=== PATIENT | female | born 1945 | race Caucasian/White ===

== ENCOUNTER 2017-01-02 23:45 | Emergency (ER) | payer MEDICARE, BC ==
[2017-01-02 23:57] VITALS: BP 170/74; PULSE 65; RESP 20; TEMP 98.2
[2017-01-03] MEDS ORDERED: CEPHALEXIN 500MG STARTER PACK 4 CAP BTL PO STA (00:17)
--- NOTE | 2017-01-03 00:17 | ED ---
Skin/Abscess/FB HPI - General Chief complaint: Skin/Abscess/Foreign Body Stated complaint: Bump on Head Time Seen by Provider: 01/03/17 00:06 Source: patient, RN notes reviewed Mode of arrival: ambulatory Limitations: no limitations - History of Present Illness Initial comments: 71-year-old female presents to the emergency department with a chief complaint of bump to the left side of the head. Patient states noticed it tonight. She states she noticed a smaller lump to the left neck area, so she was concerned. He denies any fever chills cough, runny nose with this. Patient states she was outside a lot sensation over his related to that. Patient denies any injury. Patient states she just wanted make sure the bump was okay so she thought that she should be seen. Patient denies any recent fever, chills, shortness of breath , chest pain, back pain, abdominal pain, nausea vomiting, numbness or tingling, dysuria or hematuria, constipation or diarrhea, headaches or visual changes, or any other current symptoms. - Related Data Home Medications Medication Instructions Recorded Confirmed Aspirin 81 mg PO DAILY 05/23/14 05/23/14 Clopidogrel [Plavix] 75 mg PO DAILY 05/23/14 05/23/14 Furosemide [Lasix] 40 mg PO DAILY 05/23/14 05/23/14 Losartan [Cozaar] 50 mg PO DAILY 05/23/14 05/23/14 Metoprolol Tartrate [Lopressor] 50 mg PO BID 05/23/14 05/23/14 Multivitamins, Thera [Multivitamin] 1 tab PO DAILY 05/23/14 05/23/14 [place]-3 Fatty Acids/Fish Oil [Fish 1,000 mg PO DAILY 05/23/14 05/23/14 Oil 1,000 mg Softgel] Potassium Chloride ER [K-Dur 20] 20 meq PO DAILY 05/23/14 05/23/14 Simvastatin [Zocor] 40 mg PO DAILY 05/23/14 05/23/14 niCARdipine HCL 20 mg PO TID 05/23/14 05/23/14 Previous Rx's Medication Instructions Recorded Famotidine [Pepcid] 20 mg PO DAILY #30 tablet 05/23/14 Cephalexin [Keflex] 500 mg PO Q6HR #40 cap 01/03/17 Allergies Allergy/AdvReac Type Severity Reaction Status Date / Time No Known Allergies Allergy Verified 01/02/17 23:57 Review of Systems ROS Statement: Those systems with pertinent positive or pertinent negative responses have been documented in the HPI. ROS Other: All systems not noted in ROS Statement are negative. Past Medical History Past Medical History: Coronary Artery Disease (CAD), Chest Pain / Angina, Hyperlipidemia, Hypertension History of Any Multi-Drug Resistant Organisms: None Reported Past Surgical History: Cholecystectomy, Heart Catheterization, Heart Catheterization With Stent, Orthopedic Surgery, Tubal Ligation Additional Past Surgical History / Comment(s): bilat knee, cataract Past Anesthesia/Blood Transfusion Reactions: No Reported Reaction Date of Last Stent Placement:: 2005 Past Psychological History: No Psychological Hx Reported Smoking Status: Former smoker Past Alcohol Use History: None Reported Past Drug Use History: None Reported General Exam Limitations: no limitations General appearance: alert, in no apparent distress Head exam: Present: other (Patient appears to have an insect bites left-sided habitus localized reaction with mild erythema. No rashes noted to the area.) Eye exam: Present: normal appearance, PERRL, EOMI. Absent: scleral icterus, conjunctival injection, periorbital swelling ENT exam: Present: normal exam, mucous membranes moist Neck exam: Present: normal inspection, lymphadenopathy (1 single lymph node to the left lower aspect of the neck below the area of infection). Absent: tenderness, meningismus Respiratory exam: Present: normal lung sounds bilaterally. Absent: respiratory distress, wheezes, rales, rhonchi, stridor Cardiovascular Exam: Present: regular rate, normal rhythm, normal heart sounds. Absent: systolic murmur, diastolic murmur, rubs, gallop, clicks Neurological exam: Present: alert, oriented X3 Psychiatric exam: Present: normal affect, normal mood Skin exam: Present: warm, dry, intact, normal color. Absent: rash Course Vital Signs 01/02/17 23:53 Temperature 98.2 F Pulse Rate 65 Respiratory 20 Rate Blood Pressure 170/74 O2 Sat by Pulse 97 Oximetry Medical Decision Making - Medical Decision Making 70-year-old female presents for appears to be insect bites left side of the head. This measures. The concern for possible infection versus localized reaction. The patient Keflex for concern. We did discuss follow up with Dr. sears parameters all patient's questions. She states she understood and she is return plan. She will be discharged. Disposition Clinical Impression: Insect bite head Disposition: HOME SELF-CARE Condition: Stable Instructions: Insect Bite or Sting (ED) Additional Instructions: Please use medication as discussed. Please follow up with family doctor if symptoms have not improved over the next two days. Please return to the emergency room if your symptoms increase or worsen or for any other concerns. Prescriptions: Cephalexin [Keflex] 500 mg PO Q6HR #40 cap Referrals: Matthew Le MD [Primary Care Provider] - 1-2 days Time of Disposition: 00:17
== END 2017-01-03 00:27 | disposition home or self-care (01) ==
LOC: EC 23:45
DX: S00.96XA Insect bite (nonvenomous) of unspecified part of head, initial encounter (principal); R59.0 Localized enlarged lymph nodes; E78.5 Hyperlipidemia, unspecified; I10 Essential (primary) hypertension; Z87.891 Personal history of nicotine dependence; Z79.82 Long term (current) use of aspirin; Z79.899 Other long term (current) drug therapy; W57.XXXA Bitten or stung by nonvenomous insect and other nonvenomous arthropods, initial encounter
CPT/HCPCS: 99283

== ENCOUNTER 2018-01-16 20:28 | Observation (INO) | payer MEDICARE, BC ==
[2018-01-16] MEDS ORDERED: MORPHINE SULFATE 2 MG/ML SYRINGE IV STA (21:21)
[2018-01-16] MEDS ORDERED: ONDANSETRON 4 MG/2 ML VIAL IVP STA (21:21)
[2018-01-16] MEDS ORDERED: NITROGLYCERIN OINT 1 INCH/GM PACKET TOPICAL STA (21:21)
--- NOTE | 2018-01-16 21:24 | ED ---
General Adult HPI - General Chief complaint: Chest Pain Stated complaint: Chest Pain Time Seen by Provider: 01/16/18 20:41 Source: patient, EMS Mode of arrival: EMS Limitations: no limitations - History of Present Illness Initial comments: 72 years old female with history of coronary artery disease status post stents and angioplasty comes in with epigastric pain radiating to the chest. Chest pain gets worse with deep breaths she is known cardiac patient had a stents in place she is also status post gallbladder surgery and nausea no vomiting did notice some cold sweats pain travels from the chest. Chest and then also affects. Review of system is unremarkable otherwise - Related Data Home Medications Medication Instructions Recorded Confirmed Aspirin 81 mg PO HS 05/23/14 01/16/18 Furosemide [Lasix] 40 mg PO DAILY 05/23/14 01/16/18 Losartan [Cozaar] 50 mg PO DAILY 05/23/14 01/16/18 Multivitamins, Thera [Multivitamin] 1 tab PO DAILY 05/23/14 01/16/18 [place]-3 Fatty Acids/Fish Oil [Fish 1,000 mg PO DAILY 05/23/14 01/16/18 Oil 1,000 mg Softgel] Potassium Chloride ER [K-Dur 20] 20 meq PO DAILY 05/23/14 01/16/18 Aspirin EC [Ecotrin Low Dose] 324 mg PO ONCE PRN 01/16/18 01/16/18 Atorvastatin [Lipitor] 40 mg PO HS 01/16/18 01/16/18 Docusate [Colace] 100 mg PO DAILY 01/16/18 01/16/18 Nitroglycerin Sl Tabs [Nitrostat] 0.4 mg SUBLINGUAL Q5M PRN 01/16/18 01/16/18 amLODIPine [Norvasc] 5 mg PO DAILY 01/16/18 01/16/18 Allergies Allergy/AdvReac Type Severity Reaction Status Date / Time No Known Allergies Allergy Verified 01/16/18 20:45 Review of Systems ROS Statement: Those systems with pertinent positive or pertinent negative responses have been documented in the HPI. ROS Other: All systems not noted in ROS Statement are negative. Past Medical History Past Medical History: Coronary Artery Disease (CAD), Chest Pain / Angina, Hyperlipidemia, Hypertension History of Any Multi-Drug Resistant Organisms: None Reported Past Surgical History: Cholecystectomy, Heart Catheterization, Heart Catheterization With Stent, Orthopedic Surgery, Tubal Ligation Additional Past Surgical History / Comment(s): bilat knee, cataract Past Anesthesia/Blood Transfusion Reactions: No Reported Reaction Date of Last Stent Placement:: 2005 Past Psychological History: No Psychological Hx Reported Smoking Status: Former smoker Past Alcohol Use History: None Reported Past Drug Use History: None Reported General Exam - General Exam Comments Initial Comments: General: The patient is awake and alert, in no distress, and does not appear acutely ill. Skin: Skin is warm and dry and no rashes or lesions are noted. Eye: Pupils are equal, round and reactive to light, extra-ocular movements are intact; there is normal conjunctiva bilaterally. Ears, nose, mouth and throat: There are moist mucous membranes and no oral lesions. Neck: The neck is supple, there is no tenderness or JVD. Cardiovascular: There is a regular rate and rhythm. No murmur, rub or gallop is appreciated. Respiratory: To auscultation bilateral, crease breath sounds bilateral Gastrointestinal: Soft, non-distended, non-tender abdomen without masses or organomegaly noted. There is no rebound or guarding present. Bowel sounds are unremarkable. Back: There is no tenderness to palpation in the midline. There is no obvious deformity. Musculoskeletal: Normal ROM, no tenderness, There is no pedal edema. There is no calf tenderness or swelling. No cords were appreciated. Neurological: CN II-XII intact, Cranial nerves III through XII are intact. There are no obvious motor or sensory deficits. Coordination appears grossly intact. Speech is normal. Psychiatric: Cooperative, appropriate mood & affect, normal judgment. Limitations: no limitations Course Vital Signs 01/16/18 01/16/18 01/16/18 20:33 20:40 20:44 Temperature 97 F L 97.0 F L Pulse Rate 80 82 Respiratory 16 16 16 Rate Blood Pressure 183/64 183/64 O2 Sat by Pulse 97 99 Oximetry 01/16/18 01/17/18 22:48 00:17 Temperature 97.5 F L 97.0 F L Pulse Rate 90 76 Respiratory 16 16 Rate Blood Pressure 173/74 129/59 O2 Sat by Pulse 96 94 L Oximetry Review of the labs and imaging is as follows CBC, CMP, troponin is unremarkable EKG was negative as well d-dimer was elevated CT angiogram ruled out pulmonary embolism considering her ischemic heart disease and continues chest pain she be admitted to the hospital with the cardiology consult she be admitted to [facility] EKG Findings - EKG Comments: EKG Findings:: G is normal sinus ventricular rate is 77 PA interval is 170 QRS duration is 82 QT/QTc is 386/426 review cc EKG does not reveal any ST elevation or ST depression Medical Decision Making - Lab Data Result diagrams: 01/16/18 21:00 01/16/18 21:00 Lab Results 01/16/18 01/16/18 01/16/18 Range/Units 21:00 21:00 21:00 WBC 6.7 (3.8-10.6) k/uL RBC 4.25 (3.80-5.40) m/uL Hgb 12.9 (11.4-16.0) gm/dL Hct 39.5 (34.0-46.0) % MCV 92.9 (80.0-100.0) fL MCH 30.5 (25.0-35.0) pg MCHC 32.8 (31.0-37.0) g/dL RDW 13.1 (11.5-15.5) % Plt Count 175 (150-450) k/uL Neutrophils % 65 % Lymphocytes % 22 % Monocytes % 8 % Eosinophils % 2 % Basophils % 1 % Neutrophils # 4.4 (1.3-7.7) k/uL Lymphocytes # 1.5 (1.0-4.8) k/uL Monocytes # 0.6 (0-1.0) k/uL Eosinophils # 0.2 (0-0.7) k/uL Basophils # 0.0 (0-0.2) k/uL PT (9.0-12.0) sec INR (<1.2) APTT (22.0-30.0) sec D-Dimer (<0.60) mg/L FEU Sodium 139 (137-145) mmol/L Potassium 3.6 (3.5-5.1) mmol/L Chloride 104 (98-107) mmol/L Carbon Dioxide 26 (22-30) mmol/L Anion Gap 9 mmol/L BUN 18 H (7-17) mg/dL Creatinine 0.60 (0.52-1.04) mg/dL Est GFR (CKD-EPI)AfAm >90 (>60 ml/min/1.73 sqM) Est GFR (CKD-EPI)NonAf >90 (>60 ml/min/1.73 sqM) Glucose 110 H (74-99) mg/dL Calcium 9.3 (8.4-10.2) mg/dL Magnesium 2.1 (1.6-2.3) mg/dL Total Bilirubin 0.4 (0.2-1.3) mg/dL AST 27 (14-36) U/L ALT 31 (9-52) U/L Alkaline Phosphatase 103 (38-126) U/L Total Creatine Kinase 83 (30-135) U/L CK-MB (CK-2) 1.1 (0.0-2.4) ng/mL CK-MB (CK-2) Rel Index 1.3 Troponin I <0.012 (0.000-0.034) ng/mL NT-Pro-B Natriuret Pep pg/mL Total Protein 7.0 (6.3-8.2) g/dL Albumin 4.0 (3.5-5.0) g/dL 01/16/18 01/16/18 Range/Units 21:00 21:00 WBC (3.8-10.6) k/uL RBC (3.80-5.40) m/uL Hgb (11.4-16.0) gm/dL Hct (34.0-46.0) % MCV (80.0-100.0) fL MCH (25.0-35.0) pg MCHC (31.0-37.0) g/dL RDW (11.5-15.5) % Plt Count (150-450) k/uL Neutrophils % % Lymphocytes % % Monocytes % % Eosinophils % % Basophils % % Neutrophils # (1.3-7.7) k/uL Lymphocytes # (1.0-4.8) k/uL Monocytes # (0-1.0) k/uL Eosinophils # (0-0.7) k/uL Basophils # (0-0.2) k/uL PT 9.9 (9.0-12.0) sec INR 1.0 (<1.2) APTT 19.9 L (22.0-30.0) sec D-Dimer 0.88 H (<0.60) mg/L FEU Sodium (137-145) mmol/L Potassium (3.5-5.1) mmol/L Chloride (98-107) mmol/L Carbon Dioxide (22-30) mmol/L Anion Gap mmol/L BUN (7-17) mg/dL Creatinine (0.52-1.04) mg/dL Est GFR (CKD-EPI)AfAm (>60 ml/min/1.73 sqM) Est GFR (CKD-EPI)NonAf (>60 ml/min/1.73 sqM) Glucose (74-99) mg/dL Calcium (8.4-10.2) mg/dL Magnesium (1.6-2.3) mg/dL Total Bilirubin (0.2-1.3) mg/dL AST (14-36) U/L ALT (9-52) U/L Alkaline Phosphatase (38-126) U/L Total Creatine Kinase (30-135) U/L CK-MB (CK-2) (0.0-2.4) ng/mL CK-MB (CK-2) Rel Index Troponin I (0.000-0.034) ng/mL NT-Pro-B Natriuret Pep 162 pg/mL Total Protein (6.3-8.2) g/dL Albumin (3.5-5.0) g/dL Disposition Clinical Impression: Chest pain Disposition: ADMITTED IP TO THIS HOSP Condition: Good Referrals: Matthew Le MD [Primary Care Provider] - 1-2 days
[2018-01-16 21:40] LABS: Basophils % (A) 1 %; Eosinophils # (A) 0.2 k/uL (0-0.7); Eosinophils % (A) 2 %; HCT 39.5 % (34.0-46.0); HGB 12.9 gm/dL (11.4-16.0); Lymphocytes # (A) 1.5 k/uL (1.0-4.8); Lymphocytes % (A) 22 %; MCH 30.5 pg (25.0-35.0); MCHC 32.8 g/dL (31.0-37.0); MCV 92.9 fL (80.0-100.0); Mean Platelet Volume 7.8; Monocytes # (A) 0.6 k/uL (0-1.0); Monocytes % (A) 8 %; Neutrophils # (A) 4.4 k/uL (1.3-7.7); Neutrophils % (A) 65 %; Platelet Count 175 k/uL (150-450); RBC 4.25 m/uL (3.80-5.40); RDW 13.1 % (11.5-15.5); WBC 6.7 k/uL (3.8-10.6)
[2018-01-16 21:55] LABS: ALT 31 U/L (9-52); AST 27 U/L (14-36); Alkaline Phosphatase 103 U/L (38-126); Anion Gap 9 mmol/L; Blood Urea Nitrogen 18 mg/dL (7-17); Calcium 9.3 mg/dL (8.4-10.2); Carbon Dioxide 26 mmol/L (22-30); Chloride 104 mmol/L (98-107); Glucose 110 mg/dL (74-99); Magnesium 2.1 mg/dL (1.6-2.3); Potassium 3.6 mmol/L (3.5-5.1); Sodium 139 mmol/L (137-145); Total Bilirubin 0.4 mg/dL (0.2-1.3)
--- NOTE | 2018-01-16 21:55 | XR ---
EXAMINATION TYPE: XR chest 2V DATE OF EXAM: 01/16/2018 COMPARISON: 05/23/2014 HISTORY: Chest pain TECHNIQUE: Frontal and lateral views of the chest are obtained. FINDINGS: There is no heart failure nor confluent pneumonic infiltrate. There is hiatal hernia. Cost ophrenic angles are clear. There are chest leads. Bony thorax is intact. IMPRESSION: No active cardiopulmonary disease. Hiatal hernia. No change.
[2018-01-16 22:00] LABS: Creatine Kinase 83 U/L (30-135)
[2018-01-16 22:04] LABS: Prothrombin Time 9.9 sec (9.0-12.0)
[2018-01-16 22:11] LABS: Partial Thromboplastin Time 19.9 sec (22.0-30.0)
[2018-01-16 22:12] LABS: D-Dimer 0.88 mg/L FEU (<0.60)
[2018-01-16 22:13] LABS: Creatine Kinase MB 1.1 ng/mL (0.0-2.4); Troponin I <0.012 ng/mL (0.000-0.034)
--- NOTE | 2018-01-16 23:50 | CT ---
EXAMINATION TYPE: CT chest angio for PE DATE OF EXAM: 01/16/2018 COMPARISON: NONE HISTORY: chest pain CT DLP: 799.60 mGycm Automated exposure control for dose reduction was used. CONTRAST: CT Chest for pulmonary embolism performed with with IV Contrast, patient injected with 80 mL of Isovu e 370. FINDINGS: There are 3-D post processed images. The lungs are clear of consolidation. There is a large hiatal he rnia. There is some atelectasis at the left lung base adjacent to the hiatal hernia. There is no pleu ral effusion. There is normal contrast opacification of the pulmonary arteries. I see no filling defect. There is n o sign of aneurysm or dissection of the thoracic aorta. There is no mediastinal adenopathy. There are small bronchial lymph nodes that measure up to 1 cm. There is no pericardial effusion. The bony thor ax is intact. There is spurring in the thoracic spine. IMPRESSION: Hiatal hernia. No evidence of pulmonary embolism.
[2018-01-17] MEDS ORDERED: MORPHINE SULFATE 2 MG/ML SYRINGE IV PRN (00:30)
[2018-01-17] MEDS ORDERED: NITROGLYCERIN SL TABS 0.4 MG TAB SUBLINGUAL PRN (00:30)
[2018-01-17 02:27] VITALS: BMI 47.2
[2018-01-17 03:21] LABS: Creatine Kinase 79 U/L (30-135)
[2018-01-17 03:35] LABS: Creatine Kinase MB 0.9 ng/mL (0.0-2.4); Troponin I <0.012 ng/mL (0.000-0.034)
[2018-01-17] MEDS ORDERED: DOCUSATE 100 MG CAP PO SCH (09:00)
[2018-01-17] MEDS ORDERED: NON-FORMULARY DRUG (Omega-3 Fatty Acids/Fish Oil [Fish Oil 1,000 Mg Softgel] 1,000 MG) PO SCH (09:00)
[2018-01-17] MEDS ORDERED: amLODIPine 5 MG TAB PO SCH (09:00)
[2018-01-17] MEDS ORDERED: FUROSEMIDE 40 MG TAB PO SCH (09:00)
[2018-01-17] MEDS ORDERED: POTASSIUM CHLORIDE ER 20 MEQ TAB.ER PO SCH (09:00)
[2018-01-17] MEDS ORDERED: LOSARTAN 50 MG TAB PO SCH (09:00)
--- NOTE | 2018-01-17 09:11 | P.CRDCN ---
History of Present Illness Consult date: 01/17/18 Consult reason: chest pain Chief complaint: Chest pain History of present illness: This is a pleasant 72-year-old female with history of hypertension, hyperlipidemia, obesity, with history of stenting of the circumflex artery in [place] in 2005. She follows with Dr. Bennett in the office. Patient overall has been doing fairly well at home, she presents to the hospital with symptoms of chest discomfort. According to the patient, symptoms initially started in the upper abdominal region, then radiated up midsternally into the chest and across the left side of her chest. States that she drinks some cola trying to see if she could belch, thinking it was gas pain. because of symptoms persisted she came to the emergency room for further evaluation. EKG performed on arrival here shows a normal sinus rhythm with no acute changes. Chest x-ray did not reveal any active cardiopulmonary disease. Blood pressure 124/50 with a heart rate in the 60s. CBC normal, d-dimer 0.8, CT of the chest negative for pulmonary embolism. Sodium 139, potassium 3.6, BUN 18, creatinine 0.6. Troponins negative 2. At the time of my examination this morning, she does complain of some mild abdominal discomfort, denies any chest discomfort. Past Medical History Past Medical History: Coronary Artery Disease (CAD), Chest Pain / Angina, Hyperlipidemia, Hypertension History of Any Multi-Drug Resistant Organisms: None Reported Past Surgical History: Cholecystectomy, Heart Catheterization, Heart Catheterization With Stent, Orthopedic Surgery, Tubal Ligation Additional Past Surgical History / Comment(s): bilat knee, cataract, skin CA 2017 Past Anesthesia/Blood Transfusion Reactions: No Reported Reaction Date of Last Stent Placement:: 2005 Past Psychological History: No Psychological Hx Reported Smoking Status: Former smoker Past Alcohol Use History: None Reported Past Drug Use History: None Reported Medications and Allergies Home Medications Medication Instructions Recorded Confirmed Type Aspirin 81 mg PO HS 05/23/14 01/16/18 History Furosemide [Lasix] 40 mg PO DAILY 05/23/14 01/16/18 History Losartan [Cozaar] 50 mg PO DAILY 05/23/14 01/16/18 History Multivitamins, Thera [Multivitamin] 1 tab PO DAILY 05/23/14 01/16/18 History [place]-3 Fatty Acids/Fish Oil [Fish 1,000 mg PO DAILY 05/23/14 01/16/18 History Oil 1,000 mg Softgel] Potassium Chloride ER [K-Dur 20] 20 meq PO DAILY 05/23/14 01/16/18 History Aspirin EC [Ecotrin Low Dose] 324 mg PO ONCE PRN 01/16/18 01/16/18 History Atorvastatin [Lipitor] 40 mg PO HS 01/16/18 01/16/18 History Docusate [Colace] 100 mg PO DAILY 01/16/18 01/16/18 History Nitroglycerin Sl Tabs [Nitrostat] 0.4 mg SUBLINGUAL Q5M PRN 01/16/18 01/16/18 History amLODIPine [Norvasc] 5 mg PO DAILY 01/16/18 01/16/18 History Allergies Allergy/AdvReac Type Severity Reaction Status Date / Time No Known Allergies Allergy Verified 01/16/18 20:45 Physical Exam Vitals: Vital Signs Temp Pulse Pulse Resp BP BP Pulse Ox 01/17/18 07:32 96.6 F L 62 16 124/56 95 01/17/18 04:00 97.2 F L 64 16 107/55 96 01/17/18 01:41 97.0 F L 62 16 130/62 96 01/17/18 00:48 97.0 F L 69 20 138/75 95 01/17/18 00:17 97.0 F L 76 16 129/59 94 L 01/16/18 22:48 97.5 F L 90 16 173/74 96 01/16/18 20:44 16 01/16/18 20:40 97.0 F L 82 16 183/64 99 01/16/18 20:33 97 F L 80 16 183/64 97 Intake and Output 01/16/18 01/17/18 01/17/18 22:59 06:59 14:59 Other: Voiding Method Toilet Toilet # Voids 1 1 Weight 122.47 kg 124.9 kg PHYSICAL EXAMINATION: GENERAL: 72-year-old female in no apparent distress at time of my examination. HEENT: Head is atraumatic, normocephalic. Pupils equal, round. Sclera anicteric. Conjunctiva are clear. Mucous membranes of the mouth are moist. Neck is supple. There is no elevated jugular venous pressure.] bruit is heard. HEART EXAMINATION: Heart S1, S2 normal. No murmur or gallop heard. CHEST EXAMINATION: Lungs are clear to auscultation and precussion. No chest wall tenderness is noted on palpation or with deep breathing. ABDOMEN: Soft, obese, mild generalized tenderness. Bowel sounds are heard. No organomegaly noted]. EXTREITIES:[ 2+ periperal pulses with trace evidence of peripheral edema and no calf tenderness noted]. NEUROLGIC [patient i awake, alert and oriented -3.] . Results 01/16/18 21:00 01/16/18 21:00 Cardiac Enzymes 01/16/18 01/16/18 01/17/18 Range/Units 21:00 21:00 02:49 AST 27 (14-36) U/L CK-MB (CK-2) 1.1 0.9 (0.0-2.4) ng/mL Troponin I <0.012 <0.012 (0.000-0.034) ng/mL Coagulation 01/16/18 Range/Units 21:00 PT 9.9 (9.0-12.0) sec APTT 19.9 L (22.0-30.0) sec CBC 01/16/18 Range/Units 21:00 WBC 6.7 (3.8-10.6) k/uL RBC 4.25 (3.80-5.40) m/uL Hgb 12.9 (11.4-16.0) gm/dL Hct 39.5 (34.0-46.0) % Plt Count 175 (150-450) k/uL Comprehensive Metabolic Panel 01/16/18 Range/Units 21:00 Sodium 139 (137-145) mmol/L Potassium 3.6 (3.5-5.1) mmol/L Chloride 104 (98-107) mmol/L Carbon Dioxide 26 (22-30) mmol/L BUN 18 H (7-17) mg/dL Creatinine 0.60 (0.52-1.04) mg/dL Glucose 110 H (74-99) mg/dL Calcium 9.3 (8.4-10.2) mg/dL AST 27 (14-36) U/L ALT 31 (9-52) U/L Alkaline Phosphatase 103 (38-126) U/L Total Protein 7.0 (6.3-8.2) g/dL Albumin 4.0 (3.5-5.0) g/dL Current Medications Generic Name Dose Route Start Last Admin Trade Name Steven PRN Reason Stop Dose Admin Amlodipine Besylate 5 mg 01/17/18 09:00 01/17/18 07:38 Norvasc PO 5 mg DAILY ROSA Administration Aspirin 325 mg 01/18/18 09:00 Aspirin PO DAILY ROSA Atorvastatin Calcium 40 mg 01/17/18 21:00 Lipitor PO HS ROSA Docusate Sodium 100 mg 01/17/18 09:00 01/17/18 07:39 Colace PO 100 mg DAILY ROSA Administration Furosemide 40 mg 01/17/18 09:00 01/17/18 07:38 Lasix PO 40 mg DAILY ROSA Administration Losartan Potassium 50 mg 01/17/18 09:00 01/17/18 07:38 Cozaar PO 50 mg DAILY ROSA Administration Morphine Sulfate 4 mg 01/17/18 00:30 Morphine Sulfate (Inj) IV Q5M PRN Chest Pain Multivitamins 1 each 01/17/18 12:00 01/17/18 07:39 Theragran PO 1 each DAILY@1200 ROSA Administration Nitroglycerin 0.4 mg 01/17/18 00:30 Nitrostat SUBLINGUAL Q5M PRN Chest Pain Potassium Chloride 20 meq 01/17/18 09:00 01/17/18 07:38 K-Dur 20 PO 20 meq DAILY ROSA Administration Intake and Output 01/16/18 01/17/18 01/17/18 22:59 06:59 14:59 Other: Voiding Method Toilet Toilet # Voids 1 1 Weight 122.47 kg 124.9 kg 01/16/18 21:00 01/16/18 21:00 EKG Interpretations (text) Assessment and plan #1 chest pain, atypical for acute coronary syndrome. Troponins negative 3. EKG shows normal sinus rhythm with no acute changes. #2 generalized abdominal discomfort #3 known history of coronary artery disease with prior circumflex stenting in 2006 in [place] #4 hypertension #5 hyperlipidemia #6 obesity Plan We will obtain an echocardiogram with Doppler study. Patient is also been advised to undergo stress testing. Further recommendations will be based on these findings and the patient's clinical course. DNP note has been reviewed, I agree with a documented findings and plan of care. Patient was seen and examined.
[2018-01-17 09:49] LABS: Creatine Kinase 89 U/L (30-135)
[2018-01-17 09:58] LABS: Creatine Kinase MB 1.2 ng/mL (0.0-2.4); Troponin I <0.012 ng/mL (0.000-0.034)
[2018-01-17] MEDS ORDERED: DOBUTamine DRIP for NUC MED 500 MG in DEXTROSE/WATER 1 250ML.BAG IV ONE (11:02)
--- NOTE | 2018-01-17 11:06 | P.CRDCN ---
History of Present Illness History of present illness: Patient presented with abdominal discomfort that radiated up into her chest and then to shoulder and left arm. Normal cardiac enzymes normal ECG. Suggest dobutamine stress echo with Definity contrast Please see full dictation by [employer]ER Past Medical History Past Medical History: Coronary Artery Disease (CAD), Chest Pain / Angina, Hyperlipidemia, Hypertension History of Any Multi-Drug Resistant Organisms: None Reported Past Surgical History: Cholecystectomy, Heart Catheterization, Heart Catheterization With Stent, Orthopedic Surgery, Tubal Ligation Additional Past Surgical History / Comment(s): bilat knee, cataract, skin CA 2017 Past Anesthesia/Blood Transfusion Reactions: No Reported Reaction Date of Last Stent Placement:: 2005 Past Psychological History: No Psychological Hx Reported Smoking Status: Former smoker Past Alcohol Use History: None Reported Past Drug Use History: None Reported Medications and Allergies Home Medications Medication Instructions Recorded Confirmed Type Aspirin 81 mg PO HS 05/23/14 01/16/18 History Furosemide [Lasix] 40 mg PO DAILY 05/23/14 01/16/18 History Losartan [Cozaar] 50 mg PO DAILY 05/23/14 01/16/18 History Multivitamins, Thera [Multivitamin] 1 tab PO DAILY 05/23/14 01/16/18 History Trosper-3 Fatty Acids/Fish Oil [Fish 1,000 mg PO DAILY 05/23/14 01/16/18 History Oil 1,000 mg Softgel] Potassium Chloride ER [K-Dur 20] 20 meq PO DAILY 05/23/14 01/16/18 History Aspirin EC [Ecotrin Low Dose] 324 mg PO ONCE PRN 01/16/18 01/16/18 History Atorvastatin [Lipitor] 40 mg PO HS 01/16/18 01/16/18 History Docusate [Colace] 100 mg PO DAILY 01/16/18 01/16/18 History Nitroglycerin Sl Tabs [Nitrostat] 0.4 mg SUBLINGUAL Q5M PRN 01/16/18 01/16/18 History amLODIPine [Norvasc] 5 mg PO DAILY 01/16/18 01/16/18 History Allergies Allergy/AdvReac Type Severity Reaction Status Date / Time No Known Allergies Allergy Verified 01/16/18 20:45 Physical Exam Vitals: Vital Signs Temp Pulse Pulse Resp BP BP Pulse Ox 01/17/18 07:32 96.6 F L 62 16 124/56 95 01/17/18 04:00 97.2 F L 64 16 107/55 96 01/17/18 01:41 97.0 F L 62 16 130/62 96 01/17/18 00:48 97.0 F L 69 20 138/75 95 01/17/18 00:17 97.0 F L 76 16 129/59 94 L 01/16/18 22:48 97.5 F L 90 16 173/74 96 01/16/18 20:44 16 01/16/18 20:40 97.0 F L 82 16 183/64 99 01/16/18 20:33 97 F L 80 16 183/64 97 Intake and Output 01/16/18 01/17/18 01/17/18 22:59 06:59 14:59 Other: Voiding Method Toilet Toilet # Voids 1 1 Weight 122.47 kg 124.9 kg Results 01/16/18 21:00 01/16/18 21:00 Cardiac Enzymes 01/16/18 01/16/18 01/17/18 Range/Units 21:00 21:00 02:49 AST 27 (14-36) U/L CK-MB (CK-2) 1.1 0.9 (0.0-2.4) ng/mL Troponin I <0.012 <0.012 (0.000-0.034) ng/mL 01/17/18 Range/Units 08:51 AST (14-36) U/L CK-MB (CK-2) 1.2 (0.0-2.4) ng/mL Troponin I <0.012 (0.000-0.034) ng/mL Coagulation 01/16/18 Range/Units 21:00 PT 9.9 (9.0-12.0) sec APTT 19.9 L (22.0-30.0) sec CBC 01/16/18 Range/Units 21:00 WBC 6.7 (3.8-10.6) k/uL RBC 4.25 (3.80-5.40) m/uL Hgb 12.9 (11.4-16.0) gm/dL Hct 39.5 (34.0-46.0) % Plt Count 175 (150-450) k/uL Comprehensive Metabolic Panel 01/16/18 Range/Units 21:00 Sodium 139 (137-145) mmol/L Potassium 3.6 (3.5-5.1) mmol/L Chloride 104 (98-107) mmol/L Carbon Dioxide 26 (22-30) mmol/L BUN 18 H (7-17) mg/dL Creatinine 0.60 (0.52-1.04) mg/dL Glucose 110 H (74-99) mg/dL Calcium 9.3 (8.4-10.2) mg/dL AST 27 (14-36) U/L ALT 31 (9-52) U/L Alkaline Phosphatase 103 (38-126) U/L Total Protein 7.0 (6.3-8.2) g/dL Albumin 4.0 (3.5-5.0) g/dL Current Medications Generic Name Dose Route Start Last Admin Trade Name Freq PRN Reason Stop Dose Admin Amlodipine Besylate 5 mg 01/17/18 09:00 01/17/18 07:38 Norvasc PO 5 mg DAILY ROSA Administration Aspirin 325 mg 01/18/18 09:00 Aspirin PO DAILY [facility] Atorvastatin Calcium 40 mg 01/17/18 21:00 Lipitor PO HS [facility] Docusate Sodium 100 mg 01/17/18 09:00 01/17/18 07:39 Colace PO 100 mg DAILY ROSA Administration Furosemide 40 mg 01/17/18 09:00 01/17/18 07:38 Lasix PO 40 mg DAILY ROSA Administration Losartan Potassium 50 mg 01/17/18 09:00 01/17/18 07:38 Cozaar PO 50 mg DAILY ROSA Administration Morphine Sulfate 4 mg 01/17/18 00:30 Morphine Sulfate (Inj) IV Q5M PRN Chest Pain Multivitamins 1 each 01/17/18 12:00 01/17/18 07:39 Theragran PO 1 each DAILY@1200 [facility] Administration Nitroglycerin 0.4 mg 01/17/18 00:30 Nitrostat SUBLINGUAL Q5M PRN Chest Pain Pantoprazole Sodium 40 mg 01/18/18 07:30 Protonix PO AC-BRKFST [facility] Potassium Chloride 20 meq 01/17/18 09:00 01/17/18 07:38 K-Dur 20 PO 20 meq DAILY ROSA Administration Intake and Output 01/16/18 01/17/18 01/17/18 22:59 06:59 14:59 Other: Voiding Method Toilet Toilet # Voids 1 1 Weight 122.47 kg 124.9 kg 01/16/18 21:00 01/16/18 21:00
--- NOTE | 2018-01-17 11:59 | P.HPIM ---
History of Present Illness H&P Date: 01/17/18 Chief Complaint: Epigastric pain, chest pain HISTORY AND PHYSICAL AND DISCHARGE SUMMARY: This is a 72-year-old female patient of Dr. Matthew Le and Dr. Jones with past mental history of coronary artery disease status post stent , hypertension, hyperlipidemia, obstructive sleep apnea on CPAP. Patient states that she developed pain across the top of her stomach at the epigastric area and the pain was very severe. She thought it was related to her gallbladder but then the pain went up into her chest and went to the left side into the left arm. She has never had these symptoms before. She states her heart was racing at that time. She denies any nausea, sweats. She states she had a little shortness of breath. She was feeling tired all day yesterday. Pain does not worsen with exertion. But she does state that she was under a lot of stress yesterday she found out that a family member had . Initially her pain was a 6 or 7. She called 911 and took 4 baby aspirins. She had nitroglycerin at home but did not take her own. EMS arrived and they gave her nitroglycerin which did help the pain. By the time she got to the emergency center she still had some pain and morphine did resolve this after a period of time. Patient denies having any pain after admission. EKG was a normal sinus rhythm with no acute ST-T wave changes. White count and hemoglobin were within normal limits, creatinine 0.6. Troponins have been negative on 3 draws. CTA of the chest was negative for pulmonary embolism. Chest x-ray shows no acute cardiopulmonary disease. Hiatal hernia. No change. Patient was placed on the selective care unit and cardiology consult requested. Echocardiogram reveals EF of 55-60%, moderate concentric left hypertrophy, left atrium mildly dilated, mild aortic valve sclerosis, mild mitral regurgitation, mild tricuspid regurgitation. Dobutamine stress test was negative and patient was clear for discharge from cardiology. Discharge Medication List Aspirin 81 mg PO HS 05/23/14 [History] Furosemide [Lasix] 40 mg PO DAILY 05/23/14 [History] Losartan [Cozaar] 50 mg PO DAILY 05/23/14 [History] Multivitamins, Thera [Multivitamin (formulary)] 1 tab PO DAILY 05/23/14 [History ] Bahama-3 Fatty Acids/Fish Oil [Fish Oil 1,000 mg Softgel] 1,000 mg PO DAILY 05/23 [History] Potassium Chloride ER [K-Dur 20] 20 meq PO DAILY 05/23/14 [History] Atorvastatin [Lipitor] 40 mg PO HS 01/16/18 [History] Docusate [Colace] 100 mg PO DAILY 01/16/18 [History] Nitroglycerin Sl Tabs [Nitrostat] 0.4 mg SUBLINGUAL Q5M PRN 01/16/18 [History] amLODIPine [Norvasc] 5 mg PO DAILY 01/16/18 [History] Pantoprazole [Protonix] 40 mg PO AC-BRKFST #30 tablet. 01/17/18 [Rx] Review of Systems All systems: negative Constitutional: Denies chills, Denies fever, Denies poor appetite Eyes: denies blurred vision, denies pain Ears, nose, mouth and throat: Denies headache, Denies sore throat, Denies vertigo Cardiovascular: Reports chest pain, Reports palpitations, Reports shortness of breath, Denies decreased exercise tolerance, Denies dyspnea on exertion, Denies leg edema, Denies lightheadedness, Denies syncope Respiratory: Reports dyspnea, Denies congestion, Denies cough, Denies cough with sputum, Denies excessive sputum, Denies hemoptysis, Denies home oxygen, Denies wheezing (State. All be faxed) Gastrointestinal: Reports abdominal pain, Denies diarrhea, Denies nausea, Denies vomiting Genitourinary: Denies dysuria, Denies hematuria, Denies urgency, Denies urinary frequency Musculoskeletal: Denies myalgias Integumentary: Denies pruritus, Denies rash, Denies wounds Neurological: Denies numbness, Denies weakness Psychiatric: Denies anxiety, Denies depression Endocrine: Denies fatigue, Denies weight change Past Medical History Past Medical History: Coronary Artery Disease (CAD), Chest Pain / Angina, Hyperlipidemia, Hypertension, Sleep Apnea/CPAP/BIPAP History of Any Multi-Drug Resistant Organisms: None Reported Past Surgical History: Cholecystectomy, Heart Catheterization, Heart Catheterization With Stent, Orthopedic Surgery, Tubal Ligation Additional Past Surgical History / Comment(s): bilat total knee arthroplasty, bilateral cataract removal and intraocular lens implants, skin CA 2017, breast biopsy Past Anesthesia/Blood Transfusion Reactions: No Reported Reaction Date of Last Stent Placement:: 2005 Past Psychological History: No Psychological Hx Reported Smoking Status: Former smoker Past Alcohol Use History: None Reported Additional Past Alcohol Use History / Comment(s): Patient was a smoker for 20 years and quit in 1979. She denies any medical marijuana, street drug use or alcohol use. She is retired from the [employer]. Past Drug Use History: None Reported - Past Family History Father Additional Family Medical History / Comment(s): Father at age 63 from coronary artery disease. Mother Additional Family Medical History / Comment(s): Mother at age 94 from heart disease. Sister(s) Additional Family Medical History / Comment(s): Patient had total of 4 sisters: One from coronary artery disease, one from COPD, one from an overdose Brother(s) Additional Family Medical History / Comment(s): Patient had 2 brothers and one has history of coronary artery disease and CABG as well as amputations. Second brother has no major medical problems. Patient has 4 adult children with no major medical problems. Medications and Allergies Home Medications Medication Instructions Recorded Confirmed Type Aspirin 81 mg PO HS 05/23/14 01/16/18 History Furosemide [Lasix] 40 mg PO DAILY 05/23/14 01/16/18 History Losartan [Cozaar] 50 mg PO DAILY 05/23/14 01/16/18 History Multivitamins, Thera [Multivitamin] 1 tab PO DAILY 05/23/14 01/16/18 History Bahama-3 Fatty Acids/Fish Oil [Fish 1,000 mg PO DAILY 05/23/14 01/16/18 History Oil 1,000 mg Softgel] Potassium Chloride ER [K-Dur 20] 20 meq PO DAILY 05/23/14 01/16/18 History Atorvastatin [Lipitor] 40 mg PO HS 01/16/18 01/16/18 History Docusate [Colace] 100 mg PO DAILY 01/16/18 01/16/18 History Nitroglycerin Sl Tabs [Nitrostat] 0.4 mg SUBLINGUAL Q5M PRN 01/16/18 01/16/18 History amLODIPine [Norvasc] 5 mg PO DAILY 01/16/18 01/16/18 History Pantoprazole [Protonix] 40 mg PO LORETTA #30 tablet. 01/17/18 Rx Allergies Allergy/AdvReac Type Severity Reaction Status Date / Time No Known Allergies Allergy Verified 01/16/18 20:45 Physical Exam Vitals: Vital Signs Temp Pulse Pulse Resp BP BP Pulse Ox 01/17/18 07:32 96.6 F L 62 16 124/56 95 01/17/18 04:00 97.2 F L 64 16 107/55 96 01/17/18 01:41 97.0 F L 62 16 130/62 96 01/17/18 00:48 97.0 F L 69 20 138/75 95 01/17/18 00:17 97.0 F L 76 16 129/59 94 L 01/16/18 22:48 97.5 F L 90 16 173/74 96 01/16/18 20:44 16 01/16/18 20:40 97.0 F L 82 16 183/64 99 01/16/18 20:33 97 F L 80 16 183/64 97 Intake and Output 01/16/18 01/17/18 01/17/18 22:59 06:59 14:59 Other: Voiding Method Toilet Toilet # Voids 1 1 Weight 122.47 kg 124.9 kg Gen: This is a morbidly obese 72-year-old female patient. She is sitting in a chair at the bedside and appears to be in no acute distress. No respiratory distress is noted. HEENT: Head is atraumatic, normocephalic. Pupils equal, round. Sclerae is anicteric. Oral mucous membranes are moist. NECK: Supple. No JVD. No lymphadenopathy. No thyromegaly. LUNGS: Clear to auscultation. No wheezes or rhonchi. No intercostal retractions. HEART: Regular rate and rhythm. No murmur. ABDOMEN: Morbidly obese. Soft. Bowel sounds are present. No masses. Mild epigastric tenderness. EXTREMITIES: Trace pedal edema. No calf tenderness. Dorsalis pedis is +2 bilaterally. NEUROLOGICAL: Patient is awake, alert and oriented x3. Cranial nerves 2 through 12 are grossly intact. Results CBC & Chem 7: 01/16/18 21:00 01/16/18 21:00 Labs: Abnormal Lab Results - Last 24 Hours (Table) 01/16/18 01/16/18 Range/Units 21:00 21:00 APTT 19.9 L (22.0-30.0) sec D-Dimer 0.88 H (<0.60) mg/L FEU BUN 18 H (7-17) mg/dL Glucose 110 H (74-99) mg/dL Thrombosis Risk Factor Assmnt - DVT/VTE Prophylaxis DVT/VTE Prophylaxis: Pharmacologic Prophylaxis ordered - Choose All That Apply Other Risk Factors: Yes Each Risk Factor Represents 2 Points: Age 61-74 years Other congenital or acquired thrombophilia - If yes, enter type in comment: No Thrombosis Risk Factor Assessment Total Risk Factor Score: 2 Thrombosis Risk Factor Assessment Level: Low Risk Assessment and Plan Plan: 1. Chest pain with negative troponins. Most likely chest pain is secondary to gastroesophageal reflux disease. 2. History of hiatal hernia and possible symptoms of GERD. Patient will be started on Protonix and plan to continue this at discharge. 3. Hypertension. Continue amlodipine 5 mg daily, losartan 50 mg daily, Lasix 40 mg daily. 4. Hyperlipidemia. Continue atorvastatin 40 mg at bedtime. 5. History of coronary artery disease status post stent. Patient normally follows with Dr. Bennett. Continue aspirin, Lipitor, losartan. 6. Obstructive sleep apnea on CPAP. Patient placed as observation status. Discharge plan:Return home Impression and plan of care have been directed as dictated by the signing physician. Julissa Miner nurse practitioner acting as scribe for signing physician.
[2018-01-17] MEDS ORDERED: MULTIVITAMINS, THERA 1 EACH TAB PO SCH (12:00)
--- NOTE | 2018-01-17 12:11 | ECHOF ---
Referral Reason:chest pain MEASUREMENTS -------- HEIGHT: 162.6 cm WEIGHT: 124.7 kg BP: 124/56 RVIDd: 2.6 cm (< 3.3) IVSd: 1.5 cm (0.6 - 1.1) LVIDd: 3.5 cm (3.9 - 5.3) LVPWd: 1.3 cm (0.6 - 1.1) IVSs: 1.7 cm LVIDs: 1.8 cm LVPWs: 2.0 cm Ao Diam: 3.3 cm (2.0 - 3.7) AV Cusp: 1.4 cm (1.5 - 2.6) LA Diam: 4.0 cm (2.7 - 3.8) MV EXCURSION: 13.189 mm (> 18.000) MV EF SLOPE: 71 mm/s (70 - 150) EPSS: 0.8 cm MV E Fred: 1.04 m/s MV DecT: 249 ms MV A Fred: 1.03 m/s MV E/A Ratio: 1.01 RAP: 5.00 mmHg RVSP: 21.14 mmHg FINDINGS -------- Sinus rhythm. This was a technically adequate study. The left ventricular size is normal. There is moderate concentric left ventricular hypertrophy. O verall left ventricular systolic function is normal with, an EF between 55 - 60 %. The right ventricle is normal in size and function. The left atrium is mildly dilated. The right atrium is normal in size. Aortic valve is trileaflet and is mildly thickened. There is mild aortic valve sclerosis. The mitral valve leaflets are mildly thickened. Mild mitral annular calcification present. Mild m itral regurgitation is present. Mild tricuspid regurgitation present. The right ventricular systolic pressure, as measured by Doppl er, is 21.14mmHg. Pulmonic valve appears structurally normal. The aortic root size is normal. The pericardium is normal. CONCLUSIONS -------- 1. Sinus rhythm. 2. This was a technically adequate study. 3. The left ventricular size is normal. 4. There is moderate concentric left ventricular hypertrophy. 5. Overall left ventricular systolic function is normal with, an EF between 55 - 60 %. 6. The right ventricle is normal in size and function. 7. The left atrium is mildly dilated. 8. The right atrium is normal in size. 9. Aortic valve is trileaflet and is mildly thickened. 10. There is mild aortic valve sclerosis. 11. The mitral valve leaflets are mildly thickened. 12. Mild mitral annular calcification present. 13. Mild mitral regurgitation is present. 14. Mild tricuspid regurgitation present. 15. The right ventricular systolic pressure, as measured by Doppler, is 21.14mmHg. 16. Pulmonic valve appears structurally normal. 17. The aortic root size is normal. 18. The pericardium is normal. CRACKLING PRESS OPERATOR: Carmen Haji RDCS
[2018-01-17 12:34] VITALS: BP 163/83; PULSE 75; RESP 14; TEMP 97.9
--- NOTE | 2018-01-17 13:00 | P.STRESS ---
- Stress Test Note Stress Test Results/Findings: Exam Performed: dobutamine stress echo with con Exam Date: 01/17/18 Reason for Exam: CHEST PAIN Height: 5 ft 4 in Weight: 124.738 kg Protocol: DSE Stage: 2 Duration of Exercise: 5:15 Resting Heart Rate: 64 Resting Blood Pressure: 120/63 Maximum Achieved Heart Rate: 129 Maximum Achieved Blood Pressure: 120/47 85% PMHR: 124 100% PMHR: 146 METS: NA Technologist Comment: Stress Test Results/Findings: This is a 72-year-old female with history of hypertension and hypercholesterolemia being evaluated for symptoms of chest pain and shortness of breath. Stress data: Baseline EKG showed sinus rhythm with normal [place] interval and QRS duration. Blood pressure at rest is 120/63, pulse rate of 64. A standard dose of dobutamine was was initiated at 10 mics and was titrated to 30 mics, achieving a max moderate of 129 with a blood pressure of 137/62. EKGs taken during and after the dobutamine infusion did not reveal any significant changes to suggest ischemia. Occasional PVCs were noted. Echo data. Baseline echo images showed normal wall motion and thickening. Exercise echo images at low-dose and high-dose dobutamine showed augmentation of the wall motion and thickening in all the segments. The study was done with contrast. Final impression: #1. Negative dobutamine stress test #2. Negative dobutamine stress echo.
[2018-01-17] MEDS ORDERED: ATORVASTATIN 40 MG TAB PO SCH (21:00)
[2018-01-18] MEDS ORDERED: PANTOPRAZOLE 40 MG TABLET PO SCH (07:30)
[2018-01-18] MEDS ORDERED: ASPIRIN 325 MG TAB PO SCH (09:00)
--- NOTE | 2018-01-22 14:24 | ECHOS ---
Stress Test Results/Findings: Exam Performed: dobutamine stress echo with con Exam Date: 01/17/18 Reason for Exam: CHEST PAIN Height: 5 ft 4 in Weight: 124.738 kg Protocol: DSE Stage: 2 Duration of Exercise: 5:15 Resting Heart Rate: 64 Resting Blood Pressure: 120/63 Maximum Achieved Heart Rate: 129 Maximum Achieved Blood Pressure: 120/47 85% PMHR: 124 100% PMHR: 146 METS: NA Technologist Comment: Stress Test Results/Findings: This is a 72-year-old female with history of hypertension and hypercholesterolemia being evaluated for symptoms of chest pain and shortness of breath. Stress data: Baseline EKG showed sinus rhythm with normal [place] interval and QRS duration. Blood pressure at rest is 120/63, pulse rate of 64. A standard dose of dobutamine was was initiated at 10 mics and was titrated to 30 mics, achieving a max moderate of 129 with a blood pressure of 137/62. EKGs taken during and after the dobutamine infusion did not reveal any significant changes to suggest ischemia. Occasional PVCs were noted. Echo data. Baseline echo images showed normal wall motion and thickening. Exercise echo images at low-dose and high-dose dobutamine showed augmentation of the wall motion and thickening in all the segments. The study was done with contrast. Final impression: #1. Negative dobutamine stress test #2. Negative dobutamine stress echo. [facility]
== END 2018-01-17 15:30 | disposition home or self-care (01) ==
LOC: EC 20:28 → 6SEL 01-17 00:29
PROVIDERS: ADMIT Internal Medicine; ATTEND Internal Medicine
DX: R07.89 Other chest pain (principal); R10.13 Epigastric pain; R06.02 Shortness of breath; R00.0 Tachycardia, unspecified; I25.10 Atherosclerotic heart disease of native coronary artery without angina pectoris; I10 Essential (primary) hypertension; E78.5 Hyperlipidemia, unspecified; K44.9 Diaphragmatic hernia without obstruction or gangrene; G47.33 Obstructive sleep apnea (adult) (pediatric); Z99.89 Dependence on other enabling machines and devices; E66.01 Morbid (severe) obesity due to excess calories; Z68.42 Body mass index [BMI] 45.0-49.9, adult; F43.9 Reaction to severe stress, unspecified; Z90.49 Acquired absence of other specified parts of digestive tract; Z79.82 Long term (current) use of aspirin; Z79.899 Other long term (current) drug therapy; Z95.5 Presence of coronary angioplasty implant and graft; Z87.891 Personal history of nicotine dependence; Z85.828 Personal history of other malignant neoplasm of skin; Z81.8 Family history of other mental and behavioral disorders; Z82.49 Family history of ischemic heart disease and other diseases of the circulatory system; Z82.5 Family history of asthma and other chronic lower respiratory diseases
CPT/HCPCS: 96376; 96374 ×2; 99285 ×2; 96375; 36415; 93005; 93306; 93351; 85379; 83880; 80053; 82550 ×2; 82553 ×2; 83735; 84484 ×2; 85025; 85610; 85730; 71046; 71275; G0378; J1250; J2405; J2270; Q9967

== ENCOUNTER 2018-06-18 16:50 | Observation (INO) | payer MEDICARE, BC ==
[2018-06-18 17:58] LABS: Basophils % (A) 1 %; Eosinophils # (A) 0.1 k/uL (0-0.7); Eosinophils % (A) 2 %; HGB 14.2 gm/dL (11.4-16.0); Lymphocytes # (A) 1.1 k/uL (1.0-4.8); Lymphocytes % (A) 16 %; MCH 31.1 pg (25.0-35.0); MCHC 32.9 g/dL (31.0-37.0); MCV 94.4 fL (80.0-100.0); Mean Platelet Volume 7.9; Monocytes # (A) 0.4 k/uL (0-1.0); Monocytes % (A) 6 %; Neutrophils # (A) 4.9 k/uL (1.3-7.7); Neutrophils % (A) 74 %; Platelet Count 178 k/uL (150-450); RBC 4.56 m/uL (3.80-5.40); RDW 13.4 % (11.5-15.5); WBC 6.6 k/uL (3.8-10.6)
[2018-06-18 18:09] LABS: ALT 24 U/L (9-52); AST 34 U/L (14-36); Albumin 4.1 g/dL (3.5-5.0); Alkaline Phosphatase 95 U/L (38-126); Anion Gap 8 mmol/L; Blood Urea Nitrogen 15 mg/dL (7-17); Carbon Dioxide 27 mmol/L (22-30); Chloride 105 mmol/L (98-107); Glucose 120 mg/dL (74-99); Magnesium 2.2 mg/dL (1.6-2.3); Sodium 140 mmol/L (137-145); Total Bilirubin 0.6 mg/dL (0.2-1.3); Total Protein 7.6 g/dL (6.3-8.2)
[2018-06-18 18:16] LABS: Potassium 4.2 mmol/L (3.5-5.1)
--- NOTE | 2018-06-18 18:16 | ED ---
General Adult HPI - General Chief complaint: Chest Pain Stated complaint: CHEST PAIN Source: patient, EMS, RN notes reviewed, old records reviewed Mode of arrival: EMS Limitations: no limitations - History of Present Illness Initial comments: 72-year-old female patient with past history of coronary artery disease, one stent presents to ED with abdominal pain, chest pain. Patient states that she had just finished putting away groceries. Sat down on the couch to relax. He began experiencing epigastric abdominal pain. Patient states that she has history of hiatal hernia, states this pain is similar. The abdominal pain rated up to her chest. Patient then began experiencing some substernal chest pain that then radiated to her left shoulder, neck and back. ageor history of back and neck pain and says that this pain is similar. Patient experienced this for approximately 90 minutes. Patient called EMS and was transported to Hospital. In route to hospital patient received 325 aspirin, 60 mics fentantyl , and 1 sublingual nitro. this cocktail relieved the patient's symptoms that she was experiencing. patient had additional complaint of mild substernal pleuritic chest pain during this episode. Patient denies shortness of breath, tachypnea, nausea vomiting diarrhea, fever/chills, diaphoresis, syncope or presyncope. Systemic: Pt denies fatigue, myalgia, fever/chills, rash. Pt denies weakness, night sweats, weight loss. Neuro: Pt denies headache, visual disturbances, syncope or pre-syncope. HEENT: Pt denies ocular discharge or irritation, otalgia, rhinorrhea, pharyngitis or notable lymphadenopathy. Cardiopulmonary: Pt denies heart palpitations, dyspnea on exertion. Abdominal/GI: Pt denies abdominal pain, n/v/d. : Pt denies dysuria, burning w/ urination, frequency/urgency. Denies new onset urinary or bowel incontinence. MSK: Pt denies myalgia, loss of strength or function in extremities. - Related Data Home Medications Medication Instructions Recorded Confirmed Aspirin 81 mg PO HS 05/23/14 06/18/18 Furosemide [Lasix] 40 mg PO DAILY 05/23/14 06/18/18 Losartan [Cozaar] 50 mg PO DAILY 05/23/14 06/18/18 Multivitamins, Thera [Multivitamin 1 tab PO DAILY 10/24/14 11/19/18 (formulary)] Potassium Chloride ER [K-Dur 20] 20 meq PO DAILY 05/23/14 06/18/18 Atorvastatin [Lipitor] 40 mg PO HS 01/16/18 06/18/18 Docusate [Colace] 100 mg PO DAILY 01/16/18 06/18/18 Nitroglycerin Sl Tabs [Nitrostat] 0.4 mg SUBLINGUAL Q5M PRN 01/16/18 06/18/18 amLODIPine [Norvasc] 5 mg PO DAILY 01/16/18 06/18/18 Fish Oil/Dha/Epa [Fish Oil 1,200 1 cap PO DAILY 06/18/18 06/18/18 mg Fish Oil] Ranitidine HCl 150 mg PO DAILY 06/18/18 06/18/18 Previous Rx's Medication Instructions Recorded Pantoprazole [Protonix] 40 mg PO AC-BRKFST #30 tablet. 01/17/18 Allergies Allergy/AdvReac Type Severity Reaction Status Date / Time No Known Allergies Allergy Verified 06/18/18 19:20 Review of Systems ROS Statement: Those systems with pertinent positive or pertinent negative responses have been documented in the HPI. ROS Other: All systems not noted in ROS Statement are negative. Past Medical History Past Medical History: Coronary Artery Disease (CAD), Chest Pain / Angina, Hyperlipidemia, Hypertension, Sleep Apnea/CPAP/BIPAP Additional Past Medical History / Comment(s): hiatal hernia History of Any Multi-Drug Resistant Organisms: None Reported Past Surgical History: Cholecystectomy, Heart Catheterization, Heart Catheterization With Stent, Orthopedic Surgery, Tubal Ligation Additional Past Surgical History / Comment(s): bilat total knee arthroplasty, bilateral cataract removal and intraocular lens implants, skin CA 2017, breast biopsy Past Anesthesia/Blood Transfusion Reactions: No Reported Reaction Date of Last Stent Placement:: 2005 Past Psychological History: No Psychological Hx Reported, Anxiety Smoking Status: Former smoker Past Alcohol Use History: None Reported Past Drug Use History: None Reported - Past Family History Father Additional Family Medical History / Comment(s): Father at age 63 from coronary artery disease. Mother Additional Family Medical History / Comment(s): Mother at age 94 from heart disease. Sister(s) Additional Family Medical History / Comment(s): Patient had total of 4 sisters: One from coronary artery disease, one from COPD, one from an overdose Brother(s) Additional Family Medical History / Comment(s): Patient had 2 brothers and one has history of coronary artery disease and CABG as well as amputations. Second brother has no major medical problems. Patient has 4 adult children with no major medical problems. General Exam - General Exam Comments Initial Comments: Constitutional: NAD, AOX3, Pt has pleasant affect. HEENT: NC/AT, trachea midline, neck supple, no lymphadenopathy. Posterior pharynx non erythematous, without exudates. External ears appear normal, without discharge. Mucous membranes moist. Eyes PERRLA, EOM intact. There is no scleral icterus. No pallor noted. Cardiopulmonary: RRR, no murmurs, rubs or gallops, no JVD noted. Lungs CTAB in anterior and posterior hensley. No peripheral edema. Abdominal exam: Abdomen soft and non-distended. Abdomen non-tender to palpation in all 4 quadrants, no pulsatile mass. Bowel sounds active in LLQ. No hepatosplenomegaly. Neuro: CN II-XII intact. no focal deficit. No difficulty speaking. Full range of motion, normal strength in all extremities.sensation intact. MSK: extremity pulses equal bilaterally. Radial pulse +2 bilaterally. Dorsalis pedis pulse +2 bilaterally. Tibialis posterior pulse +2 bilaterally. Limitations: no limitations Course Vital Signs 06/18/18 06/18/18 16:57 23:05 Temperature 97.6 F Pulse Rate 83 86 Respiratory 16 16 Rate Blood Pressure 161/73 158/72 O2 Sat by Pulse 97 98 Oximetry Medical Decision Making - Medical Decision Making 72-year-old female patient with past history of coronary artery disease, one stent presents to ED with abdominal pain, chest pain. Patient states that she had just finished putting away groceries. Sat down on the couch to relax. He began experiencing epigastric abdominal pain. Patient states that she has history of hiatal hernia, states this pain is similar. The abdominal pain rated up to her chest. Patient then began experiencing some substernal chest pain that then radiated to her left shoulder, neck and back. ageor history of back and neck pain and says that this pain is similar. physical exam did not display gross pathology. Regular rate and rhythm. Abdomen nontender to palpation. Chest pain reproducible. Extensive laboratory investigations conducted. These included an EKG which displayed no acute signs of ischemia. Troponin which was negative. CBC and CMP which were unimpressive. a d-dimer was ordered which is mildly elevated.this was followed up by a thoracic aorta CT with contrast. This did not display any acute pathology. Patient to be admitted to observation for further evaluation. Case discussed with Dr. Cyr. - Lab Data Result diagrams: 06/18/18 17:45 06/18/18 17:45 Lab Results 06/18/18 06/18/18 06/18/18 Range/Units 17:45 17:45 17:45 WBC 6.6 (3.8-10.6) k/uL RBC 4.56 (3.80-5.40) m/uL Hgb 14.2 (11.4-16.0) gm/dL Hct 43.0 (34.0-46.0) % MCV 94.4 (80.0-100.0) fL MCH 31.1 (25.0-35.0) pg MCHC 32.9 (31.0-37.0) g/dL RDW 13.4 (11.5-15.5) % Plt Count 178 (150-450) k/uL Neutrophils % 74 % Lymphocytes % 16 % Monocytes % 6 % Eosinophils % 2 % Basophils % 1 % Neutrophils # 4.9 (1.3-7.7) k/uL Lymphocytes # 1.1 (1.0-4.8) k/uL Monocytes # 0.4 (0-1.0) k/uL Eosinophils # 0.1 (0-0.7) k/uL Basophils # 0.0 (0-0.2) k/uL D-Dimer 0.67 H (<0.60) mg/L FEU Sodium 140 (137-145) mmol/L Potassium 4.2 (3.5-5.1) mmol/L Chloride 105 (98-107) mmol/L Carbon Dioxide 27 (22-30) mmol/L Anion Gap 8 mmol/L BUN 15 (7-17) mg/dL Creatinine 0.48 L (0.52-1.04) mg/dL Est GFR (CKD-EPI)AfAm >90 (>60 ml/min/1.73 sqM) Est GFR (CKD-EPI)NonAf >90 (>60 ml/min/1.73 sqM) Glucose 120 H (74-99) mg/dL Calcium 10.0 (8.4-10.2) mg/dL Magnesium 2.2 (1.6-2.3) mg/dL Total Bilirubin 0.6 (0.2-1.3) mg/dL AST 34 (14-36) U/L ALT 24 (9-52) U/L Alkaline Phosphatase 95 (38-126) U/L Troponin I (0.000-0.034) ng/mL Total Protein 7.6 (6.3-8.2) g/dL Albumin 4.1 (3.5-5.0) g/dL 06/18/18 Range/Units 17:45 WBC (3.8-10.6) k/uL RBC (3.80-5.40) m/uL Hgb (11.4-16.0) gm/dL Hct (34.0-46.0) % MCV (80.0-100.0) fL MCH (25.0-35.0) pg MCHC (31.0-37.0) g/dL RDW (11.5-15.5) % Plt Count (150-450) k/uL Neutrophils % % Lymphocytes % % Monocytes % % Eosinophils % % Basophils % % Neutrophils # (1.3-7.7) k/uL Lymphocytes # (1.0-4.8) k/uL Monocytes # (0-1.0) k/uL Eosinophils # (0-0.7) k/uL Basophils # (0-0.2) k/uL D-Dimer (<0.60) mg/L FEU Sodium (137-145) mmol/L Potassium (3.5-5.1) mmol/L Chloride (98-107) mmol/L Carbon Dioxide (22-30) mmol/L Anion Gap mmol/L BUN (7-17) mg/dL Creatinine (0.52-1.04) mg/dL Est GFR (CKD-EPI)AfAm (>60 ml/min/1.73 sqM) Est GFR (CKD-EPI)NonAf (>60 ml/min/1.73 sqM) Glucose (74-99) mg/dL Calcium (8.4-10.2) mg/dL Magnesium (1.6-2.3) mg/dL Total Bilirubin (0.2-1.3) mg/dL AST (14-36) U/L ALT (9-52) U/L Alkaline Phosphatase (38-126) U/L Troponin I <0.012 (0.000-0.034) ng/mL Total Protein (6.3-8.2) g/dL Albumin (3.5-5.0) g/dL - EKG Data -: EKG Interpreted by Me EKG Comments: normal sinus rhythm. Normal EKG. Ventricular rate 65.. Full and 80. QRS 82. QT/QTc 400/416. Disposition Clinical Impression: Chest pain Disposition: ADMITTED IP TO THIS HOSP Condition: Good Is patient prescribed a controlled substance at d/c from ED?: No Referrals: Matthew Le MD [Primary Care Provider] - 1-2 days
--- NOTE | 2018-06-18 19:19 | XR ---
EXAMINATION TYPE: XR chest 2V DATE OF EXAM: 06/18/2018 COMPARISON: 01/16/2018 HISTORY: Chest pain TECHNIQUE: Frontal and lateral views of the chest are obtained. FINDINGS: Heart is enlarged. Lungs are clear of infiltrate. There is no heart failure. I see no sign of pleural effusion. There is hiatal hernia. The bony thorax is intact. IMPRESSION: Hiatal hernia. No active cardiopulmonary disease. No change.
--- NOTE | 2018-06-18 21:02 | CT ---
EXAMINATION TYPE: CT angio thor/abd pel aorta DATE OF EXAM: 06/18/2018 COMPARISON: None HISTORY: Chest pain, pain in neck, back, radiating down left arm. Hx heart cath CT DLP: 4591.4 mGycm. Automated Exposure Control for Dose Reduction was Utilized. CONTRAST: CT scan of the thorax, abdomen and pelvis is performed with IV Contrast, patient injected with 100 mL of Isovue 370. Exam performed without and with IV contrast. FINDINGS: There are 3-D post processed images. Thoracic aorta is atheromatous. There is no evidence of aneurysm or dissection of the thoracic aorta. I see no filling defects in the pulmonary arteries. Heart is en larged. There is hiatal hernia. There is paraesophageal large hiatal hernia. There is no pericardial effusion. Abdominal aorta is atheromatous. There is patency of the celiac artery and superior mesente alistair artery. There is bilateral patency of the renal arteries. There is atherosclerotic plaque at the aortic bifurcation. There is arterial flow in the common internal and external iliac arteries. There is arterial flow in the proximal femoral arteries. There is suboptimal contrast density in the femora l arteries. I do not see evidence of aortic aneurysm or dissection. No significant stenosis is seen. There is some patchy atelectasis at the left lung base. Liver spleen pancreas appear normal. Bile ducts are not dilated. There is no adrenal mass. Kidneys sh ow satisfactory contrast opacification. There is no hydronephrosis. There is spondylotic change in th e thoracic and lumbar spine. I see no bony destructive process. Bony pelvis is intact. Bladder disten ds smoothly. Uterus is anteverted. There is no inguinal hernia. IMPRESSION: Atherosclerotic vascular disease. No evidence of aortic aneurysm or dissection. No definite evidence of hemodynamically significant stenosis. Large hiatal hernia.
[2018-06-18] MEDS ORDERED: NALOXONE 0.4 MG/ML 1 ML VIAL IV PRN (21:22)
[2018-06-18] MEDS ORDERED: NITROGLYCERIN SL TABS 0.4 MG TAB SUBLINGUAL PRN (21:26)
[2018-06-18] MEDS ORDERED: ASPIRIN 81 MG PO PRN (21:27)
[2018-06-18] MEDS ORDERED: PANTOPRAZOLE 40 MG TABLET PO STA (22:47)
[2018-06-19] MEDS: HEPARIN SODIUM,PORCINE 5,000 UNIT/ML 1 ML VIAL SQ SCH ×4 (02:56→23:15)
[2018-06-19] MEDS ORDERED: PANTOPRAZOLE 40 MG TABLET PO SCH (10:00)
[2018-06-19] MEDS: ACETAMINOPHEN TAB 325 MG TAB PO PRN ×2 (11:13→18:51)
[2018-06-19] MEDS: amLODIPine 5 MG TAB PO SCH (11:14)
[2018-06-19] MEDS: LOSARTAN 50 MG TAB PO SCH (11:14)
[2018-06-19] MEDS: FUROSEMIDE 40 MG TAB PO SCH (11:14)
[2018-06-19] MEDS: POTASSIUM CHLORIDE ER 20 MEQ TAB.ER PO SCH (11:14)
[2018-06-19] MEDS: MAG HYDROX/AL HYDROX/SIMETH 30 ML CUP PO SCH ×3 (12:03→20:32)
--- NOTE | 2018-06-19 16:05 | P.HPIM ---
History of Present Illness H&P Date: 06/19/18 Chief Complaint: Chest pain This is a 72-year-old pleasant female patient of Dr. Warner Le in Dr. Bennett. She has underlying history of CAD hypertension hyperlipidemia obstructive sleep apnea on CPAP machine, admitted to the emergency room secondary to chest discomfort. He shouldn't had epigastric pain that went to the anterior chest and the left shoulder, this was persistent in nature, occurred when the patient was resting, she was given nitroglycerin and aspirin and fentanyl nasal spray by the EMS and was subsequently seen in the emergency room. Patient's pain is lasted for more than an hour,. She also has dysphagia intermittent to foods, not solid liquids, no aspirated events, patient denies any cough no fever no chills, patient does not M any melena or hematochezia. She has had a stress test in December 2017, and was unremarkable. She also has cholecystectomy in the past. No history of EGD in the past. She has hiatal hernia. Last echocardiogram performed in December 2017 shows EF of 55-60%, moderate concentric LVH, left atrium mildly dilated, mild aortic valve sclerosis , mild mitral regurgitation, mild tricuspid regurgitation, dobutamine stress test was negative at that time, and was cleared by cardiology for discharge during her last admission 01/17/2018. EKG was done in the emergency room that shows normal sinus rhythm with no acute ST-T wave changes, normal EKG, troponins are negative 3, patient was seen in emergency room for evaluation, patient was uncomfortable on laying there overnight, she took some pills for home meds thereafter the pain started again she also has dysphagia, we'll going to consult GI service along with attaining x-ray modified barium esophagram, along with cardiology consultation. Review of Systems Constitutional: Reports as per HPI, Denies anorexia, Denies chills, Denies chronic headaches, Denies chronic pain, Denies daytime sleepiness, Denies fatigue, Denies fever, Denies lethargy, Denies malaise, Denies night sweats, Denies poor appetite, Denies sweats, Denies weakness, Denies weight gain, Denies weight loss Ears, nose, mouth and throat: Reports as per HPI, Reports odynophagia, Denies ant. neck pain, Denies bleeding gums, Denies dental pain, Denies dysphagia, Denies epistaxis, Denies headache, Denies hoarseness, Denies mouth pain, Denies nasal congestion, Denies nasal discharge, Denies neck fullness/pressure, Denies neck lump, Denies nose pain, Denies post-nasal drip, Denies sinus pain, Denies sinus pressure, Denies swelling in mouth, Denies swelling in throat, Denies sore throat, Denies vertigo, Denies voice changes Cardiovascular: Reports as per HPI, Reports chest pain, Denies claudication, Denies decreased exercise tolerance, Denies dyspnea on exertion, Denies edema, Denies high blood pressure, Denies irregular heart beat, Denies leg edema, Denies lightheadedness, Denies orthopnea, Denies palpitations, Denies paroxysmal nocturnal dyspnea, Denies phlebitis, Denies rapid heart beat, Denies shortness of breath, Denies syncope Respiratory: Reports as per HPI, Denies congestion, Denies cough, Denies cough with sputum, Denies dyspnea, Denies excessive sputum, Denies hemoptysis, Denies home oxygen, Denies pain, Denies pain on inspiration, Denies pleurisy, Denies respiratory infections, Denies sleep apnea, Denies snoring, Denies wheezing Gastrointestinal: Reports as per HPI, Reports abdominal pain, Denies belching, Denies bloating, Denies BRBPR, Denies change in bowel habits, Denies coffee ground emesis, Denies constipation, Denies diarrhea, Denies dyspepsia, Denies early satiety, Denies excessive gas, Denies heartburn, Denies hematemesis, Denies hematochezia, Denies indigestion, Denies jaundice, Denies lactose intolerance, Denies loss of appetite, Denies melena, Denies nausea, Denies vomiting Genitourinary: Reports as per HPI, Reports urge incontinence (None), Reports urgency (None), Reports urinary frequency (None) Menstruation: Reports as per HPI Musculoskeletal: Reports as per HPI, Reports gait dysfunction, Reports limitation of motion, Denies arm numbness/tingling, Denies atrophy, Denies fractures, Denies frequent falls, Denies hot joints, Denies leg numbness/ tingling, Denies loss of height, Denies low back pain, Denies morning stiffness , Denies muscle cramps, Denies muscle weakness, Denies myalgias, Denies neck pain, Denies neck stiffness, Denies prior amputations, Denies redness of joints , Denies shooting arm pain, Denies shooting leg pain Integumentary: Reports as per HPI, Denies acne, Denies boils, Denies brittle nails, Denies change in hair/nails, Denies color changes, Denies darkening of skin, Denies depigmentation, Denies dryness, Denies foot/leg ulcers, Denies growths, Denies hirsutism, Denies lesions, Denies onychomycosis, Denies pruritus , Denies rash, Denies sores, Denies striae, Denies unusual bruising, Denies wounds Neurological: Reports as per HPI, Denies aphasia, Denies ataxia, Denies balance difficulties, Denies burning pain, Denies change in mentation, Denies change in smell/taste, Denies change in speech, Denies confusion, Denies convulsions, Denies double vision, Denies gait dysfunction, Denies head injury, Denies headaches, Denies hearing difficulties, Denies lack of coordination, Denies loss of vision, Denies memory loss, Denies migraines, Denies motor disturbance, Denies numbness, Denies paralysis, Denies paresthesias, Denies seizures, Denies sensory deficit, Denies spasticity, Denies syncope, Denies tic, Denies tingling , Denies transient paralysis, Denies tremors, Denies vertigo, Denies weakness, Denies visual changes Psychiatric: Reports as per HPI, Reports irritability, Reports sleep disturbances Endocrine: Reports as per HPI, Reports weight change (Denies) Hematologic/Lymphatic: Reports as per HPI, Denies easy bleeding, Denies easy bruising, Denies lymphadenopathy, Denies lymphedema, Denies thrombophilia Allergic/Immunologic: Reports as per HPI, Denies allergic rhinitis, Denies anaphylaxis, Denies angioedema, Denies gluten intolerance, Denies persistent infections, Denies seasonal allergies, Denies urticaria, Denies wheezing Past Medical History Past Medical History: Coronary Artery Disease (CAD), Cancer, Chest Pain / Angina , GERD/Reflux, Hyperlipidemia, Hypertension, Pneumonia, Sleep Apnea/CPAP/BIPAP Additional Past Medical History / Comment(s): hiatal hernia, constipation, bilateral lower leg/ankle swelling, occasional back pain, DONNA with Cpap use occasionally. History of Any Multi-Drug Resistant Organisms: None Reported Past Surgical History: Breast Surgery, Cholecystectomy, Heart Catheterization, Heart Catheterization With Stent, Joint Replacement, Orthopedic Surgery, Tubal Ligation Additional Past Surgical History / Comment(s): bilat total knee arthroplasty, bilateral cataract removal and intraocular lens implants, skin CA 2017, bilateral benign breast biopsies Past Anesthesia/Blood Transfusion Reactions: No Reported Reaction Date of Last Stent Placement:: 2005 Smoking Status: Former smoker - Past Family History Father Additional Family Medical History / Comment(s): Father at age 63 from coronary artery disease. Mother Additional Family Medical History / Comment(s): Mother at age 94 from heart disease. Sister(s) Additional Family Medical History / Comment(s): Patient had total of 4 sisters: One from coronary artery disease, one from COPD, one from an overdose Brother(s) Additional Family Medical History / Comment(s): Patient had 2 brothers and one has history of coronary artery disease and CABG as well as amputations. Second brother has no major medical problems. Patient has 4 adult children with no major medical problems. Medications and Allergies Home Medications Medication Instructions Recorded Confirmed Type Aspirin 81 mg PO HS 05/23/14 06/18/18 History Furosemide [Lasix] 40 mg PO DAILY 05/23/14 06/18/18 History Losartan [Cozaar] 50 mg PO DAILY 05/23/14 06/18/18 History Multivitamins, Thera [Multivitamin 1 tab PO DAILY 05/23/14 06/18/18 History (formulary)] Potassium Chloride ER [K-Dur 20] 20 meq PO DAILY 05/23/14 06/18/18 History Atorvastatin [Lipitor] 40 mg PO HS 01/16/18 06/18/18 History Docusate [Colace] 100 mg PO DAILY 01/16/18 06/18/18 History Nitroglycerin Sl Tabs [Nitrostat] 0.4 mg SUBLINGUAL Q5M PRN 01/16/18 06/18/18 History amLODIPine [Norvasc] 5 mg PO DAILY 01/16/18 06/18/18 History Pantoprazole [Protonix] 40 mg PO LORETTA #30 brad. 01/17/18 06/18/18 Rx Fish Oil/Dha/Epa [Fish Oil 1,200 1 cap PO DAILY 06/18/18 06/18/18 History mg Fish Oil] Ranitidine HCl 150 mg PO DAILY 06/18/18 06/18/18 History Allergies Allergy/AdvReac Type Severity Reaction Status Date / Time No Known Allergies Allergy Verified 06/18/18 19:20 Physical Exam Vitals: Vital Signs Temp Pulse Pulse Resp BP BP BP 06/19/18 15:44 97.7 F 75 18 156/79 06/19/18 12:15 97.5 F L 68 18 170/82 06/19/18 12:09 98 F 93 18 145/88 06/19/18 11:19 92 18 146/78 06/19/18 09:59 98.3 F 18 158/71 06/19/18 06:00 98.7 F 84 20 145/79 06/19/18 04:00 80 18 140/53 06/19/18 03:00 81 18 167/84 06/19/18 02:59 80 19 167/84 06/19/18 02:30 18 06/19/18 02:00 79 17 162/74 06/19/18 01:00 79 17 165/82 06/19/18 00:00 72 17 158/66 06/18/18 23:33 06/18/18 23:05 86 16 158/72 06/18/18 16:57 97.6 F 83 16 161/73 Pulse Ox 06/19/18 15:44 98 06/19/18 12:15 99 06/19/18 12:09 96 06/19/18 11:19 98 06/19/18 09:59 06/19/18 06:00 97 06/19/18 04:00 97 06/19/18 03:00 97 06/19/18 02:59 96 06/19/18 02:30 06/19/18 02:00 97 06/19/18 01:00 97 06/19/18 00:00 96 06/18/18 23:33 96 06/18/18 23:05 98 06/18/18 16:57 97 Intake and Output 06/19/18 06/19/18 06/19/18 06:59 14:59 22:59 Other: Voiding Method Toilet # Voids 1 Weight 119.6 kg - Constitutional General appearance: cooperative, no acute distress - EENT Eyes: anicteric sclerae, EOMI, PERRLA ENT: NA/AT, normal oropharynx - Neck Neck: normal ROM - Respiratory Respiratory: bilateral: CTA, negative: diminished, dullness - Cardiovascular Rhythm: regular Heart sounds: normal: S1, S2 Abnormal Heart Sounds: no systolic murmur, no diastolic murmur, no rub, no S3 Gallop, no S4 Gallop, no click, no other - Gastrointestinal General gastrointestinal: normal bowel sounds, soft - Integumentary Integumentary: decreased turgor, normal - Neurologic Neurologic: CNII-XII intact - Musculoskeletal Musculoskeletal: gait normal, strength equal bilaterally - Psychiatric Psychiatric: A&O x's 3, appropriate affect, intact judgment & insight Results CBC & Chem 7: 06/18/18 17:45 06/18/18 17:45 Labs: Abnormal Lab Results - Last 24 Hours (Table) 06/18/18 06/18/18 Range/Units 17:45 17:45 D-Dimer 0.67 H (<0.60) mg/L FEU Creatinine 0.48 L (0.52-1.04) mg/dL Glucose 120 H (74-99) mg/dL Laboratory Results WBC 6.6 k/uL (3.8-10.6) 06/18/18 17:45 RBC 4.56 m/uL (3.80-5.40) 06/18/18 17:45 Hgb 14.2 gm/dL (11.4-16.0) 06/18/18 17:45 Hct 43.0 % (34.0-46.0) 06/18/18 17:45 MCV 94.4 fL (80.0-100.0) 06/18/18 17:45 MCH 31.1 pg (25.0-35.0) 06/18/18 17:45 MCHC 32.9 g/dL (31.0-37.0) 06/18/18 17:45 RDW 13.4 % (11.5-15.5) 06/18/18 17:45 Plt Count 178 k/uL (150-450) 06/18/18 17:45 Neutrophils % 74 % 06/18/18 17:45 Lymphocytes % 16 % 06/18/18 17:45 Monocytes % 6 % 06/18/18 17:45 Eosinophils % 2 % 06/18/18 17:45 Basophils % 1 % 06/18/18 17:45 Neutrophils # 4.9 k/uL (1.3-7.7) 06/18/18 17:45 Lymphocytes # 1.1 k/uL (1.0-4.8) 06/18/18 17:45 Monocytes # 0.4 k/uL (0-1.0) 06/18/18 17:45 Eosinophils # 0.1 k/uL (0-0.7) 06/18/18 17:45 Basophils # 0.0 k/uL (0-0.2) 06/18/18 17:45 D-Dimer 0.67 mg/L FEU (<0.60) H 06/18/18 17:45 Sodium 140 mmol/L (137-145) 06/18/18 17:45 Potassium 4.2 mmol/L (3.5-5.1) 06/18/18 17:45 Chloride 105 mmol/L (98-107) 06/18/18 17:45 Carbon Dioxide 27 mmol/L (22-30) 06/18/18 17:45 Anion Gap 8 mmol/L 06/18/18 17:45 BUN 15 mg/dL (7-17) 06/18/18 17:45 Creatinine 0.48 mg/dL (0.52-1.04) L 06/18/18 17:45 Est GFR (CKD-EPI)AfAm >90 (>60 ml/min/1.73 sqM) 06/18/18 17:45 Est GFR (CKD-EPI)NonAf >90 (>60 ml/min/1.73 sqM) 06/18/18 17:45 Glucose 120 mg/dL (74-99) H 06/18/18 17:45 Calcium 10.0 mg/dL (8.4-10.2) 06/18/18 17:45 Magnesium 2.2 mg/dL (1.6-2.3) 06/18/18 17:45 Total Bilirubin 0.6 mg/dL (0.2-1.3) 06/18/18 17:45 AST 34 U/L (14-36) 06/18/18 17:45 ALT 24 U/L (9-52) 06/18/18 17:45 Alkaline Phosphatase 95 U/L (38-126) 06/18/18 17:45 Troponin I <0.012 ng/mL (0.000-0.034) 06/19/18 05:42 Total Protein 7.6 g/dL (6.3-8.2) 06/18/18 17:45 Albumin 4.1 g/dL (3.5-5.0) 06/18/18 17:45 Lipase 41 U/L (23-300) 06/19/18 05:42 Thrombosis Risk Factor Assmnt - Choose All That Apply Any of the Below Risk Factors Present?: Yes Each Factor Represents 1 point: Obesity (BMI >25) Other Risk Factors: Yes Each Risk Factor Represents 2 Points: Age 61-74 years, Malignancy Other congenital or acquired thrombophilia - If yes, enter type in comment: No Thrombosis Risk Factor Assessment Total Risk Factor Score: 5 Thrombosis Risk Factor Assessment Level: High Risk Assessment and Plan Plan: 1. Atypical chest pain, cardiac troponins are negative 3, she had a stress test with dobutamine nuclear imaging in December 2017 which was unremarkable, she does have dysphagia, to solid foods, we'll going to evaluate her with an esophagram, consult with cardiology as well as GI service.. CTA of the abdomen and thoracic, shows no dissection or aneurysm, noted to have a large hiatal hernia, patent celiac artery and its mesenteric artery patent renal arteries plaque noted aortic bifurcation with low noted on, and internal and external iliac arteries 2. Dysphagia along with odynophagia, patient is on PPI, consult GI service, would need an EGD, to look for achalasia as well as strictures, esophagram to be done, patient might need dietary modification depending on imaging studies 3. Costochondritis noted on examination, vitamin D compliance was recommended, patient needs routine bone density measurements for age, without acute fractures noted current trauma 4. History of large hiatal hernia and symptoms of GERD. on Protonix continue this at discharge. 4. Hypertension. Continue amlodipine 5 mg daily, losartan 50 mg daily, Lasix 40 mg daily. 5 Hyperlipidemia. Continue atorvastatin 40 mg at bedtime. 6. History of coronary artery disease status post stent. Patient normally follows with Dr. Bennett. Continue aspirin, Lipitor, losartan. 7. Obstructive sleep apnea on CPAP. Patient placed as observation status. DVT prophylaxis with early ambulation
[2018-06-19] MEDS ORDERED: ATORVASTATIN 40 MG TAB PO SCH (21:00)
[2018-06-19] MEDS ORDERED: ASPIRIN 81 MG PO SCH (21:00)
--- NOTE | 2018-06-19 21:57 | P.CONS ---
History of Present Illness - Reason for Consult Consult date: 06/19/18 Dysphagia Requesting physician: Melissa Tan - Chief Complaint Chest and abdominal pain - History of Present Illness Very pleasant 72-year-old female with multiple medical comorbidities including coronary artery disease, angina and hypertension who presents to the hospital with complaints of abdominal and chest pain. Per the patient she had an episode of pain which she describes as in her stomach chest and into her back starting yesterday. The patient presented to the hospital for further evaluation. The patient reports that while at the hospital she had an episode of dysphagia where she had difficulty swallowing her pills. The patient reports that this will occur approximately 2 times per month usually with solids or pills when she has difficulty swallowing the pills and feeling as though they're getting stuck in her food pipe. She has had no episodes of impaction. She does report reflux which she treats at home with over-the- counter Tums. She describes her reflux as a burning sensation. She denies any nausea or vomiting. She denies any vomiting, hematemesis, change in her bowel habits, hematochezia or melena. She reports bowel movements as occurring approximately once per day and uses [id number] Colace to help her with her bowel movements. She believes her last colonoscopy was over 10 years ago and believes that if she had a upper endoscopy was in the remote past but is unable to recall. After the episode of dysphagia in the hospital she was able to continue to manage her secretions and tolerate liquids. Currently the cardiology service has been consulted for further evaluation given her history of coronary artery disease and angina. Review of Systems REVIEW OF SYSTEMS: CARDIO: Denies any palpitations but does report the episode of chest pain as described. PULMONARY: Denies any shortness of breath or wheezing. GENITOURINARY: No dysuria or hematuria. MUSCULOSKELETAL: No weakness reported. SKIN: Denies any new rashes or lesions, jaundice or pallor. PSYCHIATRIC: Denies any depression or anxiety. NEUROLOGY: Denies headache, denies any new focal deficits. EARS: No tinnitus, discharge or new hearing loss. NOSE: No discharge or congestion. EYES: No pain in eyes or change in vision. CONSTITUTIONAL: No recent weight loss. No fever, chills, night sweats. Past Medical History Past Medical History: Coronary Artery Disease (CAD), Cancer, Chest Pain / Angina , GERD/Reflux, Hyperlipidemia, Hypertension, Pneumonia, Sleep Apnea/CPAP/BIPAP Additional Past Medical History / Comment(s): hiatal hernia, constipation, bilateral lower leg/ankle swelling, occasional back pain, DONNA with Cpap use occasionally. History of Any Multi-Drug Resistant Organisms: None Reported Past Surgical History: Breast Surgery, Cholecystectomy, Heart Catheterization, Heart Catheterization With Stent, Joint Replacement, Orthopedic Surgery, Tubal Ligation Additional Past Surgical History / Comment(s): bilat total knee arthroplasty, bilateral cataract removal and intraocular lens implants, skin CA 2017, bilateral benign breast biopsies Past Anesthesia/Blood Transfusion Reactions: No Reported Reaction Date of Last Stent Placement:: 2005 Smoking Status: Former smoker - Past Family History Father Additional Family Medical History / Comment(s): Father at age 63 from coronary artery disease. Mother Additional Family Medical History / Comment(s): Mother at age 94 from heart disease. Sister(s) Additional Family Medical History / Comment(s): Patient had total of 4 sisters: One from coronary artery disease, one from COPD, one from an overdose Brother(s) Additional Family Medical History / Comment(s): Patient had 2 brothers and one has history of coronary artery disease and CABG as well as amputations. Second brother has no major medical problems. Patient has 4 adult children with no major medical problems. Medications and Allergies Home Medications Medication Instructions Recorded Confirmed Type Aspirin 81 mg PO HS 05/23/14 06/18/18 History Furosemide [Lasix] 40 mg PO DAILY 05/23/14 06/18/18 History Losartan [Cozaar] 50 mg PO DAILY 05/23/14 06/18/18 History Multivitamins, Thera [Multivitamin 1 tab PO DAILY 05/23/14 06/18/18 History (formulary)] Potassium Chloride ER [K-Dur 20] 20 meq PO DAILY 05/23/14 06/18/18 History Atorvastatin [Lipitor] 40 mg PO HS 01/16/18 06/18/18 History Docusate [Colace] 100 mg PO DAILY 01/16/18 06/18/18 History Nitroglycerin Sl Tabs [Nitrostat] 0.4 mg SUBLINGUAL Q5M PRN 01/16/18 06/18/18 History amLODIPine [Norvasc] 5 mg PO DAILY 01/16/18 06/18/18 History Pantoprazole [Protonix] 40 mg PO [id number] #30 tablet. 01/17/18 06/18/18 Rx Fish Oil/Dha/Epa [Fish Oil 1,200 1 cap PO DAILY 06/18/18 06/18/18 History mg Fish Oil] Ranitidine HCl 150 mg PO DAILY 06/18/18 06/18/18 History Allergies Allergy/AdvReac Type Severity Reaction Status Date / Time No Known Allergies Allergy Verified 06/18/18 19:20 Physical Exam Vitals: Vital Signs Temp Pulse Pulse Resp BP BP BP 06/19/18 20:00 97.7 F 71 16 182/78 06/19/18 15:44 97.7 F 75 18 156/79 06/19/18 12:15 97.5 F L 68 18 170/82 06/19/18 12:09 98 F 93 18 145/88 06/19/18 11:19 92 18 146/78 06/19/18 09:59 98.3 F 18 158/71 06/19/18 06:00 98.7 F 84 20 145/79 06/19/18 04:00 80 18 140/53 06/19/18 03:00 81 18 167/84 06/19/18 02:59 80 19 167/84 06/19/18 02:30 18 06/19/18 02:00 79 17 162/74 06/19/18 01:00 79 17 165/82 06/19/18 00:00 72 17 158/66 06/18/18 23:33 06/18/18 23:05 86 16 158/72 Pulse Ox 06/19/18 20:00 97 06/19/18 15:44 98 06/19/18 12:15 99 06/19/18 12:09 96 06/19/18 11:19 98 06/19/18 09:59 06/19/18 06:00 97 06/19/18 04:00 97 06/19/18 03:00 97 06/19/18 02:59 96 06/19/18 02:30 06/19/18 02:00 97 06/19/18 01:00 97 06/19/18 00:00 96 06/18/18 23:33 96 06/18/18 23:05 98 Intake and Output 06/19/18 06/19/1818 06:59 14:59 22:59 Other: Voiding Method Toilet # Voids 1 Weight 119.6 kg Results CBC & Chem 7: 06/18/18 17:45 06/18/18 17:45 Comments: On physical examination, patient appears comfortable in no apparent distress. HEAD: Normocephalic, atraumatic. EYES: No scleral icterus. No conjunctival injection. MOUTH: No lesions, tongue midline. NECK: Trachea midline, no gross abnormalities. CHEST: Clear to auscultation with no wheezing or rhonchi appreciated. HEART: Regular rate and rhythm. ABDOMEN: Soft, obese. Bowel sounds are positive. No organomegaly. No guarding or rigidity. EXTREMITIES: No pedal edema. SKIN: No rashes, no jaundice. NEUROLOGIC: Alert and oriented x3. No focal deficits. Assessment and Plan (1) Esophageal dysphagia Narrative/Plan: Esophageal dysphagia predominantly to solids and pills which has been present for many months. Patient reports that the symptoms occur intermittently and has not had any prior episodes of food impaction. After the episode of difficulty swallowing pills which she believes was were the large potassium supplements she was given in the hospital she has had no problems managing her secretions and has been able to swallow. Current Visit: Yes Status: Acute Code(s): R13.10 - DYSPHAGIA, UNSPECIFIED SNOMED Code(s): 73759405 (2) GERD (gastroesophageal reflux disease) Narrative/Plan: Intermittent GERD treated with [id number] Tums. Current Visit: Yes Status: Acute Code(s): K21.9 - GASTRO-ESOPHAGEAL REFLUX DISEASE WITHOUT ESOPHAGITIS SNOMED Code(s): 652535783 (3) Chest pain Current Visit: Yes Status: Acute Code(s): R07.9 - CHEST PAIN, UNSPECIFIED SNOMED Code(s): 43714861 Plan: Supportive care Okay for diet, soft heart healthy Protonix therapy initiated Continue with cardiac evaluation No plans for endoscopy at this time, patient would likely benefit from follow- up with gastric serology one to 2 weeks after discharge and upper endoscopy for evaluation of intermittent esophageal dysphagia and GERD Continue stool softener for bowel movements at home Thank you for allowing us to participate in the care of this patient we will continue to follow
[2018-06-20 08:12] VITALS: RESP 18
[2018-06-20] MEDS ORDERED: DOCUSATE 100 MG CAP PO SCH (09:00)
[2018-06-20] MEDS ORDERED: DICYCLOMINE 10 MG CAP PO PRN (11:54)
[2018-06-20] MEDS: MAG HYDROX/AL HYDROX/SIMETH 30 ML CUP PO SCH ×2 (12:04→12:05)
[2018-06-20] MEDS: amLODIPine 5 MG TAB PO SCH (12:04)
[2018-06-20] MEDS: POTASSIUM CHLORIDE ER 20 MEQ TAB.ER PO SCH (12:04)
[2018-06-20] MEDS: HEPARIN SODIUM,PORCINE 5,000 UNIT/ML 1 ML VIAL SQ SCH (12:05)
[2018-06-20] MEDS: FUROSEMIDE 40 MG TAB PO SCH (12:05)
[2018-06-20] MEDS: LOSARTAN 50 MG TAB PO SCH (12:05)
[2018-06-20 12:19] VITALS: BP 164/80; PULSE 79; TEMP 97.6
--- NOTE | 2018-06-20 12:25 | ECHOF ---
Referral Reason: MEASUREMENTS -------- HEIGHT: 160.0 cm WEIGHT: 119.3 kg BP: IVSd: 1.2 cm (0.6 - 1.1) LVIDd: 3.3 cm (3.9 - 5.3) LVPWd: 1.4 cm (0.6 - 1.1) IVSs: 1.3 cm LVIDs: 1.8 cm LVPWs: 1.7 cm EPSS: 0.6 cm MV E Fred: 0.85 m/s MV DecT: 241 ms MV A Fred: 1.23 m/s MV E/A Ratio: 0.69 AV maxP.50 mmHg AV meanP.16 mmHg RAP: 5.00 mmHg RVSP: 20.07 mmHg MV EF SLOPE: 34.43 mm/s (70 - 150) MV EXCURSION: 1.93 cm (> 18.000) FINDINGS -------- Sinus rhythm. This was a technically difficult study with suboptimal views. The left ventricular size is normal. There is mild concentric left ventricular hypertrophy. Overa ll left ventricular systolic function is normal with, an EF between 55 - 60 %. The right ventricle is normal in size and function. The left atrium is normal in size. The right atrium is normal in size. XX ml of Lumason was utilized for enhancement of images. The aortic valve was not well visualized. There is mild aortic stenosis present. Peak/mean gradie nt across the Aortic Valve is 17.50mmHg / 10.16mmHg. Mild mitral regurgitation is present. Mild tricuspid regurgitation present. The right ventricular systolic pressure, as measured by Doppl er, is 20.07mmHg. Pulmonic valve appears structurally normal. The aortic root size is normal. The pericardium is normal. CONCLUSIONS -------- 1. Sinus rhythm. 2. This was a technically difficult study with suboptimal views. 3. The left ventricular size is normal. 4. There is mild concentric left ventricular hypertrophy. 5. Overall left ventricular systolic function is normal with, an EF between 55 - 60 %. 6. The right ventricle is normal in size and function. 7. The left atrium is normal in size. 8. The right atrium is normal in size. 9. XX ml of Lumason was utilized for enhancement of images. 10. The aortic valve was not well visualized. 11. There is mild aortic stenosis present. 12. Peak/mean gradient across the Aortic Valve is 17.50mmHg / 10.16mmHg. 13. Mild mitral regurgitation is present. 14. Mild tricuspid regurgitation present. 15. The right ventricular systolic pressure, as measured by Doppler, is 20.07mmHg. 16. Pulmonic valve appears structurally normal. 17. The aortic root size is normal. 18. The pericardium is normal. CERTIFIED MEDICAL TECHNICIAN ASSISTANT: Carmen Haji RDCS
--- NOTE | 2018-06-20 12:42 | P.CRDCN ---
History of Present Illness History of present illness: This is a pleasant 72-year-old female past medical history significant for coronary artery disease status post stenting of the circumflex artery in [place] in 2005, hypertension, dyslipidemia and morbid obesity. She follows with Dr. Bennett in the office. We've been asked to see her in consultation for symptoms of chest discomfort. She states yesterday she started feeling a discomfort in the abdomen in the mid region was described as a burning sharp pain in the abdomen with radiation up into the mid sternal region. There is some radiation through to her back. Her symptoms started after she was sitting down on the couch to relax. She had gone out to breakfast in the morning and then gone grocery shopping afterwards. Her symptoms persisted for approximately 90 minutes until she called EMS. They gave her aspirin, fentanyl and sublingual nitroglycerin. Her symptoms were relieved after receiving these medications. At the time of my exam she is pain free. She denies having had any symptoms of shortness of breath, dizziness or palpitations associated with her abdominal and chest discomfort. She also complains of difficulty swallowing her pills at times. She also denies radiation to the arm, neck or jaw. She has also been seen in consultation by GI services and has been recommended for an outpatient EGD and colonoscopy. She experienced similar type symptoms to this earlier this year in December. At that time she presented to the hospital and stress test is negative for cardiac ischemic changes. She also underwent echocardiogram at that time which revealed preserved left ventricular systolic function with ejection fraction 55- 60% with mild MR and TR. EKG reveals sinus mechanism with no acute ST or T-wave abnormalities. Chest x-ray is negative for an acute cardiopulmonary process of the hiatal hernia noted. Thoracic aorta CT reveals no evidence of aortic aneurysm or dissection with evidence of aortic sclerotic vascular disease and a large hiatal hernia. Laboratory data reviewed, WBC 6.6, hemoglobin 14.2, platelets 178, d-dimer 0.67 , sodium 140, potassium 4.2, creatinine 0.48, magnesium 2.2, cardiac enzymes negative 3. Current cardiac medications include aspirin 81 mg daily, atorvastatin 40 mg daily, Lasix 40 mg daily, losartan 50 mg daily amlodipine 5 mg daily. At the time of my exam: CONSTITUTIONAL: Denies fever. Denies chills. EYES: Denies blurred vision. Denies vision changes. Denies eye pain. EARS, NOSE, MOUTH & THROAT: Denies headache. Denies sore throat. Denies ear pain. CARDIOVASCULAR: Denies chest pain. Denies shortness of breath. Denies orthopnea. Denies PND. Denies palpitations. RESPIRATORY: Denies cough. GASTROINTESTINAL: Denies abdominal pain. Denies diarrhea. Denies constipation. Denies nausea. Denies vomiting. MUSCULOSKELETAL: Denies myalgias. INTEGUMENTARY: Denies pruitis. Denies rash. NEUROLOGIC: Denies numbness. Denies tingling. Denies weakness. PSYCHIATRIC: Denies anxiety. Denies depression. ENDOCRINE: Denies fatigue. Denies weight change. Denies polydipsia. Denies polyurina. GENITOURINARY: Denies burning, hematuria or urgency with micturation. HEMATOLOGIC: Denies history of anemia. Denies bleeding. Blood pressure 141/78 heart rate 71 afebrile maintaining oxygen saturation on room air. GENERAL: This is a 72-year-old female in no apparent distress at the time of my examination. Obese. HEENT: Head is atraumatic, normocephalic. Pupils are equal, round. Sclerae anicteric. Conjunctivae are clear. Mucous membranes of the mouth are moist. Neck is supple. There is no jugular venous distention. No carotid bruit is heard. LUNGS: Clear to auscultation no wheezes, rales or rhonchi. No chest wall tenderness is noted on palpation or with deep breathing. HEART: Regular rate and rhythm without murmurs, rubs or gallops. S1 and S2 heard. ABDOMEN: Soft, nontender. Bowel sounds are heard. No organomegaly noted. EXTREMITIES: No evidence of peripheral edema and no calf tenderness noted. VASCULAR: Radial and dorsalis pedis pulses palpated, no evidence of clubbing. NEUROLOGIC: Patient is awake, alert and oriented x3. ASSESSMENT Chest pain, atypical. An acute coronary event has ruled out with no EKG evidence of ischemia negative cardiac enzymes. History of coronary artery disease status post angioplasty to the circumflex artery in 2005 with recent normal stress test Hiatal hernia Hypertension Dyslipidemia Morbid obesity, BMI 45 PLAN An acute coronary event has ruled out with no EKG evidence of ischemia negative cardiac enzymes. Increase activity and ambulation in the riojas and assess for further symptoms of chest discomfort. If no further symptoms of chest discomfort she may be discharged from a cardiac perspective. Ongoing medical management of dysphagia and abdominal discomfort. Follow-up with Dr. Bennett upon discharge. Thank you kindly for this consultation. Nurse Practitioner note has been reviewed, I agree with a documented findings and plan of care. Patient was seen and examined. Past Medical History Past Medical History: Coronary Artery Disease (CAD), Cancer, Chest Pain / Angina , GERD/Reflux, Hyperlipidemia, Hypertension, Pneumonia, Sleep Apnea/CPAP/BIPAP Additional Past Medical History / Comment(s): hiatal hernia, constipation, bilateral lower leg/ankle swelling, occasional back pain, DONNA with Cpap use occasionally. History of Any Multi-Drug Resistant Organisms: None Reported Past Surgical History: Breast Surgery, Cholecystectomy, Heart Catheterization, Heart Catheterization With Stent, Joint Replacement, Orthopedic Surgery, Tubal Ligation Additional Past Surgical History / Comment(s): bilat total knee arthroplasty, bilateral cataract removal and intraocular lens implants, skin CA 2017, bilateral benign breast biopsies Past Anesthesia/Blood Transfusion Reactions: No Reported Reaction Date of Last Stent Placement:: 2005 Smoking Status: Former smoker - Past Family History Father Additional Family Medical History / Comment(s): Father at age 63 from coronary artery disease. Mother Additional Family Medical History / Comment(s): Mother at age 94 from heart disease. Sister(s) Additional Family Medical History / Comment(s): Patient had total of 4 sisters: One from coronary artery disease, one from COPD, one from an overdose Brother(s) Additional Family Medical History / Comment(s): Patient had 2 brothers and one has history of coronary artery disease and CABG as well as amputations. Second brother has no major medical problems. Patient has 4 adult children with no major medical problems. Medications and Allergies Home Medications Medication Instructions Recorded Confirmed Type Aspirin 81 mg PO HS 05/23/14 06/18/18 History Furosemide [Lasix] 40 mg PO DAILY 05/23/14 06/18/18 History Losartan [Cozaar] 50 mg PO DAILY 05/23/14 06/18/18 History Multivitamins, Thera [Multivitamin 1 tab PO DAILY 05/23/14 06/18/18 History (formulary)] Potassium Chloride ER [K-Dur 20] 20 meq PO DAILY 05/23/14 06/18/18 History Atorvastatin [Lipitor] 40 mg PO HS 01/16/18 06/18/18 History Docusate [Colace] 100 mg PO DAILY 01/16/18 06/18/18 History Nitroglycerin Sl Tabs [Nitrostat] 0.4 mg SUBLINGUAL Q5M PRN 01/16/18 06/18/18 History amLODIPine [Norvasc] 5 mg PO DAILY 01/16/18 06/18/18 History Pantoprazole [Protonix] 40 mg PO HENRY-IRMAKFSStefano #30 tablet. 01/17/18 06/18/18 Rx Fish Oil/Dha/Epa [Fish Oil 1,200 1 cap PO DAILY 06/18/18 06/18/18 History mg Fish Oil] Ranitidine HCl 150 mg PO DAILY 06/18/18 06/18/18 History Allergies Allergy/AdvReac Type Severity Reaction Status Date / Time No Known Allergies Allergy Verified 06/18/18 19:20 Physical Exam Vitals: Vital Signs Temp Pulse Pulse Resp BP BP BP 06/20/18 08:00 97.5 F L 71 18 141/78 06/20/18 04:00 97.5 F L 78 16 121/62 06/20/18 03:16 18 06/20/18 00:00 18 06/19/18 23:57 97.5 F L 84 18 116/56 06/19/18 20:00 97.7 F 71 16 182/78 06/19/18 15:44 97.7 F 75 18 156/79 06/19/18 12:15 97.5 F L 68 18 170/82 06/19/18 12:09 98 F 93 18 145/88 Pulse Ox 06/20/18 08:00 99 06/20/18 04:00 95 06/20/18 03:16 06/20/18 00:00 06/19/18 23:57 94 L 06/19/18 20:00 97 06/19/18 15:44 98 06/19/18 12:15 99 06/19/18 12:09 96 Intake and Output 06/19/18 06/20/18 06/20/18 22:59 06:59 14:59 Other: Voiding Method Toilet Toilet Toilet # Voids 1 1 Results 06/18/18 17:45 06/18/18 17:45 Current Medications Generic Name Dose Route Start Last Admin Trade Name Freq PRN Reason Stop Dose Admin Acetaminophen 650 mg 06/19/18 09:58 06/19/18 18:51 Tylenol Tab PO 650 mg Q6HR PRN Administration Fever and/ or Pain Al Hydroxide/Mg Hydroxide 30 ml 06/19/18 13:00 06/19/18 20:32 Maalox PO 30 ml QID ROSA Administration Amlodipine Besylate 5 mg 06/19/18 10:00 06/19/18 11:14 Norvasc PO 5 mg DAILY ROSA Administration Aspirin 81 mg 06/19/18 21:00 06/19/18 20:32 Aspirin PO 81 mg HS ROSA Administration Atorvastatin Calcium 40 mg 06/19/18 21:00 06/19/18 20:32 Lipitor PO 40 mg HS [facility] Administration Docusate Sodium 100 mg 06/20/18 09:00 Colace PO DAILY [facility] Furosemide 40 mg 06/19/18 10:00 06/19/18 11:14 Lasix PO 40 mg DAILY [facility] Administration Heparin Sodium (Porcine) 5,000 unit 06/19/18 00:00 06/19/18 23:15 Heparin SQ 5,000 unit Q8HR ROSA Administration Losartan Potassium 50 mg 06/19/18 10:00 06/19/18 11:14 Cozaar PO 50 mg DAILY [facility] Administration Naloxone HCl 0.2 mg 06/18/18 21:22 Narcan IV Q2M PRN Opioid Reversal Nitroglycerin 0.4 mg 06/18/18 21:26 06/19/18 12:03 Nitrostat SUBLINGUAL 0.4 mg Q5M PRN Administration Chest Pain Pantoprazole Sodium 40 mg 06/19/18 10:00 06/19/18 11:14 Protonix PO 40 mg [id number] [facility] Administration Potassium Chloride 20 meq 06/19/18 10:00 06/19/18 11:14 K-Dur 20 PO 20 meq DAILY [facility] Administration Intake and Output 06/19/18 06/20/18 06/20/18 22:59 06:59 14:59 Other: Voiding Method Toilet Toilet Toilet # Voids 1 1 06/18/18 17:45 06/18/18 17:45
--- NOTE | 2018-06-20 15:25 | P.DS ---
Providers Date of admission: 06/18/18 22:26 Expected date of discharge: 06/20/18 Attending physician: Melissa Tan Consults: 06/19/18 09:58 Consult Physician Routine Consulting Provider: Gerber Winkler Consult Reason/Comments: chest pain Do you want consulting provider notified?: Yes 06/19/18 11:59 Consult Physician Routine Consulting Provider: Evangelista Shi Consult Reason/Comments: Food getting stuck in esophagus Do you want consulting provider notified?: Yes Primary care physician: [facility] Course: This is a 72-year-old pleasant female patient of Dr. Warner Le in Dr. Bennett. She has underlying history of CAD hypertension hyperlipidemia obstructive sleep apnea on CPAP machine, admitted to the emergency room secondary to chest discomfort. He shouldn't had epigastric pain that went to the anterior chest and the left shoulder, this was persistent in nature, occurred when the patient was resting, she was given nitroglycerin and aspirin and fentanyl nasal spray by the EMS and was subsequently seen in the emergency room. Patient's pain is lasted for more than an hour,. She also has dysphagia intermittent to foods, not solid liquids, no aspirated events, patient denies any cough no fever no chills, patient does not M any melena or hematochezia. She has had a stress test in December 2017, and was unremarkable. She also has cholecystectomy in the past. No history of EGD in the past. She has hiatal hernia. Last echocardiogram performed in December 2017 shows EF of 55-60%, moderate concentric LVH, left atrium mildly dilated, mild aortic valve sclerosis , mild mitral regurgitation, mild tricuspid regurgitation, dobutamine stress test was negative at that time, and was cleared by cardiology for discharge during her last admission 01/17/2018. EKG was done in the emergency room that shows normal sinus rhythm with no acute ST-T wave changes, normal EKG, troponins are negative 3, patient was seen in emergency room for evaluation, patient was uncomfortable on laying there overnight, she took some pills for home meds thereafter the pain started again she also has dysphagia, we'll going to consult GI service along with attaining x-ray modified barium esophagram, along with cardiology consultation. 06/20: Patient has been seen by Dr. Shi with recommendations for soft diet, Protonix. No plan for endoscopy on this admission. Plan to follow-up in the office in one to 2 weeks. The patient has been seen by cardiology with normal cardiac enzymes and no EKG changes. Recommendations to follow-up with Dr. Bennett. Acute coronary syndrome has been ruled out. Patient will be discharged home today in stable condition. Discharge diagnoses: 1. Atypical chest pain 2. Dysphagia along with odynophagia 3. Costochondritis 4. History of large hiatal hernia and symptoms of GERD. 4. Hypertension. 5 Hyperlipidemia. 6. History of coronary artery disease status post stent. 7. Obstructive sleep apnea on CPAP. Discharge plan: Home Impression and plan of care have been directed as dictated by the signing physician. Julissa Miner nurse practitioner acting as scribe for signing physician. Patient Condition at Discharge: Good Plan - Discharge Summary Discharge Rx Participant: No New Discharge Prescriptions: New Dicyclomine [Bentyl] 10 mg PO QID PRN #120 cap PRN Reason: Dyspepsia Cholecalciferol [Vitamin D3] 2,000 unit PO DAILY #30 tablet Continue Potassium Chloride ER [K-Dur 20] 20 meq PO DAILY Multivitamins, Thera [Multivitamin (formulary)] 1 tab PO DAILY Losartan [Cozaar] 50 mg PO DAILY Furosemide [Lasix] 40 mg PO DAILY Aspirin 81 mg PO HS amLODIPine [Norvasc] 5 mg PO DAILY Atorvastatin [Lipitor] 40 mg PO HS Docusate [Colace] 100 mg PO DAILY Nitroglycerin Sl Tabs [Nitrostat] 0.4 mg SUBLINGUAL Q5M PRN PRN Reason: Chest Pain Fish Oil/Dha/Epa [Fish Oil 1,200 mg Fish Oil] 1 cap PO DAILY Changed Pantoprazole [Protonix] 40 mg PO AC-BID #60 tablet.dr Discontinued Ranitidine HCl 150 mg PO DAILY Discharge Medication List Aspirin 81 mg PO HS 05/23/14 [History] Furosemide [Lasix] 40 mg PO DAILY 05/23/14 [History] Losartan [Cozaar] 50 mg PO DAILY 05/23/14 [History] Multivitamins, Thera [Multivitamin (formulary)] 1 tab PO DAILY 05/23/14 [History ] Potassium Chloride ER [K-Dur 20] 20 meq PO DAILY 05/23/14 [History] Atorvastatin [Lipitor] 40 mg PO HS 01/16/18 [History] Docusate [Colace] 100 mg PO DAILY 01/16/18 [History] Nitroglycerin Sl Tabs [Nitrostat] 0.4 mg SUBLINGUAL Q5M PRN 01/16/18 [History] amLODIPine [Norvasc] 5 mg PO DAILY 01/16/18 [History] Fish Oil/Dha/Epa [Fish Oil 1,200 mg Fish Oil] 1 cap PO DAILY 06/18/18 [History] Cholecalciferol [Vitamin D3] 2,000 unit PO DAILY #30 tablet 06/20/18 [Rx] Dicyclomine [Bentyl] 10 mg PO QID PRN #120 cap 06/20/18 [Rx] Pantoprazole [Protonix] 40 mg PO AC-BID #60 tablet. 06/20/18 [Rx] Follow up Appointment(s)/Referral(s): Guilherme Bennett MD [STAFF PHYSICIAN] - 2 Weeks Mathtew Le MD [Primary Care Provider] - 1 Week Evangelista Shi MD [STAFF PHYSICIAN] - 2 Weeks Discharge Disposition: HOME SELF-CARE
[2018-06-20] MEDS ORDERED: PANTOPRAZOLE 40 MG TABLET PO SCH (17:30)
== END 2018-06-20 16:35 | disposition home or self-care (01) ==
LOC: EC 16:50 → 1SOBS 22:26
PROVIDERS: ADMIT Family Medicine; ATTEND Family Medicine
DX: R07.89 Other chest pain (principal); R13.14 Dysphagia, pharyngoesophageal phase; M94.0 Chondrocostal junction syndrome [Tietze]; K44.9 Diaphragmatic hernia without obstruction or gangrene; I10 Essential (primary) hypertension; E78.5 Hyperlipidemia, unspecified; I25.10 Atherosclerotic heart disease of native coronary artery without angina pectoris; R10.13 Epigastric pain; G47.33 Obstructive sleep apnea (adult) (pediatric); Z99.89 Dependence on other enabling machines and devices; F41.9 Anxiety disorder, unspecified; R79.89 Other specified abnormal findings of blood chemistry; I70.0 Atherosclerosis of aorta; Z68.42 Body mass index [BMI] 45.0-49.9, adult; E66.01 Morbid (severe) obesity due to excess calories; K59.00 Constipation, unspecified; K21.9 Gastro-esophageal reflux disease without esophagitis; I08.3 Combined rheumatic disorders of mitral, aortic and tricuspid valves; Z79.82 Long term (current) use of aspirin; Z79.899 Other long term (current) drug therapy; Z95.5 Presence of coronary angioplasty implant and graft; Z90.49 Acquired absence of other specified parts of digestive tract; Z96.653 Presence of artificial knee joint, bilateral; Z96.1 Presence of intraocular lens; Z98.42 Cataract extraction status, left eye; Z98.41 Cataract extraction status, right eye; Z85.828 Personal history of other malignant neoplasm of skin; Z87.891 Personal history of nicotine dependence; Z82.49 Family history of ischemic heart disease and other diseases of the circulatory system; Z82.5 Family history of asthma and other chronic lower respiratory diseases; Z84.89 Family history of other specified conditions
CPT/HCPCS: 96372 ×2; 99285; 36415 ×2; 93005; 85379; 80053; 83690; 83735; 84484 ×2; 85025; 71046; 71275; 74174; G0378 ×3; C8929; J1644; Q9950; Q9967; 93306

== ENCOUNTER 2018-08-02 10:03 | Day surgery (SDC) | payer MEDICARE, BC ==
[2018-07-25 16:09] VITALS: BMI 45.6
[~2018-08-02 10:03] MED LIST: LIDOCAINE 1% 20 ML VIAL (10MG/ML) FOR IV START INTRADERMA PRN; MIDAZOLAM (PF) 2 MG/2 ML VIAL IV PRN
[2018-08-02 10:35] VITALS: RESP 18; TEMP 97.2
[2018-08-02] MEDS: LACTATED RINGERS 1,000 ML IV SCH ×2 (10:35→10:40)
[2018-08-02] MEDS ORDERED: PROPOFOL 10 MG/ML 20 ML VIAL IV ONE (10:42)
[2018-08-02] MEDS ORDERED: LIDOCAINE 1% INJ 10MG/ML (20 ML MDV) ONE (10:42)
--- NOTE | 2018-08-02 11:38 | P.PCN ---
Date of Procedure: 08/02/18 Description of Procedure: Brief history: Patient is a pleasant 72-year-old female with multiple medical comorbidities including coronary artery disease, angina and hypertension who is here for endoscopic evaluation after recent hospitalization. The patient reports episodes of pain in her stomach and chest. She also reports dysphagia predominantly 2 pills. This dysphagia occurs approximately 2 times per month and occurs with solid foods in addition to pills. She was previously treating reflux disease with [id number] Tums. Since being seen in the office she has been started on Protonix 40 mg daily, and reports great improvement of her symptoms. She denies any signs or symptoms of GI bleeding, no hematemesis, hematochezia, melena or change in bowel habits. She reports a remote history of colonoscopy over 10 years ago which was significant for colonic polyps. Procedure performed: Esophagogastroduodenoscopy with biopsy Colonoscopy Estimated blood loss: Minimal. Preoperative diagnosis: Esophageal dysphagia, abdominal pain, history of colonic polyps, surveillance colonoscopy, last colonoscopy over 10 years ago Anesthesia: MAC Procedure: After informed consent was obtained from the patient was brought into the endoscopy unit and IV sedation was administered by anesthesia under continuous monitoring. Initially upper endoscopy was done. The Olympus GF 190 video endoscope was inserted inserted into the mouth and esophagus intubated without any difficulty and was gradually advanced into the stomach and duodenum and carefully examined. The bulb and second part of the duodenum appeared normal. The scope was then withdrawn into the stomach adequately insufflated with air and upon careful examination the antrum and body, cardia and fundus appeared grossly normal with some mild scattered erythema in the antrum and body which was biopsied, this was suggestive of gastritis. The scope was then withdrawn into the esophagus. The GE junction was located at 35 cm to the incisors, the diaphragmatic pinch was at 39 cm from the incisor, with a 4 cm hiatus hernia noted. The GE junction appeared regular with no erythema erosions or ulcerations. Rest of the esophagus appeared normal, with mid esophagus biopsies taken setting of esophageal dysphagia. Patient tolerated the procedure well. At this time the patient continued to remain sedation. Initial digital rectal examination was normal. Olympus CF 190 video colonoscope was then inserted into the rectum and gradually advanced to the cecum without any difficulty. Careful examination was performed as the scope was gradually being withdrawn. The prep was good. The cecum, ascending colon, transverse colon, descending colon, sigmoid colon and rectum appeared normal. Retroflexion was performed in the rectum and no lesions were noted, mild internal hemorrhoids were seen. Patient tolerated the procedure well. Impression: 1. Hiatal hernia. Mild gastritis of the antrum and body, biopsied. Mid esophagus biopsies to rule out EOE. 2. Normal colonoscopy. Mild internal hemorrhoids. Recommendations: Findings of this examination were discussed with the patient as well as her granddaughter. Continue Protonix daily. Await pathology from biopsies. Follow -up in the gastroenterology clinic as previously scheduled. Repeat colonoscopy in 5 years or sooner if signs or symptoms develop given prior history of colonic polyps.
[2018-08-02 11:55] VITALS: BP 121/71; PULSE 66
== END 2018-08-02 12:30 | disposition home or self-care (01) ==
LOC: ORWHC2ENDO 10:03
PROVIDERS: ATTEND Internal Medicine
DX: Z12.11 Encounter for screening for malignant neoplasm of colon (principal); Z86.010 Personal history of colon polyps; R13.14 Dysphagia, pharyngoesophageal phase; K29.50 Unspecified chronic gastritis without bleeding; K21.9 Gastro-esophageal reflux disease without esophagitis; K44.9 Diaphragmatic hernia without obstruction or gangrene; K64.8 Other hemorrhoids; I25.10 Atherosclerotic heart disease of native coronary artery without angina pectoris; I10 Essential (primary) hypertension; E78.5 Hyperlipidemia, unspecified; G47.33 Obstructive sleep apnea (adult) (pediatric); Z99.89 Dependence on other enabling machines and devices; Z79.82 Long term (current) use of aspirin; Z79.899 Other long term (current) drug therapy
CPT/HCPCS: 88305; 43239; J2001; J2704; G0105; 45378

== ENCOUNTER 2018-11-09 14:30 | Emergency (ER) | payer MEDICARE, BC ==
[2018-11-09 14:35] VITALS: BP 152/67; PULSE 77; RESP 18; TEMP 98.3
--- NOTE | 2018-11-09 15:04 | ED ---
Extremity Problem HPI <Mat Mckeon - Last Filed: 11/09/18 16:25> - General Source: patient, RN notes reviewed, old records reviewed Mode of arrival: ambulatory Limitations: no limitations <Henrietta Song - Last Filed: 11/09/18 17:06> - General Chief complaint: Extremity Problem,Nontraumatic Stated complaint: Poss DVT L Leg Time Seen by Provider: 11/09/18 14:36 - History of Present Illness Initial comments: 73-year-old female sent in by patient's fixer boarding room or concerns for DVT. She's had a few days of left lower extremity swelling. Reports pain into the calf. (Henrietta Song) - Related Data Home Medications Medication Instructions Recorded Confirmed Aspirin 81 mg PO HS 05/23/14 08/02/18 Furosemide [Lasix] 40 mg PO DAILY 05/23/14 08/02/18 Losartan [Cozaar] 50 mg PO DAILY 05/23/14 08/02/18 Multivitamins, Thera [Multivitamin 1 tab PO DAILY 05/23/14 08/02/18 (formulary)] Potassium Chloride ER [K-Dur 20] 20 meq PO DAILY 05/23/14 08/02/18 Atorvastatin [Lipitor] 40 mg PO HS 01/16/18 08/02/18 Docusate [Colace] 100 mg PO DAILY 01/16/18 08/02/18 Nitroglycerin Sl Tabs [Nitrostat] 0.4 mg SUBLINGUAL Q5M PRN 01/16/18 08/02/18 amLODIPine [Norvasc] 5 mg PO DAILY 01/16/18 08/02/18 Fish Oil/Dha/Epa [Fish Oil 1,200 1 cap PO DAILY 06/18/18 08/02/18 mg Fish Oil] Previous Rx's Medication Instructions Recorded Dicyclomine [Bentyl] 10 mg PO QID PRN #120 cap 06/20/18 Pantoprazole [Protonix] 40 mg PO AC-BID #60 tablet. 06/20/18 Allergies Allergy/AdvReac Type Severity Reaction Status Date / Time No Known Allergies Allergy Verified 11/09/18 14:34 Review of Systems ROS Other: All systems not noted in ROS Statement are negative. <Mat Mckeon - Last Filed: 11/09/18 16:25> ROS Other: All systems not noted in ROS Statement are negative. <Henrietta Song - Last Filed: 11/09/18 17:06> ROS Statement: Those systems with pertinent positive or pertinent negative responses have been documented in the HPI. Past Medical History Past Medical History: Coronary Artery Disease (CAD), Cancer, Chest Pain / Angina, GERD/Reflux, Hyperlipidemia, Hypertension, Sleep Apnea/CPAP/BIPAP Additional Past Medical History / Comment(s): hiatal hernia, constipation, juan pablo ateral lower leg/ankle swelling, occasional back pain, HX SKIN CA History of Any Multi-Drug Resistant Organisms: None Reported Past Surgical History: Breast Surgery, Cholecystectomy, Heart Catheterization, Heart Catheterization With Stent, Joint Replacement, Tubal Ligation Additional Past Surgical History / Comment(s): bilat total knee, juan pablo cataract removal and intraocular lens implants, skin CA 2017, juan pablo benign breast biopsies Past Anesthesia/Blood Transfusion Reactions: No Reported Reaction Date of Last Stent Placement:: 2005 Past Psychological History: Anxiety, Depression Smoking Status: Former smoker Past Alcohol Use History: None Reported Past Drug Use History: None Reported - Past Family History Father Additional Family Medical History / Comment(s): Father at age 63 from coronary artery disease. Mother Additional Family Medical History / Comment(s): Mother at age 94 from heart disease. Sister(s) Additional Family Medical History / Comment(s): Patient had total of 4 sisters: One from coronary artery disease, one from COPD, one from an overdose Brother(s) Additional Family Medical History / Comment(s): Patient had 2 brothers and one has history of coronary artery disease and CABG as well as amputations. Second brother has no major medical problems. Patient has 4 adult children with no major medical problems. <Henrietta Song - Last Filed: 11/09/18 17:06> General Exam Limitations: no limitations <Henrietta Song - Last Filed: 11/09/18 17:06> Course <Mat Mckeon - Last Filed: 11/09/18 16:25> Vital Signs 11/09/18 14:32 Temperature 98.3 F Pulse Rate 77 Respiratory 18 Rate Blood Pressure 152/67 O2 Sat by Pulse 97 Oximetry - Reevaluation(s) Reevaluation #1: 11/09/18 16:26 PA supervision: I personally do a [id number] evaluation the patient she presented with complaints of a swollen lower extremity the concern was for DVT the ultrasound was negative for DVT. Patient will be discharged with follow-up with her doctor. I do agree with the assessment and plan. She is otherwise asymptomatic. (Mat Mckeon) Medical Decision Making - Radiology Data Radiology results: report reviewed <Henrietta Song - Last Filed: 11/09/18 17:06> - Radiology Data Left leg ultrasound is negative for DVT. (Henrietta Song) Disposition <Mat Mckeon - Last Filed: 11/09/18 16:25> Is patient prescribed a controlled substance at d/c from ED?: No Time of Disposition: 16:53 <Henrietta Song - Last Filed: 11/09/18 17:06> Clinical Impression: Left leg swelling Disposition: HOME SELF-CARE Condition: Good Instructions (If sedation given, give patient instructions): Leg Edema (ED) Additional Instructions: Follow-up with primary care doctor. Return to emergency department if any alarming signs or symptoms occur. Recommended wearing compression stockings. Return to emergency department if any alarming signs or symptoms occur. Referrals: Matthew Le MD [Primary Care Provider] - 1-2 days
--- NOTE | 2018-11-09 15:43 | US ---
EXAMINATION TYPE: US venous doppler duplex LE LT DATE OF EXAM: 11/09/2018 3:29 PM COMPARISON: NONE CLINICAL HISTORY: Pain. Left leg pain and swelling SIDE PERFORMED: Left TECHNIQUE: The lower extremity deep venous system is examined utilizing real time linear array sonog suman with graded compression, doppler sonography and color-flow sonography. VESSELS IMAGED: External Iliac Vein (EIV) Common Femoral Vein Deep Femoral Vein Greater Saphenous Vein * Femoral Vein Popliteal Vein Small Saphenous Vein * Proximal Calf Veins (* superficial vessels) Left Leg: Appears negative for DVT IMPRESSION: No evidence for DVT at this time.
== END 2018-11-09 17:09 | disposition home or self-care (01) ==
LOC: EC 14:30
DX: M79.89 Other specified soft tissue disorders (principal); I25.119 Atherosclerotic heart disease of native coronary artery with unspecified angina pectoris; E78.5 Hyperlipidemia, unspecified; I10 Essential (primary) hypertension; G47.30 Sleep apnea, unspecified; Z79.82 Long term (current) use of aspirin; Z79.899 Other long term (current) drug therapy; Z87.891 Personal history of nicotine dependence; Z85.828 Personal history of other malignant neoplasm of skin; Z95.5 Presence of coronary angioplasty implant and graft; Z96.653 Presence of artificial knee joint, bilateral
CPT/HCPCS: 99284

== ENCOUNTER → 2018-11-13 | Outpatient (CLI) | payer MEDICARE, BC ==
[2018-11-13 10:36] LABS: HCT 43.7 % (34.0-46.0); HGB 13.8 gm/dL (11.4-16.0); MCH 29.7 pg (25.0-35.0); MCHC 31.7 g/dL (31.0-37.0); MCV 93.8 fL (80.0-100.0); Mean Platelet Volume 7.1; Platelet Count 232 k/uL (150-450); RBC 4.66 m/uL (3.80-5.40); RDW 13.6 % (11.5-15.5); WBC 6.7 k/uL (3.8-10.6)
[2018-11-13 16:05] LABS: Albumin 4.3 g/dL (3.80-4.90); Albumin/Globulin Ratio 1.95 (1.60-3.17); Anion Gap 11.2 mmol/L (4.00-12.00); Calcium 9.5 mg/dL (8.7-10.3); Carbon Dioxide 25.8 mmol/L (21.6-31.8); Globulin 2.2 g/dL (1.6-3.3); LDL Cholesterol,Calculated 62.8 mg/dL (0.0-131.0); Potassium 4.3 mmol/L (3.5-5.5); Total Bilirubin 0.6 mg/dL (0.2-1.2); Total Protein 6.5 g/dL (6.2-8.2); VLDL Calculation 10.2 mg/dL (5.00-40.00)
== END | disposition home or self-care (01) ==
LOC: LABWHC1 09:18
PROVIDERS: ATTEND Family Medicine
DX: E11.9 Type 2 diabetes mellitus without complications (principal); I10 Essential (primary) hypertension; E78.00 Pure hypercholesterolemia, unspecified
CPT/HCPCS: 36415; 80053; 80061; 83036; 85027

== ENCOUNTER → 2019-05-23 | Outpatient (CLI) | payer MEDICARE, BC ==
--- NOTE | 2019-05-24 09:25 | MM ---
Reason for exam: screening (asymptomatic). Last mammogram was performed 16 years and 5 months ago. History: Patient is postmenopausal. Benign stereotactic core biopsy of the left breast, January 10, 2003. Benign ultrasound-guided core biopsy, December 21, 1998. Core biopsy of the left breast. Core biopsy of the right breast. Physical Findings: A clinical breast exam by your physician is recommended on an annual basis and results should be correlated with mammographic findings. MG 3D Screening Mammo W/Cad Bilateral CC, MLO, and XCCL view(s) were taken. Prior study comparison: March 26, 2018, mammogram, performed at [facility]. March 13, 2017, mammogram, performed at [facility]. There are scattered fibroglandular densities. There is no discrete abnormality. No significant changes when compared with prior studies. ASSESSMENT: Negative, BI-RAD 1 RECOMMENDATION: Routine screening mammogram of both breasts in 1 year.
== END | disposition home or self-care (01) ==
LOC: RADMAMWWP 09:23
PROVIDERS: ATTEND Family Medicine
DX: Z12.31 Encounter for screening mammogram for malignant neoplasm of breast (principal)
CPT/HCPCS: 77063; 77067

== ENCOUNTER 2019-09-03 08:03 | Day surgery (SDC) | payer MEDICARE, BC ==
[2019-08-30 13:15] VITALS: BMI 45.1
[~2019-09-03 08:03] MED LIST changes: +ALPRAZolam 0.25 MG TAB PO PRN; +ALPRAZolam 0.5 MG TAB PO PRN; +ASPIRIN 325 MG TAB PO STA; +ATORVASTATIN 80 MG TAB PO STA; -LIDOCAINE 1% 20 ML VIAL (10MG/ML) FOR IV START INTRADERMA PRN; -MIDAZOLAM (PF) 2 MG/2 ML VIAL IV PRN; +NITROGLYCERIN SL TABS 0.4 MG TAB SUBLINGUAL PRN; +SODIUM CHLORIDE 0.9% 1,000 ML in EMPTY BAG 1 BAG IV ONE
[2019-09-03] MEDS ORDERED: SODIUM CHLORIDE 0.9% 1,000 ML IV ONE (08:55)
[2019-09-03] MEDS ORDERED: MIDAZOLAM 2 MG/2 ML VIAL IV ONE (09:21)
[2019-09-03] MEDS ORDERED: LIDOCAINE 1% INJ 10MG/ML (20 ML MDV) SQ ONE (09:22)
[2019-09-03] MEDS: VERAPAMIL SYRINGE (5 MG/10 ML) INTRAARTER ONE ×2 (09:23→09:40)
[2019-09-03] MEDS ORDERED: HEPARIN SODIUM 1,000 UN/ML (10ML VL) IV ONE (09:27)
[2019-09-03] MEDS ORDERED: IOPAMIDOL-370 125ML BTL INJ ONE (09:48)
[2019-09-03] MEDS ORDERED: RX INFO: IV CONTRAST WAS GIVEN 1 EACH MISC MISCELLANE PRN (09:49)
[2019-09-03] MEDS ORDERED: SODIUM CHLORIDE 0.9% 1,000 ML IV SCH (10:00)
[2019-09-03 10:17] VITALS: RESP 16
--- NOTE | 2019-09-03 11:22 | CC ---
CARDIAC CATHETERIZATION REPORT DATE OF PROCEDURE: September 03, 2019. PERFORMING PHYSICIAN: Gerber Winkler MD PROCEDURE PERFORMED: 1. Selective right and left coronary angiogram. 2. Left heart catheterization. INDICATIONS: This is a 73-year-old female patient with history of coronary artery disease and prior stenting of the left circumflex in 2005, has hypertension, and dyslipidemia, was experiencing intermittent episodes of chest discomfort concerning for angina. Because of that, a heart catheterization was advised. APPROACH: Right radial artery. COMPLICATIONS: None. LEVEL OF SEDATION: Moderate with sedation length of 23 minutes. PROCEDURE DESCRIPTION: After obtaining an informed consent, the patient was brought to the cardiac woods laborer. The right radial artery was cannulated using micropuncture technique. The micropuncture wire passed easily. Then I placed a 5-Lao sheath in the right radial artery. After that, I gave the patient 2 mg of verapamil IA and 10,000 units of heparin IV. Selective right and left coronary angiogram was performed using JR4 and JL3.5 catheters. Left heart catheterization was performed using a 5-Lao pigtail catheter. The procedure was completed without any complication. SELECTIVE CORONARY ANGIOGRAM: 1. The right coronary artery is a large caliber vessel and is a dominant vessel. The proximal and mid-RCA has mild disease only. The RCA on the study appeared to have intermediate disease. Then it bifurcates into the PDA and PLV branches. The PDA branch appeared to have mild disease only. The PLV branch of the RCA appeared to have a tight lesion in the range of 80-90%. 2. The left main is calcified left main. The distal left main appeared to have plaque, seems to be eccentric and appears to be in the range of 50%. The left main bifurcates into LCX and LAD. 3. The LCX is a large caliber vessel. It is a nondominant vessel. The ostial left circumflex appeared to be involved in the plaque from the left main which appeared to be in the range at 80-90% at the left circumflex. The mid and distal left circumflex appeared to be angiographically normal. The left circumflex gives rise into an OM branch which seems to be angiographically normal. 4. The LAD: The ostial LAD appeared to be also involved in the plaque from the left main. The ostial LAD plaque appeared to be in the range of 70-80%. The rest of the LAD appears to be angiographically normal. The LAD gives rise into a large diagonal branch which seems to have mild disease only. HEMODYNAMICS: The LVEDP was about 8-10 mmHg without significant gradient across the aortic valve. CONCLUSION: 1. Calcified right and left coronary systems. 2. Critical disease involving the PLV branch of the right coronary artery. 3. Critical disease involving the ostial LAD and ostial left circumflex with plaque also involving the distal left main coronary artery. POSTPROCEDURE MANAGEMENT: 1. Given the above anatomy, I did advise at this point obtaining a consult from Cardiothoracic Surgery for the evaluation of coronary artery bypass grafting. 2. Maximize medical treatment besides that. 3. Follow up with the patient. MMODL / IJN: [id number] /
[2019-09-03] MEDS ORDERED: ACETAMINOPHEN TAB 325 MG TAB PO PRN (12:09)
[2019-09-03 17:32] VITALS: BP 124/57; PULSE 81
== END 2019-09-03 14:50 | disposition home or self-care (01) ==
LOC: CATHCVL 08:03
PROVIDERS: ATTEND Internal Medicine Interventional Cardiology
DX: I25.110 Atherosclerotic heart disease of native coronary artery with unstable angina pectoris (principal); I35.0 Nonrheumatic aortic (valve) stenosis; I10 Essential (primary) hypertension; E78.00 Pure hypercholesterolemia, unspecified; E78.5 Hyperlipidemia, unspecified; G47.33 Obstructive sleep apnea (adult) (pediatric); E66.9 Obesity, unspecified; Z72.0 Tobacco use; Z79.899 Other long term (current) drug therapy; Z79.82 Long term (current) use of aspirin; Z99.89 Dependence on other enabling machines and devices; Z96.659 Presence of unspecified artificial knee joint; Z68.42 Body mass index [BMI] 45.0-49.9, adult
CPT/HCPCS: 93458; C1769 ×2; C1894; J2250; J2001; J1644; Q9967

== ENCOUNTER → 2019-09-24 | Outpatient (CLI) | payer MEDICARE, BC ==
[2019-09-24 10:40] LABS: HGB 14.1 gm/dL (11.4-16.0); MCV 93.8 fL (80.0-100.0); Mean Platelet Volume 9.4; Platelet Count 195 k/uL (150-450); RDW 12.7 % (11.5-15.5)
[2019-09-24 10:43] LABS: ALT 17 U/L (4-34); AST 28 U/L (14-36); African American GFR (CKD) >90 (>60 ml/min/1.73 sqM); Albumin 4.2 g/dL (3.5-5.0); Alkaline Phosphatase 107 U/L (38-126); Anion Gap 7 mmol/L; Blood Urea Nitrogen 15 mg/dL (7-17); Calcium 9.7 mg/dL (8.4-10.2); Carbon Dioxide 28 mmol/L (22-30); Chloride 101 mmol/L (98-107); Cholesterol 121 mg/dL (<200); Glucose 101 mg/dL (74-99); HDL Cholesterol 62 mg/dL (40-60); LDL Cholesterol,Calculated 47 mg/dL (0-99); Non-African American GFR(CKD) >90 (>60 ml/min/1.73 sqM); Potassium 4.3 mmol/L (3.5-5.1); Sodium 136 mmol/L (137-145); Total Bilirubin 0.8 mg/dL (0.2-1.3); Total Protein 7.4 g/dL (6.3-8.2); Triglycerides 61 mg/dL (<150)
[2019-09-24 10:47] LABS: Partial Thromboplastin Time 23.4 sec (22.0-30.0); Prothrombin Time 10.2 sec (9.0-12.0)
[2019-09-24 10:56] LABS: Appearance,Urine Clear (Clear); Bilirubin,Urine Negative (Negative); Blood,Urine Negative (Negative); Color,Urine Colorless; Glucose,Urine (UA) Negative (Negative); Ketones,Urine Negative (Negative); Leukocyte Esterase,Urine Negative (Negative); Nitrite,Urine Negative (Negative); PH, Urine 6.5 (5.0-8.0); Protein,Urine Negative (Negative); Specific Gravity,Urine 1.004 (1.001-1.035); Urobilinogen,Urine <2.0 mg/dL (<2.0)
--- NOTE | 2019-09-24 14:02 | XR ---
EXAMINATION TYPE: XR chest 2V DATE OF EXAM: 09/24/2019 COMPARISON: Prior chest x-ray 06/18/2018 CT 06/18/2018 HISTORY: Coronary artery disease TECHNIQUE: Frontal and lateral views of the chest are obtained. FINDINGS: Retrocardiac density is again noted. Density is rounded, show some lucency consistent with hiatal hernia with partial intrathoracic stomach. Heart size is within normal limits. No evident pne umothorax or pleural effusion. Multilevel thoracic spondylosis is present. The aorta is dense. Arthro jordan noted at the acromioclavicular joints. IMPRESSION: Hiatal hernia with partial intrathoracic stomach.
--- NOTE | 2019-09-24 16:00 | ECHOF ---
Referral Reason:I25.10 coronary artery disease MEASUREMENTS -------- HEIGHT: 162.6 cm WEIGHT: 120.2 kg BP: IVSd: 1.3 cm (0.6 - 1.1) LVIDd: 4.3 cm (3.9 - 5.3) LVPWd: 1.1 cm (0.6 - 1.1) IVSs: 1.5 cm LVIDs: 3.0 cm LVPWs: 1.4 cm LA Diam: 4.7 cm (2.7 - 3.8) RVIDd: 2.6 cm (< 3.3) LAESV Index (A-L): 33.87 ml/m Ao Diam: 3.2 cm (2.0 - 3.7) EPSS: 0.2 cm MV E Fred: 0.87 m/s MV DecT: 239 ms MV A Fred: 0.97 m/s MV E/A Ratio: 0.90 AV maxP.99 mmHg AV meanP.90 mmHg RAP: 5.00 mmHg RVSP: 17.11 mmHg MV EF SLOPE: 90.39 mm/s (70 - 150) MV EXCURSION: 24.33 mm (> 18.000) FINDINGS -------- Sinus rhythm. Morbid Obesity The left ventricular size is normal. There is mild concentric left ventricular hypertrophy. Overa ll left ventricular systolic function is low-normal with, an EF between 50 - 55 %. The right ventricle is normal in size. The left atrium is markedly dilated. LA is moderately dilated 34-39 ml/m2 The right atrial size is normal. There is mild aortic valve sclerosis. There is no evidence of aortic regurgitation. Peak/mean gra dient across the Aortic Valve is 10.99mmHg / 6.90mmHg. The mitral valve leaflets are mildly thickened. Mild mitral regurgitation is present. Mild tricuspid regurgitation present. Right ventricular systolic pressure is normal at < 35 mmHg. There is no evidence of pulmonary hypertension. There is no pulmonic regurgitation present. The aortic root size is normal. There is no pericardial effusion. CONCLUSIONS -------- 1. Sinus rhythm. 2. Morbid Obesity 3. The left ventricular size is normal. 4. There is mild concentric left ventricular hypertrophy. 5. Overall left ventricular systolic function is low-normal with, an EF between 50 - 55 %. 6. The right ventricle is normal in size. 7. The left atrium is markedly dilated. 8. LA is moderately dilated 34-39 ml/m2 9. The right atrial size is normal. 10. There is mild aortic valve sclerosis. 11. Peak/mean gradient across the Aortic Valve is 10.99mmHg / 6.90mmHg. 12. The mitral valve leaflets are mildly thickened. 13. Mild mitral regurgitation is present. 14. Mild tricuspid regurgitation present. 15. Right ventricular systolic pressure is normal at < 35 mmHg. 16. There is no evidence of pulmonary hypertension. 17. There is no pulmonic regurgitation present. 18. The aortic root size is normal. 19. There is no pericardial effusion. PUPPET ENGINEER: Hortencia Kat RDCS
[2019-09-24 17:29] LABS: Hepatitis A Antibody IgM Non-Reactive (Non-Reactive); Hepatitis B Core IgM Non-Reactive (Non-Reactive); Hepatitis B Surface Antigen Non-Reactive (Non-Reactive); Hepatitis C IgG Antibody Non-Reactive (Non-Reactive)
[2019-09-24 18:30] LABS: Hemoglobin A1C 5.8 % (4.0-6.0)
--- NOTE | 2019-09-25 12:18 | P.ARTDOP ---
Arterial Doppler LOWER EXTREMITY ARTERIAL DOPPLER: DATE OF SERVICE: 09/24/2019 Reason for study: Preop CABG. Doppler waveforms: Multiphasic bilaterally throughout. Pulse volume recording: []. Pressure gradients: Only at the foot level. Ankle-brachial indices: Greater than 1 bilaterally. Toe brachial indices: 0.45 on the right, 0.45 on the left Impression: Normal proximal flow. Low digital pressures and blunted waveforms most likely related to vasospastic phenomenon. Distal disease less likely. Clinical correlation recommended.
== END | disposition home or self-care (01) ==
LOC: LABWHC1 08:36
PROVIDERS: ATTEND Thoracic Surgery (Cardiothoracic Vascular Surgery)
DX: I25.10 Atherosclerotic heart disease of native coronary artery without angina pectoris (principal); E78.5 Hyperlipidemia, unspecified; I10 Essential (primary) hypertension; Z79.01 Long term (current) use of anticoagulants; K44.9 Diaphragmatic hernia without obstruction or gangrene; Z01.810 Encounter for preprocedural cardiovascular examination
CPT/HCPCS: 71046; 80053; 80061; 80074; 81003; 83036; 83735; 84443; 85027; 85610; 85730; 86850; 86900; 86901; 86920; 87070; 87086; 93005; 93306; 93923; 93970; 94150

== ENCOUNTER 2019-10-04 06:15 | Inpatient (IN) | payer MEDICARE, BC ==
[~2019-10-04 06:15] MED LIST changes: +ALBUMIN HUMAN 25% 50 ML IV ONE; +ALBUMIN HUMAN 5% 500 ML IVPB ONE; -ALPRAZolam 0.25 MG TAB PO PRN; -ALPRAZolam 0.5 MG TAB PO PRN; +ASPIRIN 325 MG TAB PO ONE; -ASPIRIN 325 MG TAB PO STA; +ATORVASTATIN 10 MG TAB PO ONE; -ATORVASTATIN 80 MG TAB PO STA; +CALCIUM CHLORIDE 100 MG/ML 10 ML SYRINGE IV ONE; +CHLORHEXIDINE GLUCONATE 15 ML CUP MUCOUS MEM ONE; +CLEVIDIPINE BUTYRATE 25 MG in EMPTY BAG 1 BAG IV ONE; +DEXTROSE 5% IN WATER 1,000 ML with POTASSIUM CHLORIDE 110 MEQ, MAGNESIUM SULFATE 16 MEQ... IV ONE; +DEXTROSE 5% IN WATER 1,000 ML with POTASSIUM CHLORIDE 25 MEQ, SODIUM CHLORIDE 2.5MEQ/ML... IRRIGATION ONE; +HEPARIN SODIUM 1,000 UN/ML (10ML VL) IV ONE; +HEPARIN SODIUM,PORCINE 5,000 UNIT in SODIUM CHLORIDE 0.9% 500 ML 500 ML IV ONE; +INSULIN REGULAR 100 UNIT in SODIUM CHLORIDE 0.9% 100 ML IV ONE; +LACTATED RINGERS 1,000 ML IV ONE; +MAGNESIUM SULFATE MG 500 MG/ML IV ONE; +MANNITOL 25% 12.5 GM/50 ML VIAL IV ONE; +METOPROLOL TARTRATE 12.5 MG TAB PO ONE; -NITROGLYCERIN SL TABS 0.4 MG TAB SUBLINGUAL PRN; +NITROGLYCERIN-D5W PMX 25 MG/250 ML BTL IV ONE; +NITROGLYCERIN-D5W PMX 50 MG in DEXTROSE/WATER 1 250ML.BAG IV ONE; +NOREPINEPHRINE 4 MG in SODIUM CHLORIDE 0.9% 250 ML IV ONE; +PAPAVERINE 360 MG in SODIUM CHLORIDE 0.9% 90 ML IV ONE; +PHENYLEPHRINE 10 MG/ML VIAL IV ONE; +PHENYLEPHRINE 40 MG in SODIUM CHLORIDE 0.9% 250 ML IV ONE; +PROPOFOL 1,000 MG/100 ML VIAL IV ONE; +PROTAMINE SULFATE 10 MG/ML 25 ML VIAL IV ONE; +PROTAMINE SULFATE 250 MG in EMPTY BAG 1 BAG IV ONE; +SODIUM BICARB 8.4% 50 ML SYR (1 MEQ/ML) IV ONE; +SODIUM CHLORIDE 0.9% 1,000 ML IV ONE; -SODIUM CHLORIDE 0.9% 1,000 ML in EMPTY BAG 1 BAG IV ONE; +TRANEXAMIC ACID 2,000 MG in SODIUM CHLORIDE 0.9% 80 ML IV ONE; +VANCOMYCIN 1,000 MG VIAL MISCELLANE ONE; +ceFAZolin 2,000 MG in SODIUM CHLORIDE 0.9% 30 ML IVPB ONE
[2019-10-04] MEDS ORDERED: LIDOCAINE 1% (10MG/ML) FOR IV START INTRADERMA ONE (07:19)
[2019-10-04] MEDS ORDERED: ePHEDrine SULFATE/0.9% NACL/PF 50 MG/5 ML SYRINGE IV ONE (08:21)
[2019-10-04] MEDS ORDERED: PROPOFOL 10 MG/ML 20 ML VIAL IV ONE (08:21)
[2019-10-04] MEDS ORDERED: SODIUM CHLORIDE 0.9% 250 ML BAG ONE (08:21)
[2019-10-04] MEDS ORDERED: SODIUM CHLORIDE 0.9% IRRIG 1,000 ML BTL IRRIGATION ONE (08:21)
[2019-10-04] MEDS ORDERED: POTASSIUM CHLORIDE OPEN HEART 20 MEQ/50 ML BAG IVPB ONE (08:21)
[2019-10-04] MEDS ORDERED: NITROGLYCERIN-D5W PMX 50 MG/250 ML BOTTLE IV ONE (08:21)
[2019-10-04] MEDS ORDERED: LIDOCAINE 2% SYG (PF) 100 MG/5 ML ONE (08:21)
[2019-10-04] MEDS ORDERED: VECURONIUM 10 MG VIAL IV ONE (08:21)
[2019-10-04] MEDS ORDERED: INSULIN REGULAR 100 UNIT/ML VIAL ONE (08:21)
[2019-10-04] MEDS ORDERED: HEPARIN SODIUM,PORCINE 10,000 UNIT/ML 1 ML VIAL ONE (08:21)
[2019-10-04] MEDS ORDERED: ALBUMIN HUMAN 5% (25gm) 500 ML VIAL IVPB ONE (08:21)
[2019-10-04] MEDS ORDERED: TRANEXAMIC ACID 1,000 MG/10 ML VIAL ONE (08:21)
[2019-10-04] MEDS ORDERED: MIDAZOLAM 2 MG/2 ML VIAL ONE (08:21)
[2019-10-04] MEDS ORDERED: ELECTROLYTE-R (PH 7.4) 1,000 ML IV.SOLN IV ONE (08:21)
[2019-10-04 09:41] LABS: ABG Base Excess 4.2 mmol/L; ABG Glucose Whole Blood 106 mg/dL (75-99); ABG HCO3 28 mmol/L (21-25); ABG Hematocrit 37 % (34.0-46.0); ABG Ionized Calcium 4.8 mg/dL (4.5-5.3); ABG Lactic Acid Whole Blood 0.9 mmol/L (0.5-1.6); ABG Oxygen Saturation 99.7 % (94-97); ABG PCO2 38 mmHg (35-45); ABG PH 7.47 (7.35-7.45); ABG PO2 312 mmHg (83-108); ABG Potassium Whole Blood 3.6 mmol/L (3.4-4.5); ABG Sodium Whole Blood 140 mmol/L (135-146); ABG TCO2 29 mmol/L (19-24)
[2019-10-04] MEDS ORDERED: SODIUM CHLORIDE 0.9% 500 ML 500 ML with HEPARIN SODIUM,PORCINE 5,000 UNIT IV ONE ×2 (10:41)
[2019-10-04] MEDS ORDERED: ceFAZolin 1,000 MG in SODIUM CHLORIDE 0.9% 1,000 ML IRRIGATION ONE (10:42)
[2019-10-04] MEDS ORDERED: PAPAVERINE 360 MG in SODIUM CHLORIDE 0.9% 90 ML IV ONE (10:42)
[2019-10-04 11:15] LABS: ABG Base Excess 2.9 mmol/L; ABG Glucose Whole Blood 123 mg/dL (75-99); ABG HCO3 28 mmol/L (21-25); ABG Hematocrit 37 % (34.0-46.0); ABG Ionized Calcium 4.9 mg/dL (4.5-5.3); ABG Lactic Acid Whole Blood 0.9 mmol/L (0.5-1.6); ABG Oxygen Saturation 99.4 % (94-97); ABG PCO2 42 mmHg (35-45); ABG PH 7.42 (7.35-7.45); ABG PO2 212 mmHg (83-108); ABG Potassium Whole Blood 3.3 mmol/L (3.4-4.5); ABG Sodium Whole Blood 140 mmol/L (135-146); ABG TCO2 29 mmol/L (19-24)
[2019-10-04 11:42] LABS: ABG Glucose Whole Blood 208 mg/dL (75-99); ABG HCO3 27 mmol/L (21-25); ABG Hematocrit 27 % (34.0-46.0); ABG Ionized Calcium 4.4 mg/dL (4.5-5.3); ABG Lactic Acid Whole Blood 0.6 mmol/L (0.5-1.6); ABG PCO2 43 mmHg (35-45); ABG PH 7.41 (7.35-7.45); ABG PO2 338 mmHg (83-108); ABG Potassium Whole Blood 4.6 mmol/L (3.4-4.5); ABG Sodium Whole Blood 134 mmol/L (135-146); ABG TCO2 28 mmol/L (19-24)
[2019-10-04 12:19] LABS: ABG Base Excess 2.2 mmol/L; ABG Glucose Whole Blood 189 mg/dL (75-99); ABG HCO3 27 mmol/L (21-25); ABG Hematocrit 28 % (34.0-46.0); ABG Ionized Calcium 4.6 mg/dL (4.5-5.3); ABG Lactic Acid Whole Blood 1.3 mmol/L (0.5-1.6); ABG Oxygen Saturation 99.8 % (94-97); ABG PCO2 45 mmHg (35-45); ABG PH 7.39 (7.35-7.45); ABG PO2 280 mmHg (83-108); ABG Potassium Whole Blood 4.4 mmol/L (3.4-4.5); ABG Sodium Whole Blood 136 mmol/L (135-146); ABG TCO2 29 mmol/L (19-24)
[2019-10-04 13:59] LABS: ABG Base Excess 2.3 mmol/L; ABG Glucose Whole Blood 114 mg/dL (75-99); ABG HCO3 26 mmol/L (21-25); ABG Hematocrit 33 % (34.0-46.0); ABG Ionized Calcium 4.5 mg/dL (4.5-5.3); ABG Lactic Acid Whole Blood 1.5 mmol/L (0.5-1.6); ABG Oxygen Saturation 99.3 % (94-97); ABG PCO2 38 mmHg (35-45); ABG PH 7.45 (7.35-7.45); ABG PO2 174 mmHg (83-108); ABG Potassium Whole Blood 3.3 mmol/L (3.4-4.5); ABG Sodium Whole Blood 139 mmol/L (135-146); ABG TCO2 27 mmol/L (19-24)
--- NOTE | 2019-10-04 14:24 | OP ---
OPERATIVE REPORT DATE OF THE OPERATION: 10/04/2019 ATTENDING SURGEON: Dr. Reggie Hung ASSIST: Ankush Pagna and Garrison Hylton. POSTOPERATIVE DIAGNOSIS: Unstable angina. Three vessel cardiac disease. POSTOPERATIVE DIAGNOSIS: Unstable angina. Three vessel cardiac disease. PROCEDURES: Coronary bypass grafting x3 with left internal mammary to left anterior descending artery, reverse saphenous vein graft off the aorta to the circumflex artery into the posterior ventricular branch of the right coronary artery with right lower extremity greater saphenous vein endoscopic vein harvesting, clip ligation of the left atrial appendage with a #35 mm AtriClip and intraoperative RAMONA. ANESTHESIA: General. BLOOD LOSS: Less than 500 mL. SUMMARY: Patient brought to the operating room, placed in supine position. From adventist of a general endotracheal anesthetic, placement of a [place]ao catheter arterial line, adequate IV access and a [place] catheter, patient is carefully prepped and draped in a sterile fashion using chlorhexidine paint and sterile towels. Greater saphenous vein was harvested from the right lower extremity with endovascular vein harvesting technique. All branches were doubly tied and divided and the incisions closed in 2 layers. A midline incision in the chest made, sternum divided. Pericardium was opened. Heart size was slightly enlarged. The aorta was soft. Left pleural space was then opened. Left internal mammary artery harvested as a pedicle from the xiphoid to the left subclavian vein. It was of 1.75-2 mm quality with excellent flow. The patient heparinized to an AST of greater than 480. The aorta and vena cava were cannulated. Antegrade and retrograde cardioplegic catheters positioned in the ascending aorta and the coronary sinus. The patient was placed on bypass, cross-clamp placed, the heart arrested with 1 L of antegrade followed by 500 mL retrograde cardioplegia retrograde. Cardioplegia was delivered 3-500 mL at the end of each 20 minutes interval. First the base of the left atrial appendage was measured and a 35 mm AtriClip was secured at the base, officially obliterating the left atrial appendage. Distal anastomosis were then constructed, reverse saphenous vein graft anastomosis to the posterior ventricular branch of the right coronary artery was constructed using a 7-0 Prolene running suture. Caliber of this vessel was 1.75 mm. Next, saphenous vein anastomosis to the circumflex artery was constructed in a similar fashion. This was a heavily calcified vessel and the anastomosis was slightly more distal due to the extreme calcifications. This is a 1.5 mm vessel. Next, the left internal mammary artery was beveled and distal anastomosis to the mid left anterior descending artery constructed using an 8-0 Prolene running suture. Caliber of this vessel was 1.75-2 mm. Under a single cross-clamp, two proximal anastomosis were constructed in the ascending aorta using 6-0 Prolene running suture. Patient was placed head down, the aortic root was vented, 1 L of warm blood retrograde cardioplegia was run, cross-clamp was removed. The vein graft de-aired. Once beating normal sinus rhythm, patient was brought off bypass. Came off bypass uneventfully with good hemodynamics, protamine delivered, patient decannulated, atrial ventricular pacing wires were placed. Mediastinal left pleural chest tubes were placed. At this point, the sternum was closed with four #6 sternal wires and two [id number] Otho sternal cable closure devices. Skin, subcutaneous tissue, and fascia closed in 3 layers. No complications. Patient tolerated the procedure well and was taken to the cardiovascular intensive care unit in stable condition. MMODL / IJN: [id number] /
[2019-10-04] MEDS: LACTATED RINGERS 1,000 ML IV SCH (14:30)
[2019-10-04] MEDS ORDERED: NITROGLYCERIN-D5W PMX 50 MG in DEXTROSE/WATER 1 250ML.BAG IV SCH (14:41)
[2019-10-04] MEDS ORDERED: AMIODARONE 360 MG in DEXTROSE 5% IN WATER 200 ML IV PRN ×2 (14:41)
[2019-10-04] MEDS ORDERED: AMIODARONE 300 MG in DEXTROSE 5% IN WATER 250 ML IV PRN ×2 (14:41)
[2019-10-04] MEDS ORDERED: ALBUMIN HUMAN 5% 250 ML in EMPTY BAG 1 BAG IVPB PRN (14:41)
[2019-10-04] MEDS ORDERED: Phosphorus Replacement Protoco 1 EACH MISC MISCELLANE PRN (14:41)
[2019-10-04] MEDS ORDERED: Magnesium Replacement Protocol 1 EACH MISC MISCELLANE PRN (14:41)
[2019-10-04] MEDS ORDERED: IPRATROPIUM-ALBUTEROL 3 ML NEB INHALATION PRN (14:41)
[2019-10-04] MEDS ORDERED: CALCIUM GLUCONATE 2 GM in SODIUM CHLORIDE 0.9% 100 ML IVPB PRN (14:41)
[2019-10-04] MEDS ORDERED: PROPOFOL 1,000 MG in EMPTY BAG 1 BAG IV SCH (14:41)
[2019-10-04] MEDS ORDERED: INSULIN REGULAR 100 UNIT in SODIUM CHLORIDE 0.9% 100 ML IV SCH (14:41)
[2019-10-04] MEDS ORDERED: ONDANSETRON 4 MG/2 ML VIAL IVP PRN (14:41)
[2019-10-04] MEDS ORDERED: CLEVIDIPINE BUTYRATE 25 MG in EMPTY BAG 1 BAG IV SCH (14:41)
[2019-10-04] MEDS ORDERED: METOCLOPRAMIDE 5 MG/ML 2 ML VIAL IVP PRN (14:41)
[2019-10-04] MEDS ORDERED: Potassium Replacement Protocol 1 EACH MISC MISCELLANE PRN (14:41)
[2019-10-04] MEDS ORDERED: BENZOCAINE/MENTHOL LOZENG 1 EACH LOZENGE MUCOUS MEM PRN (14:41)
[2019-10-04 14:42] LABS: Glucose,Whole Blood 106 mg/dL (75-99)
[2019-10-04 15:06] LABS: Ionized Calcium 4.3 mg/dL (4.5-5.3)
[2019-10-04 15:08] LABS: INR 1.2 (<1.2); Partial Thromboplastin Time 27.2 sec (22.0-30.0)
[2019-10-04 15:13] LABS: ALT 10 U/L (4-34); AST 30 U/L (14-36); African American GFR (CKD) >90 (>60 ml/min/1.73 sqM); Albumin 3.3 g/dL (3.5-5.0); Alkaline Phosphatase 57 U/L (38-126); Anion Gap 4 mmol/L; Blood Urea Nitrogen 13 mg/dL (7-17); Calcium 7.8 mg/dL (8.4-10.2); Carbon Dioxide 26 mmol/L (22-30); Chloride 107 mmol/L (98-107); Glucose 92 mg/dL (74-99); Magnesium 2.7 mg/dL (1.6-2.3); Non-African American GFR(CKD) >90 (>60 ml/min/1.73 sqM); Potassium 3.9 mmol/L (3.5-5.1); Sodium 137 mmol/L (137-145); Total Bilirubin 0.5 mg/dL (0.2-1.3); Total Protein 5.4 g/dL (6.3-8.2)
[2019-10-04 15:14] LABS: Basophils % (A) 0 %; Eosinophils # (A) 0.1 k/uL (0-0.7); Eosinophils % (A) 1 %; HCT 30.4 % (34.0-46.0); Lymphocytes # (A) 0.8 k/uL (1.0-4.8); Lymphocytes % (A) 7 %; MCH 30.6 pg (25.0-35.0); MCHC 32.6 g/dL (31.0-37.0); MCV 93.6 fL (80.0-100.0); Mean Platelet Volume 9.9; Monocytes # (A) 0.4 k/uL (0-1.0); Monocytes % (A) 3 %; Neutrophils # (A) 9.8 k/uL (1.3-7.7); Neutrophils % (A) 89 %; RBC 3.25 m/uL (3.80-5.40); RDW 12.9 % (11.5-15.5)
[2019-10-04 15:22] LABS: HGB 9.9 gm/dL (11.4-16.0)
[2019-10-04 15:25] LABS: ABG Base Excess -1.4 mmol/L; ABG HCO3 25 mmol/L (21-25); ABG Oxygen Saturation 99.8 % (94-97); ABG PCO2 47 mmHg (35-45); ABG PH 7.33 (7.35-7.45); ABG PO2 392 mmHg (83-108); ABG TCO2 26 mmol/L (19-24)
[2019-10-04 15:28] LABS: Allen Test Performed? no
--- NOTE | 2019-10-04 15:34 | XR ---
EXAMINATION TYPE: XR chest 1V portable DATE OF EXAM: 10/04/2019 COMPARISON: 09/24/2019 HISTORY: Postop cardiac surgery TECHNIQUE: Single frontal view of the chest is obtained. FINDINGS: Right-sided [place]-Thao catheter has its distal tip oriented towards the right main pulmonar y artery. This could be slightly retracted for optimal placement. Post CABG changes are seen in the c hest. Mediastinal drains are present. Enteric tube has been placed with its fenestrated portion beyon d the gastroesophageal junction. Endotracheal tube terminates at the level of the aortic arch, approp riately placed. Trace left pleural effusion is seen with left midlung platelike atelectasis. Left-ehsan ed pleural thickening is noted with left thoracostomy tube. Cardiomediastinal silhouette is stable fr om the prior. Right lung is well aerated. No acute osseous pathology. IMPRESSION: Lines and tubes as detailed above. Trace left pleural effusion and left midlung atelecta sis.
[2019-10-04 15:42] LABS: Glucose,Whole Blood 106 mg/dL (75-99)
[2019-10-04 15:48] LABS: Anisocytosis (M) Present; Hypochromasia (M) Present; Platelet Count 94 k/uL (150-450)
[2019-10-04] MEDS: IPRATROPIUM-ALBUTEROL 3 ML NEB INHALATION SCH ×3 (15:49→19:06)
--- NOTE | 2019-10-04 16:05 | P.CNPUL ---
History of Present Illness Consult date: 10/04/19 Chief complaint: Post thoracotomy and bypass surgery History of present illness: 33-year-old female patient with known history of coronary artery disease was having chest pain. The patient has had previous history of stenting of the circumflex back in 2005. She has hypertension and hyperlipidemia. She underwent a cardiac catheterization on 09/03/2019 and the patient was found to have calcified right and left coronary systems, disease involving the LV branch of the RCA and critical disease involving the ostial LAD and ostial left circumf stevie with plaque involving the distal left main coronary artery. The patient underwent three-vessel three-vessel bypass surgery and currently patient is postop day #1. The patient was brought into the ICU postop sedated on a mechanical ventilator. Currently she is on SIMV mode and ice switched her to an assist-control mode. The blood gases this was done earlier showed a pH of 7.32 with a pCO2 of 47 and pO2 of 392 and this was on SIMV mode with a rate of 12 with a tidal volume of 400 and FiO2 of 100% with a PEEP of 10. The patient was switched to an assist-control mode at the rate of 12 with a tidal volume brought up to 450 and interrupted PEEP down to 5 with an FiO2 of 50%. She has left pleural and mediastinal chest tubes and outputs is minimal at this point in time producing 150 mL since arrival from the operating room. No evidence of any air leak. The patient is the wires. She is in sinus rhythm for now. Cardiac first and is at 5.2 with an index of 2.4. PA pressures are 29/13. He is on propofol at 10 mcg/kg per minute. She is on nitroglycerin drip at 5 g per KG per min [place]. She is having a urine output in the order of 20 disease an hour and she is going to receive some volume. The plan is to extubate her within the next 6 hours. The chest x-ray shows adequate expansion of both lungs and that is no evidence of any pneumothorax. The Button[place]-Thao catheter is in place. NG tube is in place. Orotracheal tube is in place. There is mediastinal left left pleural chest tube. No evidence of any subcutaneous emphysema. There is a clipping of a atrial appendage. Review of Systems ROS unobtainable: due to endotracheal tube Past Medical History Past Medical History: Coronary Artery Disease (CAD), Cancer, Chest Pain / Angina, Heart Failure, GERD/Reflux, Hyperlipidemia, Hypertension, Osteoarthritis (OA), Sleep Apnea/CPAP/BIPAP Additional Past Medical History / Comment(s): hiatal hernia, constipation, occasional back pain, uses cane prn, hx of falls, uses C-Pap machine rarely, Skin Cancer., See Cardiology [facility] History of Any Multi-Drug Resistant Organisms: None Reported Past Surgical History: Breast Surgery, Cholecystectomy, Heart Catheterization, Heart Catheterization With Stent, Joint Replacement, Tubal Ligation Additional Past Surgical History / Comment(s): bilat total knee, juan pablo cataract with lens implants, skin CA 2016, juan pablo benign breast biopsies,mult heart caths,angiography 1988 Past Anesthesia/Blood Transfusion Reactions: No Reported Reaction Additional Past Anesthesia/Blood Transfusion Reaction / Comment(s): no hx blood transfusion Date of Last Stent Placement:: 2005 Smoking Status: Former smoker - Past Family History Father Additional Family Medical History / Comment(s): Father at age 63 from rudolph nary artery disease. Mother Additional Family Medical History / Comment(s): Mother at age 94 from heart disease. Sister(s) Family Medical History: COPD, Coronary Artery Disease (CAD) Additional Family Medical History / Comment(s): CABG, 1 sister bleeding complication with heart cath,1 sister resulting from aspiration Brother(s) Family Medical History: Coronary Artery Disease (CAD) Additional Family Medical History / Comment(s): amputations due to agent orange Medications and Allergies Home Medications Medication Instructions Recorded Confirmed Type Aspirin 81 mg PO HS 05/23/14 10/04/19 History Furosemide [Lasix] 40 mg PO DAILY 05/23/14 10/04/19 History Losartan [Cozaar] 50 mg PO DAILY 05/23/14 10/04/19 History Atorvastatin [Lipitor] 40 mg PO HS 01/16/18 10/04/19 History Nitroglycerin Sl Tabs [Nitrostat] 0.4 mg SUBLINGUAL Q5M PRN 01/16/18 10/04/19 History amLODIPine [Norvasc] 5 mg PO DAILY 01/16/18 10/04/19 History Fish Oil/Dha/Epa [Fish Oil 1,200 1 cap PO DAILY 06/18/18 10/04/19 History mg Fish Oil] Dicyclomine [Bentyl] 10 mg PO QID PRN #120 cap 06/20/18 10/04/19 Rx Multivit-Min/Iron/Folic/Lutein 1 each PO DAILY 08/30/19 10/04/19 History [Centrum Silver Women Tablet] Pantoprazole [Protonix] 40 mg PO QAM 08/30/19 10/04/19 History Spironolactone [Aldactone] 25 mg PO DAILY 08/30/19 10/04/19 History ALPRAZolam [Xanax] 0.25 mg PO BID PRN 09/24/19 10/04/19 History Metoprolol Succinate [Toprol XL] 50 mg PO DAILY 09/24/19 10/04/19 History Sennosides [Senna] 8.6 mg PO DAILY 09/24/19 10/04/19 History Allergies Allergy/AdvReac Type Severity Reaction Status Date / Time No Known Allergies Allergy Verified 10/04/19 06:42 Physical Exam Vitals: Vital Signs Temp Pulse Pulse Resp BP BP Pulse Ox 10/04/19 15:49 71 10/04/19 15:00 70 14 10/04/19 14:45 71 28 H 100 10/04/19 06:43 97.4 F L 60 16 118/72 107/48 98 Intake and Output 10/04/19 10/04/19 10/04/19 06:59 14:59 22:59 Intake Total 107.5 26.5 Output Total 2865 65 Balance -2757.5 -38.5 Intake: IV 107.5 26.5 Lactated Ringers 1,000 ml 50 25 @ 50 mls/hr IV .Q20H ROSA Rx#:[id number] Nitroglycerin-D5w Pmx 50 1.5 1.5 mg In Dextrose/Water 1 250ml.bag @ 5 MCG/MIN 1.5 mls/hr IV .Q24H ROSA Rx#: [id number] Output: Chest Tube Drainage 45 35 Left Pleural/Mediastinal 45 35 Urine 1020 30 Estimated Blood Loss 1800 Other: Weight 117 kg ABP, PAP, CO, CI - Last 8 Hours Arterial Blood Pressure 100/43 Arterial Blood Pressure 109/54 Pulmonary Artery Pressure 32/18 Pulmonary Artery Pressure 36/20 Cardiac Output 5.2 Cardiac Index 2.4 Gen. appearance sedated, comfortable active distress the patient is currently intubated on a mechanical ventilator. The orotracheal and orogastric tube are both in place. Head exam was generally normal. There was no scleral icterus or corneal arcus. Mucous membranes were moist. Neck was supple and without jugular venous distension, thyromegaly, or carotid bruits. Carotids were easily palpable bilaterally. There was no adenopathy. The patient has a right IJ Button[place]ow-Thao catheter in place. No goiter or neck masses. Lungs are diminished in lung bases bilaterally. No wheezes or rhonchi. Cardiac exam revealed the PMI to be normally situated and sized. The rhythm was regular and no extrasystoles were noted during several minutes of auscultation. The first and second heart sounds were normal and physiologic splitting of the second heart sound was noted. There were no murmurs, rubs, clicks, or gallops. No significant rubs or murmurs appreciated. The patient has a left pleural and mediastinal chest tube both of them being in place Abdominal exam revealed normal bowel sounds. The abdomen was soft, non-tender, and without masses, organomegaly, or appreciable enlargement of the abdominal aorta. Examination of the extremities revealed easily palpable radial, femoral and pedal pulses. There was no cyanosis, clubbing or edema. Examination of the skin revealed no evidence of significant rashes, suspicious appearing nevi or other concerning lesions. Neurologically patient is sedated yet she is lightly sedated and she can easily aroused and follows some simple commands. Results - Laboratory Findings CBC and BMP: 10/04/19 14:45 10/04/19 14:45 ABG ABG pH 7.33 (7.35-7.45) L 10/04/19 15:20 ABG pCO2 47 mmHg (35-45) H 10/04/19 15:20 ABG pO2 392 mmHg (83-108) H 10/04/19 15:20 ABG O2 Saturation 99.8 % (94-97) H 10/04/19 15:20 PT/INR, D-dimer PT 12.0 sec (9.0-12.0) 10/04/19 14:45 INR 1.2 (<1.2) H 10/04/19 14:45 Abnormal lab findings: Abnormal Labs 09/24/19 10/04/19 10/04/19 08:55 09:42 11:17 WBC RBC Hgb Hct Plt Count Neutrophils # Lymphocytes # INR ABG pH 7.47 H ABG pCO2 ABG pO2 312 H 212 H ABG HCO3 28 H 28 H ABG Total CO2 29 H 29 H ABG O2 Saturation 99.7 H 99.4 H ABG Hematocrit ABG Sodium ABG Potassium 3.3 L ABG Ionized Calcium ABG Glucose 106 H 123 H Hemoglobin Creatinine POC Glucose (mg/dL) Calcium Ionized Calcium [place] Magnesium Total Protein Albumin Arterial Blood Potassium 3.3 L Arterial Blood Glucose 106 H 123 H Crossmatch See Detail 10/04/19 10/04/19 10/04/19 11:44 12:20 14:01 WBC RBC Hgb Hct Plt Count Neutrophils # Lymphocytes # INR ABG pH ABG pCO2 ABG pO2 338 H 280 H 174 H ABG HCO3 27 H 27 H 26 H ABG Total CO2 28 H 29 H 27 H ABG O2 Saturation 100.0 H 99.8 H 99.3 H ABG Hematocrit 27 L 28 L 33 L ABG Sodium 134 L ABG Potassium 4.6 H 3.3 L ABG Ionized Calcium 4.4 L ABG Glucose 208 H 189 H 114 H Hemoglobin 8.9 L 9.2 L 10.9 L Creatinine POC Glucose (mg/dL) Calcium Ionized Calcium [place] Magnesium Total Protein Albumin Arterial Blood Potassium 4.6 H 3.3 L Arterial Blood Glucose 208 H 189 H 114 H Crossmatch 10/04/19 10/04/19 10/04/19 14:40 14:45 14:45 WBC 11.0 H RBC 3.25 L Hgb 9.9 L D Hct 30.4 L Plt Count 94 L D Neutrophils # 9.8 H Lymphocytes # 0.8 L INR 1.2 H ABG pH ABG pCO2 ABG pO2 ABG HCO3 ABG Total CO2 ABG O2 Saturation ABG Hematocrit ABG Sodium ABG Potassium ABG Ionized Calcium ABG Glucose Hemoglobin Creatinine POC Glucose (mg/dL) 106 H Calcium Ionized Calcium [place] Magnesium Total Protein Albumin Arterial Blood Potassium Arterial Blood Glucose Crossmatch 10/04/19 10/04/19 10/04/19 14:45 15:20 15:24 WBC RBC Hgb Hct Plt Count Neutrophils # Lymphocytes # INR ABG pH 7.33 L ABG pCO2 47 H ABG pO2 392 H ABG HCO3 ABG Total CO2 26 H ABG O2 Saturation 99.8 H ABG Hematocrit ABG Sodium ABG Potassium ABG Ionized Calcium ABG Glucose Hemoglobin Creatinine 0.40 L POC Glucose (mg/dL) 106 H Calcium 7.8 L Ionized Calcium [place] 4.3 L Magnesium 2.7 H Total Protein 5.4 L Albumin 3.3 L Arterial Blood Potassium Arterial Blood Glucose Crossmatch - Diagnostic Findings Chest x-ray: image reviewed Assessment and Plan Plan: 1 multivessel coronary artery disease and the patient underwent three-vessel bypass. She is currently postop day #0. She is post thoracotomy and she is still intubated on a mechanical ventilator. Hemodynamically stable. She is encountering some low urine output and she is going to be given some volume. Hemodynamically, she has an adequate cardiac output and index. She is on no pressors for now. Chest tubes are in place with minimal amount of output in the chest x-ray shows adequate expansion of both lungs. 2 post thoracotomy and the patient is still on a mechanical ventilator. Her blood gases was reviewed. Appropriate ventilator setting changes were done. 3 hypertension 4 hyperlipidemia 5 obesity 6 history of hiatal hernia with symptoms of GE reflux 7 obstructive sleep apnea 8 known history of coronary artery disease with previous history of coronary stenting 9 postoperative anemia, and expected outcome of surgery Plan Continue vent support in the necessary vent changes were done. Wean off sedation and assess the patient's weaning parameters Spontaneous breathing trial once the patient is more awake and a blood gases to follow Currently the patient on assist-control mode rate of 12 with a tidal volume of 450 and FiO2 of 50% with a PEEP of 5 Monitor the output from the chest tube Monitor hemodynamics Give IV albumin for low urine output, 250 mL 5% We'll continue to follow. Anticipate extubation within next few hours.
[2019-10-04 16:37] LABS: Glucose,Whole Blood 140 mg/dL (75-99)
[2019-10-04 17:31] LABS: Glucose,Whole Blood 138 mg/dL (75-99)
[2019-10-04] MEDS: ACETAMINOPHEN IV (For NPO) 1,000 MG in EMPTY BAG 1 BAG IVPB SCH (17:33)
[2019-10-04] MEDS: KETOROLAC 30 MG/ML 1 ML VIAL IVP SCH (17:43)
[2019-10-04 17:57] LABS: Basophils % (A) 0 %; Eosinophils % (A) 0 %; HGB 10.5 gm/dL (11.4-16.0); Lymphocytes # (A) 0.7 k/uL (1.0-4.8); Lymphocytes % (A) 5 %; MCH 30.2 pg (25.0-35.0); MCHC 31.9 g/dL (31.0-37.0); MCV 94.6 fL (80.0-100.0); Mean Platelet Volume 9.3; Monocytes # (A) 0.5 k/uL (0-1.0); Monocytes % (A) 4 %; Neutrophils % (A) 90 %; Platelet Count 101 k/uL (150-450); RBC 3.49 m/uL (3.80-5.40); WBC 12.2 k/uL (3.8-10.6)
[2019-10-04 18:10] LABS: ABG Base Excess -3.5 mmol/L; ABG HCO3 22 mmol/L (21-25); ABG Oxygen Saturation 98.7 % (94-97); ABG PCO2 43 mmHg (35-45); ABG PH 7.33 (7.35-7.45); ABG PO2 130 mmHg (83-108); ABG TCO2 24 mmol/L (19-24)
[2019-10-04 18:20] LABS: Glucose,Whole Blood 137 mg/dL (75-99)
[2019-10-04 18:36] LABS: Allen Test Performed? no
[2019-10-04 19:23] LABS: Glucose,Whole Blood 136 mg/dL (75-99)
[2019-10-04 20:20] LABS: Glucose,Whole Blood 137 mg/dL (75-99)
[2019-10-04] MEDS ORDERED: MUPIROCIN 2% OINT 22 GM TUBE NASAL ONE (20:45)
[2019-10-04 21:14] LABS: Basophils % (A) 0 %; Eosinophils % (A) 0 %; HCT 32.8 % (34.0-46.0); HGB 10.4 gm/dL (11.4-16.0); Lymphocytes # (A) 0.4 k/uL (1.0-4.8); Lymphocytes % (A) 4 %; MCH 30.3 pg (25.0-35.0); MCHC 31.7 g/dL (31.0-37.0); MCV 95.4 fL (80.0-100.0); Mean Platelet Volume 11.2; Monocytes # (A) 0.4 k/uL (0-1.0); Monocytes % (A) 3 %; Neutrophils # (A) 11.4 k/uL (1.3-7.7); Neutrophils % (A) 93 %; Platelet Count 100 k/uL (150-450); RBC 3.43 m/uL (3.80-5.40); RDW 13.1 % (11.5-15.5); WBC 12.3 k/uL (3.8-10.6)
[2019-10-04 21:14] LABS: Glucose,Whole Blood 141 mg/dL (75-99)
[2019-10-04] MEDS: MUPIROCIN 2% OINT 22 GM TUBE NASAL SCH (21:43)
[2019-10-04 22:02] LABS: Glucose,Whole Blood 151 mg/dL (75-99)
[2019-10-04] MEDS: HEPARIN SODIUM,PORCINE 5,000 UNIT/ML 1 ML VIAL SQ SCH (22:21)
[2019-10-04 23:39] LABS: Glucose,Whole Blood 145 mg/dL (75-99)
[2019-10-05] MEDS: KETOROLAC 30 MG/ML 1 ML VIAL IVP SCH ×4 (00:26→18:15)
[2019-10-05] MEDS: HEPARIN SODIUM,PORCINE 5,000 UNIT/ML 1 ML VIAL SQ SCH ×3 (00:26→15:35)
[2019-10-05] MEDS: ACETAMINOPHEN IV (For NPO) 1,000 MG in EMPTY BAG 1 BAG IVPB SCH (00:26)
[2019-10-05 00:28] LABS: Glucose,Whole Blood 115 mg/dL (75-99)
[2019-10-05 01:10] LABS: Glucose,Whole Blood 119 mg/dL (75-99)
[2019-10-05 02:15] LABS: Glucose,Whole Blood 113 mg/dL (75-99)
[2019-10-05] MEDS ORDERED: HYDROcodone/APAP 5-325MG 1 EACH TAB PO PRN (02:29)
[2019-10-05 03:01] LABS: Glucose,Whole Blood 125 mg/dL (75-99)
[2019-10-05 04:01] LABS: Glucose,Whole Blood 114 mg/dL (75-99)
[2019-10-05 04:21] LABS: Basophils % (A) 0 %; Eosinophils % (A) 0 %; HCT 31.1 % (34.0-46.0); Lymphocytes # (A) 1.3 k/uL (1.0-4.8); Lymphocytes % (A) 11 %; MCH 30.1 pg (25.0-35.0); MCHC 32.1 g/dL (31.0-37.0); MCV 93.6 fL (80.0-100.0); Mean Platelet Volume 9.7; Monocytes # (A) 0.5 k/uL (0-1.0); Monocytes % (A) 4 %; Neutrophils # (A) 9.7 k/uL (1.3-7.7); Neutrophils % (A) 83 %; Platelet Count 101 k/uL (150-450); RBC 3.33 m/uL (3.80-5.40); WBC 11.6 k/uL (3.8-10.6)
[2019-10-05 05:10] LABS: Ionized Calcium 5.2 mg/dL (4.5-5.3)
[2019-10-05 05:19] LABS: ALT 14 U/L (4-34); AST 45 U/L (14-36); African American GFR (CKD) >90 (>60 ml/min/1.73 sqM); Albumin 3.3 g/dL (3.5-5.0); Alkaline Phosphatase 52 U/L (38-126); Anion Gap 4 mmol/L; Blood Urea Nitrogen 11 mg/dL (7-17); Calcium 8.8 mg/dL (8.4-10.2); Carbon Dioxide 27 mmol/L (22-30); Chloride 106 mmol/L (98-107); Glucose 106 mg/dL (74-99); Magnesium 2.4 mg/dL (1.6-2.3); Non-African American GFR(CKD) >90 (>60 ml/min/1.73 sqM); Potassium 3.9 mmol/L (3.5-5.1); Sodium 137 mmol/L (137-145); Total Bilirubin 0.6 mg/dL (0.2-1.3); Total Protein 5.4 g/dL (6.3-8.2)
[2019-10-05 05:25] LABS: Glucose,Whole Blood 76 mg/dL (75-99)
[2019-10-05] MEDS ORDERED: Potassium Replacement Protocol 1 EACH MISC MISCELLANE PRN (05:51)
[2019-10-05] MEDS ORDERED: POTASSIUM BICARBONATE/CIT AC 20 MEQ TABLET.EFF NG-TUBE SCH (06:00)
[2019-10-05 06:06] LABS: Glucose,Whole Blood 136 mg/dL (75-99)
[2019-10-05 07:05] LABS: Glucose,Whole Blood 136 mg/dL (75-99)
--- NOTE | 2019-10-05 07:50 | XR ---
EXAMINATION TYPE: XR chest 1V portable DATE OF EXAM: 10/05/2019 CLINICAL HISTORY: Difficulty breathing progress study. Postopen cardiac surgery. TECHNIQUE: Single AP portable upright view of the chest is obtained. COMPARISON: Chest x-ray from one day earlier FINDINGS: : Right-sided [place]-Thao catheter stable in position. Post CABG changes with overlying st ernal wires and mediastinal clips redemonstrated. New artifact from overlying zipper. Interval extuba tion with removal of endotracheal and orogastric tubes. Stable left-sided chest tube and mediastinal drainage catheter. Persistent cardiomegaly. Worsening central vascular congestion. Persistent small b ilateral pleural effusions with worsening left lower lung opacity. Osseous structures are intact. IMPRESSION: Interval extubation. Persistent cardiomegaly with worsening mild to moderate central vasc ular congestion. Fairly stable small to tiny bilateral pleural effusions with worsening left lower david ng acute infiltrate and/or atelectasis noted.
--- NOTE | 2019-10-05 08:03 | P.PN ---
Subjective Progress Note Date: 10/05/19 On today's evaluation of 10/05/2019 the patient is postop day #1. Doing extremely well. Awake and alert. No difficulty speech and was extubated yesterday without any major difficulties. Chest x-ray from today shows some atelectatic changes in the left lung base. Problem some small bilateral pleural effusions. After sitting up on a chair she dumped some additional 50 mL of pleural fluid from both mediastinal and left pleural. Overall output has been around 120 mL since yesterday. Output is serous and bloody. The cardiac output is 6.8 with an index of 3.1. She has an adequate urine output. She is complaining of soreness in her lower extremities and her back. Hemodynamically stable. She is on no pressors. She is awake and alert. No focal neurological deficit. No cardiac arrhythmias and her cardiac rhythm is still sinus. Sternum stable clean and intact. No other significant events overnight. Objective - Vital Signs Vital signs: Vital Signs Temp 37.6 F L 10/05/19 04:00 Pulse 91 10/05/19 07:00 Resp 18 10/05/19 07:00 BP 115/56 10/05/19 06:30 Pulse Ox 98 10/05/19 07:00 Intake & Output 10/04/19 10/05/19 10/05/19 18:59 06:59 18:59 Intake Total 615.2 997.290 63.278 Output Total 3180 1080 60 Balance -2564.8 -82.710 3.278 Weight 124.5 kg Intake: IV 603.5 816.0 60.5 Albumin Human 5% 250 ml 250 In Empty Bag 1 bag @ 250 mls/hr IVPB Q1HR PRN Rx#: [id number] Cardiac Output 20 90 Lactated Ringers 1,000 ml 225 600 50 @ 50 mls/hr IV .Q20H ROSA Rx#:[id number] Nitroglycerin-D5w Pmx 50 7.5 18.0 1.5 mg In Dextrose/Water 1 250ml.bag @ 5 MCG/MIN 1.5 mls/hr IV .Q24H ROSA Rx#: [id number] Pressure Bag 45 108 9 Intake, IV Titration 11.7 181.290 2.778 Amount ACETAMINOPHEN IV (For NPO 100 ) 1,000 mg In Empty Bag 1 bag @ 400 mls/hr IVPB Q6HR ROSA Rx#:[id number] Insulin Regular 100 unit 22.615 2.778 In Sodium Chloride 0.9% 100 ml @ Per Protocol IV .Q0M ROSA Rx#:[id number] Nitroglycerin-D5w Pmx 50 8.675 mg In Dextrose/Water 1 250ml.bag @ 5 MCG/MIN 1.5 mls/hr IV .Q24H ROSA Rx#: [id number] Propofol 1,000 mg In 11.7 Empty Bag 1 bag @ Titrate IV .Q0M ROSA Rx#: [id number] ceFAZolin 2 gm In Sodium 50 Chloride 0.9% 50 ml @ 100 mls/hr IVPB Q8HR ROSA Rx# :[id number] Output: Chest Tube Drainage 160 360 10 Left Pleural/Mediastinal 160 360 10 Urine 1220 720 50 Estimated Blood Loss 1800 Other: Voiding Method Indwelling Catheter Indwelling Catheter ABP, PAP, CO, CI - Last Documented Arterial Blood Pressure 128/50 Pulmonary Artery Pressure 32/17 Cardiac Output 6.8 Cardiac Index 3.1 - Exam Gen. appearance sedated, the patient is currently on oxygen at 2 L per minute nasal cannula. Head exam was generally normal. There was no scleral icterus or corneal arcus. Mucous membranes were moist. Neck was supple and without jugular venous distension, thyromegaly, or carotid bruits. Carotids were easily palpable bilaterally. There was no adenopathy. The patient has a right IJ [place] catheter in place. No goiter or neck masses. Lungs are diminished in lung bases bilaterally. No wheezes or rhonchi. Cardiac exam revealed the PMI to be normally situated and sized. The rhythm was regular and no extrasystoles were noted during several minutes of auscultation. The first and second heart sounds were normal and physiologic splitting of the second heart sound was noted. There were no murmurs, rubs, clicks, or gallops. No significant rubs or murmurs appreciated. The patient has a left pleural and mediastinal chest tube both of them being in place Abdominal exam revealed normal bowel sounds. The abdomen was soft, non-tender, and without masses, organomegaly, or appreciable enlargement of the abdominal aorta. Examination of the extremities revealed easily palpable radial, femoral and pedal pulses. There was no cyanosis, clubbing or edema. Examination of the skin revealed no evidence of significant rashes, suspicious appearing nevi or other concerning lesions. Neurologically patient is awake and alert and there is no focal neurological deficits. - Labs CBC & Chem 7: 10/05/19 03:56 10/05/19 03:56 Labs: Abnormal Lab Results - Last 24 Hours (Table) 09/24/19 10/04/19 10/04/19 Range/Units 08:55 09:42 11:17 WBC (3.8-10.6) k/uL RBC (3.80-5.40) m/uL Hgb (11.4-16.0) gm/dL Hct (34.0-46.0) % Plt Count (150-450) k/uL Neutrophils # (1.3-7.7) k/uL Lymphocytes # (1.0-4.8) k/uL INR (<1.2) ABG pH 7.47 H (7.35-7.45) ABG pCO2 (35-45) mmHg ABG pO2 312 H 212 H (83-108) mmHg ABG HCO3 28 H 28 H (21-25) mmol/L ABG Total CO2 29 H 29 H (19-24) mmol/L ABG O2 Saturation 99.7 H 99.4 H (94-97) % ABG Hematocrit (34.0-46.0) % ABG Sodium (135-146) mmol/L ABG Potassium 3.3 L (3.4-4.5) mmol/L ABG Ionized Calcium (4.5-5.3) mg/dL ABG Glucose 106 H 123 H (75-99) mg/dL Hemoglobin (11.4-16.0) gm/dL Creatinine (0.52-1.04) mg/dL Glucose (74-99) mg/dL POC Glucose (mg/dL) (75-99) mg/dL Calcium (8.4-10.2) mg/dL Ionized [place]cium [place] (4.5-5.3) mg/dL Magnesium (1.6-2.3) mg/dL AST (14-36) U/L Total Protein (6.3-8.2) g/dL Albumin (3.5-5.0) g/dL Arterial Blood Potassium 3.3 L (3.4-4.5) mmol/L Arterial Blood Glucose 106 H 123 H (75-99) mg/dL Crossmatch See Detail 10/04/19 10/04/19 10/04/19 Range/Units 11:44 12:20 14:01 WBC (3.8-10.6) k/uL RBC (3.80-5.40) m/uL Hgb (11.4-16.0) gm/dL Hct (34.0-46.0) % Plt Count (150-450) k/uL Neutrophils # (1.3-7.7) k/uL Lymphocytes # (1.0-4.8) k/uL INR (<1.2) ABG pH (7.35-7.45) ABG pCO2 (35-45) mmHg ABG pO2 338 H 280 H 174 H (83-108) mmHg ABG HCO3 27 H 27 H 26 H (21-25) mmol/L ABG Total CO2 28 H 29 H 27 H (19-24) mmol/L ABG O2 Saturation 100.0 H 99.8 H 99.3 H (94-97) % ABG Hematocrit 27 L 28 L 33 L (34.0-46.0) % ABG Sodium 134 L (135-146) mmol/L ABG Potassium 4.6 H 3.3 L (3.4-4.5) mmol/L ABG Ionized Calcium 4.4 L (4.5-5.3) mg/dL ABG Glucose 208 H 189 H 114 H (75-99) mg/dL Hemoglobin 8.9 L 9.2 L 10.9 L (11.4-16.0) gm/dL Creatinine (0.52-1.04) mg/dL Glucose (74-99) mg/dL POC Glucose (mg/dL) (75-99) mg/dL Calcium (8.4-10.2) mg/dL Ionized Calcium [place] (4.5-5.3) mg/dL Magnesium (1.6-2.3) mg/dL AST (14-36) U/L Total Protein (6.3-8.2) g/dL Albumin (3.5-5.0) g/dL Arterial Blood Potassium 4.6 H 3.3 L (3.4-4.5) mmol/L Arterial Blood Glucose 208 H 189 H 114 H (75-99) mg/dL Crossmatch 10/04/19 10/04/19 10/04/19 Range/Units 14:40 14:45 14:45 WBC 11.0 H (3.8-10.6) k/uL RBC 3.25 L (3.80-5.40) m/uL Hgb 9.9 L D (11.4-16.0) gm/dL Hct 30.4 L (34.0-46.0) % Plt Count 94 L D (150-450) k/uL Neutrophils # 9.8 H (1.3-7.7) k/uL Lymphocytes # 0.8 L (1.0-4.8) k/uL INR 1.2 H (<1.2) ABG pH (7.35-7.45) ABG pCO2 (35-45) mmHg ABG pO2 (83-108) mmHg ABG HCO3 (21-25) mmol/L ABG Total CO2 (19-24) mmol/L ABG O2 Saturation (94-97) % ABG Hematocrit (34.0-46.0) % ABG Sodium (135-146) mmol/L ABG Potassium (3.4-4.5) mmol/L ABG Ionized Calcium (4.5-5.3) mg/dL ABG Glucose (75-99) mg/dL Hemoglobin (11.4-16.0) gm/dL Creatinine (0.52-1.04) mg/dL Glucose (74-99) mg/dL POC Glucose (mg/dL) 106 H (75-99) mg/dL Calcium (8.4-10.2) mg/dL Ionized Calcium [place] (4.5-5.3) mg/dL Magnesium (1.6-2.3) mg/dL AST (14-36) U/L Total Protein (6.3-8.2) g/dL Albumin (3.5-5.0) g/dL Arterial Blood Potassium (3.4-4.5) mmol/L Arterial Blood Glucose (75-99) mg/dL Crossmatch 10/04/19 10/04/19 10/04/19 Range/Units 14:45 15:20 15:24 WBC (3.8-10.6) k/uL RBC (3.80-5.40) m/uL Hgb (11.4-16.0) gm/dL Hct (34.0-46.0) % Plt Count (150-450) k/uL Neutrophils # (1.3-7.7) k/uL Lymphocytes # (1.0-4.8) k/uL INR (<1.2) ABG pH 7.33 L (7.35-7.45) ABG pCO2 47 H (35-45) mmHg ABG pO2 392 H (83-108) mmHg ABG HCO3 (21-25) mmol/L ABG Total CO2 26 H (19-24) mmol/L ABG O2 Saturation 99.8 H (94-97) % ABG Hematocrit (34.0-46.0) % ABG Sodium (135-146) mmol/L ABG Potassium (3.4-4.5) mmol/L ABG Ionized Calcium (4.5-5.3) mg/dL ABG Glucose (75-99) mg/dL Hemoglobin (11.4-16.0) gm/dL Creatinine 0.40 L (0.52-1.04) mg/dL Glucose (74-99) mg/dL POC Glucose (mg/dL) 106 H (75-99) mg/dL Calcium 7.8 L (8.4-10.2) mg/dL Ionized Calcium [place] 4.3 L (4.5-5.3) mg/dL Magnesium 2.7 H (1.6-2.3) mg/dL AST (14-36) U/L Total Protein 5.4 L (6.3-8.2) g/dL Albumin 3.3 L (3.5-5.0) g/dL Arterial Blood Potassium (3.4-4.5) mmol/L Arterial Blood Glucose (75-99) mg/dL Crossmatch 10/04/19 10/04/19 10/04/19 Range/Units 16:35 17:30 17:30 WBC 12.2 H (3.8-10.6) k/uL RBC 3.49 L (3.80-5.40) m/uL Hgb 10.5 L (11.4-16.0) gm/dL Hct 33.0 L (34.0-46.0) % Plt Count 101 L (150-450) k/uL Neutrophils # 11.0 H (1.3-7.7) k/uL Lymphocytes # 0.7 L (1.0-4.8) k/uL INR (<1.2) ABG pH (7.35-7.45) ABG pCO2 (35-45) mmHg ABG pO2 (83-108) mmHg ABG HCO3 (21-25) mmol/L ABG Total CO2 (19-24) mmol/L ABG O2 Saturation (94-97) % ABG Hematocrit (34.0-46.0) % ABG Sodium (135-146) mmol/L ABG Potassium (3.4-4.5) mmol/L ABG Ionized Calcium (4.5-5.3) mg/dL ABG Glucose (75-99) mg/dL Hemoglobin (11.4-16.0) gm/dL Creatinine (0.52-1.04) mg/dL Glucose (74-99) mg/dL POC Glucose (mg/dL) 140 H 138 H (75-99) mg/dL Calcium (8.4-10.2) mg/dL Ionized Calcium [place] (4.5-5.3) mg/dL Magnesium (1.6-2.3) mg/dL AST (14-36) U/L Total Protein (6.3-8.2) g/dL Albumin (3.5-5.0) g/dL Arterial Blood Potassium (3.4-4.5) mmol/L Arterial Blood Glucose (75-99) mg/dL Crossmatch 10/04/19 10/04/19 10/04/19 Range/Units 18:02 18:19 19:21 WBC (3.8-10.6) k/uL RBC (3.80-5.40) m/uL Hgb (11.4-16.0) gm/dL Hct (34.0-46.0) % Plt Count (150-450) k/uL Neutrophils # (1.3-7.7) k/uL Lymphocytes # (1.0-4.8) k/uL INR (<1.2) ABG pH 7.33 L (7.35-7.45) ABG pCO2 (35-45) mmHg ABG pO2 130 H (83-108) mmHg ABG HCO3 (21-25) mmol/L ABG Total CO2 (19-24) mmol/L ABG O2 Saturation 98.7 H (94-97) % ABG Hematocrit (34.0-46.0) % ABG Sodium (135-146) mmol/L ABG Potassium (3.4-4.5) mmol/L ABG Ionized Calcium (4.5-5.3) mg/dL ABG Glucose (75-99) mg/dL Hemoglobin (11.4-16.0) gm/dL Creatinine (0.52-1.04) mg/dL Glucose (74-99) mg/dL POC Glucose (mg/dL) 137 H 136 H (75-99) mg/dL Calcium (8.4-10.2) mg/dL Ionized Calcium [place] (4.5-5.3) mg/dL Magnesium (1.6-2.3) mg/dL AST (14-36) U/L Total Protein (6.3-8.2) g/dL Albumin (3.5-5.0) g/dL Arterial Blood Potassium (3.4-4.5) mmol/L Arterial Blood Glucose (75-99) mg/dL Crossmatch 10/04/19 10/04/19 10/04/19 Range/Units 20:11 21:02 21:05 WBC 12.3 H (3.8-10.6) k/uL RBC 3.43 L (3.80-5.40) m/uL Hgb 10.4 L (11.4-16.0) gm/dL Hct 32.8 L (34.0-46.0) % Plt Count 100 L (150-450) k/uL Neutrophils # 11.4 H (1.3-7.7) k/uL Lymphocytes # 0.4 L (1.0-4.8) k/uL INR (<1.2) ABG pH (7.35-7.45) ABG pCO2 (35-45) mmHg ABG pO2 (83-108) mmHg ABG HCO3 (21-25) mmol/L ABG Total CO2 (19-24) mmol/L ABG O2 Saturation (94-97) % ABG Hematocrit (34.0-46.0) % ABG Sodium (135-146) mmol/L ABG Potassium (3.4-4.5) mmol/L ABG Ionized Calcium (4.5-5.3) mg/dL ABG Glucose (75-99) mg/dL Hemoglobin (11.4-16.0) gm/dL Creatinine (0.52-1.04) mg/dL Glucose (74-99) mg/dL POC Glucose (mg/dL) 137 H 141 H (75-99) mg/dL Calcium (8.4-10.2) mg/dL Ionized Calcium [place] (4.5-5.3) mg/dL Magnesium (1.6-2.3) mg/dL AST (14-36) U/L Total Protein (6.3-8.2) g/dL Albumin (3.5-5.0) g/dL Arterial Blood Potassium (3.4-4.5) mmol/L Arterial Blood Glucose (75-99) mg/dL Crossmatch 10/04/19 10/04/19 10/05/19 Range/Units 22:01 23:30 00:18 WBC (3.8-10.6) k/uL RBC (3.80-5.40) m/uL Hgb (11.4-16.0) gm/dL Hct (34.0-46.0) % Plt Count (150-450) k/uL Neutrophils # (1.3-7.7) k/uL Lymphocytes # (1.0-4.8) k/uL INR (<1.2) ABG pH (7.35-7.45) ABG pCO2 (35-45) mmHg ABG pO2 (83-108) mmHg ABG HCO3 (21-25) mmol/L ABG Total CO2 (19-24) mmol/L ABG O2 Saturation (94-97) % ABG Hematocrit (34.0-46.0) % ABG Sodium (135-146) mmol/L ABG Potassium (3.4-4.5) mmol/L ABG Ionized Calcium (4.5-5.3) mg/dL ABG Glucose (75-99) mg/dL Hemoglobin (11.4-16.0) gm/dL Creatinine (0.52-1.04) mg/dL Glucose (74-99) mg/dL POC Glucose (mg/dL) 151 H 145 H 115 H (75-99) mg/dL Calcium (8.4-10.2) mg/dL Ionized Calcium [place] (4.5-5.3) mg/dL Magnesium (1.6-2.3) mg/dL AST (14-36) U/L Total Protein (6.3-8.2) g/dL Albumin (3.5-5.0) g/dL Arterial Blood Potassium (3.4-4.5) mmol/L Arterial Blood Glucose (75-99) mg/dL Crossmatch 10/05/19 10/05/19 10/05/19 Range/Units 01:07 02:06 03:00 WBC (3.8-10.6) k/uL RBC (3.80-5.40) m/uL Hgb (11.4-16.0) gm/dL Hct (34.0-46.0) % Plt Count (150-450) k/uL Neutrophils # (1.3-7.7) k/uL Lymphocytes # (1.0-4.8) k/uL INR (<1.2) ABG pH (7.35-7.45) ABG pCO2 (35-45) mmHg ABG pO2 (83-108) mmHg ABG HCO3 (21-25) mmol/L ABG Total CO2 (19-24) mmol/L ABG O2 Saturation (94-97) % ABG Hematocrit (34.0-46.0) % ABG Sodium (135-146) mmol/L ABG Potassium (3.4-4.5) mmol/L ABG Ionized Calcium (4.5-5.3) mg/dL ABG Glucose (75-99) mg/dL Hemoglobin (11.4-16.0) gm/dL Creatinine (0.52-1.04) mg/dL Glucose (74-99) mg/dL POC Glucose (mg/dL) 119 H 113 H 125 H (75-99) mg/dL Calcium (8.4-10.2) mg/dL Ionized Calcium [place] (4.5-5.3) mg/dL Magnesium (1.6-2.3) mg/dL AST (14-36) U/L Total Protein (6.3-8.2) g/dL Albumin (3.5-5.0) g/dL Arterial Blood Potassium (3.4-4.5) mmol/L Arterial Blood Glucose (75-99) mg/dL Crossmatch 10/05/19 10/05/19 10/05/19 Range/Units 03:56 03:56 03:59 WBC 11.6 H (3.8-10.6) k/uL RBC 3.33 L (3.80-5.40) m/uL Hgb 10.0 L (11.4-16.0) gm/dL Hct 31.1 L (34.0-46.0) % Plt Count 101 L (150-450) k/uL Neutrophils # 9.7 H (1.3-7.7) k/uL Lymphocytes # (1.0-4.8) k/uL INR (<1.2) ABG pH (7.35-7.45) ABG pCO2 (35-45) mmHg ABG pO2 (83-108) mmHg ABG HCO3 (21-25) mmol/L ABG Total CO2 (19-24) mmol/L ABG O2 Saturation (94-97) % ABG Hematocrit (34.0-46.0) % ABG Sodium (135-146) mmol/L ABG Potassium (3.4-4.5) mmol/L ABG Ionized Calcium (4.5-5.3) mg/dL ABG Glucose (75-99) mg/dL Hemoglobin (11.4-16.0) gm/dL Creatinine 0.41 L (0.52-1.04) mg/dL Glucose 106 H (74-99) mg/dL POC Glucose (mg/dL) 114 H (75-99) mg/dL Calcium (8.4-10.2) mg/dL Ionized Calcium [place] (4.5-5.3) mg/dL Magnesium 2.4 H (1.6-2.3) mg/dL AST 45 H (14-36) U/L Total Protein 5.4 L (6.3-8.2) g/dL Albumin 3.3 L (3.5-5.0) g/dL Arterial Blood Potassium (3.4-4.5) mmol/L Arterial Blood Glucose (75-99) mg/dL Crossmatch 10/05/19 10/05/19 Range/Units 06:05 07:04 WBC (3.8-10.6) k/uL RBC (3.80-5.40) m/uL Hgb (11.4-16.0) gm/dL Hct (34.0-46.0) % Plt Count (150-450) k/uL Neutrophils # (1.3-7.7) k/uL Lymphocytes # (1.0-4.8) k/uL INR (<1.2) ABG pH (7.35-7.45) ABG pCO2 (35-45) mmHg ABG pO2 (83-108) mmHg ABG HCO3 (21-25) mmol/L ABG Total CO2 (19-24) mmol/L ABG O2 Saturation (94-97) % ABG Hematocrit (34.0-46.0) % ABG Sodium (135-146) mmol/L ABG Potassium (3.4-4.5) mmol/L ABG Ionized Calcium (4.5-5.3) mg/dL ABG Glucose (75-99) mg/dL Hemoglobin (11.4-16.0) gm/dL Creatinine (0.52-1.04) mg/dL Glucose (74-99) mg/dL POC Glucose (mg/dL) 136 H 136 H (75-99) mg/dL Calcium (8.4-10.2) mg/dL Ionized Calcium [place] (4.5-5.3) mg/dL Magnesium (1.6-2.3) mg/dL AST (14-36) U/L Total Protein (6.3-8.2) g/dL Albumin (3.5-5.0) g/dL Arterial Blood Potassium (3.4-4.5) mmol/L Arterial Blood Glucose (75-99) mg/dL Crossmatch Assessment and Plan Plan: 1 multivessel coronary artery disease and the patient underwent three-vessel bypass. She is currently postop day #1. She is post thoracotomy and she is still intubated on a mechanical ventilator. Hemodynamically stable. She is encountering some low urine output and she is going to be given some volume. Hemodynamically, she has an adequate cardiac output and index. She is on no pressors for now. Chest tubes are in place with minimal amount of output in the chest x-ray shows adequate expansion of both lungs. I was able to extubate this patient yesterday without any major difficulties and currently she is on 2 L of oxygen by nasal cannula. She is on no pressors. She is hemodynamically stable. 2 post thoracotomy and the patient is extubated in the chest tubes are still in place 3 hypertension 4 hyperlipidemia 5 obesity 6 history of hiatal hernia with symptoms of GE reflux 7 obstructive sleep apnea 8 known history of coronary artery disease with previous history of coronary stenting 9 postoperative anemia, and expected outcome of surgery Plan Continue incentive spirometer Oxygen 2 L Adequate cardiac output [place] catheter can be removed Pain control with [place] Oxygen has been weaned down to 2 L per minute nasal cannula Monitor the output from the chest tubes Wean off nitroglycerin drip and discontinue We'll follow
[2019-10-05 08:06] LABS: Glucose,Whole Blood 93 mg/dL (75-99)
[2019-10-05] MEDS: CLOPIDOGREL 75 MG TAB PO SCH (08:07)
[2019-10-05] MEDS: ASPIRIN 325 MG TAB PO SCH (08:08)
[2019-10-05] MEDS: ATORVASTATIN 40 MG TAB PO SCH (08:08)
[2019-10-05] MEDS: HYDROcodone/APAP 5-325MG 1 EACH TAB PO PRN ×3 (08:08→20:22)
[2019-10-05] MEDS: MUPIROCIN 2% OINT 22 GM TUBE NASAL SCH (08:09)
[2019-10-05] MEDS: IPRATROPIUM-ALBUTEROL 3 ML NEB INHALATION SCH ×4 (08:24→19:57)
[2019-10-05] MEDS ORDERED: METOPROLOL TARTRATE 12.5 MG TAB PO SCH (09:00)
[2019-10-05] MEDS ORDERED: METOPROLOL TARTRATE 12.5 MG TAB PO ONE (09:00)
[2019-10-05] MEDS ORDERED: METOPROLOL TARTRATE 25 MG TAB PO SCH (09:00)
[2019-10-05] MEDS ORDERED: MAGNESIUM HYDROXIDE 2,400 MG/10 ML CUP PO PRN (09:00)
[2019-10-05] MEDS ORDERED: PANTOPRAZOLE 40 MG/10 ML VIAL IVP SCH (09:00)
[2019-10-05] MEDS ORDERED: BISACODYL 10 MG SUPP RECTAL PRN (09:00)
[2019-10-05 09:08] LABS: Glucose,Whole Blood 88 mg/dL (75-99)
[2019-10-05] MEDS ORDERED: FUROSEMIDE 10 MG/ML 4 ML VIAL IV STA (09:22)
[2019-10-05] MEDS ORDERED: POTASSIUM CHLORIDE ER 20 MEQ TAB.ER PO STA (09:22)
[2019-10-05] MEDS: PANTOPRAZOLE 40 MG TABLET PO SCH (09:24)
--- NOTE | 2019-10-05 09:55 | CONS ---
CONSULTATION Mrs. [place] 73-year-old female who underwent coronary bypass grafting yesterday. She has been seen by Dr. Winkler in the past and underwent cardiac catheterization beginning of August and was found to have severe triple-vessel coronary artery disease and underwent surgery yesterday and received a RICE to the LAD, saphenous vein graft to the circumflex and saphenous vein graft to right coronary artery. She is extubated, sitting up in the chair, complaining of back and chest discomfort, respirophasic and musculoskeletal. She denies any dizziness or palpitation. She feels tired. Hemodynamically, she is stable. She continues to be in sinus mechanism and she is on no pressors. The patient has a prior history of hypertension and hyperlipidemia. She is a nondiabetic. MEDICATION: As an outpatient included Norvasc 5 mg daily, Aldactone 25 mg daily, metoprolol succinate 50 mg daily, losartan 50 mg daily, Lasix, Lipitor 40 mg daily, Xanax, Protonix, and aspirin once a day. She has underwent stenting of the left circumflex in [place] in 2016. She had a prior preserved systolic function. REVIEW OF SYSTEMS: RESPIRATORY system: She has no prior documented history of obstructive lung disease. No history of recent lung infection. GI system: No recent GI bleeding. No peptic ulcer disease. system: No dysuria or hematuria. Nervous system: No stroke or seizure. PAST SURGICAL HISTORY: Is remarkable for tubal ligation, cholecystectomy and the percutaneous revascularization. PAST MEDICAL HISTORY: She has a known history of obstructive sleep apnea and history of hiatal hernia. PHYSICAL EXAMINATION: She is a 73-year-old female, alert, oriented, in no apparent distress. Blood pressure 128/50 with a heart in 90s. HEAD: Normocephalic. Eyes: Sclerae anicteric. Neck: Good upstroke. No bruit. No jugular venous distention. Lungs with few crackles at the bases. No wheezes. HEART: Regular rate and rhythm. S1, S2. No S3. No rub appreciated. ABDOMEN: Soft, nontender. Positive bowel sounds. No organomegaly. EXTREMITIES: No edema. LAB DATA: Lab data revealed BUN and creatinine of 11 and 0.41, potassium 3.9. Hemoglobin of 10. Her chest x-ray performed today revealed mild congestion with small pleural effusion. IMPRESSION: 1. Status post coronary artery bypass grafting stable. 2. History of hypertension. 3. Hyperlipidemia. 4. Prior history of PCI. 5. History of obstructive sleep apnea. RECOMMENDATIONS: From the cardiac standpoint, she is stable. Continue incentive spirometry. Follow her blood pressure and adjust her antihypertensive regimen accordingly and depending on her progress, further recommendation will be made. Thank you for this consult. We will follow with you. GEMINI / RONNA: [id number] /
--- NOTE | 2019-10-05 09:59 | P.PN ---
Subjective Progress Note Date: 10/05/19 Principal diagnosis: Unstable angina, triple-vessel coronary artery disease. Past medical history significant for hypertension, hyperlipidemia, morbid obesity, hiatal hernia, GERD, obstructive sleep apnea, and coronary artery disease with previous coronary stenting. POD #1 coronary artery bypass grafting 3 with left internal mammary artery to left anterior descending coronary artery, a reverse greater saphenous vein graft of the aorta to the circumflex coronary artery and to the posterior ventricular branch of the right coronary artery with right lower extremity greater saphenous vein endoscopic harvesting, ligation of the left atrial appendage with a #35 mm a clip and an intraoperative transesophageal echocardiogram. Postoperative acute blood loss anemia, an expected outcome due to hemodilution and cardiopulmonary bypass. The patient is sitting up to the bedside chair in the intensive care unit. She is in no acute distress, remains hemodynamically stable and is currently on no inotropic or pressor support. She is complaining of some back pain rating her p ain 5 out of 10 on the pain scale and denies any complaints of shortness of breath at this time. Oxygen saturations are 97% on 2 L nasal cannula, she is achieving 500 mL on her incentive spirometry with encouragement. Right IJ Cordis with [place]-Th[place] catheter remains in place with current hemodynamic showing a PA pressure of 35/19, CVP 14 mmHg, cardiac output 6.8 and cardiac index 3.1. Mediastinal and left pleural chest tubes remain in place to low continuous wall suction -20 cm H2O. No air leak is present. 220 mL output in the last 8 hours, and 550 mL output since surgery. Hayward catheter remains in place with 450 mL of clear yellow urine output in the last 8 hours. She is awake, alert and oriented 3. Objective - Vital Signs Vital signs: Vital Signs Temp 99.5 F 10/05/19 08:00 Pulse 92 10/05/19 09:00 Resp 23 10/05/19 09:00 BP 130/59 10/05/19 08:00 Pulse Ox 99 10/05/19 09:00 Intake & Output 10/04/19 10/05/19 10/05/19 18:59 06:59 18:59 Intake Total 615.2 997.290 191.013 Output Total 3180 1080 200 Balance -2564.8 -82.710 -8.987 Weight 124.5 kg Intake: IV 603.5 816.0 185.5 Albumin Human 5% 250 ml 250 In Empty Bag 1 bag @ 250 mls/hr IVPB Q1HR PRN Rx#: [id number] Cardiac Output 20 90 20 Lactated Ringers 1,000 ml 225 600 90 @ 20 mls/hr IV .Q24H ROSA Rx#:[id number] Nitroglycerin-D5w Pmx 50 7.5 18.0 1.5 mg In Dextrose/Water 1 250ml.bag @ 5 MCG/MIN 1.5 mls/hr IV .Q24H ROSA Rx#: [id number] Pressure Bag 45 108 24 ceFAZolin 2 gm In Sodium 50 Chloride 0.9% 50 ml @ 100 mls/hr IVPB Q8HR ROSA Rx# :[id number] Intake, IV Titration 11.7 181.290 5.513 Amount ACETAMINOPHEN IV (For NPO 100 ) 1,000 mg In Empty Bag 1 bag @ 400 mls/hr IVPB Q6HR ROSA Rx#:[id number] Insulin Regular 100 unit 22.615 5.513 In Sodium Chloride 0.9% 100 ml @ Per Protocol IV .Q0M ROSA Rx#:[id number] Nitroglycerin-D5w Pmx 50 8.675 mg In Dextrose/Water 1 250ml.bag @ 5 MCG/MIN 1.5 mls/hr IV .Q24H ROSA Rx#: [id number] Propofol 1,000 mg In 11.7 Empty Bag 1 bag @ Titrate IV .Q0M ROSA Rx#: [id number] ceFAZolin 2 gm In Sodium 50 Chloride 0.9% 50 ml @ 100 mls/hr IVPB Q8HR ROSA Rx# :[id number] Output: Chest Tube Drainage 160 360 60 Left Pleural/Mediastinal 160 360 60 Urine 1220 720 140 Estimated Blood Loss 1800 Other: Voiding Method Indwelling Catheter Indwelling Catheter Indwelling Catheter ABP, PAP, CO, CI - Last Documented Arterial Blood Pressure 151/60 Pulmonary Artery Pressure 33/18 Cardiac Output 5.1 Cardiac Index 2.3 - Constitutional General appearance: Present: cooperative, morbidly obese, no acute distress - Respiratory Details: Lung sounds are essentially clear to her bilateral upper lobes, diminished bilateral bases. Respirations are symmetrical and nonlabored. No wheezes, rhonchi or crackles present. Oxygen saturations are 97% on 2 L nasal cannula. Achieving 500 mL on her incentive spirometry. Left pleural and mediastinal ches t tubes remain in place to low continuous wall suction -20 cm H2O. No airleak test present. Draining thin serosanguineous drainage with 220 mL output last 8 hours, 550 mL output since surgery. - Cardiovascular Details: Regular rhythm and rate. S1 and S2 present, negative for S3, gallop or murmur. Sternum is stable. Atrial and ventricular epicardial pacemaker wires in place and connected to a bedside backup pacemaker generator with a VVI 50. Bedside telemetry showing normal sinus rhythm heart rate 93. Heart hugger in surgical support bar are in place, she is demonstrating appropriate use of her heart hugger. Right IJ Cordis with [place]-Thao catheter in place with current hemodynamics showing a PA pressure of 35/19, CVP 14 mmHg, cardiac output 6.8, cardiac index 3.1. Knee-high OSMAR hose and sequential compression devices in place to her lower extremities. +1 edema to her bilateral lower extremities. - Gastrointestinal Gastrointestinal Comment(s): Abdomen is soft, nontender and nondistended. Hypoactive bowel sounds present all 4 abdominal quadrants. Passing flatus. No guarding or rigidity. Homa erating oral intake. - Genitourinary Genitourinary Comment(s): Hayward catheter for accurate I&O. Draining clear yellow urine with 415 mL output in the last 8 hours. - Integumentary Integumentary Comment(s): Skin is warm and dry. No clubbing or cyanosis is present. Midline sternal incision is clean, dry and approximated. No drainage or redness is present. Left lower extremity EVH site is clean, dry and approximated. No drainage or redness is present. - Neurologic Neurologic Comment(s): No focal neurological deficits. Neurologic: Present: CNII-XII intact - Musculoskeletal Musculoskeletal: Present: gait normal, generalized weakness, strength equal bilaterally - Psychiatric Psychiatric: Present: A&O x's 3, appropriate affect, intact judgment & insight - Allied health notes Allied health notes reviewed: nursing - Labs CBC & Chem 7: 10/05/19 03:56 10/05/19 03:56 Labs: Abnormal Lab Results - Last 24 Hours (Table) 09/24/19 10/04/19 10/04/19 Range/Units 08:55 09:42 11:17 WBC (3.8-10.6) k/uL RBC (3.80-5.40) m/uL Hgb (11.4-16.0) gm/dL Hct (34.0-46.0) % Plt Count (150-450) k/uL Neutrophils # (1.3-7.7) k/uL Lymphocytes # (1.0-4.8) k/uL INR (<1.2) ABG pH 7.47 H (7.35-7.45) ABG pCO2 (35-45) mmHg ABG pO2 312 H 212 H (83-108) mmHg ABG HCO3 28 H 28 H (21-25) mmol/L ABG Total CO2 29 H 29 H (19-24) mmol/L ABG O2 Saturation 99.7 H 99.4 H (94-97) % ABG Hematocrit (34.0-46.0) % ABG Sodium (135-146) mmol/L ABG Potassium 3.3 L (3.4-4.5) mmol/L ABG Ionized Calcium (4.5-5.3) mg/dL ABG Glucose 106 H 123 H (75-99) mg/dL Hemoglobin (11.4-16.0) gm/dL Creatinine (0.52-1.04) mg/dL Glucose (74-99) mg/dL POC Glucose (mg/dL) (75-99) mg/dL Calcium (8.4-10.2) mg/dL Ionized Calcium [place] (4.5-5.3) mg/dL Magnesium (1.6-2.3) mg/dL AST (14-36) U/L Total Protein (6.3-8.2) g/dL Albumin (3.5-5.0) g/dL Arterial Blood Potassium 3.3 L (3.4-4.5) mmol/L Arterial Blood Glucose 106 H 123 H (75-99) mg/dL Crossmatch See Detail 10/04/19 10/04/19 10/04/19 Range/Units 11:44 12:20 14:01 WBC (3.8-10.6) k/uL RBC (3.80-5.40) m/uL Hgb (11.4-16.0) gm/dL Hct (34.0-46.0) % Plt Count (150-450) k/uL Neutrophils # (1.3-7.7) k/uL Lymphocytes # (1.0-4.8) k/uL INR (<1.2) ABG pH (7.35-7.45) ABG pCO2 (35-45) mmHg ABG pO2 338 H 280 H 174 H (83-108) mmHg ABG HCO3 27 H 27 H 26 H (21-25) mmol/L ABG Total CO2 28 H 29 H 27 H (19-24) mmol/L ABG O2 Saturation 100.0 H 99.8 H 99.3 H (94-97) % ABG Hematocrit 27 L 28 L 33 L (34.0-46.0) % ABG Sodium 134 L (135-146) mmol/L ABG Potassium 4.6 H 3.3 L (3.4-4.5) mmol/L ABG Ionized Calcium 4.4 L (4.5-5.3) mg/dL ABG Glucose 208 H 189 H 114 H (75-99) mg/dL Hemoglobin 8.9 L 9.2 L 10.9 L (11.4-16.0) gm/dL Creatinine (0.52-1.04) mg/dL Glucose (74-99) mg/dL POC Glucose (mg/dL) (75-99) mg/dL Calcium (8.4-10.2) mg/dL Ionized Calcium [place] (4.5-5.3) mg/dL Magnesium (1.6-2.3) mg/dL AST (14-36) U/L Total Protein (6.3-8.2) g/dL Albumin (3.5-5.0) g/dL Arterial Blood Potassium 4.6 H 3.3 L (3.4-4.5) mmol/L Arterial Blood Glucose 208 H 189 H 114 H (75-99) mg/dL Crossmatch 10/04/19 10/04/19 10/04/19 Range/Units 14:40 14:45 14:45 WBC 11.0 H (3.8-10.6) k/uL RBC 3.25 L (3.80-5.40) m/uL Hgb 9.9 L D (11.4-16.0) gm/dL Hct 30.4 L (34.0-46.0) % Plt Count 94 L D (150-450) k/uL Neutrophils # 9.8 H (1.3-7.7) k/uL Lymphocytes # 0.8 L (1.0-4.8) k/uL INR 1.2 H (<1.2) ABG pH (7.35-7.45) ABG pCO2 (35-45) mmHg ABG pO2 (83-108) mmHg ABG HCO3 (21-25) mmol/L ABG Total CO2 (19-24) mmol/L ABG O2 Saturation (94-97) % ABG Hematocrit (34.0-46.0) % ABG Sodium (135-146) mmol/L ABG Potassium (3.4-4.5) mmol/L ABG Ionized Calcium (4.5-5.3) mg/dL ABG Glucose (75-99) mg/dL Hemoglobin (11.4-16.0) gm/dL Creatinine (0.52-1.04) mg/dL Glucose (74-99) mg/dL POC Glucose (mg/dL) 106 H (75-99) mg/dL Calcium (8.4-10.2) mg/dL Ionized Calcium [place] (4.5-5.3) mg/dL Magnesium (1.6-2.3) mg/dL AST (14-36) U/L Total Protein (6.3-8.2) g/dL Albumin (3.5-5.0) g/dL Arterial Blood Potassium (3.4-4.5) mmol/L Arterial Blood Glucose (75-99) mg/dL Crossmatch 10/04/19 10/04/19 10/04/19 Range/Units 14:45 15:20 15:24 WBC (3.8-10.6) k/uL RBC (3.80-5.40) m/uL Hgb (11.4-16.0) gm/dL Hct (34.0-46.0) % Plt Count (150-450) k/uL Neutrophils # (1.3-7.7) k/uL Lymphocytes # (1.0-4.8) k/uL INR (<1.2) ABG pH 7.33 L (7.35-7.45) ABG pCO2 47 H (35-45) mmHg ABG pO2 392 H (83-108) mmHg ABG HCO3 (21-25) mmol/L ABG Total CO2 26 H (19-24) mmol/L ABG O2 Saturation 99.8 H (94-97) % ABG Hematocrit (34.0-46.0) % ABG Sodium (135-146) mmol/L ABG Potassium (3.4-4.5) mmol/L ABG Ionized Calcium (4.5-5.3) mg/dL ABG Glucose (75-99) mg/dL Hemoglobin (11.4-16.0) gm/dL Creatinine 0.40 L (0.52-1.04) mg/dL Glucose (74-99) mg/dL POC Glucose (mg/dL) 106 H (75-99) mg/dL Calcium 7.8 L (8.4-10.2) mg/dL Ionized Calcium [place] 4.3 L (4.5-5.3) mg/dL Magnesium 2.7 H (1.6-2.3) mg/dL AST (14-36) U/L Total Protein 5.4 L (6.3-8.2) g/dL Albumin 3.3 L (3.5-5.0) g/dL Arterial Blood Potassium (3.4-4.5) mmol/L Arterial Blood Glucose (75-99) mg/dL Crossmatch 10/04/19 10/04/19 10/04/19 Range/Units 16:35 17:30 17:30 WBC 12.2 H (3.8-10.6) k/uL RBC 3.49 L (3.80-5.40) m/uL Hgb 10.5 L (11.4-16.0) gm/dL Hct 33.0 L (34.0-46.0) % Plt Count 101 L (150-450) k/uL Neutrophils # 11.0 H (1.3-7.7) k/uL Lymphocytes # 0.7 L (1.0-4.8) k/uL INR (<1.2) ABG pH (7.35-7.45) ABG pCO2 (35-45) mmHg ABG pO2 (83-108) mmHg ABG HCO3 (21-25) mmol/L ABG Total CO2 (19-24) mmol/L ABG O2 Saturation (94-97) % ABG Hematocrit (34.0-46.0) % ABG Sodium (135-146) mmol/L ABG Potassium (3.4-4.5) mmol/L ABG Ionized Calcium (4.5-5.3) mg/dL ABG Glucose (75-99) mg/dL Hemoglobin (11.4-16.0) gm/dL Creatinine (0.52-1.04) mg/dL Glucose (74-99) mg/dL POC Glucose (mg/dL) 140 H 138 H (75-99) mg/dL Calcium (8.4-10.2) mg/dL Ionized Calcium [place] (4.5-5.3) mg/dL Magnesium (1.6-2.3) mg/dL AST (14-36) U/L Total Protein (6.3-8.2) g/dL Albumin (3.5-5.0) g/dL Arterial Blood Potassium (3.4-4.5) mmol/L Arterial Blood Glucose (75-99) mg/dL Crossmatch 10/04/19 10/04/19 10/04/19 Range/Units 18:02 18:19 19:21 WBC (3.8-10.6) k/uL RBC (3.80-5.40) m/uL Hgb (11.4-16.0) gm/dL Hct (34.0-46.0) % Plt Count (150-450) k/uL Neutrophils # (1.3-7.7) k/uL Lymphocytes # (1.0-4.8) k/uL INR (<1.2) ABG pH 7.33 L (7.35-7.45) ABG pCO2 (35-45) mmHg ABG pO2 130 H (83-108) mmHg ABG HCO3 (21-25) mmol/L ABG Total CO2 (19-24) mmol/L ABG O2 Saturation 98.7 H (94-97) % ABG Hematocrit (34.0-46.0) % ABG Sodium (135-146) mmol/L ABG Potassium (3.4-4.5) mmol/L ABG Ionized Calcium (4.5-5.3) mg/dL ABG Glucose (75-99) mg/dL Hemoglobin (11.4-16.0) gm/dL Creatinine (0.52-1.04) mg/dL Glucose (74-99) mg/dL POC Glucose (mg/dL) 137 H 136 H (75-99) mg/dL Calcium (8.4-10.2) mg/dL Ionized Calcium [place] (4.5-5.3) mg/dL Magnesium (1.6-2.3) mg/dL AST (14-36) U/L Total Protein (6.3-8.2) g/dL Albumin (3.5-5.0) g/dL Arterial Blood Potassium (3.4-4.5) mmol/L Arterial Blood Glucose (75-99) mg/dL Crossmatch 10/04/19 10/04/19 10/04/19 Range/Units 20:11 21:02 21:05 WBC 12.3 H (3.8-10.6) k/uL RBC 3.43 L (3.80-5.40) m/uL Hgb 10.4 L (11.4-16.0) gm/dL Hct 32.8 L (34.0-46.0) % Plt Count 100 L (150-450) k/uL Neutrophils # 11.4 H (1.3-7.7) k/uL Lymphocytes # 0.4 L (1.0-4.8) k/uL INR (<1.2) ABG pH (7.35-7.45) ABG pCO2 (35-45) mmHg ABG pO2 (83-108) mmHg ABG HCO3 (21-25) mmol/L ABG Total CO2 (19-24) mmol/L ABG O2 Saturation (94-97) % ABG Hematocrit (34.0-46.0) % ABG Sodium (135-146) mmol/L ABG Potassium (3.4-4.5) mmol/L ABG Ionized Calcium (4.5-5.3) mg/dL ABG Glucose (75-99) mg/dL Hemoglobin (11.4-16.0) gm/dL Creatinine (0.52-1.04) mg/dL Glucose (74-99) mg/dL POC Glucose (mg/dL) 137 H 141 H (75-99) mg/dL Calcium (8.4-10.2) mg/dL Ionized Calcium [place] (4.5-5.3) mg/dL Magnesium (1.6-2.3) mg/dL AST (14-36) U/L Total Protein (6.3-8.2) g/dL Albumin (3.5-5.0) g/dL Arterial Blood Potassium (3.4-4.5) mmol/L Arterial Blood Glucose (75-99) mg/dL Crossmatch 10/04/19 10/04/19 10/05/19 Range/Units 22:01 23:30 00:18 WBC (3.8-10.6) k/uL RBC (3.80-5.40) m/uL Hgb (11.4-16.0) gm/dL Hct (34.0-46.0) % Plt Count (150-450) k/uL Neutrophils # (1.3-7.7) k/uL Lymphocytes # (1.0-4.8) k/uL INR (<1.2) ABG pH (7.35-7.45) ABG pCO2 (35-45) mmHg ABG pO2 (83-108) mmHg ABG HCO3 (21-25) mmol/L ABG Total CO2 (19-24) mmol/L ABG O2 Saturation (94-97) % ABG Hematocrit (34.0-46.0) % ABG Sodium (135-146) mmol/L ABG Potassium (3.4-4.5) mmol/L ABG Ionized Calcium (4.5-5.3) mg/dL ABG Glucose (75-99) mg/dL Hemoglobin (11.4-16.0) gm/dL Creatinine (0.52-1.04) mg/dL Glucose (74-99) mg/dL POC Glucose (mg/dL) 151 H 145 H 115 H (75-99) mg/dL Calcium (8.4-10.2) mg/dL Ionized Calcium [place] (4.5-5.3) mg/dL Magnesium (1.6-2.3) mg/dL AST (14-36) U/L Total Protein (6.3-8.2) g/dL Albumin (3.5-5.0) g/dL Arterial Blood Potassium (3.4-4.5) mmol/L Arterial Blood Glucose (75-99) mg/dL Crossmatch 10/05/19 10/05/19 10/05/19 Range/Units 01:07 02:06 03:00 WBC (3.8-10.6) k/uL RBC (3.80-5.40) m/uL Hgb (11.4-16.0) gm/dL Hct (34.0-46.0) % Plt Count (150-450) k/uL Neutrophils # (1.3-7.7) k/uL Lymphocytes # (1.0-4.8) k/uL INR (<1.2) ABG pH (7.35-7.45) ABG pCO2 (35-45) mmHg ABG pO2 (83-108) mmHg ABG HCO3 (21-25) mmol/L ABG Total CO2 (19-24) mmol/L ABG O2 Saturation (94-97) % ABG Hematocrit (34.0-46.0) % ABG Sodium (135-146) mmol/L ABG Potassium (3.4-4.5) mmol/L ABG Ionized Calcium (4.5-5.3) mg/dL ABG Glucose (75-99) mg/dL Hemoglobin (11.4-16.0) gm/dL Creatinine (0.52-1.04) mg/dL Glucose (74-99) mg/dL POC Glucose (mg/dL) 119 H 113 H 125 H (75-99) mg/dL Calcium (8.4-10.2) mg/dL Ionized Calcium [place] (4.5-5.3) mg/dL Magnesium (1.6-2.3) mg/dL AST (14-36) U/L Total Protein (6.3-8.2) g/dL Albumin (3.5-5.0) g/dL Arterial Blood Potassium (3.4-4.5) mmol/L Arterial Blood Glucose (75-99) mg/dL Crossmatch 10/05/19 10/05/19 10/05/19 Range/Units 03:56 03:56 03:59 WBC 11.6 H (3.8-10.6) k/uL RBC 3.33 L (3.80-5.40) m/uL Hgb 10.0 L (11.4-16.0) gm/dL Hct 31.1 L (34.0-46.0) % Plt Count 101 L (150-450) k/uL Neutrophils # 9.7 H (1.3-7.7) k/uL Lymphocytes # (1.0-4.8) k/uL INR (<1.2) ABG pH (7.35-7.45) ABG pCO2 (35-45) mmHg ABG pO2 (83-108) mmHg ABG HCO3 (21-25) mmol/L ABG Total CO2 (19-24) mmol/L ABG O2 Saturation (94-97) % ABG Hematocrit (34.0-46.0) % ABG Sodium (135-146) mmol/L ABG Potassium (3.4-4.5) mmol/L ABG Ionized Calcium (4.5-5.3) mg/dL ABG Glucose (75-99) mg/dL Hemoglobin (11.4-16.0) gm/dL Creatinine 0.41 L (0.52-1.04) mg/dL Glucose 106 H (74-99) mg/dL POC Glucose (mg/dL) 114 H (75-99) mg/dL Calcium (8.4-10.2) mg/dL Ionized Calcium [place] (4.5-5.3) mg/dL Magnesium 2.4 H (1.6-2.3) mg/dL AST 45 H (14-36) U/L Total Protein 5.4 L (6.3-8.2) g/dL Albumin 3.3 L (3.5-5.0) g/dL Arterial Blood Potassium (3.4-4.5) mmol/L Arterial Blood Glucose (75-99) mg/dL Crossmatch 10/05/19 10/05/19 Range/Units 06:05 07:04 WBC (3.8-10.6) k/uL RBC (3.80-5.40) m/uL Hgb (11.4-16.0) gm/dL Hct (34.0-46.0) % Plt Count (150-450) k/uL Neutrophils # (1.3-7.7) k/uL Lymphocytes # (1.0-4.8) k/uL INR (<1.2) ABG pH (7.35-7.45) ABG pCO2 (35-45) mmHg ABG pO2 (83-108) mmHg ABG HCO3 (21-25) mmol/L ABG Total CO2 (19-24) mmol/L ABG O2 Saturation (94-97) % ABG Hematocrit (34.0-46.0) % ABG Sodium (135-146) mmol/L ABG Potassium (3.4-4.5) mmol/L ABG Ionized Calcium (4.5-5.3) mg/dL ABG Glucose (75-99) mg/dL Hemoglobin (11.4-16.0) gm/dL Creatinine (0.52-1.04) mg/dL Glucose (74-99) mg/dL POC Glucose (mg/dL) 136 H 136 H (75-99) mg/dL Calcium (8.4-10.2) mg/dL Ionized Calcium [place] (4.5-5.3) mg/dL Magnesium (1.6-2.3) mg/dL AST (14-36) U/L Total Protein (6.3-8.2) g/dL Albumin (3.5-5.0) g/dL Arterial Blood Potassium (3.4-4.5) mmol/L Arterial Blood Glucose (75-99) mg/dL Crossmatch - Imaging and Cardiology Chest x-ray: report reviewed, image reviewed Assessment and Plan Assessment: 1. Unstable angina with triple-vessel coronary artery disease status post 3 vessel coronary artery bypass grafting surgery 2. Hypertension 3. Hyperlipidemia 4. Morbid obesity with a BMI of 46.4 kg/m 5. Hiatal hernia 6. Gastroesophageal reflux disease 7. Obstructive sleep apnea 8. Known history of coronary artery disease with previous coronary stent placement 9. Postoperative acute blood loss anemia, an expected outcome due to hemodilution and cardiopulmonary bypass Plan: 1. Continue aspirin, statin, Plavix, and beta manuel. Will increase metoprolol to 25 mg by mouth twice a day. 2. Discontinue IV nitroglycerin. 3. Wean O2 as tolerated. Encourage incentive spirometry use 10 times every hour while awake. 4. Increase activity, ambulate as tolerated. PT/OT/cardiac rehab following. 5. Will monitor daily labs and chest x-rays. Electrolyte replacement per protocol. No blood transfusion at this time. 6. Pain control with current medication regimen. 7. Insulin management per primary care service. 8. GI/DVT prophylaxis. 9. Bronchodilators per pulmonology management. 10. Discontinue [place]. Connect Cordis to continue CVP monitoring. 11. Keep mediastinal and left pleural chest tubes for another 24 hours. 12. Keep Hayward catheter for another 24 hours for accurate intake and output. 13. Lasix 40 mg IV 1 now. 14. More recommendations to follow based on patient's clinical course. Time with Patient: Greater than 30
[2019-10-05 10:06] LABS: Glucose,Whole Blood 104 mg/dL (75-99)
[2019-10-05] MEDS: LACTATED RINGERS 1,000 ML IV SCH (10:18)
[2019-10-05 11:09] LABS: Glucose,Whole Blood 113 mg/dL (75-99)
[2019-10-05 11:19] VITALS: BMI 46.3
--- NOTE | 2019-10-05 11:31 | P.CONS ---
History of Present Illness - Reason for Consult Consult date: 10/05/19 medical management - History of Present Illness This is a 73-year-old female patient of Dr. Matthew Le and Dr. Bennett with past medical history of coronary artery disease status post stent, hypertension, hyperlipidemia, obstructive sleep apnea on CPAP. Patient underwent a cardiac catheterization on 09/03/[address] Winkelr and found to have calcified right and left coronary systems, disease involving the LV branch of the RCA and critical disease involving the ostial LAD and ostial left circumflex with plaque involving the distal left main coronary artery. The patient underwent three-vessel three-vessel bypass surgery and currently patient is postop day #1. She is seen in the intensive care unit. She was successfully extubated yesterday. Right IJ Cordis with [place] catheter in place, media stinal and left pleural chest tubes in place, Hayward catheter in place. Patient states that she is having pain in her chest related to the surgery, back and left lower leg where harvesting was done. She is seen today sitting up in a chair and staff is working with her to return to bed. Pulse ox is 100% on 2 L nasal cannula, blood pressure 121/68, respiratory rate 24, afebrile, heart rate 81. Blood sugars running between 88 and 136. Patient does not have history of diabetes. She has been on 18 insulin drip which is on hold. T Review of Systems Constitutional: Reports anorexia, Reports fatigue, Reports weakness, Denies chills, Denies fever Eyes: denies blurred vision, denies pain Ears, nose, mouth and throat: Denies dental pain, Denies nasal congestion, Denies nasal discharge, Denies vertigo Cardiovascular: Reports chest pain, Denies decreased exercise tolerance, Denies dyspnea on exertion, Denies edema, Denies leg edema, Denies lightheadedness, Denies shortness of breath, Denies syncope Respiratory: Reports sleep apnea, Denies cough, Denies cough with sputum, Denies dyspnea, Denies excessive sputum, Denies hemoptysis, Denies home oxygen, Denies respiratory infections, Denies wheezing Gastrointestinal: Denies abdominal pain, Denies diarrhea, Denies nausea, Denies vomiting Genitourinary: Denies dysuria, Denies hematuria Musculoskeletal: Reports muscle weakness, Denies frequent falls, Denies gait dysfunction, Denies myalgias Integumentary: Denies pruritus, Denies rash Neurological: Denies change in mentation, Denies change in speech, Denies numbness, Denies weakness Psychiatric: Denies anxiety, Denies depression Endocrine: Denies fatigue, Denies weight change Past Medical History Past Medical History: Coronary Artery Disease (CAD), Cancer, Chest Pain / Angina, Heart Failure, GERD/Reflux, Hyperlipidemia, Hypertension, Osteoarthritis (OA), Sleep Apnea/CPAP/BIPAP Additional Past Medical History / Comment(s): hiatal hernia, constipation, occasional back pain, uses cane prn, hx of falls, uses C-Pap machine rarely, Skin Cancer., See [facility] History of Any Multi-Drug Resistant Organisms: None Reported Past Surgical History: Breast Surgery, Cholecystectomy, Heart Catheterization, Heart Catheterization With Stent, Joint Replacement, Tubal Ligation Additional Past Surgical History / Comment(s): bilat total knee, juan pablo cataract with lens implants, skin CA 2016, juan pablo benign breast biopsies,mult heart cath s,angiography 1988 Past Anesthesia/Blood Transfusion Reactions: No Reported Reaction Additional Past Anesthesia/Blood Transfusion Reaction / Comm: no hx blood transfusion Date of Last Stent Placement:: 2005 Smoking Status: Former smoker Additional Past Alcohol Use History / Comment(s): Patient was a smoker for 20 years and quit in 1979. She denies any medical marijuana, street drug use or alcohol use. She is retired from the [employer]. - Past Family History Father Additional Family Medical History / Comment(s): Father at age 63 from coronary artery disease. Mother Additional Family Medical History / Comment(s): Mother at age 94 from heart disease. Sister(s) Family Medical History: COPD, Coronary Artery Disease (CAD) Additional Family Medical History / Comment(s): Patient had total of 4 sisters: One from coronary artery disease, one from COPD, one from an overdose. Brother(s) Family Medical History: Coronary Artery Disease (CAD) Additional Family Medical History / Comment(s): Patient had 2 brothers and one has history of coronary artery disease and CABG as well as amputations due to agent orange. Second brother has no major medical problems. 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 Medications and Allergies Home Medications Medication Instructions Recorded Confirmed Type Aspirin 81 mg PO HS 05/23/14 10/04/19 History Furosemide [Lasix] 40 mg PO DAILY 05/23/14 10/04/19 History Losartan [Cozaar] 50 mg PO DAILY 05/23/14 10/04/19 History Atorvastatin [Lipitor] 40 mg PO HS 01/16/18 10/04/19 History Nitroglycerin Sl Tabs [Nitrostat] 0.4 mg SUBLINGUAL Q5M PRN 01/16/18 10/04/19 History amLODIPine [Norvasc] 5 mg PO DAILY 01/16/18 10/04/19 History Fish Oil/Dha/Epa [Fish Oil 1,200 1 cap PO DAILY 06/18/18 10/04/19 History mg Fish Oil] Dicyclomine [Bentyl] 10 mg PO QID PRN #120 cap 06/20/18 10/04/19 Rx Multivit-Min/Iron/Folic/Lutein 1 each PO DAILY 08/30/19 10/04/19 History [Centrum Silver Women Tablet] Pantoprazole [Protonix] 40 mg PO QAM 08/30/19 10/04/19 History Spironolactone [Aldactone] 25 mg PO DAILY 08/30/19 10/04/19 History ALPRAZolam [Xanax] 0.25 mg PO BID PRN 09/24/19 10/04/19 History Metoprolol Succinate [Toprol XL] 50 mg PO DAILY 09/24/19 10/04/19 History Sennosides [Senna] 8.6 mg PO DAILY 09/24/19 10/04/19 History Allergies Allergy/AdvReac Type Severity Reaction Status Date / Time No Known Allergies Allergy Verified 10/04/19 06:42 Physical Exam Vitals: Vital Signs Temp Pulse Resp BP Pulse Ox 10/05/19 10:30 81 24 121/68 100 10/05/19 10:00 80 24 131/66 98 10/05/19 09:30 82 20 131/66 99 10/05/19 09:00 92 23 99 10/05/19 08:40 85 10/05/19 08:30 81 18 100 10/05/19 08:26 83 10/05/19 08:00 99.5 F 86 28 H 130/59 94 L 10/05/19 07:30 80 15 93 L 10/05/19 07:00 91 18 98 10/05/19 06:30 85 18 115/56 98 10/05/19 06:00 90 18 98 10/05/19 05:30 101 H 17 97 10/05/19 05:00 93 15 98 10/05/19 04:30 89 17 98 10/05/19 04:00 37.6 F L 92 15 115/56 98 10/05/19 03:30 92 15 112/51 99 10/05/19 03:00 92 17 112/51 97 10/05/19 02:30 94 14 112/51 97 10/05/19 02:00 97 16 112/51 96 10/05/19 01:30 98 16 98 10/05/19 01:00 98 16 134/59 98 10/05/19 00:30 98 17 97 10/05/19 00:00 37.3 F L 100 18 115/65 98 10/04/19 23:30 103 H 18 109/57 97 10/04/19 23:00 101 H 17 115/65 97 10/04/19 22:30 101 H 16 109/57 97 10/04/19 22:00 101 H 16 109/57 95 10/04/19 21:30 99 12 94 L 10/04/19 21:00 101 H 17 116/55 97 10/04/19 20:30 99 15 105/59 96 10/04/19 20:00 36.9 F L 98 17 105/59 97 10/04/19 19:30 94 15 95 10/04/19 19:02 88 10/04/19 19:00 86 17 95 10/04/19 18:45 96 10/04/19 18:30 82 19 100 10/04/19 18:15 82 18 100 10/04/19 18:00 36.5 F L 77 22 99 10/04/19 17:45 78 21 100 10/04/19 17:30 74 19 100 10/04/19 17:15 74 18 100 10/04/19 17:00 73 19 100 10/04/19 16:45 71 17 100 10/04/19 16:30 74 16 100 10/04/19 16:15 70 19 10/04/19 16:05 67 10/04/19 16:00 67 14 10/04/19 15:49 71 10/04/19 15:45 74 22 10/04/19 15:30 70 23 10/04/19 15:15 70 15 100 10/04/19 15:00 70 14 10/04/19 14:45 36 F L 71 18 100 Intake and Output 10/04/19 10/05/19 10/05/19 22:59 06:59 14:59 Intake Total 767.581 708.409 217.013 Output Total 760 635 250 Balance 7.581 73.409 -32.987 Intake: IV 739.0 544.0 211.5 Albumin Human 5% 250 ml 250 In Empty Bag 1 bag @ 250 mls/hr IVPB Q1HR PRN Rx#: [id number] Cardiac Output 30 60 20 Lactated Ringers 1,000 ml 375 400 110 @ 20 mls/hr IV .Q24H ROSA Rx#:[id number] Nitroglycerin-D5w Pmx 50 12.0 12.0 1.5 mg In Dextrose/Water 1 250ml.bag @ 5 MCG/MIN 1.5 mls/hr IV .Q24H ROSA Rx#: [id number] Pressure Bag 72 72 30 ceFAZolin 2 gm In Sodium 50 Chloride 0.9% 50 ml @ 100 mls/hr IVPB Q8HR ROSA Rx# :[id number] Intake, IV Titration 28.581 164.409 5.513 Amount ACETAMINOPHEN IV (For NPO 100 ) 1,000 mg In Empty Bag 1 bag @ 400 mls/hr IVPB Q6HR ROSA Rx#:[id number] Insulin Regular 100 unit 8.206 14.409 5.513 In Sodium Chloride 0.9% 100 ml @ Per Protocol IV .Q0M ROSA Rx#:[id number] Nitroglycerin-D5w Pmx 50 8.675 mg In Dextrose/Water 1 250ml.bag @ 5 MCG/MIN 1.5 mls/hr IV .Q24H ROSA Rx#: [id number] Propofol 1,000 mg In 11.7 Empty Bag 1 bag @ Titrate IV .Q0M ROSA Rx#: [id number] ceFAZolin 2 gm In Sodium 50 Chloride 0.9% 50 ml @ 100 mls/hr IVPB Q8HR ROSA Rx# :[id number] Output: Chest Tube Drainage 255 220 80 Left Pleural/Mediastinal 255 220 80 Urine 505 415 170 Other: Voiding Method Indwelling Catheter Indwelling Catheter Indwelling Catheter Weight 124.5 kg ABP, PAP, CO, CI - Last 8 Hours Arterial Blood Pressure 135/52 Arterial Blood Pressure 151/59 Arterial Blood Pressure 151/60 Arterial Blood Pressure 148/63 Arterial Blood Pressure 149/58 Arterial Blood Pressure 146/55 Arterial Blood Pressure 128/50 Arterial Blood Pressure 123/49 Arterial Blood Pressure 106/47 Arterial Blood Pressure 132/60 Arterial Blood Pressure 134/55 Arterial Blood Pressure 105/49 Arterial Blood Pressure 119/52 Arterial Blood Pressure 112/50 Arterial Blood Pressure 110/51 Pulmonary Artery Pressure 33/18 Pulmonary Artery Pressure 34/16 Pulmonary Artery Pressure 32/17 Pulmonary Artery Pressure 31/13 Pulmonary Artery Pressure 32/15 Pulmonary Artery Pressure 43/23 Pulmonary Artery Pressure 37/19 Pulmonary Artery Pressure 30/14 Pulmonary Artery Pressure 34/18 Pulmonary Artery Pressure 36/17 Pulmonary Artery Pressure 35/21 Cardiac Output 5.1 Cardiac Output 6.8 Cardiac Index 2.3 Cardiac Index 3.1 Gen: This is a morbidly obese 73-year-old female patient. She is sitting in a chair in the intensive care unit and nursing and PT is working with her to return to bed. She appears to be in no acute distress. No respiratory distress is noted. HEENT: Head is atraumatic, normocephalic. Pupils equal, round. Sclerae is anicteric. Oral mucous membranes are moist. NECK: Supple. No JVD. No lymphadenopathy. No thyromegaly. LUNGS: Lungs are diminished at the bases but otherwise clear to auscultation. No wheezes or rhonchi. No intercostal retractions. HEART: Regular rate and rhythm. No murmur. Left pleural and mediastinal chest tubes in place. Dressing in place to the sternal wound. ABDOMEN: Morbidly obese. Soft. Bowel sounds are present. No masses. No tenderness. Hayward catheter draining clear paulette urine. EXTREMITIES: Trace pedal edema. No calf tenderness. Dorsalis pedis is +[address] to the left lower extremity, SCDs in place bilaterally. NEUROLOGICAL: Patient is awake, alert and oriented x3. Cranial nerves 2 through 12 are grossly intact. Results CBC & Chem 7: 10/05/19 03:56 10/05/19 03:56 Labs: Abnormal Lab Results - Last 24 Hours (Table) 09/24/19 10/04/19 10/04/19 Range/Units 08:55 09:42 11:17 WBC (3.8-10.6) k/uL RBC (3.80-5.40) m/uL Hgb (11.4-16.0) gm/dL Hct (34.0-46.0) % Plt Count (150-450) k/uL Neutrophils # (1.3-7.7) k/uL Lymphocytes # (1.0-4.8) k/uL INR (<1.2) ABG pH 7.47 H (7.35-7.45) ABG pCO2 (35-45) mmHg ABG pO2 312 H 212 H (83-108) mmHg ABG HCO3 28 H 28 H (21-25) mmol/L ABG Total CO2 29 H 29 H (19-24) mmol/L ABG O2 Saturation 99.7 H 99.4 H (94-97) % ABG Hematocrit (34.0-46.0) % ABG Sodium (135-146) mmol/L ABG Potassium 3.3 L (3.4-4.5) mmol/L ABG Ionized Calcium (4.5-5.3) mg/dL ABG Glucose 106 H 123 H (75-99) mg/dL Hemoglobin (11.4-16.0) gm/dL Creatinine (0.52-1.04) mg/dL Glucose (74-99) mg/dL POC Glucose (mg/dL) (75-99) mg/dL Calcium (8.4-10.2) mg/dL Ionized Calcium [place] (4.5-5.3) mg/dL Magnesium (1.6-2.3) mg/dL AST (14-36) U/L Total Protein (6.3-8.2) g/dL Albumin (3.5-5.0) g/dL Arterial Blood Potassium 3.3 L (3.4-4.5) mmol/L Arterial Blood Glucose 106 H 123 H (75-99) mg/dL Crossmatch See Detail 10/04/19 10/04/19 10/04/19 Range/Units 11:44 12:20 14:01 WBC (3.8-10.6) k/uL RBC (3.80-5.40) m/uL Hgb (11.4-16.0) gm/dL Hct (34.0-46.0) % Plt Count (150-450) k/uL Neutrophils # (1.3-7.7) k/uL Lymphocytes # (1.0-4.8) k/uL INR (<1.2) ABG pH (7.35-7.45) ABG pCO2 (35-45) mmHg ABG pO2 338 H 280 H 174 H (83-108) mmHg ABG HCO3 27 H 27 H 26 H (21-25) mmol/L ABG Total CO2 28 H 29 H 27 H (19-24) mmol/L ABG O2 Saturation 100.0 H 99.8 H 99.3 H (94-97) % ABG Hematocrit 27 L 28 L 33 L (34.0-46.0) % ABG Sodium 134 L (135-146) mmol/L ABG Potassium 4.6 H 3.3 L (3.4-4.5) mmol/L ABG Ionized Calcium 4.4 L (4.5-5.3) mg/dL ABG Glucose 208 H 189 H 114 H (75-99) mg/dL Hemoglobin 8.9 L 9.2 L 10.9 L (11.4-16.0) gm/dL Creatinine (0.52-1.04) mg/dL Glucose (74-99) mg/dL POC Glucose (mg/dL) (75-99) mg/dL Calcium (8.4-10.2) mg/dL Ionized Calcium [place] (4.5-5.3) mg/dL Magnesium (1.6-2.3) mg/dL AST (14-36) U/L Total Protein (6.3-8.2) g/dL Albumin (3.5-5.0) g/dL Arterial Blood Potassium 4.6 H 3.3 L (3.4-4.5) mmol/L Arterial Blood Glucose 208 H 189 H 114 H (75-99) mg/dL Crossmatch 10/04/19 10/04/19 10/04/19 Range/Units 14:40 14:45 14:45 WBC 11.0 H (3.8-10.6) k/uL RBC 3.25 L (3.80-5.40) m/uL Hgb 9.9 L D (11.4-16.0) gm/dL Hct 30.4 L (34.0-46.0) % Plt Count 94 L D (150-450) k/uL Neutrophils # 9.8 H (1.3-7.7) k/uL Lymphocytes # 0.8 L (1.0-4.8) k/uL INR 1.2 H (<1.2) ABG pH (7.35-7.45) ABG pCO2 (35-45) mmHg ABG pO2 (83-108) mmHg ABG HCO3 (21-25) mmol/L ABG Total CO2 (19-24) mmol/L ABG O2 Saturation (94-97) % ABG Hematocrit (34.0-46.0) % ABG Sodium (135-146) mmol/L ABG Potassium (3.4-4.5) mmol/L ABG Ionized Calcium (4.5-5.3) mg/dL ABG Glucose (75-99) mg/dL Hemoglobin (11.4-16.0) gm/dL Creatinine (0.52-1.04) mg/dL Glucose (74-99) mg/dL POC Glucose (mg/dL) 106 H (75-99) mg/dL Calcium (8.4-10.2) mg/dL Ionized Calcium [place] (4.5-5.3) mg/dL Magnesium (1.6-2.3) mg/dL AST (14-36) U/L Total Protein (6.3-8.2) g/dL Albumin (3.5-5.0) g/dL Arterial Blood Potassium (3.4-4.5) mmol/L Arterial Blood Glucose (75-99) mg/dL Crossmatch 10/04/19 10/04/19 10/04/19 Range/Units 14:45 15:20 15:24 WBC (3.8-10.6) k/uL RBC (3.80-5.40) m/uL Hgb (11.4-16.0) gm/dL Hct (34.0-46.0) % Plt Count (150-450) k/uL Neutrophils # (1.3-7.7) k/uL Lymphocytes # (1.0-4.8) k/uL INR (<1.2) ABG pH 7.33 L (7.35-7.45) ABG pCO2 47 H (35-45) mmHg ABG pO2 392 H (83-108) mmHg ABG HCO3 (21-25) mmol/L ABG Total CO2 26 H (19-24) mmol/L ABG O2 Saturation 99.8 H (94-97) % ABG Hematocrit (34.0-46.0) % ABG Sodium (135-146) mmol/L ABG Potassium (3.4-4.5) mmol/L ABG Ionized Calcium (4.5-5.3) mg/dL ABG Glucose (75-99) mg/dL Hemoglobin (11.4-16.0) gm/dL Creatinine 0.40 L (0.52-1.04) mg/dL Glucose (74-99) mg/dL POC Glucose (mg/dL) 106 H (75-99) mg/dL Calcium 7.8 L (8.4-10.2) mg/dL Ionized Calcium [place] 4.3 L (4.5-5.3) mg/dL Magnesium 2.7 H (1.6-2.3) mg/dL AST (14-36) U/L Total Protein 5.4 L (6.3-8.2) g/dL Albumin 3.3 L (3.5-5.0) g/dL Arterial Blood Potassium (3.4-4.5) mmol/L Arterial Blood Glucose (75-99) mg/dL Crossmatch 10/04/19 10/04/19 10/04/19 Range/Units 16:35 17:30 17:30 WBC 12.2 H (3.8-10.6) k/uL RBC 3.49 L (3.80-5.40) m/uL Hgb 10.5 L (11.4-16.0) gm/dL Hct 33.0 L (34.0-46.0) % Plt Count 101 L (150-450) k/uL Neutrophils # 11.0 H (1.3-7.7) k/uL Lymphocytes # 0.7 L (1.0-4.8) k/uL INR (<1.2) ABG pH (7.35-7.45) ABG pCO2 (35-45) mmHg ABG pO2 (83-108) mmHg ABG HCO3 (21-25) mmol/L ABG Total CO2 (19-24) mmol/L ABG O2 Saturation (94-97) % ABG Hematocrit (34.0-46.0) % ABG Sodium (135-146) mmol/L ABG Potassium (3.4-4.5) mmol/L ABG Ionized Calcium (4.5-5.3) mg/dL ABG Glucose (75-99) mg/dL Hemoglobin (11.4-16.0) gm/dL Creatinine (0.52-1.04) mg/dL Glucose (74-99) mg/dL POC Glucose (mg/dL) 140 H 138 H (75-99) mg/dL Calcium (8.4-10.2) mg/dL Ionized Calcium [place] (4.5-5.3) mg/dL Magnesium (1.6-2.3) mg/dL AST (14-36) U/L Total Protein (6.3-8.2) g/dL Albumin (3.5-5.0) g/dL Arterial Blood Potassium (3.4-4.5) mmol/L Arterial Blood Glucose (75-99) mg/dL Crossmatch 10/04/19 10/04/19 10/04/19 Range/Units 18:02 18:19 19:21 WBC (3.8-10.6) k/uL RBC (3.80-5.40) m/uL Hgb (11.4-16.0) gm/dL Hct (34.0-46.0) % Plt Count (150-450) k/uL Neutrophils # (1.3-7.7) k/uL Lymphocytes # (1.0-4.8) k/uL INR (<1.2) ABG pH 7.33 L (7.35-7.45) ABG pCO2 (35-45) mmHg ABG pO2 130 H (83-108) mmHg ABG HCO3 (21-25) mmol/L ABG Total CO2 (19-24) mmol/L ABG O2 Saturation 98.7 H (94-97) % ABG Hematocrit (34.0-46.0) % ABG Sodium (135-146) mmol/L ABG Potassium (3.4-4.5) mmol/L ABG Ionized Calcium (4.5-5.3) mg/dL ABG Glucose (75-99) mg/dL Hemoglobin (11.4-16.0) gm/dL Creatinine (0.52-1.04) mg/dL Glucose (74-99) mg/dL POC Glucose (mg/dL) 137 H 136 H (75-99) mg/dL Calcium (8.4-10.2) mg/dL Ionized Calcium [place] (4.5-5.3) mg/dL Magnesium (1.6-2.3) mg/dL AST (14-36) U/L Total Protein (6.3-8.2) g/dL Albumin (3.5-5.0) g/dL Arterial Blood Potassium (3.4-4.5) mmol/L Arterial Blood Glucose (75-99) mg/dL Crossmatch 10/04/19 10/04/19 10/04/19 Range/Units 20:11 21:02 21:05 WBC 12.3 H (3.8-10.6) k/uL RBC 3.43 L (3.80-5.40) m/uL Hgb 10.4 L (11.4-16.0) gm/dL Hct 32.8 L (34.0-46.0) % Plt Count 100 L (150-450) k/uL Neutrophils # 11.4 H (1.3-7.7) k/uL Lymphocytes # 0.4 L (1.0-4.8) k/uL INR (<1.2) ABG pH (7.35-7.45) ABG pCO2 (35-45) mmHg ABG pO2 (83-108) mmHg ABG HCO3 (21-25) mmol/L ABG Total CO2 (19-24) mmol/L ABG O2 Saturation (94-97) % ABG Hematocrit (34.0-46.0) % ABG Sodium (135-146) mmol/L ABG Potassium (3.4-4.5) mmol/L ABG Ionized Calcium (4.5-5.3) mg/dL ABG Glucose (75-99) mg/dL Hemoglobin (11.4-16.0) gm/dL Creatinine (0.52-1.04) mg/dL Glucose (74-99) mg/dL POC Glucose (mg/dL) 137 H 141 H (75-99) mg/dL Calcium (8.4-10.2) mg/dL Ionized Calcium [place] (4.5-5.3) mg/dL Magnesium (1.6-2.3) mg/dL AST (14-36) U/L Total Protein (6.3-8.2) g/dL Albumin (3.5-5.0) g/dL Arterial Blood Potassium (3.4-4.5) mmol/L Arterial Blood Glucose (75-99) mg/dL Crossmatch 10/04/19 10/04/19 10/05/19 Range/Units 22:01 23:30 00:18 WBC (3.8-10.6) k/uL RBC (3.80-5.40) m/uL Hgb (11.4-16.0) gm/dL Hct (34.0-46.0) % Plt Count (150-450) k/uL Neutrophils # (1.3-7.7) k/uL Lymphocytes # (1.0-4.8) k/uL INR (<1.2) ABG pH (7.35-7.45) ABG pCO2 (35-45) mmHg ABG pO2 (83-108) mmHg ABG HCO3 (21-25) mmol/L ABG Total CO2 (19-24) mmol/L ABG O2 Saturation (94-97) % ABG Hematocrit (34.0-46.0) % ABG Sodium (135-146) mmol/L ABG Potassium (3.4-4.5) mmol/L ABG Ionized Calcium (4.5-5.3) mg/dL ABG Glucose (75-99) mg/dL Hemoglobin (11.4-16.0) gm/dL Creatinine (0.52-1.04) mg/dL Glucose (74-99) mg/dL POC Glucose (mg/dL) 151 H 145 H 115 H (75-99) mg/dL Calcium (8.4-10.2) mg/dL Ionized Calcium [place] (4.5-5.3) mg/dL Magnesium (1.6-2.3) mg/dL AST (14-36) U/L Total Protein (6.3-8.2) g/dL Albumin (3.5-5.0) g/dL Arterial Blood Potassium (3.4-4.5) mmol/L Arterial Blood Glucose (75-99) mg/dL Crossmatch 10/05/19 10/05/19 10/05/19 Range/Units 01:07 02:06 03:00 WBC (3.8-10.6) k/uL RBC (3.80-5.40) m/uL Hgb (11.4-16.0) gm/dL Hct (34.0-46.0) % Plt Count (150-450) k/uL Neutrophils # (1.3-7.7) k/uL Lymphocytes # (1.0-4.8) k/uL INR (<1.2) ABG pH (7.35-7.45) ABG pCO2 (35-45) mmHg ABG pO2 (83-108) mmHg ABG HCO3 (21-25) mmol/L ABG Total CO2 (19-24) mmol/L ABG O2 Saturation (94-97) % ABG Hematocrit (34.0-46.0) % ABG Sodium (135-146) mmol/L ABG Potassium (3.4-4.5) mmol/L ABG Ionized Calcium (4.5-5.3) mg/dL ABG Glucose (75-99) mg/dL Hemoglobin (11.4-16.0) gm/dL Creatinine (0.52-1.04) mg/dL Glucose (74-99) mg/dL POC Glucose (mg/dL) 119 H 113 H 125 H (75-99) mg/dL Calcium (8.4-10.2) mg/dL Ionized Calcium [place] (4.5-5.3) mg/dL Magnesium (1.6-2.3) mg/dL AST (14-36) U/L Total Protein (6.3-8.2) g/dL Albumin (3.5-5.0) g/dL Arterial Blood Potassium (3.4-4.5) mmol/L Arterial Blood Glucose (75-99) mg/dL Crossmatch 10/05/19 10/05/19 10/05/19 Range/Units 03:56 03:56 03:59 WBC 11.6 H (3.8-10.6) k/uL RBC 3.33 L (3.80-5.40) m/uL Hgb 10.0 L (11.4-16.0) gm/dL Hct 31.1 L (34.0-46.0) % Plt Count 101 L (150-450) k/uL Neutrophils # 9.7 H (1.3-7.7) k/uL Lymphocytes # (1.0-4.8) k/uL INR (<1.2) ABG pH (7.35-7.45) ABG pCO2 (35-45) mmHg ABG pO2 (83-108) mmHg ABG HCO3 (21-25) mmol/L ABG Total CO2 (19-24) mmol/L ABG O2 Saturation (94-97) % ABG Hematocrit (34.0-46.0) % ABG Sodium (135-146) mmol/L ABG Potassium (3.4-4.5) mmol/L ABG Ionized Calcium (4.5-5.3) mg/dL ABG Glucose (75-99) mg/dL Hemoglobin (11.4-16.0) gm/dL Creatinine 0.41 L (0.52-1.04) mg/dL Glucose 106 H (74-99) mg/dL POC Glucose (mg/dL) 114 H (75-99) mg/dL Calcium (8.4-10.2) mg/dL Ionized Calcium [place] (4.5-5.3) mg/dL Magnesium 2.4 H (1.6-2.3) mg/dL AST 45 H (14-36) U/L Total Protein 5.4 L (6.3-8.2) g/dL Albumin 3.3 L (3.5-5.0) g/dL Arterial Blood Potassium (3.4-4.5) mmol/L Arterial Blood Glucose (75-99) mg/dL Crossmatch 10/05/19 10/05/19 10/05/19 Range/Units 06:05 07:04 10:06 WBC (3.8-10.6) k/uL RBC (3.80-5.40) m/uL Hgb (11.4-16.0) gm/dL Hct (34.0-46.0) % Plt Count (150-450) k/uL Neutrophils # (1.3-7.7) k/uL Lymphocytes # (1.0-4.8) k/uL INR (<1.2) ABG pH (7.35-7.45) ABG pCO2 (35-45) mmHg ABG pO2 (83-108) mmHg ABG HCO3 (21-25) mmol/L ABG Total CO2 (19-24) mmol/L ABG O2 Saturation (94-97) % ABG Hematocrit (34.0-46.0) % ABG Sodium (135-146) mmol/L ABG Potassium (3.4-4.5) mmol/L ABG Ionized Calcium (4.5-5.3) mg/dL ABG Glucose (75-99) mg/dL Hemoglobin (11.4-16.0) gm/dL Creatinine (0.52-1.04) mg/dL Glucose (74-99) mg/dL POC Glucose (mg/dL) 136 H 136 H 104 H (75-99) mg/dL Calcium (8.4-10.2) mg/dL Ionized Calcium [place] (4.5-5.3) mg/dL Magnesium (1.6-2.3) mg/dL AST (14-36) U/L Total Protein (6.3-8.2) g/dL Albumin (3.5-5.0) g/dL Arterial Blood Potassium (3.4-4.5) mmol/L Arterial Blood Glucose (75-99) mg/dL Crossmatch Assessment and Plan Plan: 1. Multivessel coronary artery disease status post 3 vessel CABG, postoperative day #1. Patient's been successfully extubated. She has been hemodynamically stable. Chest tubes, Cortis, [place] catheter in place. Continue Plavix, Lipitor, Lopressor 2. History of hiatal hernia. Protonix. 3. Hypertension. Continue Lopressor. 4. Hyperlipidemia. Continue atorvastatin 40 mg at bedtime. 5. History of coronary artery disease status post stent. Patient normally follows with Dr. Bennett. Continue aspirin, Lipitor, losartan. 6. Obstructive sleep apnea on CPAP. 7. Morbid obesity with BMI of 46. 8. History of coronary artery disease with previous PCI. Discharge plan: To be determined Impression and plan of care have been directed as dictated by the signing physician. Julissa Miner nurse practitioner acting as scribe for signing physician.
[2019-10-05 11:56] LABS: Glucose,Whole Blood 110 mg/dL (75-99)
[2019-10-05 14:17] LABS: Glucose,Whole Blood 140 mg/dL (75-99)
[2019-10-05 14:57] LABS: Glucose,Whole Blood 120 mg/dL (75-99)
[2019-10-05 15:44] LABS: Glucose,Whole Blood 131 mg/dL (75-99)
[2019-10-05 16:57] LABS: Glucose,Whole Blood 104 mg/dL (75-99)
[2019-10-05 18:09] LABS: Glucose,Whole Blood 132 mg/dL (75-99)
[2019-10-05 19:09] LABS: Glucose,Whole Blood 143 mg/dL (75-99)
[2019-10-05 19:53] LABS: Glucose,Whole Blood 139 mg/dL (75-99)
[2019-10-05] MEDS: SENNOSIDES-DOCUSATE SODIUM 1 EACH TAB PO SCH (20:22)
[2019-10-05] MEDS: METOPROLOL TARTRATE 25 MG TAB PO SCH (20:22)
[2019-10-05 20:58] LABS: Glucose,Whole Blood 121 mg/dL (75-99)
[2019-10-05] MEDS ORDERED: MELATONIN 3 MG TABLET PO PRN (21:00)
[2019-10-05 21:56] LABS: Glucose,Whole Blood 139 mg/dL (75-99)
[2019-10-05 22:55] LABS: Glucose,Whole Blood 140 mg/dL (75-99)
[2019-10-05 23:57] LABS: Glucose,Whole Blood 110 mg/dL (75-99)
[2019-10-06 01:06] LABS: Glucose,Whole Blood 67 mg/dL (75-99)
[2019-10-06] MEDS: HEPARIN SODIUM,PORCINE 5,000 UNIT/ML 1 ML VIAL SQ SCH ×2 (01:14→09:00)
[2019-10-06] MEDS: KETOROLAC 30 MG/ML 1 ML VIAL IVP SCH ×4 (01:14→18:40)
[2019-10-06 01:21] LABS: Glucose,Whole Blood 71 mg/dL (75-99)
[2019-10-06 03:07] LABS: Glucose,Whole Blood 135 mg/dL (75-99)
[2019-10-06 04:01] LABS: Glucose,Whole Blood 200 mg/dL (75-99)
[2019-10-06 04:16] LABS: Basophils % (A) 0 %; Eosinophils % (A) 0 %; HCT 30.7 % (34.0-46.0); HGB 9.7 gm/dL (11.4-16.0); Lymphocytes # (A) 0.9 k/uL (1.0-4.8); Lymphocytes % (A) 7 %; MCH 30.1 pg (25.0-35.0); MCHC 31.7 g/dL (31.0-37.0); MCV 94.9 fL (80.0-100.0); Mean Platelet Volume 9.7; Monocytes # (A) 0.6 k/uL (0-1.0); Monocytes % (A) 5 %; Neutrophils # (A) 10.8 k/uL (1.3-7.7); Neutrophils % (A) 87 %; RBC 3.24 m/uL (3.80-5.40); RDW 13.3 % (11.5-15.5); WBC 12.4 k/uL (3.8-10.6)
[2019-10-06 04:24] LABS: Ionized Calcium 5.2 mg/dL (4.5-5.3)
[2019-10-06 04:31] LABS: ALT 16 U/L (4-34); AST 51 U/L (14-36); African American GFR (CKD) >90 (>60 ml/min/1.73 sqM); Albumin 2.9 g/dL (3.5-5.0); Alkaline Phosphatase 57 U/L (38-126); Anion Gap 3 mmol/L; Blood Urea Nitrogen 18 mg/dL (7-17); Calcium 8.8 mg/dL (8.4-10.2); Carbon Dioxide 26 mmol/L (22-30); Chloride 104 mmol/L (98-107); Glucose 151 mg/dL (74-99); Non-African American GFR(CKD) >90 (>60 ml/min/1.73 sqM); Potassium 4.1 mmol/L (3.5-5.1); Sodium 133 mmol/L (137-145); Total Bilirubin 0.7 mg/dL (0.2-1.3); Total Protein 5.2 g/dL (6.3-8.2)
[2019-10-06 05:00] LABS: Glucose,Whole Blood 148 mg/dL (75-99)
[2019-10-06 05:50] LABS: Large Platelets Present
[2019-10-06 05:51] LABS: Anisocytosis (M) Present
[2019-10-06 05:56] LABS: Platelet Count 91 k/uL (150-450)
[2019-10-06 06:02] LABS: Glucose,Whole Blood 121 mg/dL (75-99)
[2019-10-06] MEDS: PANTOPRAZOLE 40 MG TABLET PO SCH (06:07)
[2019-10-06 06:53] LABS: Glucose,Whole Blood 113 mg/dL (75-99)
--- NOTE | 2019-10-06 07:49 | XR ---
EXAMINATION TYPE: XR chest 1V portable DATE OF EXAM: 10/06/2019 Comparison: 10/05/2019 Clinical History: 73-year-old female Post Operative Cardiac Surgery Findings: Median sternotomy wires are present. Mediastinal drain and left-sided chest tube. Patchy bibasilar op acities with small effusions. Diffuse interstitial prominence also present. Small left apical pneumot horax measuring 9 mm. Not clearly seen previously. A right IJ sheath remains in place after removal o f the [place] catheter. Impression: 1. Left-sided chest tube with small left apical pneumothorax measuring 9 mm. No clearly seen previous ly. 2. Continued cardiomegaly and possible mild pulmonary vascular congestion. 3. Small effusions with continued bibasilar atelectasis and/or consolidation.
[2019-10-06] MEDS: IPRATROPIUM-ALBUTEROL 3 ML NEB INHALATION SCH ×4 (08:59→19:59)
[2019-10-06] MEDS: ASPIRIN 325 MG TAB PO SCH (09:00)
[2019-10-06] MEDS: METOPROLOL TARTRATE 25 MG TAB PO SCH ×2 (09:00→20:51)
[2019-10-06] MEDS: ATORVASTATIN 40 MG TAB PO SCH (09:00)
[2019-10-06] MEDS: HYDROcodone/APAP 5-325MG 1 EACH TAB PO PRN (09:00)
[2019-10-06] MEDS: CLOPIDOGREL 75 MG TAB PO SCH (09:01)
[2019-10-06 09:07] LABS: Glucose,Whole Blood 106 mg/dL (75-99)
[2019-10-06] MEDS ORDERED: POTASSIUM CHLORIDE ER 10 MEQ TAB.ER.PRT PO STA (09:59)
[2019-10-06] MEDS ORDERED: FUROSEMIDE 10 MG/ML 4 ML VIAL IV STA (09:59)
--- NOTE | 2019-10-06 10:09 | PN ---
PROGRESS NOTE Mrs. Montana is a 73-year-old female with a history of coronary artery disease who underwent coronary bypass grafting. She is doing well. Her breathing is stable. She is denying any chest pain. She has been ambulating in the room without significant difficulty. Continues to be in sinus mechanism. There is no evidence of tachycardia or bradycardia. She is on no pressors. She continues to be on aspirin once a day, Lipitor 40 mg daily, Plavix 75 mg daily, metoprolol tartrate 25 mg twice a day. PHYSICAL EXAMINATION: Blood pressure 111/50 with a heart rate in the 80s. LUNGS: Lungs with few crackles at the bases with decreased breath sounds. HEART: Regular rate and rhythm S1, S2. No S3. Plus rub. ABDOMEN: Soft, nontender. EXTREMITIES: No significant edema. LAB DATA: Revealed a BUN and creatinine 11 and 0.854. Hemoglobin 9.7. IMPRESSION: 1. Status post left coronary artery bypass grafting, stable. 2. History of hyperlipidemia. 3. Hypertension. 4. History of obstructive sleep apnea. RECOMMENDATIONS: We will continue present therapy. Continue to increase her level of activity and depending on her blood pressure, further adjustment of her medical regimen will be made. MMODL / IJN: [id number] /
--- NOTE | 2019-10-06 11:11 | P.PN ---
Subjective Progress Note Date: 10/06/19 This is a 73-year-old female patient of Dr. Matthew Le and Dr. Bennett with past medical history of coronary artery disease status post stent, hypertension, hyperlipidemia, obstructive sleep apnea on CPAP. Patient underwent a cardiac catheterization on 09/03/[address] Winkler and found to have calcified right and left coronary systems, disease involving the LV branch of the RCA and critical disease involving the ostial LAD and ostial left circumflex with plaque involving the distal left main coronary artery. The patient underwent three-vessel three-vessel bypass surgery and currently patient is postop day #1. She is seen in the intensive care unit. She was successfully extubated yesterday. Right IJ Cordis with [place]-Thao catheter in place, mediastinal and left pleural chest tubes in place, Hayward catheter in place. Patient states that she is having pain in her chest related to the surgery, back and left lower leg where harvesting was done. She is seen today sitting up in a chair and staff is working with her to return to bed. Pulse ox is 100% on 2 L nasal cannula, blood pressure 121/68, respiratory rate 24, afebrile, heart rate 81. Blood sugars running between 88 and 136. Patient does not have history of diabetes. She has been on 18 insulin drip which is on hold. 10/05: Patient is seen today in intensive care unit, patient is resting in recliner and appears to be comfortable. All tubes have been removed except for one chest tube. Capillary blood glucose running between 106 and 148. Patient did have one reading of 200 at 4 AM. She is currently on insulin drip which will be transitioned to NovoLog scale before meals and at bedtime. Her previous hemoglobin A1c was 5.8 several weeks ago. Patient has been afebrile, heart rate 82, blood pressure 111/51, pulse ox 94% on 2 L nasal cannula. Repeat blood work reveals WBC 12.4, hemoglobin 9.7 platelet count 91, sodium 133, BUN 18 creatinine 0.54. AST is 51, albumin 2.9. Patient worked with physical therapy yesterday with recommendations for subacute rehab Objective - Vital Signs Vital signs: Vital Signs Temp 98.2 F 10/06/19 04:00 Pulse 82 10/06/19 09:22 Resp 9 L 10/06/19 07:00 BP 128/63 10/05/19 16:00 Pulse Ox 94 L 10/06/19 05:00 Intake & Output 10/05/19 10/06/19 10/06/19 17:59 06:59 18:59 Intake Total Output Total Balance Weight Intake: IV Cardiac Output Lactated Ringers 1,000 ml @ 20 mls/hr IV .Q24H ROSA Rx#:[id number] Nitroglycerin-D5w Pmx 50 mg In Dextrose/Water 1 250ml.bag @ 5 MCG/MIN 1.5 mls/hr IV .Q24H ROSA Rx#: [id number] Pressure Bag ceFAZolin 2 gm In Sodium Chloride 0.9% 50 ml @ 100 mls/hr IVPB Q8HR ROSA Rx# :[id number] Intake, IV Titration Amount Insulin Regular 100 unit In Sodium Chloride 0.9% 100 ml @ Per Protocol IV .Q0M ROSA Rx#:[id number] Oral Output: Chest Tube Drainage Left Pleural/Mediastinal Urine Other: Voiding Method ABP, PAP, CO, CI - Last Documented Arterial Blood Pressure 111/51 Pulmonary Artery Pressure 33/18 Cardiac Output 5.1 Cardiac Index 2.3 - Exam Review of Systems Constitutional: Reports anorexia, Reports fatigue, Reports weakness, Denies chills, Denies fever Eyes: denies blurred vision, denies pain Ears, nose, mouth and throat: Denies dental pain, Denies nasal congestion, Denies nasal discharge, Denies vertigo Cardiovascular: Reports chest discomfort, Denies decreased exercise tolerance, Denies dyspnea on exertion, Denies edema, Denies leg edema, Denies lightheadedness, Denies shortness of breath, Denies syncope Respiratory: Reports sleep apnea, Denies cough, Denies cough with sputum, Denies dyspnea, Denies excessive sputum, Denies hemoptysis, Denies home oxygen, Denies respiratory infections, Denies wheezing Gastrointestinal: Denies abdominal pain, Denies diarrhea, Denies nausea, Denies vomiting Genitourinary: Denies dysuria, Denies hematuria Musculoskeletal: Reports muscle weakness, Denies frequent falls, Denies gait dysfunction, Denies myalgias Integumentary: Denies pruritus, Denies rash Neurological: Denies change in mentation, Denies change in speech, Denies num bness, Denies weakness Psychiatric: Denies anxiety, Denies depression Endocrine: Denies fatigue, Denies weight change Gen: This is a morbidly obese 73-year-old female patient. She is sitting in recliner and appears to be in no acute distress. No respiratory distress is noted. HEENT: Head is atraumatic, normocephalic. Pupils equal, round. Sclerae is anicteric. Oral mucous membranes are moist. NECK: Supple. No JVD. No lymphadenopathy. No thyromegaly. LUNGS: Lungs are diminished at the bases but otherwise clear to auscultation. No wheezes or rhonchi. No intercostal retractions. HEART: Regular rate and rhythm. No murmur. Left pleural and mediastinal chest tubes in place. Dressing in place to the sternal wound. ABDOMEN: Morbidly obese. Soft. Bowel sounds are present. No masses. No tenderness. EXTREMITIES: Trace pedal edema. No calf tenderness. Dorsalis pedis is +[address] to the left lower extremity, SCDs in place bilaterally. NEUROLOGICAL: Patient is awake, alert and oriented x3. Cranial nerves 2 through 12 are grossly intact. - Labs CBC & Chem 7: 10/06/19 04:00 10/06/19 04:00 Labs: Abnormal Lab Results - Last 24 Hours (Table) 10/05/19 10/05/19 10/05/19 Range/Units 10:06 11:08 11:54 WBC (3.8-10.6) k/uL RBC (3.80-5.40) m/uL Hgb (11.4-16.0) gm/dL Hct (34.0-46.0) % Plt Count (150-450) k/uL Neutrophils # (1.3-7.7) k/uL Lymphocytes # (1.0-4.8) k/uL Sodium (137-145) mmol/L BUN (7-17) mg/dL Glucose (74-99) mg/dL POC Glucose (mg/dL) 104 H 113 H 110 H (75-99) mg/dL AST (14-36) U/L Total Protein (6.3-8.2) g/dL Albumin (3.5-5.0) g/dL 10/05/19 10/05/19 10/05/19 Range/Units 14:16 14:56 15:42 WBC (3.8-10.6) k/uL RBC (3.80-5.40) m/uL Hgb (11.4-16.0) gm/dL Hct (34.0-46.0) % Plt Count (150-450) k/uL Neutrophils # (1.3-7.7) k/uL Lymphocytes # (1.0-4.8) k/uL Sodium (137-145) mmol/L BUN (7-17) mg/dL Glucose (74-99) mg/dL POC Glucose (mg/dL) 140 H 120 H 131 H (75-99) mg/dL AST (14-36) U/L Total Protein (6.3-8.2) g/dL Albumin (3.5-5.0) g/dL 10/05/19 10/05/19 10/05/19 Range/Units 16:56 18:07 19:08 WBC (3.8-10.6) k/uL RBC (3.80-5.40) m/uL Hgb (11.4-16.0) gm/dL Hct (34.0-46.0) % Plt Count (150-450) k/uL Neutrophils # (1.3-7.7) k/uL Lymphocytes # (1.0-4.8) k/uL Sodium (137-145) mmol/L BUN (7-17) mg/dL Glucose (74-99) mg/dL POC Glucose (mg/dL) 104 H 132 H 143 H (75-99) mg/dL AST (14-36) U/L Total Protein (6.3-8.2) g/dL Albumin (3.5-5.0) g/dL 10/05/19 10/05/19 10/05/19 Range/Units 19:52 20:57 21:55 WBC (3.8-10.6) k/uL RBC (3.80-5.40) m/uL Hgb (11.4-16.0) gm/dL Hct (34.0-46.0) % Plt Count (150-450) k/uL Neutrophils # (1.3-7.7) k/uL Lymphocytes # (1.0-4.8) k/uL Sodium (137-145) mmol/L BUN (7-17) mg/dL Glucose (74-99) mg/dL POC Glucose (mg/dL) 139 H 121 H 139 H (75-99) mg/dL AST (14-36) U/L Total Protein (6.3-8.2) g/dL Albumin (3.5-5.0) g/dL 10/05/19 10/05/19 10/06/19 Range/Units 22:53 23:56 01:05 WBC (3.8-10.6) k/uL RBC (3.80-5.40) m/uL Hgb (11.4-16.0) gm/dL Hct (34.0-46.0) % Plt Count (150-450) k/uL Neutrophils # (1.3-7.7) k/uL Lymphocytes # (1.0-4.8) k/uL Sodium (137-145) mmol/L BUN (7-17) mg/dL Glucose (74-99) mg/dL POC Glucose (mg/dL) 140 H 110 H 67 L (75-99) mg/dL AST (14-36) U/L Total Protein (6.3-8.2) g/dL Albumin (3.5-5.0) g/dL 10/06/19 10/06/19 10/06/19 Range/Units 01:20 03:05 04:00 WBC 12.4 H (3.8-10.6) k/uL RBC 3.24 L (3.80-5.40) m/uL Hgb 9.7 L (11.4-16.0) gm/dL Hct 30.7 L (34.0-46.0) % Plt Count 91 L (150-450) k/uL Neutrophils # 10.8 H (1.3-7.7) k/uL Lymphocytes # 0.9 L (1.0-4.8) k/uL Sodium (137-145) mmol/L BUN (7-17) mg/dL Glucose (74-99) mg/dL POC Glucose (mg/dL) 71 L 135 H (75-99) mg/dL AST (14-36) U/L Total Protein (6.3-8.2) g/dL Albumin (3.5-5.0) g/dL 10/06/19 10/06/19 10/06/19 Range/Units 04:00 04:00 04:58 WBC (3.8-10.6) k/uL RBC (3.80-5.40) m/uL Hgb (11.4-16.0) gm/dL Hct (34.0-46.0) % Plt Count (150-450) k/uL Neutrophils # (1.3-7.7) k/uL Lymphocytes # (1.0-4.8) k/uL Sodium 133 L (137-145) mmol/L BUN 18 H (7-17) mg/dL Glucose 151 H (74-99) mg/dL POC Glucose (mg/dL) 200 H 148 H (75-99) mg/dL AST 51 H (14-36) U/L Total Protein 5.2 L (6.3-8.2) g/dL Albumin 2.9 L (3.5-5.0) g/dL 10/06/19 10/06/19 10/06/19 Range/Units 06:01 06:52 09:05 WBC (3.8-10.6) k/uL RBC (3.80-5.40) m/uL Hgb (11.4-16.0) gm/dL Hct (34.0-46.0) % Plt Count (150-450) k/uL Neutrophils # (1.3-7.7) k/uL Lymphocytes # (1.0-4.8) k/uL Sodium (137-145) mmol/L BUN (7-17) mg/dL Glucose (74-99) mg/dL POC Glucose (mg/dL) 121 H 113 H 106 H (75-99) mg/dL AST (14-36) U/L Total Protein (6.3-8.2) g/dL Albumin (3.5-5.0) g/dL Assessment and Plan Plan: 1. Multivessel coronary artery disease status post 3 vessel CABG, postoperative day #2. Patient's been successfully extubated. She has been hemodynamically stable. Chest tube x1, Cortis, Hayward catheter removed. Continue aspirin, Plavix, Lipitor, Lopressor 2. History of hiatal hernia. Protonix. 3. Hypertension. Continue Lopressor. 4. Hyperlipidemia. Continue atorvastatin 40 mg at bedtime. 5. History of coronary artery disease status post stent. Patient normally follows with Dr. Bennett. Continue aspirin, Lipitor, losartan. 6. Obstructive sleep apnea on CPAP. 7. Morbid obesity with BMI of 46. 8. History of coronary artery disease with previous PCI. Discharge plan: To be determined. PT has recommended subacute rehab as of ev aluation yesterday. Impression and plan of care have been directed as dictated by the signing physi cian. Julissa Mnier nurse practitioner acting as scribe for signing physician.
--- NOTE | 2019-10-06 11:23 | P.PN ---
Subjective Progress Note Date: 10/06/19 Principal diagnosis: Multivessel coronary artery disease and the patient underwent three-vessel bypass. She is currently postop day #2. The patient is seen today 10/06/2019 in follow-up in the intensive care unit. She had multivessel coronary artery disease and the patient underwent three- vessel bypass. She is currently postop day #2. She is currently resting comfortably in bed. Awake and alert in no acute distress. Chest tubes have been removed. She is working well with the incentive spirometer pulling plan naproxen 500 ML's. She is maintaining good O2 saturations in the 90s on room air. Chest x-ray reveals a small left apical pneumothorax on the left. Cardiome kennedy and some mild pulmonary vascular congestion. Small effusions with continued bibasilar atelectasis. She's afebrile. Hemodynamically stable. Her pain is well controlled. Remaining in sinus rhythm. White count 12.4. Hemoglobin 9.7. Sodium 133. Potassium 4.1. Creatinine 0.54. Objective - Vital Signs Vital signs: Vital Signs Temp 98.2 F 10/06/19 04:00 Pulse 82 10/06/19 09:22 Resp 9 L 10/06/19 07:00 BP 128/63 10/05/19 16:00 Pulse Ox 94 L 10/06/19 05:00 Intake & Output 10/05/19 10/06/19 10/06/19 17:59 06:59 18:59 Intake Total Output Total Balance Weight Intake: IV Cardiac Output Lactated Ringers 1,000 ml @ 20 mls/hr IV .Q24H [facility]A Rx#:[id number] Nitroglycerin-D5w Pmx 50 mg In Dextrose/Water 1 250ml.bag @ 5 MCG/MIN 1.5 mls/hr IV .Q24H ROSA Rx#: [id number] Pressure Bag ceFAZolin 2 gm In Sodium Chloride 0.9% 50 ml @ 100 mls/hr IVPB Q8HR ROSA Rx# :[id number] Intake, IV Titration Amount Insulin Regular 100 unit In Sodium Chloride 0.9% 100 ml @ Per Protocol IV .Q0M ROSA Rx#:[id number] Oral Output: Chest Tube Drainage Left Pleural/Mediastinal Urine Other: Voiding Method ABP, PAP, CO, CI - Last Documented Arterial Blood Pressure 111/51 Pulmonary Artery Pressure 33/18 Cardiac Output 5.1 Cardiac Index 2.3 - Exam GENERAL EXAM: Alert, active, comfortable pleasant 73-year-old female patient, on room air, in no apparent distress. HEAD: Normocephalic. EYES: Normal reaction of pupils, equal size. NOSE: Clear with pink turbinates. THROAT: No erythema or exudates. NECK: No masses, no JVD. CHEST: No chest wall deformity. LUNGS: Equal air entry crackles in the bilateral posterior bases. CVS: S1 and S2 normal with no audible murmur, regular rhythm. ABDOMEN: No hepatosplenomegaly, normal bowel sounds, no guarding or rigidity. SPINE: No scoliosis or deformity SKIN: No rashes CENTRAL NERVOUS SYSTEM: No focal deficits, tone is normal in all 4 extremities. EXTREMITIES: There is no peripheral edema. No clubbing, no cyanosis. Peripheral pulses are intact. - Labs CBC & Chem 7: 10/06/19 04:00 10/06/19 04:00 Labs: Abnormal Lab Results - Last 24 Hours (Table) 10/05/19 10/05/19 10/05/19 Range/Units 11:08 11:54 14:16 WBC (3.8-10.6) k/uL RBC (3.80-5.40) m/uL Hgb (11.4-16.0) gm/dL Hct (34.0-46.0) % Plt Count (150-450) k/uL Neutrophils # (1.3-7.7) k/uL Lymphocytes # (1.0-4.8) k/uL Sodium (137-145) mmol/L BUN (7-17) mg/dL Glucose (74-99) mg/dL POC Glucose (mg/dL) 113 H 110 H 140 H (75-99) mg/dL AST (14-36) U/L Total Protein (6.3-8.2) g/dL Albumin (3.5-5.0) g/dL 10/05/19 10/05/19 10/05/19 Range/Units 14:56 15:42 16:56 WBC (3.8-10.6) k/uL RBC (3.80-5.40) m/uL Hgb (11.4-16.0) gm/dL Hct (34.0-46.0) % Plt Count (150-450) k/uL Neutrophils # (1.3-7.7) k/uL Lymphocytes # (1.0-4.8) k/uL Sodium (137-145) mmol/L BUN (7-17) mg/dL Glucose (74-99) mg/dL POC Glucose (mg/dL) 120 H 131 H 104 H (75-99) mg/dL AST (14-36) U/L Total Protein (6.3-8.2) g/dL Albumin (3.5-5.0) g/dL 10/05/19 10/05/19 10/05/19 Range/Units 18:07 19:08 19:52 WBC (3.8-10.6) k/uL RBC (3.80-5.40) m/uL Hgb (11.4-16.0) gm/dL Hct (34.0-46.0) % Plt Count (150-450) k/uL Neutrophils # (1.3-7.7) k/uL Lymphocytes # (1.0-4.8) k/uL Sodium (137-145) mmol/L BUN (7-17) mg/dL Glucose (74-99) mg/dL POC Glucose (mg/dL) 132 H 143 H 139 H (75-99) mg/dL AST (14-36) U/L Total Protein (6.3-8.2) g/dL Albumin (3.5-5.0) g/dL 10/05/19 10/05/19 10/05/19 Range/Units 20:57 21:55 22:53 WBC (3.8-10.6) k/uL RBC (3.80-5.40) m/uL Hgb (11.4-16.0) gm/dL Hct (34.0-46.0) % Plt Count (150-450) k/uL Neutrophils # (1.3-7.7) k/uL Lymphocytes # (1.0-4.8) k/uL Sodium (137-145) mmol/L BUN (7-17) mg/dL Glucose (74-99) mg/dL POC Glucose (mg/dL) 121 H 139 H 140 H (75-99) mg/dL AST (14-36) U/L Total Protein (6.3-8.2) g/dL Albumin (3.5-5.0) g/dL 10/05/19 10/06/19 10/06/19 Range/Units 23:56 01:05 01:20 WBC (3.8-10.6) k/uL RBC (3.80-5.40) m/uL Hgb (11.4-16.0) gm/dL Hct (34.0-46.0) % Plt Count (150-450) k/uL Neutrophils # (1.3-7.7) k/uL Lymphocytes # (1.0-4.8) k/uL Sodium (137-145) mmol/L BUN (7-17) mg/dL Glucose (74-99) mg/dL POC Glucose (mg/dL) 110 H 67 L 71 L (75-99) mg/dL AST (14-36) U/L Total Protein (6.3-8.2) g/dL Albumin (3.5-5.0) g/dL 10/06/19 10/06/19 10/06/19 Range/Units 03:05 04:00 04:00 WBC 12.4 H (3.8-10.6) k/uL RBC 3.24 L (3.80-5.40) m/uL Hgb 9.7 L (11.4-16.0) gm/dL Hct 30.7 L (34.0-46.0) % Plt Count 91 L (150-450) k/uL Neutrophils # 10.8 H (1.3-7.7) k/uL Lymphocytes # 0.9 L (1.0-4.8) k/uL Sodium 133 L (137-145) mmol/L BUN 18 H (7-17) mg/dL Glucose 151 H (74-99) mg/dL POC Glucose (mg/dL) 135 H (75-99) mg/dL AST 51 H (14-36) U/L Total Protein 5.2 L (6.3-8.2) g/dL Albumin 2.9 L (3.5-5.0) g/dL 10/06/19 10/06/19 10/06/19 Range/Units 04:00 04:58 06:01 WBC (3.8-10.6) k/uL RBC (3.80-5.40) m/uL Hgb (11.4-16.0) gm/dL Hct (34.0-46.0) % Plt Count (150-450) k/uL Neutrophils # (1.3-7.7) k/uL Lymphocytes # (1.0-4.8) k/uL Sodium (137-145) mmol/L BUN (7-17) mg/dL Glucose (74-99) mg/dL POC Glucose (mg/dL) 200 H 148 H 121 H (75-99) mg/dL AST (14-36) U/L Total Protein (6.3-8.2) g/dL Albumin (3.5-5.0) g/dL 10/06/19 10/06/19 Range/Units 06:52 09:05 WBC (3.8-10.6) k/uL RBC (3.80-5.40) m/uL Hgb (11.4-16.0) gm/dL Hct (34.0-46.0) % Plt Count (150-450) k/uL Neutrophils # (1.3-7.7) k/uL Lymphocytes # (1.0-4.8) k/uL Sodium (137-145) mmol/L BUN (7-17) mg/dL Glucose (74-99) mg/dL POC Glucose (mg/dL) 113 H 106 H (75-99) mg/dL AST (14-36) U/L Total Protein (6.3-8.2) g/dL Albumin (3.5-5.0) g/dL Assessment and Plan Assessment: 1 multivessel coronary artery disease and the patient underwent three-vessel bypass. She is currently postop day #2. 2 post thoracotomy and the patient is extubated in the chest tubes are removed today 3 hypertension 4 hyperlipidemia 5 obesity 6 history of hiatal hernia with symptoms of GE reflux 7 obstructive sleep apnea 8 known history of coronary artery disease with previous history of coronary stenting 9 postoperative anemia, and expected outcome of surgery Plan The patient was seen and evaluated by Dr. Montes. Chest x-ray and labs reviewed. She is quite stable from the pulmonary standpoint. Continue with the incentive spirometer. Increase her activity as tolerated. We'll continue to follow. I, the cosigning physician, performed a history & physical examination of the patient. Lungs sounds with crackles in the bilateral posterior bases Maintaining good O2 saturations in the 90s on room air. I discussed the assessment and plan of care with my nurse practitioner, Nicole Herrera. I attest to the above note as dictated by her.
[2019-10-06] MEDS ORDERED: ATROPINE SULFATE 0.1 MG/ML 10ML SYRINGE ONE (11:30)
[2019-10-06 11:40] LABS: Glucose,Whole Blood 78 mg/dL (75-99)
--- NOTE | 2019-10-06 11:46 | P.PN ---
Subjective Progress Note Date: 10/06/19 Principal diagnosis: Unstable angina, triple-vessel coronary artery disease. Past medical history significant for hypertension, hyperlipidemia, morbid obesity, hiatal hernia, GERD, obstructive sleep apnea, and coronary artery disease with previous coronary stenting. POD #2 coronary artery bypass grafting 3 with left internal mammary artery to left anterior descending coronary artery, a reverse greater saphenous vein graft of the aorta to the circumflex coronary artery and to the posterior ventricular branch of the right coronary artery with right lower extremity greater saphenous vein endoscopic harvesting, ligation of the left atrial appendage with a #35 mm a clip and an intraoperative transesophageal echocardiogram. Postoperative acute blood loss anemia, an expected outcome due to hemodilution and cardiopulmonary bypass. The patient is sitting up to the bedside chair in the intensive care unit. She is in no acute distress, remains hemodynamically stable and is currently on no inotropic or pressor support. Denies any complaints of pain or shortness of catherine ath. Oxygen saturations are 93% on room air and she is achieving 500 mL with much encouragement on her incentive spirometry. Mediastinal and left pleural chest tubes remain in place to low continuous wall suction -20 cm H2O. No air leak is present. Draining thin serosanguineous drainage with 120 mL output in the last 8 hours and 350 mL output in the last 24 hours. Her [place] catheter has been discontinued and she reports she has been voiding without difficulty. She remains afebrile the last 24 hours. Objective - Vital Signs Vital signs: Vital Signs Temp 98.2 F 10/06/19 04:00 Pulse 82 10/06/19 09:22 Resp 9 L 10/06/19 07:00 BP 128/63 10/05/19 16:00 Pulse Ox 94 L 10/06/19 05:00 Intake & Output 10/05/19 10/06/19 10/06/19 17:59 06:59 18:59 Intake Total Output Total Balance Weight Intake: IV Cardiac Output Lactated Ringers 1,000 ml @ 20 mls/hr IV .Q24H [facility] Rx#:[id number] Nitroglycerin-D5w Pmx 50 mg In Dextrose/Water 1 250ml.bag @ 5 MCG/MIN 1.5 mls/hr IV .Q24H [facility] Rx#: [id number] Pressure Bag ceFAZolin 2 gm In Sodium Chloride 0.9% 50 ml @ 100 mls/hr IVPB Q8HR [facility] Rx# :[id number] Intake, IV Titration Amount Insulin Regular 100 unit In Sodium Chloride 0.9% 100 ml @ Per Protocol IV .Q0M [facility] Rx#:[id number] Oral Output: Chest Tube Drainage Left Pleural/Mediastinal Urine Other: Voiding Method ABP, PAP, CO, CI - Last Documented Arterial Blood Pressure 111/51 Pulmonary Artery Pressure 33/18 Cardiac Output 5.1 Cardiac Index 2.3 - Constitutional General appearance: Present: cooperative, morbidly obese, no acute distress - Respiratory Details: Lung sounds essentially clear to her bilateral upper lobes, few scattered crackles to bilateral bases left greater than right. Respirations are symmetrical and nonlabored. Oxygen saturation is 93% on room air. Achieving 500 mL on her incentive spirometry with much encouragement. Left pleural and mediastinal chest tubes remain in place to low continuous wall suction -20 cm H2O. Draining thin serosanguineous drainage with 120 mL output in the last 8 hours, 350 mL output in the last 24 hours. No air leak is present. - Cardiovascular Details: Regular rhythm and rate. S1 and S2 present, negative for S3, gallop or murmur. Bedside telemetry showing normal sinus rhythm heart rate [address] elevation. Sternum is stable. Surgical support bra and heart hugger is in place which he is demonstrating appropriate use. Epicardial ventricular epicardial pacemaker wires in place and grounded. Knee-high OSMAR hose and sequential compression devices in place to bilateral lower extremities. +1 edema to bilateral lower extremities. - Gastrointestinal Gastrointestinal Comment(s): Abdomen is soft, nontender and nondistended. Active bowel sounds present in all 4 abdominal quadrants. No guarding or rigidity. Tolerating oral intake. - Genitourinary Genitourinary Comment(s): Voiding clear yellow urine. - Integumentary Integumentary Comment(s): Skin is warm and dry. No clubbing or cyanosis is present. No rash or abnormal pigmentation is present. Midline sternal incision is clean, dry and approximated. No drainage or redness present. Left lower extremity EVH site is clean, dry and approximated. No drainage or redness is present. - Neurologic Neurologic: Present: CNII-XII intact - Musculoskeletal Musculoskeletal: Present: gait normal, generalized weakness, strength equal bilaterally - Psychiatric Psychiatric: Present: A&O x's 3, appropriate affect, intact judgment & insight - Allied health notes Allied health notes reviewed: nursing - Labs CBC & Chem 7: 10/06/19 04:00 10/06/19 04:00 Labs: Abnormal Lab Results - Last 24 Hours (Table) 10/05/19 10/05/19 10/05/19 Range/Units 11:08 11:54 14:16 WBC (3.8-10.6) k/uL RBC (3.80-5.40) m/uL Hgb (11.4-16.0) gm/dL Hct (34.0-46.0) % Plt Count (150-450) k/uL Neutrophils # (1.3-7.7) k/uL Lymphocytes # (1.0-4.8) k/uL Sodium (137-145) mmol/L BUN (7-17) mg/dL Glucose (74-99) mg/dL POC Glucose (mg/dL) 113 H 110 H 140 H (75-99) mg/dL AST (14-36) U/L Total Protein (6.3-8.2) g/dL Albumin (3.5-5.0) g/dL 10/05/19 10/05/19 10/05/19 Range/Units 14:56 15:42 16:56 WBC (3.8-10.6) k/uL RBC (3.80-5.40) m/uL Hgb (11.4-16.0) gm/dL Hct (34.0-46.0) % Plt Count (150-450) k/uL Neutrophils # (1.3-7.7) k/uL Lymphocytes # (1.0-4.8) k/uL Sodium (137-145) mmol/L BUN (7-17) mg/dL Glucose (74-99) mg/dL POC Glucose (mg/dL) 120 H 131 H 104 H (75-99) mg/dL AST (14-36) U/L Total Protein (6.3-8.2) g/dL Albumin (3.5-5.0) g/dL 10/05/19 10/05/19 10/05/19 Range/Units 18:07 19:08 19:52 WBC (3.8-10.6) k/uL RBC (3.80-5.40) m/uL Hgb (11.4-16.0) gm/dL Hct (34.0-46.0) % Plt Count (150-450) k/uL Neutrophils # (1.3-7.7) k/uL Lymphocytes # (1.0-4.8) k/uL Sodium (137-145) mmol/L BUN (7-17) mg/dL Glucose (74-99) mg/dL POC Glucose (mg/dL) 132 H 143 H 139 H (75-99) mg/dL AST (14-36) U/L Total Protein (6.3-8.2) g/dL Albumin (3.5-5.0) g/dL 10/05/19 10/05/19 10/05/19 Range/Units 20:57 21:55 22:53 WBC (3.8-10.6) k/uL RBC (3.80-5.40) m/uL Hgb (11.4-16.0) gm/dL Hct (34.0-46.0) % Plt Count (150-450) k/uL Neutrophils # (1.3-7.7) k/uL Lymphocytes # (1.0-4.8) k/uL Sodium (137-145) mmol/L BUN (7-17) mg/dL Glucose (74-99) mg/dL POC Glucose (mg/dL) 121 H 139 H 140 H (75-99) mg/dL AST (14-36) U/L Total Protein (6.3-8.2) g/dL Albumin (3.5-5.0) g/dL 10/05/19 10/06/19 10/06/19 Range/Units 23:56 01:05 01:20 WBC (3.8-10.6) k/uL RBC (3.80-5.40) m/uL Hgb (11.4-16.0) gm/dL Hct (34.0-46.0) % Plt Count (150-450) k/uL Neutrophils # (1.3-7.7) k/uL Lymphocytes # (1.0-4.8) k/uL Sodium (137-145) mmol/L BUN (7-17) mg/dL Glucose (74-99) mg/dL POC Glucose (mg/dL) 110 H 67 L 71 L (75-99) mg/dL AST (14-36) U/L Total Protein (6.3-8.2) g/dL Albumin (3.5-5.0) g/dL 10/06/19 10/06/19 10/06/19 Range/Units 03:05 04:00 04:00 WBC 12.4 H (3.8-10.6) k/uL RBC 3.24 L (3.80-5.40) m/uL Hgb 9.7 L (11.4-16.0) gm/dL Hct 30.7 L (34.0-46.0) % Plt Count 91 L (150-450) k/uL Neutrophils # 10.8 H (1.3-7.7) k/uL Lymphocytes # 0.9 L (1.0-4.8) k/uL Sodium 133 L (137-145) mmol/L BUN 18 H (7-17) mg/dL Glucose 151 H (74-99) mg/dL POC Glucose (mg/dL) 135 H (75-99) mg/dL AST 51 H (14-36) U/L Total Protein 5.2 L (6.3-8.2) g/dL Albumin 2.9 L (3.5-5.0) g/dL 10/06/19 10/06/19 10/06/19 Range/Units 04:00 04:58 06:01 WBC (3.8-10.6) k/uL RBC (3.80-5.40) m/uL Hgb (11.4-16.0) gm/dL Hct (34.0-46.0) % Plt Count (150-450) k/uL Neutrophils # (1.3-7.7) k/uL Lymphocytes # (1.0-4.8) k/uL Sodium (137-145) mmol/L BUN (7-17) mg/dL Glucose (74-99) mg/dL POC Glucose (mg/dL) 200 H 148 H 121 H (75-99) mg/dL AST (14-36) U/L Total Protein (6.3-8.2) g/dL Albumin (3.5-5.0) g/dL 10/06/19 10/06/19 Range/Units 06:52 09:05 WBC (3.8-10.6) k/uL RBC (3.80-5.40) m/uL Hgb (11.4-16.0) gm/dL Hct (34.0-46.0) % Plt Count (150-450) k/uL Neutrophils # (1.3-7.7) k/uL Lymphocytes # (1.0-4.8) k/uL Sodium (137-145) mmol/L BUN (7-17) mg/dL Glucose (74-99) mg/dL POC Glucose (mg/dL) 113 H 106 H (75-99) mg/dL AST (14-36) U/L Total Protein (6.3-8.2) g/dL Albumin (3.5-5.0) g/dL - Imaging and Cardiology Chest x-ray: report reviewed, image reviewed Assessment and Plan Assessment: 1. Unstable angina with triple-vessel coronary artery disease status post 3 vessel coronary artery bypass grafting surgery 2. Hypertension 3. Hyperlipidemia 4. Morbid obesity with a BMI of 46.4 kg/m 5. Hiatal hernia 6. Gastroesophageal reflux disease 7. Obstructive sleep apnea 8. Known history of coronary artery disease with previous coronary stent placement 9. Postoperative acute blood loss anemia, an expected outcome due to hemodilution and cardiopulmonary bypass Plan: 1. Continue aspirin, statin, Plavix, and beta manuel. Will increase metoprolol tartrate as tolerated. 2. Discontinue right IJ Cordis, right radial arterial line, mediastinal and left pleural chest tubes. 3. Encourage incentive spirometry use 10 times every hour while awake. 4. Increase activity, ambulate as tolerated. PT/OT/cardiac rehab following. 5. Will monitor daily labs and chest x-rays. Electrolyte replacement per protocol. No blood transfusion at this time. 6. Pain control with current medication regimen. Discontinue [place]. 7. Insulin management per primary care service. 8. GI/DVT prophylaxis. 9. Bronchodilators per pulmonology management. 10. Lasix 40 mg IV 1 now. 11. Transfer to [address] [place] [address] cardiac stepdown unit when bed available. 13. More recommendations to follow based on patient's clinical course. Time with Patient: Greater than 30
[2019-10-06] MEDS: LACTATED RINGERS 1,000 ML IV SCH (13:02)
[2019-10-06] MEDS: INSULIN ASPART (NovoLOG) 100 UNIT/ML VIAL SQ SCH ×3 (13:03→20:52)
[2019-10-06 17:16] LABS: Glucose,Whole Blood 25 mg/dL (75-99)
[2019-10-06 17:16] LABS: Glucose,Whole Blood 29 mg/dL (75-99)
[2019-10-06 17:36] LABS: Glucose,Whole Blood 114 mg/dL (75-99)
[2019-10-06 20:45] LABS: Glucose,Whole Blood 131 mg/dL (75-99)
[2019-10-06] MEDS: ACETAMINOPHEN TAB 500 MG TAB PO PRN (20:51)
[2019-10-06] MEDS: SENNOSIDES-DOCUSATE SODIUM 1 EACH TAB PO SCH (20:52)
[2019-10-07] MEDS: KETOROLAC 30 MG/ML 1 ML VIAL IVP SCH ×4 (00:05→18:49)
[2019-10-07 01:47] LABS: Glucose,Whole Blood 153 mg/dL (75-99)
[2019-10-07 06:11] LABS: Glucose,Whole Blood 123 mg/dL (75-99)
[2019-10-07] MEDS: INSULIN ASPART (NovoLOG) 100 UNIT/ML VIAL SQ SCH (06:14)
[2019-10-07] MEDS: PANTOPRAZOLE 40 MG TABLET PO SCH (06:16)
[2019-10-07 06:51] LABS: HCT 30.2 % (34.0-46.0); HGB 9.8 gm/dL (11.4-16.0); MCH 30.6 pg (25.0-35.0); MCHC 32.4 g/dL (31.0-37.0); MCV 94.5 fL (80.0-100.0); Mean Platelet Volume 9.5; Platelet Count 121 k/uL (150-450); RDW 13.2 % (11.5-15.5); WBC 11.4 k/uL (3.8-10.6)
[2019-10-07 06:54] LABS: ALT 20 U/L (4-34); AST 51 U/L (14-36); African American GFR (CKD) >90 (>60 ml/min/1.73 sqM); Albumin 3.2 g/dL (3.5-5.0); Alkaline Phosphatase 79 U/L (38-126); Anion Gap 7 mmol/L; Blood Urea Nitrogen 21 mg/dL (7-17); Calcium 8.8 mg/dL (8.4-10.2); Carbon Dioxide 25 mmol/L (22-30); Chloride 99 mmol/L (98-107); Glucose 111 mg/dL (74-99); Non-African American GFR(CKD) >90 (>60 ml/min/1.73 sqM); Potassium 4.3 mmol/L (3.5-5.1); Sodium 131 mmol/L (137-145); Total Bilirubin 1.2 mg/dL (0.2-1.3); Total Protein 5.8 g/dL (6.3-8.2)
[2019-10-07] MEDS: IPRATROPIUM-ALBUTEROL 3 ML NEB INHALATION SCH ×4 (07:34→20:40)
[2019-10-07] MEDS ORDERED: FUROSEMIDE 10 MG/ML 4 ML VIAL IV STA (09:04)
[2019-10-07] MEDS: ASPIRIN 325 MG TAB PO SCH (09:35)
[2019-10-07] MEDS: CLOPIDOGREL 75 MG TAB PO SCH (09:35)
[2019-10-07] MEDS: ATORVASTATIN 40 MG TAB PO SCH (09:35)
[2019-10-07] MEDS: METOPROLOL TARTRATE 25 MG TAB PO SCH ×2 (09:35→21:31)
[2019-10-07] MEDS: FONDAPARINUX 2.5 MG/0.5 ML SYRINGE SQ SCH (09:36)
--- NOTE | 2019-10-07 09:37 | P.CONS ---
History of Present Illness - Chief Complaint Cardiac debility - History of Present Illness I had the opportunity to see patient for inpatient rehab consultation with regard to cardiac debility. She is admitted to [facility] October 03 with known cardiac disease underwent three-vessel's coronary bypass and amputation left atrial appendage. Seen in consultation by Dr. Montes and cardiology. PT reports two-person moderate assistance bed mobility and standing and 2 person minimal assistance for gait 14 feet. Previous functional history as elicited from patient: 73-year-old right-handed white female who is lives in [facility] alone. Retired. Describes independent with own cooking, laundry, driving, standing shower and gait with standard cane generally outside the house. PMD Dr. Warner Le and area development consultant Dr. Bennett. Denies tobacco or alcohol. Family history of parents Brother and sister with cardiac disease. Review of Systems Review of systems: ENT: Denies sneezes or discharge. Eyes: Denies discharge or photophobia. Cardiac: Sternal discomfort. Pulmonary: At least mild shortness of breath. Breast: Denies discharge or lumps. Gastrointestinal: Denies nausea, emesis, constipation, diarrhea. Genitourinary: Denies discharge or frequency. Musculoskeletal: Denies muscle or bone aches. Neurologic: Denies motor or sensory change. Endocrine: Denies shakes or sweats. Oncology: Denies cancers. Dermatologic: Denies rash, itching, pruritus. ALLERGY/immunology: Denies sneezes, rashes. Past Medical History Past Medical History: Coronary Artery Disease (CAD), Cancer, Chest Pain / Angina, Heart Failure, GERD/Reflux, Hyperlipidemia, Hypertension, Osteoarthritis (OA), Sleep Apnea/CPAP/BIPAP Additional Past Medical History / Comment(s): hiatal hernia, constipation, occasional back pain, uses cane prn, hx of falls, uses C-Pap machine rarely, Skin Cancer., See Cardiology H & P. History of Any Multi-Drug Resistant Organisms: None Reported Past Surgical History: Breast Surgery, Cholecystectomy, Heart Catheterization, Heart Catheterization With Stent, Joint Replacement, Tubal Ligation Additional Past Surgical History / Comment(s): bilat total knee, juan pablo cataract with lens implants, skin CA 2016, juan pablo benign breast biopsies,mult heart caths,angiography 1988 Past Anesthesia/Blood Transfusion Reactions: No Reported Reaction Additional Past Anesthesia/Blood Transfusion Reaction / Comm: no hx blood transfusion Date of Last Stent Placement:: 2005 Smoking Status: Former smoker Additional Past Alcohol Use History / Comment(s): Patient was a smoker for 20 years and quit in 1979. She denies any medical marijuana, street drug use or alcohol use. She is retired from the [employer]. - Past Family History Father Additional Family Medical History / Comment(s): Father at age 63 from coronary artery disease. Mother Additional Family Medical History / Comment(s): Mother at age 94 from heart disease. Sister(s) Family Medical History: COPD, Coronary Artery Disease (CAD) Additional Family Medical History / Comment(s): Patient had total of 4 sisters: One from coronary artery disease, one from COPD, one from an overdose. Brother(s) Family Medical History: Coronary Artery Disease (CAD) Additional Family Medical History / Comment(s): Patient had 2 brothers and one has history of coronary artery disease and CABG as well as amputations due to agent orange. Second brother has no major medical problems. 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 Medications and Allergies Home Medications Medication Instructions Recorded Confirmed Type Aspirin 81 mg PO HS 05/23/14 10/04/19 History Furosemide [Lasix] 40 mg PO DAILY 05/23/14 10/04/19 History Losartan [Cozaar] 50 mg PO DAILY 05/23/14 10/04/19 History Atorvastatin [Lipitor] 40 mg PO HS 01/16/18 10/04/19 History Nitroglycerin Sl Tabs [Nitrostat] 0.4 mg SUBLINGUAL Q5M PRN 01/16/18 10/04/19 History amLODIPine [Norvasc] 5 mg PO DAILY 01/16/18 10/04/19 History Fish Oil/Dha/Epa [Fish Oil 1,200 1 cap PO DAILY 06/18/18 10/04/19 History mg Fish Oil] Dicyclomine [Bentyl] 10 mg PO QID PRN #120 cap 06/20/18 10/04/19 Rx Multivit-Min/Iron/Folic/Lutein 1 each PO DAILY 08/30/19 10/04/19 History [Centrum Silver Women Tablet] Pantoprazole [Protonix] 40 mg PO QAM 08/30/19 10/04/19 History Spironolactone [Aldactone] 25 mg PO DAILY 08/30/19 10/04/19 History ALPRAZolam [Xanax] 0.25 mg PO BID PRN 09/24/19 10/04/19 History Metoprolol Succinate [Toprol XL] 50 mg PO DAILY 09/24/19 10/04/19 History Sennosides [Senna] 8.6 mg PO DAILY 09/24/19 10/04/19 History Allergies Allergy/AdvReac Type Severity Reaction Status Date / Time No Known Allergies Allergy Verified 10/04/19 06:42 Physical Exam Vitals: Vital Signs Temp Pulse Pulse Resp BP BP Pulse Ox 10/07/19 07:48 74 10/07/19 07:37 72 92 L 10/07/19 04:00 98.5 F 85 18 101/56 95 10/07/19 00:47 90 18 92/53 92 L 10/06/19 20:13 85 10/06/19 20:00 98.3 F 89 13 97/70 93 L 10/06/19 19:59 85 97 10/06/19 16:16 86 10/06/19 16:04 77 10/06/19 16:00 98.5 F 84 16 104/60 96 10/06/19 14:00 86 19 10/06/19 12:00 97.7 F 78 12 107/65 94 L 10/06/19 10:00 77 22 96 Intake and Output 10/06/19 10/07/19 10/07/19 22:59 06:59 14:59 Intake Total 500 Output Total 250 Balance 250 Intake: Oral 500 Output: Urine 250 Other: Voiding Method Bedside Commode # Voids 0 1 Weight 122 kg Skin: Good color, texture, turgor. General: Obese build and comfortable appearance. Head: Normocephalic, atraumatic. Eyes: Symmetric. Pupils equal round. Ears: Symmetric. Hearing within normal limits. Mouth: Clear. Neck: Supple. Carotid without bruit. Cardiac: Regular rate and rhythm. Midline sternotomy scar clean and dressed. Lungs: Clear anteriorly and posteriorly. Abdomen: Soft active nontender, obese. Extremities: Normal tone. Neurological: Mental status: Alert, cooperative, pleasant. Cranial nerves: Symmetric facial tone and trapezius. Motor: Normal strength and isolation all 4 limbs. Sensation: Intact throughout. DTRs: Symmetric and equal throughout. Mobility: Reports 3 nurse assist transfer from bed to bedside Gerda chair. Results CBC & Chem 7: 10/07/19 06:08 10/07/19 06:08 Labs: Abnormal Lab Results - Last 24 Hours (Table) 10/06/19 10/06/19 10/06/19 Range/Units 16:56 16:57 17:01 WBC (3.8-10.6) k/uL RBC (3.80-5.40) m/uL Hgb (11.4-16.0) gm/dL Hct (34.0-46.0) % Plt Count (150-450) k/uL Sodium (137-145) mmol/L BUN (7-17) mg/dL Glucose (74-99) mg/dL POC Glucose (mg/dL) 25 L 29 L 114 H (75-99) mg/dL AST (14-36) U/L Total Protein (6.3-8.2) g/dL Albumin (3.5-5.0) g/dL 10/06/19 10/07/19 10/07/19 Range/Units 20:43 01:46 06:08 WBC 11.4 H (3.8-10.6) k/uL RBC 3.20 L (3.80-5.40) m/uL Hgb 9.8 L (11.4-16.0) gm/dL Hct 30.2 L (34.0-46.0) % Plt Count 121 L (150-450) k/uL Sodium (137-145) mmol/L BUN (7-17) mg/dL Glucose (74-99) mg/dL POC Glucose (mg/dL) 131 H 153 H (75-99) mg/dL AST (14-36) U/L Total Protein (6.3-8.2) g/dL Albumin (3.5-5.0) g/dL 10/07/19 10/07/19 Range/Units 06:08 06:10 WBC (3.8-10.6) k/uL RBC (3.80-5.40) m/uL Hgb (11.4-16.0) gm/dL Hct (34.0-46.0) % Plt Count (150-450) k/uL Sodium 131 L (137-145) mmol/L BUN 21 H (7-17) mg/dL Glucose 111 H (74-99) mg/dL POC Glucose (mg/dL) 123 H (75-99) mg/dL AST 51 H (14-36) U/L Total Protein 5.8 L (6.3-8.2) g/dL Albumin 3.2 L (3.5-5.0) g/dL Assessment and Plan (1) Chest pain Current Visit: No Status: Acute Code(s): R07.9 - CHEST PAIN, UNSPECIFIED SNOMED Code(s): 44309530 Plan: Impression: 1. Cardiac debility. 2. Coronary disease with history of angina and with recent three-vessel coronary bypass and amputation left atrial appendage. 3. Morbid obesity. 4. Hypertension. 5. Osteoarthritis. 6. Sleep apnea. 7. CHF. Constant plan: At this time PT ongoing and OT prescribed. I discussed possible inpatient rehab with patient and daughter. Patient and daughter report that there is no family member available for 24 7, they can just checking on her. In fact this daughter is planning to be away for next 10 days.
--- NOTE | 2019-10-07 11:04 | XR ---
EXAMINATION TYPE: XR chest 2V DATE OF EXAM: 10/07/2019 COMPARISON: Prior chest x-ray 10/06/2019 HISTORY: Postop coronary artery bypass graft TECHNIQUE: Frontal and lateral views of the chest are obtained. FINDINGS: Findings are similar. There is been interval removal of the left-sided chest tube. Minimal left apical pneumothorax is present. There are overlying cardiac leads, patient is post median loco otomy and atrial appendage clipping placement. Median sternal drain no longer seen. Lung volumes are low and the patient is rotated. Patchy bibasilar density persists. Heart remains enlarged. Perihilar streaky atelectatic changes are present. Thoracic spondylosis is present. IMPRESSION: Expiratory rotated exam. No interval complication status post chest tubes removal. Minim al left apical pneumothorax. Probable atelectasis, possible associated effusions. Cardiomegaly.
--- NOTE | 2019-10-07 11:58 | P.PN ---
Subjective Progress Note Date: 10/07/19 This is a 73-year-old female with known history of prior coronary artery disease with previous stenting of the circumflex in 2005, hyperlipidemia, hypertension, she underwent a cardiac catheterization on September 03 and was found to have heavily calcified right and left coronary systems. She underwent three-vessel bypass surgery 3. Patient was seen and examined this morning, overall doing well. Blood pressure 100/60, heart rate in the 70s to 80s. White blood cell count 11.4, hemoglobin 9.8, platelet count 121. Sodium 131, potassium 4.3, BUN 21, creatinine 0.5. Objective - Vital Signs Vital signs: Vital Signs Temp 97.8 F 10/07/19 08:20 Pulse 84 10/07/19 08:20 Resp 16 10/07/19 08:20 BP 101/59 10/07/19 08:20 Pulse Ox 98 10/07/19 08:20 Intake & Output 10/06/19 10/07/19 10/07/19 18:59 06:59 18:59 Intake Total 780 Output Total 290 Balance 490 Weight 122 kg Intake: IV 40 Lactated Ringers 1,000 ml 40 @ 20 mls/hr IV .Q24H [facility] Rx#:[id number] Oral 740 Output: Chest Tube Drainage 40 Left Pleural/Mediastinal 40 Urine 250 Other: Voiding Method Bedside Commode Bedside Commode # Voids 1 ABP, PAP, CO, CI - Last Documented Arterial Blood Pressure 114/47 Pulmonary Artery Pressure 33/18 Cardiac Output 5.1 Cardiac Index 2.3 - Exam GENERAL EXAM: Alert, active, comfortable pleasant 73-year-old female patient, on room air, in no apparent distress. HEAD: Normocephalic. EYES: Normal reaction of pupils, equal size. NOSE: Clear with pink turbinates. THROAT: No erythema or exudates. NECK: No masses, no JVD. CHEST: No chest wall deformity. LUNGS: Equal air entry crackles in the bilateral posterior bases. CVS: S1 and S2 normal with no audible murmur, regular rhythm. ABDOMEN: No hepatosplenomegaly, normal bowel sounds, no guarding or rigidity. SPINE: No scoliosis or deformity SKIN: No rashes CENTRAL NERVOUS SYSTEM: No focal deficits, tone is normal in all 4 extremities. EXTREMITIES: There is no peripheral edema. No clubbing, no cyanosis. Peripheral pulses are intact. - Labs CBC & Chem 7: 10/07/19 06:08 10/07/19 06:08 Labs: Abnormal Lab Results - Last 24 Hours (Table) 10/06/19 10/06/19 10/06/19 Range/Units 16:56 16:57 17:01 WBC (3.8-10.6) k/uL RBC (3.80-5.40) m/uL Hgb (11.4-16.0) gm/dL Hct (34.0-46.0) % Plt Count (150-450) k/uL Sodium (137-145) mmol/L BUN (7-17) mg/dL Glucose (74-99) mg/dL POC Glucose (mg/dL) 25 L 29 L 114 H (75-99) mg/dL AST (14-36) U/L Total Protein (6.3-8.2) g/dL Albumin (3.5-5.0) g/dL 10/06/19 10/07/19 10/07/19 Range/Units 20:43 01:46 06:08 WBC 11.4 H (3.8-10.6) k/uL RBC 3.20 L (3.80-5.40) m/uL Hgb 9.8 L (11.4-16.0) gm/dL Hct 30.2 L (34.0-46.0) % Plt Count 121 L (150-450) k/uL Sodium (137-145) mmol/L BUN (7-17) mg/dL Glucose (74-99) mg/dL POC Glucose (mg/dL) 131 H 153 H (75-99) mg/dL AST (14-36) U/L Total Protein (6.3-8.2) g/dL Albumin (3.5-5.0) g/dL 10/07/19 10/07/19 Range/Units 06:08 06:10 WBC (3.8-10.6) k/uL RBC (3.80-5.40) m/uL Hgb (11.4-16.0) gm/dL Hct (34.0-46.0) % Plt Count (150-450) k/uL Sodium 131 L (137-145) mmol/L BUN 21 H (7-17) mg/dL Glucose 111 H (74-99) mg/dL POC Glucose (mg/dL) 123 H (75-99) mg/dL AST 51 H (14-36) U/L Total Protein 5.8 L (6.3-8.2) g/dL Albumin 3.2 L (3.5-5.0) g/dL Assessment and Plan Plan: Assessment and plan: #1 multivessel coronary artery disease and the patient underwent three-vessel bypass. #2 known history of coronary artery disease with previous history of coronary stenting #3 hypertension #4 hyperlipidemia #5 obesity #6 history of hiatal hernia with symptoms of GE reflux #7 obstructive sleep apnea Plan From cardiology's perspective, we'll continue this patient on her current medications. She may be transferred to rehab once cleared by cardiothoracic surgery. DNP note has been reviewed, I agree with a documented findings and plan of care. Patient was seen and examined.
--- NOTE | 2019-10-07 12:27 | P.PN ---
Subjective Progress Note Date: 10/07/19 On today's evaluation of of 10/07/2019 and seeing the patient for a follow-up. The patient is postop day #3 like her cardiac surgery. All of the chest tubes have been removed. She is using incentive spirometer. She is currently on room air. No major swelling in lower extremities. She is awake and alert. No focal neurological deficits. Tolerating her diet. Passing gas and no bowel movements yet. The plan is to send this patient to rehabilitation and the patient had an evaluation by Dr. Howe today. Her hemoglobin is at 9.8. The creatinine is at 0.5. The chest x-ray from today shows no interval complication post tube insertions. There is a minimal left apical pneumothorax. There are some atelectatic changes in lung bases and some cardiomegaly Objective - Vital Signs Vital signs: Vital Signs Temp 97.8 F 10/07/19 08:20 Pulse 84 10/07/19 08:20 Resp 16 10/07/19 08:20 BP 101/59 10/07/19 08:20 Pulse Ox 98 10/07/19 08:20 Intake & Output 10/06/19 10/07/19 10/07/19 18:59 06:59 18:59 Intake Total 780 Output Total 290 Balance 490 Weight 122 kg Intake: IV 40 Lactated Ringers 1,000 ml 40 @ 20 mls/hr IV [facility] Rx#:[id number] Oral 740 Output: Chest Tube Drainage 40 Left Pleural/Mediastinal 40 Urine 250 Other: Voiding Method Bedside Commode Bedside Commode # Voids 1 ABP, PAP, CO, CI - Last Documented Arterial Blood Pressure 114/47 Pulmonary Artery Pressure 33/18 Cardiac Output 5.1 Cardiac Index 2.3 - Exam GENERAL EXAM: Alert, active, comfortable pleasant 73-year-old female patient, on room air, in no apparent distress. HEAD: Normocephalic. EYES: Normal reaction of pupils, equal size. NOSE: Clear with pink turbinates. THROAT: No erythema or exudates. NECK: No masses, no JVD. CHEST: No chest wall deformity. LUNGS: Equal air entry crackles in the bilateral posterior bases. CVS: S1 and S2 normal with no audible murmur, regular rhythm. ABDOMEN: No hepatosplenomegaly, normal bowel sounds, no guarding or rigidity. SPINE: No scoliosis or deformity SKIN: No rashes CENTRAL NERVOUS SYSTEM: No focal deficits, tone is normal in all 4 extremities. EXTREMITIES: There is no peripheral edema. No clubbing, no cyanosis. Peripheral pulses are intact. - Labs CBC & Chem 7: 10/07/19 06:08 10/07/19 06:08 Labs: Abnormal Lab Results - Last 24 Hours (Table) 10/06/19 10/06/19 10/06/19 Range/Units 16:56 16:57 17:01 WBC (3.8-10.6) k/uL RBC (3.80-5.40) m/uL Hgb (11.4-16.0) gm/dL Hct (34.0-46.0) % Plt Count (150-450) k/uL Sodium (137-145) mmol/L BUN (7-17) mg/dL Glucose (74-99) mg/dL POC Glucose (mg/dL) 25 L 29 L 114 H (75-99) mg/dL AST (14-36) U/L Total Protein (6.3-8.2) g/dL Albumin (3.5-5.0) g/dL 10/06/19 10/07/19 10/07/19 Range/Units 20:43 01:46 06:08 WBC 11.4 H (3.8-10.6) k/uL RBC 3.20 L (3.80-5.40) m/uL Hgb 9.8 L (11.4-16.0) gm/dL Hct 30.2 L (34.0-46.0) % Plt Count 121 L (150-450) k/uL Sodium (137-145) mmol/L BUN (7-17) mg/dL Glucose (74-99) mg/dL POC Glucose (mg/dL) 131 H 153 H (75-99) mg/dL AST (14-36) U/L Total Protein (6.3-8.2) g/dL Albumin (3.5-5.0) g/dL 10/07/19 10/07/19 Range/Units 06:08 06:10 WBC (3.8-10.6) k/uL RBC (3.80-5.40) m/uL Hgb (11.4-16.0) gm/dL Hct (34.0-46.0) % Plt Count (150-450) k/uL Sodium 131 L (137-145) mmol/L BUN 21 H (7-17) mg/dL Glucose 111 H (74-99) mg/dL POC Glucose (mg/dL) 123 H (75-99) mg/dL AST 51 H (14-36) U/L Total Protein 5.8 L (6.3-8.2) g/dL Albumin 3.2 L (3.5-5.0) g/dL Assessment and Plan Plan: 1 multivessel coronary artery disease and the patient underwent three-vessel bypass. She is currently postop day #3. 2 post thoracotomy and distal wound is dry clean and intact. Chest tubes have been removed. Very tiny apical pneumothorax on the left. Atelectatic changes in the lung bases and the patient is utilizing incentive spirometer. 3 hypertension 4 hyperlipidemia 5 obesity 6 history of hiatal hernia with symptoms of GE reflux 7 obstructive sleep apnea 8 known history of coronary artery disease with previous history of coronary stenting 9 postoperative anemia, and expected outcome of surgery Plan Continue incentive spirometer Ambulate in the hallway Advance diet as tolerated. Pain control We'll follow. Possible discharge to rehab with the next 24-48 hours. Hemoglobin is stable. Blood work is within normal limits. Chest x-ray was reviewed. We'll also encourage the patient to use her CPAP machine.
[2019-10-07 12:39] LABS: Glucose,Whole Blood 64 mg/dL (75-99)
--- NOTE | 2019-10-07 12:51 | P.PN ---
Subjective Progress Note Date: 10/07/19 Principal diagnosis: Unstable angina, triple-vessel coronary artery disease. Previous medical history of coronary artery disease status post previous stenting, hypertension, hyperlipidemia, bilateral internal carotid stenosis 50-79%, morbid obesity, previous tobacco dependence with preoperative FEV1 85% of predicted, obstructive sleep apnea without home CPAP use, depression, hiatal hernia, skin cancer status post resection, GERD, and family history of premature coronary artery disease. POD #2 coronary artery bypass grafting 3 with left internal mammary artery to left anterior descending coronary artery, reverse saphenous vein graft off the aorta to the circumflex coronary artery into the posterior ventricular branch of the right coronary artery, right lower extremity greater saphenous vein endoscopic harvesting, ligation of the left atrial appendage with a #35 mm A triClip, and intraoperative transesophageal echocardiogram. Postoperative acute blood loss anemia, an expected outcome due to hemodilution and cardiopulmonary bypass. The patient's currently sitting up in a recliner in the cardiac stepdown unit in no acute distress. Does complain of postsurgical pain but states it is well controlled on current medication regimen, denies shortness of breath. Patient has been ambulatory in the room with assistance but has not hallway yet. She is concerned about discharge to home versus rehab due to no consistent family presence. No other new concerns. Objective - Vital Signs Vital signs: Vital Signs Temp 97.8 F 10/07/19 08:20 Pulse 84 10/07/19 08:20 Resp 16 10/07/19 08:20 BP 101/59 10/07/19 08:20 Pulse Ox 98 10/07/19 08:20 Intake & Output 10/06/19 10/07/19 10/07/19 18:59 06:59 18:59 Intake Total 780 Output Total 290 Balance 490 Weight 122 kg Intake: IV 40 Lactated Ringers 1,000 ml 40 @ 20 mls/hr IV .Q24H [facility] Rx#:[id number] Oral 740 Output: Chest Tube Drainage 40 Left Pleural/Mediastinal 40 Urine 250 Other: Voiding Method Bedside Commode Bedside Commode # Voids 1 ABP, PAP, CO, CI - Last Documented Arterial Blood Pressure 114/47 Pulmonary Artery Pressure 33/18 Cardiac Output 5.1 Cardiac Index 2.3 - Constitutional General appearance: Present: cooperative, morbidly obese, no acute distress - Respiratory Details: Lungs sounds diminished bilaterally. Respirations even, nonlabored. Currently on room air with oxygen saturation 95%. Only able to achieve 500 mL on her incentive spirometry. Strong cough. - Cardiovascular Details: S1, S2 present. Regular rate and rhythm, sinus rhythm on telemetry. Sternum stable. Palpable peripheral pulses bilaterally. Bilateral lower extremity edema present. No calf pain or tenderness noted. Heart hugger in place with patient demonstrating appropriate use. Antiembolism stockings, SCDs present. - Gastrointestinal Gastrointestinal Comment(s): Abdomen soft, nontender, nondistended. Active bowel sounds present 4 quadrants. Tolerating diet. Positive flatus, negative bowel movement - Genitourinary Genitourinary Comment(s): Continues to void clear, yellow urine. - Integumentary Integumentary Comment(s): Skin is warm and dry with evidence of good perfusion. Anterior chest incision well approximated and covered with dry intact dressing. Right lower extremity EVH site well approximated. - Neurologic Neurologic: Present: CNII-XII intact - Musculoskeletal Musculoskeletal: Present: gait normal, generalized weakness, strength equal bilaterally - Psychiatric Psychiatric: Present: A&O x's 3, appropriate affect, intact judgment & insight - Allied health notes Allied health notes reviewed: nursing - Labs CBC & Chem 7: 10/07/19 06:08 10/07/19 06:08 Labs: Abnormal Lab Results - Last 24 Hours (Table) 10/06/19 10/06/19 10/06/19 Range/Units 16:56 16:57 17:01 WBC (3.8-10.6) k/uL RBC (3.80-5.40) m/uL Hgb (11.4-16.0) gm/dL Hct (34.0-46.0) % Plt Count (150-450) k/uL Sodium (137-145) mmol/L BUN (7-17) mg/dL Glucose (74-99) mg/dL POC Glucose (mg/dL) 25 L 29 L 114 H (75-99) mg/dL AST (14-36) U/L Total Protein (6.3-8.2) g/dL Albumin (3.5-5.0) g/dL 10/06/19 10/07/19 10/07/19 Range/Units 20:43 01:46 06:08 WBC 11.4 H (3.8-10.6) k/uL RBC 3.20 L (3.80-5.40) m/uL Hgb 9.8 L (11.4-16.0) gm/dL Hct 30.2 L (34.0-46.0) % Plt Count 121 L (150-450) k/uL Sodium (137-145) mmol/L BUN (7-17) mg/dL Glucose (74-99) mg/dL POC Glucose (mg/dL) 131 H 153 H (75-99) mg/dL AST (14-36) U/L Total Protein (6.3-8.2) g/dL Albumin (3.5-5.0) g/dL 10/07/19 10/07/19 Range/Units 06:08 06:10 WBC (3.8-10.6) k/uL RBC (3.80-5.40) m/uL Hgb (11.4-16.0) gm/dL Hct (34.0-46.0) % Plt Count (150-450) k/uL Sodium 131 L (137-145) mmol/L BUN 21 H (7-17) mg/dL Glucose 111 H (74-99) mg/dL POC Glucose (mg/dL) 123 H (75-99) mg/dL AST 51 H (14-36) U/L Total Protein 5.8 L (6.3-8.2) g/dL Albumin 3.2 L (3.5-5.0) g/dL - Imaging and Cardiology Chest x-ray: report reviewed, image reviewed Assessment and Plan Assessment: 1. Unstable angina, triple-vessel disease, status post three-vessel CABG 2. History of CAD status post previous stenting 3. Hypertension 4. Hyperlipidemia 5. Bilateral internal carotid artery stenosis 50-79% 6. Morbid obesity 7. Previous tobacco dependence with preoperative FEV1 85% of predicted 8. Obstructive sleep apnea without home CPAP use 9. Depression 10. Hiatal hernia 11. History of skin cancer status post resection 12. GERD 13. Family history of premature coronary artery disease 14. Postoperative acute blood loss anemia Plan: 1. Continue aspirin, statin, Plavix, and beta manuel. Will increase metoprolol tartrate as tolerated. 2. Encourage incentive spirometry is 10 times every hour while awake 3. Increase activity, ambulate as tolerated. PT/OT/cardiac rehab following. 4. Will monitor daily labs and chest x-rays. Electrolyte replacement per protocol. No blood transfusion at this time. 5. Pain control with current medication regimen. 6. Insulin management per primary care service. 7. GI/DVT prophylaxis. 8. Bronchodilators per pulmonology management. 9. Lasix 40 mg IV today. 10. Discharge planning in progress. Anticipate discharge to home with home care versus IPR in the next 24-48 hours.. 11. More recommendations to follow based on patient's progress. Time with Patient: Greater than 30
[2019-10-07 12:56] LABS: Glucose,Whole Blood 101 mg/dL (75-99)
--- NOTE | 2019-10-07 14:25 | P.PN ---
Subjective Progress Note Date: 10/07/19 This is a 73-year-old female patient of Dr. Matthew Le and Dr. Bennett with past medical history of coronary artery disease status post stent, hypertension, hyperlipidemia, obstructive sleep apnea on CPAP. Patient underwent a cardiac catheterization on 09/03/[address] Winkler and found to have calcified right and left coronary systems, disease involving the LV branch of the RCA and critical disease involving the ostial LAD and ostial left circumflex with plaque involving the distal left main coronary artery. The patient underwent three-vessel three-vessel bypass surgery and currently patient is postop day #1. She is seen in the intensive care unit. She was successfully extubated yesterday. Right IJ Cordis with Woodburn-Thao catheter in place, mediastinal and left pleural chest tubes in place, Hayward catheter in place. Patient states that she is having pain in her chest related to the surgery, back and left lower leg where harvesting was done. She is seen today sitting up in a chair and staff is working with her to return to bed. Pulse ox is 100% on 2 L nasal cannula, blood pressure 121/68, respiratory rate 24, afebrile, heart rate 81. Blood sugars running between 88 and 136. Patient does not have history of diabetes. She has been on 18 insulin drip which is on hold. 10/05: Patient is seen today in intensive care unit, patient is resting in recliner and appears to be comfortable. All tubes have been removed except for one chest tube. Capillary blood glucose running between 106 and 148. Patient did have one reading of 200 at 4 AM. She is currently on insulin drip which will be transitioned to NovoLog scale before meals and at bedtime. Her previous hemoglobin A1c was 5.8 several weeks ago. Patient has been afebrile, heart rate 82, blood pressure 111/51, pulse ox 94% on 2 L nasal cannula. Repeat blood work reveals WBC 12.4, hemoglobin 9.7 platelet count 91, sodium 133, BUN 18 creatinine 0.54. AST is 51, albumin 2.9. Patient worked with physical therapy yesterday with recommendations for subacute rehab 10/06: Patient is seen today on the cardiac stepdown unit. She has been afebrile, heart rate 84, blood pressure 101/59, pulse ox 98% on room air. Patient has had episodes of hypoglycemia and NovoLog scale will be discontinued. Highest blood sugar in the past 24 hours has been 153. Repeat chest x-ray reveals no interval consultations status post chest tube removal. Minimal left apical pneumothorax. Probable atelectasis, possible associated effusions. Cardiomegaly. Patient has been seen by Dr. Robbins for inpatient rehab. It appears patient is a good candidate most likely discharge the next 24-48 hours. Cardiology has cleared the patient for discharge to rehab. Objective - Vital Signs Vital signs: Vital Signs Temp 97.8 F 10/07/19 08:20 Pulse 84 10/07/19 08:20 Resp 16 10/07/19 08:20 BP 101/59 10/07/19 08:20 Pulse Ox 98 10/07/19 08:20 Intake & Output 10/06/19 10/07/19 10/07/19 18:59 06:59 18:59 Intake Total 780 Output Total 290 Balance 490 Weight 122 kg Intake: IV 40 Lactated Ringers 1,000 ml 40 @ 20 mls/hr IV .[facility]H [facility] Rx#:[id number] Oral 740 Output: Chest Tube Drainage 40 Left Pleural/Mediastinal 40 Urine 250 Other: Voiding Method Bedside Commode Bedside Commode # Voids 1 ABP, PAP, CO, CI - Last Documented Arterial Blood Pressure 114/47 Pulmonary Artery Pressure 33/18 Cardiac Output 5.1 Cardiac Index 2.3 - Exam Review of Systems Constitutional: Reports anorexia, Reports fatigue, Reports weakness, Denies chills, Denies fever Eyes: denies blurred vision, denies pain Ears, nose, mouth and throat: Denies dental pain, Denies nasal congestion, Denies nasal discharge, Denies vertigo Cardiovascular: Reports chest discomfort, Denies decreased exercise tolerance, Denies dyspnea on exertion, Denies edema, Denies leg edema, Denies lightheadedness, Denies shortness of breath, Denies syncope Respiratory: Reports sleep apnea, Denies cough, Denies cough with sputum, Denies dyspnea, Denies excessive sputum, Denies hemoptysis, Denies home oxygen, Denies respiratory infections, Denies wheezing Gastrointestinal: Denies abdominal pain, Denies diarrhea, Denies nausea, Denies vomiting Genitourinary: Denies dysuria, Denies hematuria Musculoskeletal: Reports muscle weakness, Denies frequent falls, Denies gait dysfunction, Denies myalgias Integumentary: Denies pruritus, Denies rash Neurological: Denies change in mentation, Denies change in speech, Denies numbness, Denies weakness Psychiatric: Denies anxiety, Denies depression Endocrine: Denies fatigue, Denies weight change reports abnormal blood sugar Gen: This is a morbidly obese 73-year-old female patient. She is sitting in recliner on the cardiac stepdown unit and appears to be in no acute distress. No respiratory distress is noted. HEENT: Head is atraumatic, normocephalic. Pupils equal, round. Sclerae is anicteric. Oral mucous membranes are moist. NECK: Supple. No JVD. No lymphadenopathy. No thyromegaly. LUNGS: Lungs are diminished at the bases but otherwise clear to auscultation. No wheezes or rhonchi. No intercostal retractions. HEART: Regular rate and rhythm. No murmur. Left pleural and mediastinal chest tubes in place. Dressing in place to the sternal wound. ABDOMEN: Morbidly obese. Soft. Bowel sounds are present. No masses. No tenderness. EXTREMITIES: Trace pedal edema. No calf tenderness. Dorsalis pedis is +[address] to the left lower extremity. NEUROLOGICAL: Patient is awake, alert and oriented x3. Cranial nerves 2 through 12 are grossly intact. - Labs CBC & Chem 7: 10/07/19 06:08 10/07/19 06:08 Labs: Abnormal Lab Results - Last 24 Hours (Table) 10/06/19 10/06/19 10/06/19 Range/Units 16:56 16:57 17:01 WBC (3.8-10.6) k/uL RBC (3.80-5.40) m/uL Hgb (11.4-16.0) gm/dL Hct (34.0-46.0) % Plt Count (150-450) k/uL Sodium (137-145) mmol/L BUN (7-17) mg/dL Glucose (74-99) mg/dL POC Glucose (mg/dL) 25 L 29 L 114 H (75-99) mg/dL AST (14-36) U/L Total Protein (6.3-8.2) g/dL Albumin (3.5-5.0) g/dL 10/06/19 10/07/19 10/07/19 Range/Units 20:43 01:46 06:08 WBC 11.4 H (3.8-10.6) k/uL RBC 3.20 L (3.80-5.40) m/uL Hgb 9.8 L (11.4-16.0) gm/dL Hct 30.2 L (34.0-46.0) % Plt Count 121 L (150-450) k/uL Sodium (137-145) mmol/L BUN (7-17) mg/dL Glucose (74-99) mg/dL POC Glucose (mg/dL) 131 H 153 H (75-99) mg/dL AST (14-36) U/L Total Protein (6.3-8.2) g/dL Albumin (3.5-5.0) g/dL 10/07/19 10/07/19 Range/Units 06:08 06:10 WBC (3.8-10.6) k/uL RBC (3.80-5.40) m/uL Hgb (11.4-16.0) gm/dL Hct (34.0-46.0) % Plt Count (150-450) k/uL Sodium 131 L (137-145) mmol/L BUN 21 H (7-17) mg/dL Glucose 111 H (74-99) mg/dL POC Glucose (mg/dL) 123 H (75-99) mg/dL AST 51 H (14-36) U/L Total Protein 5.8 L (6.3-8.2) g/dL Albumin 3.2 L (3.5-5.0) g/dL Assessment and Plan Plan: 1. Multivessel coronary artery disease status post 3 vessel CABG, postoperative day #2. Patient's been successfully extubated. She has been hemodynamically stable. Chest tubes, Cortis, Hayward catheter removed. Continue aspirin, Plavix, Lipitor, Lopressor 2. History of hiatal hernia. Protonix. 3. Hypertension. Continue Lopressor. 4. Hyperlipidemia. Continue atorvastatin 40 mg at bedtime. 5. History of coronary artery disease status post stent. Patient normally follows with Dr. Bennett. Continue aspirin, Lipitor. 6. Obstructive sleep apnea on CPAP. 7. Morbid obesity with BMI of 46. 8. History of coronary artery disease with previous PCI. Discharge plan: Most likely inpatient rehab in the next 24 hours. Impression and plan of care have been directed as dictated by the signing physician. Julissa Miner nurse practitioner acting as scribe for signing physici an.
[2019-10-07 17:21] LABS: Glucose,Whole Blood 102 mg/dL (75-99)
[2019-10-07] MEDS: DEXTROSE 5% IN WATER 100 ML with AMIODARONE 150 MG IV PRN ×2 (18:42→21:30)
[2019-10-07 20:22] LABS: Glucose,Whole Blood 154 mg/dL (75-99)
[2019-10-07] MEDS: SENNOSIDES-DOCUSATE SODIUM 1 EACH TAB PO SCH (21:31)
[2019-10-07] MEDS: ACETAMINOPHEN TAB 500 MG TAB PO PRN (22:52)
[2019-10-08] MEDS: KETOROLAC 30 MG/ML 1 ML VIAL IVP SCH ×4 (00:46→18:39)
[2019-10-08 02:25] LABS: Glucose,Whole Blood 144 mg/dL (75-99)
[2019-10-08 06:43] LABS: Glucose,Whole Blood 119 mg/dL (75-99)
[2019-10-08 07:13] LABS: HCT 26.8 % (34.0-46.0); HGB 8.8 gm/dL (11.4-16.0); MCH 30.8 pg (25.0-35.0); MCHC 32.9 g/dL (31.0-37.0); MCV 93.7 fL (80.0-100.0); Mean Platelet Volume 8.9; Platelet Count 150 k/uL (150-450); RBC 2.86 m/uL (3.80-5.40); RDW 13.2 % (11.5-15.5); WBC 8.3 k/uL (3.8-10.6)
[2019-10-08 07:26] LABS: African American GFR (CKD) >90 (>60 ml/min/1.73 sqM); Anion Gap 6 mmol/L; Blood Urea Nitrogen 20 mg/dL (7-17); Calcium 8.3 mg/dL (8.4-10.2); Carbon Dioxide 24 mmol/L (22-30); Chloride 98 mmol/L (98-107); Glucose 111 mg/dL (74-99); Non-African American GFR(CKD) >90 (>60 ml/min/1.73 sqM); Potassium 4.1 mmol/L (3.5-5.1); Sodium 128 mmol/L (137-145)
[2019-10-08] MEDS ORDERED: FUROSEMIDE 10 MG/ML 4 ML VIAL IV STA (07:56)
--- NOTE | 2019-10-08 09:04 | XR ---
EXAMINATION TYPE: XR chest 2V DATE OF EXAM: 10/08/2019 COMPARISON: Prior chest x-ray 10/07/2019, CT 06/18/2018 HISTORY: Status post cardiac surgery. TECHNIQUE: Frontal and lateral views of the chest are obtained. FINDINGS: Patient is post median sternotomy and atrial appendage clipping placement. Minimal left ap ical pneumothorax persists. Basilar density present on the left obscures the hemidiaphragm. Heart is markedly enlarged. Postop changes noted to the anterior abdominal wall. Exam is rotated, there are ov erlying cardiac leads. Strand-like densities within the lungs likely reflect some residual atelectati c changes. Prominent pulmonary artery could be indicative of pulmonary artery hypertension. Hiatal he rnia with partial fixed intrathoracic stomach is suspected, lucency posterior to the left heart. IMPRESSION: Basilar atelectasis and associated effusion. Minimal left apical pneumothorax. Correlate for pulmonary artery hypertension. Postop changes.
[2019-10-08] MEDS: PANTOPRAZOLE 40 MG TABLET PO SCH (09:14)
[2019-10-08] MEDS: AMIODARONE 200 MG TAB PO SCH ×2 (09:14→20:31)
[2019-10-08] MEDS: METOPROLOL TARTRATE 25 MG TAB PO SCH ×2 (09:14→20:30)
[2019-10-08] MEDS: CLOPIDOGREL 75 MG TAB PO SCH (09:15)
[2019-10-08] MEDS: ATORVASTATIN 40 MG TAB PO SCH (09:15)
[2019-10-08] MEDS: ASPIRIN 325 MG TAB PO SCH (09:15)
[2019-10-08] MEDS: FONDAPARINUX 2.5 MG/0.5 ML SYRINGE SQ SCH (09:16)
[2019-10-08] MEDS: IPRATROPIUM-ALBUTEROL 3 ML NEB INHALATION SCH ×4 (09:17→19:50)
--- NOTE | 2019-10-08 09:38 | P.PN ---
Subjective Progress Note Date: 10/08/19 Principal diagnosis: Unstable angina, triple-vessel coronary artery disease. Previous medical history of coronary artery disease status post previous stenting, hypertension, hyperlipidemia, bilateral internal carotid stenosis 50-79%, morbid obesity, previous tobacco dependence with preoperative FEV1 85% of predicted, obstructive sleep apnea without home CPAP use, depression, hiatal hernia, skin cancer status post resection, GERD, and family history of premature coronary artery disease. POD #3 coronary artery bypass grafting 3 with left internal mammary artery to left anterior descending coronary artery, reverse saphenous vein graft off the aorta to the circumflex coronary artery into the posterior ventricular branch of the right coronary artery, right lower extremity greater saphenous vein endoscopic harvesting, ligation of the left atrial appendage with a #35 mm A triClip, and intraoperative transesophageal echocardiogram. Postoperative acute blood loss anemia, an expected outcome due to hemodilution and cardiopulmonary bypass. Postoperative paroxysmal atrial fibrillation, unexpected but potential outcome of cardiac surgery, currently in normal sinus rhythm The patient's currently sitting up in a recliner in the cardiac stepdown unit in no acute distress. Does complain of postsurgical pain but states it is well controlled on current medication regimen, denies shortness of breath. Patient has been ambulatory in the hallway with assistance. She did go into atrial fibrillation history, was initiated on amiodarone with conversion to normal sinus rhythm. No other new concerns. Objective - Vital Signs Vital signs: Vital Signs Temp 98 F 10/08/19 08:30 Pulse 72 10/08/19 09:21 Resp 20 10/08/19 08:30 BP 121/58 10/08/19 08:30 Pulse Ox 96 10/08/19 08:30 Intake & Output 10/07/19 10/08/19 10/08/19 18:59 06:59 18:59 Intake Total 545 Output Total 900 Balance -355 Weight 123.9 kg Intake: IV 60 Lactated Ringers 1,000 ml 60 @ 20 mls/hr IV .Q24H [facility] Rx#:[id number] Intake, IV Titration 249 Amount Amiodarone 300 mg In 50 Dextrose 5% in Water 250 ml @ 0.5 MG/MIN 25 mls/hr IV .Q10H PRN Rx#: [id number] Amiodarone 360 mg In 99 Dextrose 5% in Water 200 ml @ 1 MG/MIN 33.333 mls/ hr IV .Q6H PRN Rx#: [id number] Dextrose 5% in Water 100 100 ml @ 618 mls/hr IV .Q10M PRN with Amiodarone 150 mg Rx#:[id number] Oral 236 Output: Urine 900 Other: Voiding Method Bedside Commode Toilet # Voids 4 ABP, PAP, CO, CI - Last Documented Arterial Blood Pressure 114/47 Pulmonary Artery Pressure 33/18 Cardiac Output 5.1 Cardiac Index 2.3 - Constitutional General appearance: Present: cooperative, morbidly obese, no acute distress - Respiratory Details: Lungs sounds diminished bilaterally. Respirations even, nonlabored. Currently on room air with oxygen saturation 94%. Only able to achieve 000 mL on her incentive spirometry. Strong cough. - Cardiovascular Details: S1, S2 present. Regular rate and rhythm, sinus rhythm on telemetry. Sternum stable. Palpable peripheral pulses bilaterally. Bilateral lower extremity edema present. No calf pain or tenderness noted. Heart hugger in place with patient demonstrating appropriate use. Antiembolism stockings, SCDs present. - Gastrointestinal Gastrointestinal Comment(s): Abdomen soft, nontender, nondistended. Active bowel sounds present 4 quadrants. Tolerating diet. Positive flatus, negative bowel movement - Genitourinary Genitourinary Comment(s): Continues to void clear, yellow urine. - Integumentary Integumentary Comment(s): Skin is warm and dry with evidence of good perfusion. Anterior chest incision well approximated. Right lower extremity EVH site well approximated. - Neurologic Neurologic: Present: CNII-XII intact - Musculoskeletal Musculoskeletal: Present: gait normal, generalized weakness, strength equal bilaterally - Psychiatric Psychiatric: Present: A&O x's 3, appropriate affect, intact judgment & insight - Allied health notes Allied health notes reviewed: nursing - Labs CBC & Chem 7: 10/08/19 06:24 10/08/19 06:24 Labs: Abnormal Lab Results - Last 24 Hours (Table) 09/24/19 10/07/19 10/07/19 Range/Units 08:55 12:37 12:55 RBC (3.80-5.40) m/uL Hgb (11.4-16.0) gm/dL Hct (34.0-46.0) % Sodium (137-145) mmol/L BUN (7-17) mg/dL Glucose (74-99) mg/dL POC Glucose (mg/dL) 64 L 101 H (75-99) mg/dL Calcium (8.4-10.2) mg/dL Crossmatch See Detail 10/07/19 10/07/19 10/08/19 Range/Units 17:19 20:21 02:23 RBC (3.80-5.40) m/uL Hgb (11.4-16.0) gm/dL Hct (34.0-46.0) % Sodium (137-145) mmol/L BUN (7-17) mg/dL Glucose (74-99) mg/dL POC Glucose (mg/dL) 102 H 154 H 144 H (75-99) mg/dL Calcium (8.4-10.2) mg/dL Crossmatch 10/08/19 10/08/19 10/08/19 Range/Units 06:24 06:24 06:42 RBC 2.86 L (3.80-5.40) m/uL Hgb 8.8 L (11.4-16.0) gm/dL Hct 26.8 L (34.0-46.0) % Sodium 128 L (137-145) mmol/L BUN 20 H (7-17) mg/dL Glucose 111 H (74-99) mg/dL POC Glucose (mg/dL) 119 H (75-99) mg/dL Calcium 8.3 L (8.4-10.2) mg/dL Crossmatch - Imaging and Cardiology Chest x-ray: report reviewed, image reviewed Assessment and Plan Assessment: 1. Unstable angina, triple-vessel disease, status post three-vessel CABG 2. History of CAD status post previous stenting 3. Hypertension 4. Hyperlipidemia 5. Bilateral internal carotid artery stenosis 50-79% 6. Morbid obesity 7. Previous tobacco dependence with preoperative FEV1 85% of predicted 8. Obstructive sleep apnea without home CPAP use 9. Depression 10. Hiatal hernia 11. History of skin cancer status post resection 12. GERD 13. Family history of premature coronary artery disease 14. Postoperative acute blood loss anemia 15. Postoperative atrial fibrillation, currently normal sinus rhythm, status post exclusion of the left atrial appendage Plan: 1. Continue aspirin, statin, Plavix, and beta manuel. Will increase metoprolol tartrate as tolerated. 2. Continue amiodarone. Will transition to oral amiodarone. No anticoagulation necessary unless patient in atrial fibrillation for greater than 24 hours. 3. Encourage incentive spirometry is 10 times every hour while awake 4. Increase activity, ambulate as tolerated. PT/OT/cardiac rehab following. 5. Will monitor daily labs and chest x-rays. Electrolyte replacement per protocol. No blood transfusion at this time. 6. Pain control with current medication regimen. 7. Insulin management per primary care service. 8. GI/DVT prophylaxis. 9. Bronchodilators per pulmonology management. 10. Lasix 40 mg IV today. 11. Discharge planning in progress. Anticipate discharge to home with home care versus IPR in the next 24-48 hours depending on PT/OT recommendations 12. More recommendations to follow based on patient's progress. Time with Patient: Greater than 30
[2019-10-08 12:21] LABS: Glucose,Whole Blood 82 mg/dL (75-99)
[2019-10-08] MEDS: FERROUS SULFATE 325 MG TAB PO SCH (13:07)
--- NOTE | 2019-10-08 14:52 | P.PN ---
Subjective Progress Note Date: 10/08/19 This is a 73-year-old female patient of Dr. Matthew Le and Dr. Bennett with past medical history of coronary artery disease status post stent, hypertension, hyperlipidemia, obstructive sleep apnea on CPAP. Patient underwent a cardiac catheterization on 09/03/[address] Winkler and found to have calcified right and left coronary systems, disease involving the LV branch of the RCA and critical disease involving the ostial LAD and ostial left circumflex with plaque involving the distal left main coronary artery. The patient underwent three-vessel three-vessel bypass surgery and currently patient is postop day #1. She is seen in the intensive care unit. She was successfully extubated yesterday. Right IJ Cordis with Elizabeth-Thao catheter in place, mediastinal and left pleural chest tubes in place, Hayward catheter in place. Patient states that she is having pain in her chest related to the surgery, back and left lower leg where harvesting was done. She is seen today sitting up in a chair and staff is working with her to return to bed. Pulse ox is 100% on 2 L nasal cannula, blood pressure 121/68, respiratory rate 24, afebrile, heart rate 81. Blood sugars running between 88 and 136. Patient does not have history of diabetes. She has been on 18 insulin drip which is on hold. 10/05: Patient is seen today in intensive care unit, patient is resting in recliner and appears to be comfortable. All tubes have been removed except for one chest tube. Capillary blood glucose running between 106 and 148. Patient did have one reading of 200 at 4 AM. She is currently on insulin drip which will be transitioned to NovoLog scale before meals and at bedtime. Her previous hemoglobin A1c was 5.8 several weeks ago. Patient has been afebrile, heart rate 82, blood pressure 111/51, pulse ox 94% on 2 L nasal cannula. Repeat blood work reveals WBC 12.4, hemoglobin 9.7 platelet count 91, sodium 133, BUN 18 creatinine 0.54. AST is 51, albumin 2.9. Patient worked with physical therapy yesterday with recommendations for subacute rehab 10/06: Patient is seen today on the cardiac stepdown unit. She has been afebrile, heart rate 84, blood pressure 101/59, pulse ox 98% on room air. Patient has had episodes of hypoglycemia and NovoLog scale will be discontinued. Highest blood sugar in the past 24 hours has been 153. Repeat chest x-ray reveals no interval consultations status post chest tube removal. Minimal left apical pneumothorax. Probable atelectasis, possible associated effusions. Cardiomegaly. Patient has been seen by Dr. Robbins for inpatient rehab. It appears patient is a good candidate most likely discharge the next 24-48 hours. Cardiology has cleared the patient for discharge to rehab. 10/07: Patient has been afebrile, heart rate 67, blood pressure 121/58, pulse ox 96%. Morning lab work reveals WBC 8.3, hemoglobin 8.8, platelet count 150. Sodium 128, potassium 4.1, chloride 98, CO2 24, BUN 20 creatinine 0.58. Blood sugars running between 111-154. Patient has been off NovoLog scale. Repeat chest x-ray reveals basilar atelectasis and associated effusion. Minimal left apical pneumothorax. Correlate for pulmonary artery hypertension. Patient had episode of atrial fibrillation, paroxysmal and has since converted to normal sinus rhythm. Patient is currently on amiodarone 400 mg twice daily and Lopressor 25 mg twice daily. The patient has been doing well with increased activity. She has been off her shower. She denies any lightheadedness or dizziness. She denies any chest pain or shortness of breath. Blood sugar at lunch was 89. Objective - Vital Signs Vital signs: Vital Signs Temp 98 F 10/08/19 08:30 Pulse 76 10/08/19 09:32 Resp 20 10/08/19 08:30 BP 121/58 10/08/19 08:30 Pulse Ox 96 10/08/19 08:30 Intake & Output 10/07/19 10/08/19 10/08/19 18:59 06:59 18:59 Intake Total 545 Output Total 900 Balance -355 Weight 123.9 kg Intake: IV 60 Lactated Ringers 1,000 ml 60 @ 20 mls/hr IV .Q24H [facility] Rx#:[id number] Intake, IV Titration 249 Amount Amiodarone 300 mg In 50 Dextrose 5% in Water 250 ml @ 0.5 MG/MIN 25 mls/hr IV .Q10H PRN Rx#: [id number] Amiodarone 360 mg In 99 Dextrose 5% in Water 200 ml @ 1 MG/MIN 33.333 mls/ hr IV .Q6H PRN Rx#: [id number] Dextrose 5% in Water 100 100 ml @ 618 mls/hr IV .Q10M PRN with Amiodarone 150 mg Rx#:[id number] Oral 236 Output: Urine 900 Other: Voiding Method Bedside Commode Toilet # Voids 4 ABP, PAP, CO, CI - Last Documented Arterial Blood Pressure 114/47 Pulmonary Artery Pressure 33/18 Cardiac Output 5.1 Cardiac Index 2.3 - Exam Review of Systems Constitutional: Denies anorexia, Reports fatigue, Reports weakness, Denies chills, Denies fever Eyes: denies blurred vision, denies pain Ears, nose, mouth and throat: Denies dental pain, Denies nasal congestion, Denies nasal discharge, Denies vertigo Cardiovascular: Reports chest discomfort, Denies decreased exercise tolerance, Denies dyspnea on exertion, Denies edema, Denies leg edema, Denies lightheadedness, Denies shortness of breath, Denies syncope Respiratory: Reports sleep apnea, Denies cough, Denies cough with sputum, Denies dyspnea, Denies excessive sputum, Denies hemoptysis, Denies home oxygen, Denies respiratory infections, Denies wheezing Gastrointestinal: Denies abdominal pain, Denies diarrhea, Denies nausea, Denies vomiting Genitourinary: Denies dysuria, Denies hematuria Musculoskeletal: Reports muscle weakness, Denies frequent falls, Denies gait dysfunction, Denies myalgias Integumentary: Denies pruritus, Denies rash Neurological: Denies change in mentation, Denies change in speech, Denies numbness, Denies weakness Psychiatric: Denies anxiety, Denies depression Endocrine: Denies fatigue, Denies weight change reports abnormal blood sugar Gen: This is a morbidly obese 73-year-old female patient. She is sitting in recliner on the cardiac stepdown unit and appears to be in no acute distress. No respiratory distress is noted. HEENT: Head is atraumatic, normocephalic. Pupils equal, round. Sclerae is anicteric. Oral mucous membranes are moist. NECK: Supple. No JVD. No lymphadenopathy. No thyromegaly. LUNGS: Lungs are diminished at the bases but otherwise clear to auscultation. No wheezes or rhonchi. No intercostal retractions. HEART: Regular rate and rhythm. No murmur. Dressing in place to the sternal wound. ABDOMEN: Morbidly obese. Soft. Bowel sounds are present. No masses. No tenderness. EXTREMITIES: Trace pedal edema. No calf tenderness. Dorsalis pedis is +2 bilaterally. NEUROLOGICAL: Patient is awake, alert and oriented x3. Cranial nerves 2 through 12 are grossly intact. - Labs CBC & Chem 7: 10/08/19 06:24 10/08/19 06:24 Labs: Abnormal Lab Results - Last 24 Hours (Table) 09/24/19 10/07/19 10/07/19 Range/Units 08:55 12:37 12:55 RBC (3.80-5.40) m/uL Hgb (11.4-16.0) gm/dL Hct (34.0-46.0) % Sodium (137-145) mmol/L BUN (7-17) mg/dL Glucose (74-99) mg/dL POC Glucose (mg/dL) 64 L 101 H (75-99) mg/dL Calcium (8.4-10.2) mg/dL Crossmatch See Detail 10/07/19 10/07/19 10/08/19 Range/Units 17:19 20:21 02:23 RBC (3.80-5.40) m/uL Hgb (11.4-16.0) gm/dL Hct (34.0-46.0) % Sodium (137-145) mmol/L BUN (7-17) mg/dL Glucose (74-99) mg/dL POC Glucose (mg/dL) 102 H 154 H 144 H (75-99) mg/dL Calcium (8.4-10.2) mg/dL Crossmatch 10/08/19 10/08/19 10/08/19 Range/Units 06:24 06:24 06:42 RBC 2.86 L (3.80-5.40) m/uL Hgb 8.8 L (11.4-16.0) gm/dL Hct 26.8 L (34.0-46.0) % Sodium 128 L (137-145) mmol/L BUN 20 H (7-17) mg/dL Glucose 111 H (74-99) mg/dL POC Glucose (mg/dL) 119 H (75-99) mg/dL Calcium 8.3 L (8.4-10.2) mg/dL Crossmatch Assessment and Plan Plan: 1. Multivessel coronary artery disease status post 3 vessel CABG, postoperative day #4. Patient's been successfully extubated. She has been hemodynamically stable. Chest tubes, Cortis, Hayward catheter removed. Continue aspirin, Plavix, Lipitor, Lopressor 2. History of hiatal hernia. Protonix. 3. Hypertension. Continue Lopressor. 4. Hyperlipidemia. Continue atorvastatin 40 mg at bedtime. 5. History of coronary artery disease status post stent. Patient normally follows with Dr. Bennett. Continue aspirin, Lipitor. 6. Obstructive sleep apnea on CPAP. 7. Morbid obesity with BMI of 46. 8. History of coronary artery disease with previous PCI. Discharge plan: Most likely inpatient rehab in the next 24 hours. Impression and plan of care have been directed as dictated by the signing physician. Julissa Miner nurse practitioner acting as scribe for signing physician.
--- NOTE | 2019-10-08 14:54 | P.PN ---
Subjective Progress Note Date: 10/08/19 This is a 73-year-old female with known history of prior coronary artery disease with previous stenting of the circumflex in 2005, hyperlipidemia, hypertension, she underwent a cardiac catheterization on September 03 and was found to have heavily calcified right and left coronary systems. She underwent three-vessel bypass surgery 3. Patient was seen and examined this morning, overall doing well. Blood pressure 100/60, heart rate in the 70s to 80s. White blood cell count 11.4, hemoglobin 9.8, platelet count 121. Sodium 131, potassium 4.3, BUN 21, creatinine 0.5. 10/08/2019 Patient was seen and examined this morning, doing well overall. She did have an episode of atrial fibrillation through the night, was on IV amiodarone and is currently on by mouth amiodarone. Remaining this morning in a normal sinus rhythm. Blood pressure 126/58 with a heart rate in the 70s, 98% on room air. White blood cell count 8.3, hemoglobin 8.8, platelet count 150. Sodium 128, potassium 4.1, BUN 20, creatinine 0.5. Objective - Vital Signs Vital signs: Vital Signs Temp 97.7 F 10/08/19 12:00 Pulse 75 10/08/19 12:40 Resp 20 10/08/19 12:00 BP 127/58 10/08/19 12:00 Pulse Ox 98 10/08/19 12:00 Intake & Output 10/07/19 10/08/19 10/08/19 18:59 06:59 18:59 Intake Total 545 440 Output Total 900 Balance -355 440 Weight 123.9 kg Intake: IV 60 200 Amiodarone 300 mg In 200 Dextrose 5% in Water 250 ml @ 0.5 MG/MIN 25 mls/hr IV .Q10H PRN Rx#: [id number] Lactated Ringers 1,000 ml 60 @ 20 mls/hr IV .Q24H [facility] Rx#:[id number] Intake, IV Titration 249 Amount Amiodarone 300 mg In 50 Dextrose 5% in Water 250 ml @ 0.5 MG/MIN 25 mls/hr IV .Q10H PRN Rx#: [id number] Amiodarone 360 mg In 99 Dextrose 5% in Water 200 ml @ 1 MG/MIN 33.333 mls/ hr IV .Q6H PRN Rx#: [id number] Dextrose 5% in Water 100 100 ml @ 618 mls/hr IV .Q10M PRN with Amiodarone 150 mg Rx#:[id number] Oral 236 240 Output: Urine 900 Other: Voiding Method Bedside Commode Toilet Toilet # Voids 4 ABP, PAP, CO, CI - Last Documented Arterial Blood Pressure 114/47 Pulmonary Artery Pressure 33/18 Cardiac Output 5.1 Cardiac Index 2.3 - Exam GENERAL EXAM: Alert, active, comfortable pleasant 73-year-old female patient, on room air, in no apparent distress. HEAD: Normocephalic. EYES: Normal reaction of pupils, equal size. NOSE: Clear with pink turbinates. THROAT: No erythema or exudates. NECK: No masses, no JVD. CHEST: No chest wall deformity. LUNGS: Equal air entry crackles in the bilateral posterior bases. CVS: S1 and S2 normal with no audible murmur, regular rhythm. ABDOMEN: No hepatosplenomegaly, normal bowel sounds, no guarding or rigidity. SPINE: No scoliosis or deformity SKIN: No rashes CENTRAL NERVOUS SYSTEM: No focal deficits, tone is normal in all 4 extremities. EXTREMITIES: There is no peripheral edema. No clubbing, no cyanosis. Peripheral pulses are intact. - Labs CBC & Chem 7: 10/08/19 06:24 10/08/19 06:24 Labs: Abnormal Lab Results - Last 24 Hours (Table) 09/24/19 10/07/19 10/07/19 Range/Units 08:55 17:19 20:21 RBC (3.80-5.40) m/uL Hgb (11.4-16.0) gm/dL Hct (34.0-46.0) % Sodium (137-145) mmol/L BUN (7-17) mg/dL Glucose (74-99) mg/dL POC Glucose (mg/dL) 102 H 154 H (75-99) mg/dL Calcium (8.4-10.2) mg/dL Crossmatch See Detail 10/08/19 10/08/19 10/08/19 Range/Units 02:23 06:24 06:24 RBC 2.86 L (3.80-5.40) m/uL Hgb 8.8 L (11.4-16.0) gm/dL Hct 26.8 L (34.0-46.0) % Sodium 128 L (137-145) mmol/L BUN 20 H (7-17) mg/dL Glucose 111 H (74-99) mg/dL POC Glucose (mg/dL) 144 H (75-99) mg/dL Calcium 8.3 L (8.4-10.2) mg/dL Crossmatch 10/08/19 Range/Units 06:42 RBC (3.80-5.40) m/uL Hgb (11.4-16.0) gm/dL Hct (34.0-46.0) % Sodium (137-145) mmol/L BUN (7-17) mg/dL Glucose (74-99) mg/dL POC Glucose (mg/dL) 119 H (75-99) mg/dL Calcium (8.4-10.2) mg/dL Crossmatch Assessment and Plan Plan: Assessment and plan: #1 multivessel coronary artery disease and the patient underwent three-vessel bypass. #2 known history of coronary artery disease with previous history of coronary stenting #3 hypertension #4 hyperlipidemia #5 obesity #6 history of hiatal hernia with symptoms of GE reflux #7 obstructive sleep apnea Plan From cardiology's perspective, we'll continue this patient on her current medications. She may be transferred to rehab once cleared by cardiothoracic surgery. DNP note has been reviewed, I agree with a documented findings and plan of care. Patient was seen and examined.
--- NOTE | 2019-10-08 15:22 | P.PN ---
Subjective Progress Note Date: 10/08/19 Principal diagnosis: Multivessel coronary artery disease status post three-vessel bypass grafting On 10/08/2019 patient seen in follow-up on selective care unit, she is awake and alert, in no acute distress, this is postoperative day 4, status post three- vessel bypass grafting. Room air pulse ox is 98%, patient denies any dyspnea, afebrile, hemodynamically stable, days chest x-ray shows basilar atelectasis and associated pleural effusions, and minimal left apical pneumothorax, PA catheter Artline Hayward catheter had been discontinued. Patient did go into A. fib RVR S today, she was given IV amiodarone, she remains on amiodarone drip at 0.5 mg per hour, currently in sinus rhythm, with a controlled rate. Today's blood work has been reviewed, white blood cell currently 0.3, hemoglobin of 8.8, sodium 128, respiratory electrolytes are within normal limits, BUN of 20 creatinine 0.58. Patient received another dose of IV Lasix per CT surgery and was placed on fluid restriction Objective - Vital Signs Vital signs: Vital Signs Temp 97.7 F 10/08/19 12:00 Pulse 75 10/08/19 12:40 Resp 20 10/08/19 12:00 BP 127/58 10/08/19 12:00 Pulse Ox 98 10/08/19 12:00 Intake & Output 10/07/19 10/08/19 10/08/19 18:59 06:59 18:59 Intake Total 545 440 Output Total 900 Balance -355 440 Weight 123.9 kg Intake: IV 60 200 Amiodarone 300 mg In 200 Dextrose 5% in Water 250 ml @ 0.5 MG/MIN 25 mls/hr IV .Q10H PRN Rx#: [id number] Lactated Ringers 1,000 ml 60 @ 20 mls/hr IV .Q24H ROSA Rx#:[id number] Intake, IV Titration 249 Amount Amiodarone 300 mg In 50 Dextrose 5% in Water 250 ml @ 0.5 MG/MIN 25 mls/hr IV .Q10H PRN Rx#: [id number] Amiodarone 360 mg In 99 Dextrose 5% in Water 200 ml @ 1 MG/MIN 33.333 mls/ hr IV .Q6H PRN Rx#: [id number] Dextrose 5% in Water 100 100 ml @ 618 mls/hr IV .Q10M PRN with Amiodarone 150 mg Rx#:[id number] Oral 236 240 Output: Urine 900 Other: Voiding Method Bedside Commode Toilet Toilet # Voids 4 ABP, PAP, CO, CI - Last Documented Arterial Blood Pressure 114/47 Pulmonary Artery Pressure 33/18 Cardiac Output 5.1 Cardiac Index 2.3 - Exam GENERAL EXAM: Alert, very pleasant, 73-year-old white female, on room air, with a pulse ox of 98% comfortable in no apparent distress. HEAD: Normocephalic/atraumatic. EYES: Normal reaction of pupils, equal size. Conjunctiva pink, sclera white. NOSE: Clear with pink turbinates. THROAT: No erythema or exudates. NECK: No masses, no JVD, no thyroid enlargement, no adenopathy. CHEST: No chest wall deformity. Symmetrical expansion. Midsternal incision, and chest tube sites are clean dry and intact, covered with surgical dressings, interval removal of the mediastinal and left pleural chest tubes LUNGS: Equal air entry with no crackles, wheeze, rhonchi or dullness. CVS: Regular rate and rhythm, normal S1 and S2, no gallops, no murmurs, no rubs ABDOMEN: Soft, nontender. No hepatosplenomegaly, normal bowel sounds, no guarding or rigidity. EXTREMITIES: No clubbing, no edema, no cyanosis, 2+ pulses and upper and lower extremities. MUSCULOSKELETAL: Muscle strength and tone normal. SPINE: No scoliosis or deformity SKIN: No rashes. Right leg endovascular vein grafting site incisions clean dry and intact CENTRAL NERVOUS SYSTEM: Alert and oriented -3. No focal deficits, tone is normal in all 4 extremities. PSYCHIATRIC: Alert and oriented -3. Appropriate affect. Intact judgment and insight. - Labs CBC & Chem 7: 10/08/19 06:24 10/08/19 06:24 Labs: Abnormal Lab Results - Last 24 Hours (Table) 10/07/19 10/07/19 10/08/19 Range/Units 17:19 20:21 02:23 RBC (3.80-5.40) m/uL Hgb (11.4-16.0) gm/dL Hct (34.0-46.0) % Sodium (137-145) mmol/L BUN (7-17) mg/dL Glucose (74-99) mg/dL POC Glucose (mg/dL) 102 H 154 H 144 H (75-99) mg/dL Calcium (8.4-10.2) mg/dL 10/08/19 10/08/19 10/08/19 Range/Units 06:24 06:24 06:42 RBC 2.86 L (3.80-5.40) m/uL Hgb 8.8 L (11.4-16.0) gm/dL Hct 26.8 L (34.0-46.0) % Sodium 128 L (137-145) mmol/L BUN 20 H (7-17) mg/dL Glucose 111 H (74-99) mg/dL POC Glucose (mg/dL) 119 H (75-99) mg/dL Calcium 8.3 L (8.4-10.2) mg/dL Assessment and Plan Plan: Assessment: 1 multivessel coronary artery disease and the patient underwent three-vessel bypass. She is currently postop day #4. 2 post thoracotomy and distal wound is dry clean and intact. Chest tubes have been removed. Very tiny apical pneumothorax on the left. Atelectatic changes i n the lung bases and the patient is utilizing incentive spirometer. 3 hypertension 4 hyperlipidemia 5 obesity 6 history of hiatal hernia with symptoms of GE reflux 7 obstructive sleep apnea 8 known history of coronary artery disease with previous history of coronary stenting 9 postoperative anemia, and expected outcome of surgery 10 Hyponatremia, likely hypervolemic, patient is receiving IV Lasix, and has been placed on fluid restriction Plan: Patient is doing well, received one dose of Lasix, she has been placed on water restriction for low sodium, neurologically intact, no acute complaints, continue encouraging deep breathing and coughing on today's chest x-ray has been reviewed showing right basilar atelectasis and associated pleural effusions, she is maintaining saturations on room air, tolerating ablation, discharge planning is in progress for discharge to inpatient rehab in the next 24 hours I performed a history & physical examination of the patient and discussed their management with my nurse practitioner, Lavern Roa. I reviewed the nurse practitioner's note and agree with the documented findings and plan of care. Lung sounds are positive for diminished throughout the lung hensley. The findings and the impression was discussed with the patient. I attest to the documentation by the nurse practitioner. Time with Patient: Less than 30
[2019-10-08 17:17] LABS: Glucose,Whole Blood 97 mg/dL (75-99)
[2019-10-08] MEDS: SENNOSIDES-DOCUSATE SODIUM 1 EACH TAB PO SCH (20:30)
[2019-10-08 20:48] LABS: Glucose,Whole Blood 94 mg/dL (75-99)
[2019-10-09] MEDS: KETOROLAC 30 MG/ML 1 ML VIAL IVP SCH ×3 (00:12→12:43)
[2019-10-09 02:01] LABS: Glucose,Whole Blood 147 mg/dL (75-99)
[2019-10-09 06:20] LABS: Glucose,Whole Blood 90 mg/dL (75-99)
[2019-10-09 06:47] LABS: HGB 9.8 gm/dL (11.4-16.0); MCH 30.8 pg (25.0-35.0); MCHC 32.7 g/dL (31.0-37.0); MCV 94.2 fL (80.0-100.0); Mean Platelet Volume 8.3; Platelet Count 187 k/uL (150-450); RBC 3.18 m/uL (3.80-5.40); RDW 13.2 % (11.5-15.5); WBC 7.5 k/uL (3.8-10.6)
[2019-10-09] MEDS: PANTOPRAZOLE 40 MG TABLET PO SCH (06:47)
[2019-10-09 06:57] LABS: African American GFR (CKD) >90 (>60 ml/min/1.73 sqM); Anion Gap 7 mmol/L; Blood Urea Nitrogen 17 mg/dL (7-17); Calcium 8.6 mg/dL (8.4-10.2); Carbon Dioxide 26 mmol/L (22-30); Chloride 98 mmol/L (98-107); Glucose 98 mg/dL (74-99); Magnesium 2.3 mg/dL (1.6-2.3); Non-African American GFR(CKD) >90 (>60 ml/min/1.73 sqM); Sodium 131 mmol/L (137-145)
[2019-10-09] MEDS: IPRATROPIUM-ALBUTEROL 3 ML NEB INHALATION SCH ×2 (07:26→10:46)
--- NOTE | 2019-10-09 07:50 | XR ---
EXAMINATION TYPE: XR chest 2V DATE OF EXAM: 10/09/2019 COMPARISON: Prior chest x-ray 10/08/2019 HISTORY: Status post cardiac surgery TECHNIQUE: Frontal and lateral views of the chest are obtained. FINDINGS: Pleural parenchymal changes are similar to prior exam, pneumothorax no longer evident. IMPRESSION: Hiatal hernia with partial intrathoracic stomach. Cardiomegaly, postop changes. Subsegme ntal basilar atelectatic changes, correlate for possible pulmonary artery hypertension.
[2019-10-09] MEDS ORDERED: FUROSEMIDE 10 MG/ML 4 ML VIAL IV STA (07:57)
--- NOTE | 2019-10-09 08:01 | P.DS ---
Providers Date of admission: 10/04/19 06:15 Expected date of discharge: 10/09/19 Attending physician: Reggie Hung Consults: 10/04/19 14:41 Consult Physician Routine Consulting Provider: Marguerite Montes Consult Reason/Comments: Felt Machine Mechanic Consult: post cardiac surgery Do you want consulting provider notified?: Yes Consult Physician Routine Consulting Provider: Azeb Buck Consult Reason/Comments: [employer] patient Do you want consulting provider notified?: Yes Consult Physician Routine Consulting Provider: Lisa Mar Consult Reason/Comments: Wire Bound Box Machine Helper Consult: post cardiac surgery Do you want consulting provider notified?: Yes 10/07/19 09:00 Consult Physician Routine Consulting Provider: Bucky Robbins Consult Reason/Comments: IPR Do you want consulting provider notified?: Yes Primary care physician: Matthew Le [facility] Course: FINAL DIAGNOSIS: 1. Unstable angina, triple-vessel coronary artery disease, with previous stenting 2. Hypertension 3. Hyperlipidemia 4. Bilateral internal carotid stenosis 50-79% 5. Morbid obesity 6. Previous tobacco dependence with preoperative FEV1 85% of predicted 7. Obstructive sleep apnea without home CPAP use 8. Depression 9. Hiatal hernia 10. History of skin cancer status post resection 11. GERD 12. Family history of premature coronary artery disease 13. Postoperative acute blood loss anemia 14. Postoperative paroxysmal atrial fibrillation PRINCIPAL PROCEDURE: 1. Coronary artery bypass grafting 3 with the left internal mammary artery to the left anterior descending artery, reverse saphenous vein graft off the aorta to the circumflex coronary artery into the posterior ventricular branch of the right coronary artery 2. Right lower extremity greater saphenous vein endoscopic harvesting 3. Ligation of the left atrial appendage with a 35 mm AtriClip 4. Intraoperative transesophageal echocardiogram HISTORY OF PRESENT ILLNESS: This is a 73-year-old obese female who follows on an outpatient basis with Dr. Matthew Le. She had been experiencing intermittent episodes of chest discomfort along with fatigue and shortness of breath concerning for angina and heart catheterization was recommended. Her heart catheterization demonstrated a calcified right and left coronary systems, ostial LAD stenosis 70-80%, ostial circumflex stenosis 80-90%, and PLV branch of the RCA with 80-90% tight stenosis. The patient was referred to Dr. Hung from cardiothoracic surgery. She was recommended to undergo elective coronary artery bypass surgery. The usual perioperative course was discussed in detail with the patient and her family, all risks and benefits were explained, all questions were answered, and consent was obtained to proceed with surgery. The patient was scheduled for surgery at the earliest possible date. HOSPITAL COURSE: The patient was brought to the hospital on 10/04/2019, taken to the preoperative area, prepared in the usual fashion, and subsequently taken to the operating room where Dr. Hung performed three-vessel CABG. Upon completion of surgery the patient was transferred to the cardiovascular intensive care unit where she was recovered, monitored hemodynamically, and where she progressed to cardiac rehabilitation phase 1. She was extubated, all lines, tubes, and drips were discontinued when appropriate, and she was transferred to S cardiac stepdown unit for further monitoring and rehabilitation. She did experience paroxysmal atrial fibrillation which was properly treated with amiodarone. Her oxygen was titrated down, she continued to work with physical and occupational therapy, she was tolerating oral diet, her pain was controlled, she remained in normal sinus rhythm, and she was ready to be discharged to [facility] inpatient rehab on postoperative day #5. She received written and verbal instruction regarding her medications, activity restrictions, signs and symptoms requiring physician notification, and follow-up appointments. COMPLICATIONS: The patient experienced postoperative acute blood loss anemia requiring no intervention, and paroxysmal atrial fibrillation which resolved with initiation of amiodarone. Patient Condition at Discharge: Stable Plan - Discharge Summary Discharge Rx Participant: Yes New Discharge Prescriptions: New Aspirin 325 mg PO DAILY tab Benzocaine/Menthol Lozeng [Cepacol lozenge] 1 each MUCOUS MEM Q2H PRN lozenge PRN Reason: Sore Throat Amiodarone [Cordarone] 400 mg PO BID tab Ipratropium-Albuterol Nebulize [Duoneb 0.5 mg-3 mg/3 ml Soln] 3 ml INHALATION RT-QID ml Ipratropium-Albuterol Nebulize [Duoneb 0.5 mg-3 mg/3 ml Soln] 3 ml INHALATION RT-Q2H PRN ml PRN Reason: Shortness Of Breath Or Wheezing Metoprolol Tartrate [Lopressor] 25 mg PO BID tab Melatonin 6 mg PO HS PRN tablet PRN Reason: insomnia Magnesium Hydroxide [Milk of Magnesia Concentrate] 2,400 mg PO BID PRN ml PRN Reason: Constipation Clopidogrel [Plavix] 75 mg PO DAILY tab Acetaminophen Tab [Tylenol] 1,000 mg PO Q6HR PRN tab PRN Reason: Fever And/ Or Pain Continue Furosemide [Lasix] 40 mg PO DAILY Atorvastatin [Lipitor] 40 mg PO HS Fish Oil/Dha/Epa [Fish Oil 1,200 mg Fish Oil] 1 cap PO DAILY Pantoprazole [Protonix] 40 mg PO QAM Multivit-Min/Iron/Folic/Lutein [Centrum Silver Women Tablet] 1 each PO DAILY Sennosides [Senna] 8.6 mg PO DAILY Discontinued Losartan [Cozaar] 50 mg PO DAILY Aspirin 81 mg PO HS amLODIPine [Norvasc] 5 mg PO DAILY Nitroglycerin Sl Tabs [Nitrostat] 0.4 mg SUBLINGUAL Q5M PRN PRN Reason: Chest Pain Dicyclomine [Bentyl] 10 mg PO QID PRN #120 cap PRN Reason: Dyspepsia Spironolactone [Aldactone] 25 mg PO DAILY Metoprolol Succinate [Toprol XL] 50 mg PO DAILY ALPRAZolam [Xanax] 0.25 mg PO BID PRN PRN Reason: Anxiety Discharge Medication List Furosemide [Lasix] 40 mg PO DAILY 05/23/14 [History] Atorvastatin [Lipitor] 40 mg PO HS 01/16/18 [History] Fish Oil/Dha/Epa [Fish Oil 1,200 mg Fish Oil] 1 cap PO DAILY 06/18/18 [History] Multivit-Min/Iron/Folic/Lutein [Centrum Silver Women Tablet] 1 each PO DAILY 08/30/19 [History] Pantoprazole [Protonix] 40 mg PO QAM 08/30/19 [History] Sennosides [Senna] 8.6 mg PO DAILY 09/24/19 [History] Acetaminophen Tab [Tylenol] 1,000 mg PO Q6HR PRN tab 10/09/19 [Rx] Amiodarone [Cordarone] 400 mg PO BID tab 10/09/19 [Rx] Aspirin 325 mg PO DAILY tab 10/09/19 [Rx] Benzocaine/Menthol Lozeng [Cepacol lozenge] 1 each MUCOUS MEM Q2H PRN lozenge 10/09/19 [Rx] Clopidogrel [Plavix] 75 mg PO DAILY tab 10/09/19 [Rx] Ipratropium-Albuterol Nebulize [Duoneb 0.5 mg-3 mg/3 ml Soln] 3 ml INHALATION RT-Q2H PRN ml 10/09/19 [Rx] Ipratropium-Albuterol Nebulize [Duoneb 0.5 mg-3 mg/3 ml Soln] 3 ml INHALATION RT-QID ml 10/09/19 [Rx] Magnesium Hydroxide [Milk of Magnesia Concentrate] 2,400 mg PO BID PRN ml 10/09/19 [Rx] Melatonin 6 mg PO HS PRN tablet 10/09/19 [Rx] Metoprolol Tartrate [Lopressor] 25 mg PO BID tab 10/09/19 [Rx] Follow up Appointment(s)/Referral(s): Steven Yeung MD [STAFF PHYSICIAN] - 1 Week (Please schedule appointment upon discharge from inpatient rehab) Guilherme Bennett MD [STAFF PHYSICIAN] - 1 Week (Please schedule appointment upon discharge from inpatient rehab) [facility],Cardiac [NON-STAFF] - 4 Weeks (You will receive a phone call to set up appointment for evaluation for cardiac rehab at approximate 4 weeks post discharge) Reggie Hnug MD [STAFF PHYSICIAN] - 11/15/19 2:00 pm Matthew Le MD [Primary Care Provider] - 1 Week (Please schedule a ppointment upon discharge from inpatient rehab) Patient Instructions/Handouts: How to Use an Incentive Spirometer (DC), Heart Healthy Diet (DC), Sternal Precautions (GEN), CABG (Coronary Artery Bypass Graft) (DC) Activity/Diet/Wound Care/Special Instructions: CONSULTS AT [facility] INPATIENT REHAB: 1. Dr. Fine in for cardiology 2. Dr. Yeung for pulmonology 3. Dr. Buck for medical management ABSOLUTELY NO NARCOTICS TO BE GIVEN WITHOUT CONTACTING CARDIOTHORACIC SURGERY DISCHARGE INSTRUCTIONS: 1. No driving for 4 weeks, or until physician gives their ok. 2. The patient should sleep in their own bed, no medical bed needed. 3. Stairs are not an issue. If the bedroom is upstairs, it is advised that the patient go up at night and down in the morning for the first week. Go slowly, using handrail and take 1 step at a time. 4. OSMAR hose are to be worn for 30 days or until physician discontinues. 5. Heart hugger is to be worn 100% of the time until physician discontinues.(except when showering) 6. No lifting, pushing, or pulling more than 10 pounds for 12 weeks. The physician will advise of any restriction changes. 7. The patient is expected to continue the prescribed walking program. 8. Continue pain control per as needed orders. 9. Continue with incentive spirometry and splinting/heart hugger until otherwise directed by the physician. 10. Must shower daily using liquid antibacterial soap and a separate white washcloth for each individual incision. 11. Routine sternal incision care. No powders, lotions, ointments on incisions. No dressings are necessary on incisions unless they are draining. Dermabond tape is to remain on sternal incision until surgeon follow-up. 12. Please call surgeon/SENIOR IT ENGINEER for temp greater than 101 F or purulent drainage from incisions. 13. All prescriptions given by surgeon for 30 days. Refills need to be filled through desktop publisher/primary care physician. 14. A Red armband has been placed on the patient. It should be worn for 30 days post surgery and will be removed by the cardiac surgeons. If an ER visit is necessary, please make sure the number on the Red armband is called. 15. You have been referred to and are expected to begin Cardiac Rehab in approximately 4-6 weeks. REHAB/HOME HEALTH SERVICES TO PROVIDE: RN SKILLED HOME CARE SERVICES FOR POST-OP SURGICAL PATIENTS WITH THE FOLLOWING: Coronary Artery Bypass Surgery (CABG), Mitral Valve Replacement/Repair ( MVR), Aortic Valve Replacement/Repair (AVR) RN TO CONTINUE EDUCATION FROM ``ROAD TO A HEALTH HEART PATIENT EDUCATION MANUAL (GIVEN TO PATIENT IN THE HOSPITAL) MEDICATION RECONCILIATION WITH EDUCATION NEEDED ON FIRST HOME VISIT EMPHASIZE IMPORTANCE OF WEARING BREAST SUPPORT/HEART HUGGER ENCOURAGE USE OF INCENTIVE SPIROMETER 10 X EVERY HOUR WHILE AWAKE ENCOURAGE UTILIZATION OF LOWER EXTREMITY COMPRESSION STOCKINGS/OSMAR HOSE and ELEVATE LEGS ABOVE LEVEL OF HEART WHILE AT REST. ENCOURAGE AMBULATION 3-5x/day INCREASING TOLERATES, WHILE AVOIDING EXTREMES IN TEMPERATURE FREQUENCY: MATERIAL PLANNER TO OPEN THE PATIENT WITHIN 24 HOURS OF DISCHARGE FROM [facility] WITH TELEHEALTH INSTALLED AT [facility], RN TO VISIT 2-3 X A WEEK FOR 4 WEEKS ESTABLISHED BY PATIENT NEEDS. LABORATORY: CBC, CMP TO BE DRAWN DAILY WHILE AT [facility], (RAN STAT) FAX RESULTS TO [phone]. TELEHEALTH PARAMETERS: WEIGHT: NOTIFY MD OF WEIGHT GAIN OF 2 LBS IN 24 HOURS OR 5 LBS IN ONE WEEK HR: NOTIFY MD OF HR <55 BPM OR HR>100 BPM BP: NOTIFY MD IF BP <90/55 OR BP>140/100 O2 SAT: NOTIFY MD IF PO2<93% ON ROOM AIR SEND TELEHEALTH REPORT TO AUTOMATIC I THREADING MACHINE FEEDER AND CARDIOVASCULAR SURGEON THE FIRST WEEK OF CARE AND THEN BI-WEEKLY. PLEASE ADDITIONALLY COMMUNICATE ANY ABNORMALS AND NEW FINDINGS TO THE SURGEONS OFFICE. For any questions or concerns please call instrumentation technologist Carmen @ or Mikel @ Discharge Disposition: DC/TRNS INTERMEDIATE CARE FAC
--- NOTE | 2019-10-09 08:31 | P.PN ---
Subjective Progress Note Date: 10/09/19 Principal diagnosis: Unstable angina, triple-vessel coronary artery disease. Previous medical history of coronary artery disease status post previous stenting, hypertension, hyperlipidemia, bilateral internal carotid stenosis 50-79%, morbid obesity, previous tobacco dependence with preoperative FEV1 85% of predicted, obstructive sleep apnea without home CPAP use, depression, hiatal hernia, skin cancer status post resection, GERD, and family history of premature coronary artery disease. POD #5 coronary artery bypass grafting 3 with left internal mammary artery to left anterior descending coronary artery, reverse saphenous vein graft off the aorta to the circumflex coronary artery into the posterior ventricular branch of the right coronary artery, right lower extremity greater saphenous vein endoscopic harvesting, ligation of the left atrial appendage with a #35 mm A triClip, and intraoperative transesophageal echocardiogram. Postoperative acute blood loss anemia, an expected outcome due to hemodilution and cardiopulmonary bypass. Postoperative paroxysmal atrial fibrillation, unexpected but potential outcome of cardiac surgery, currently in normal sinus rhythm The patient's currently sitting up in a recliner in the cardiac stepdown unit in no acute distress. Does complain of postsurgical pain but states it is well controlled on current medication regimen without narcotics, denies shortness of breath. Patient has been ambulatory in the hallway with assistance. Remains in normal sinus rhythm. No new concerns. Objective - Vital Signs Vital signs: Vital Signs Temp 97.8 F 10/09/19 04:00 Pulse 76 10/09/19 07:35 Resp 18 10/09/19 04:00 BP 131/71 10/09/19 04:00 Pulse Ox 95 10/09/19 04:00 Intake & Output 10/08/19 10/09/19 10/09/19 18:59 06:59 18:59 Intake Total 860 540 Output Total 575 Balance 860 -35 Weight 120.3 kg Intake: IV 200 Amiodarone 300 mg In 200 Dextrose 5% in Water 250 ml @ 0.5 MG/MIN 25 mls/hr IV .Q10H PRN Rx#: [id number] Oral 660 540 Output: Urine 575 Other: Voiding Method Toilet Toilet ABP, PAP, CO, CI - Last Documented Arterial Blood Pressure 114/47 Pulmonary Artery Pressure 33/18 Cardiac Output 5.1 Cardiac Index 2.3 - Constitutional General appearance: Present: cooperative, morbidly obese, no acute distress - Respiratory Details: Lungs sounds diminished bilaterally. Respirations even, nonlabored. Currently on room air with oxygen saturation 95%. Only able to achieve 750-1000 mL on her incentive spirometry. Strong cough. - Cardiovascular Details: S1, S2 present. Regular rate and rhythm, sinus rhythm on telemetry. Sternum stable. Palpable peripheral pulses bilaterally. Bilateral lower extremity edema present. No calf pain or tenderness noted. Heart hugger in place with patient demonstrating appropriate use. Antiembolism stockings, SCDs present. - Gastrointestinal Gastrointestinal Comment(s): Abdomen soft, nontender, nondistended. Active bowel sounds present 4 quadrants. Tolerating diet. Positive bowel movement - Genitourinary Genitourinary Comment(s): Continues to void clear, yellow urine. - Integumentary Integumentary Comment(s): Skin is warm and dry with evidence of good perfusion. Anterior chest incision well approximated. Right lower extremity EVH site well approximated. - Neurologic Neurologic: Present: CNII-XII intact - Musculoskeletal Musculoskeletal: Present: gait normal, generalized weakness, strength equal bilaterally - Psychiatric Psychiatric: Present: A&O x's 3, appropriate affect, intact judgment & insight - Allied health notes Allied health notes reviewed: nursing - Labs CBC & Chem 7: 10/09/19 06:28 10/09/19 06:28 Labs: Abnormal Lab Results - Last 24 Hours (Table) 10/09/19 10/09/19 10/09/19 Range/Units 02:00 06:28 06:28 RBC 3.18 L (3.80-5.40) m/uL Hgb 9.8 L (11.4-16.0) gm/dL Hct 30.0 L (34.0-46.0) % Sodium 131 L (137-145) mmol/L POC Glucose (mg/dL) 147 H (75-99) mg/dL - Imaging and Cardiology Chest x-ray: report reviewed, image reviewed Assessment and Plan Assessment: 1. Unstable angina, triple-vessel disease, status post three-vessel CABG 2. History of CAD status post previous stenting 3. Hypertension 4. Hyperlipidemia 5. Bilateral internal carotid artery stenosis 50-79% 6. Morbid obesity 7. Previous tobacco dependence with preoperative FEV1 85% of predicted 8. Obstructive sleep apnea without home CPAP use 9. Depression 10. Hiatal hernia 11. History of skin cancer status post resection 12. GERD 13. Family history of premature coronary artery disease 14. Postoperative acute blood loss anemia 15. Postoperative atrial fibrillation, currently normal sinus rhythm, status post exclusion of the left atrial appendage Plan: 1. Continue aspirin, statin, Plavix, and beta manuel. 2. Continue amiodarone. Will taper, 400 mg twice daily 1 week, then 200 mg twice daily 1 week, then 200 mg daily 1 week, then stop. No anticoagulation necessary unless patient in atrial fibrillation for greater than 24 hours. 3. Encourage incentive spirometry is 10 times every hour while awake 4. Increase activity, ambulate as tolerated. PT/OT/cardiac rehab following. 5. Will monitor labs and chest x-rays. 6. Pain control with current medication regimen. No narcotics 7. Insulin management per primary care service. 8. GI/DVT prophylaxis. 9. Bronchodilators per pulmonology management. 10. Lasix 40 mg IV today. 11. Discharge planning in progress. Anticipate discharge to [facility] today with consultation placed for cardiology, pulmonology, and internal medicine for management 12. More recommendations to follow based on patient's progress. Time with Patient: Greater than 30
[2019-10-09] MEDS: ASPIRIN 325 MG TAB PO SCH (08:57)
[2019-10-09] MEDS: METOPROLOL TARTRATE 25 MG TAB PO SCH (08:57)
[2019-10-09] MEDS: ATORVASTATIN 40 MG TAB PO SCH (08:57)
[2019-10-09] MEDS: CLOPIDOGREL 75 MG TAB PO SCH (08:57)
[2019-10-09] MEDS: AMIODARONE 200 MG TAB PO SCH (08:57)
[2019-10-09] MEDS: FONDAPARINUX 2.5 MG/0.5 ML SYRINGE SQ SCH (08:58)
[2019-10-09 12:25] LABS: Glucose,Whole Blood 88 mg/dL (75-99)
[2019-10-09] MEDS: FERROUS SULFATE 325 MG TAB PO SCH (12:41)
[2019-10-09] MEDS: ACETAMINOPHEN TAB 500 MG TAB PO PRN (12:43)
--- NOTE | 2019-10-09 13:43 | P.PN ---
Subjective Progress Note Date: 10/09/19 Principal diagnosis: Multivessel coronary artery disease status post three-vessel bypass grafting On 10/08/2019 patient seen in follow-up on selective care unit, she is awake and alert, in no acute distress, this is postoperative day 4, status post three- vessel bypass grafting. Room air pulse ox is 98%, patient denies any dyspnea, afebrile, hemodynamically stable, days chest x-ray shows basilar atelectasis and associated pleural effusions, and minimal left apical pneumothorax, PA catheter Artline Hayward catheter had been discontinued. Patient did go into A. fib RVR S today, she was given IV amiodarone, she remains on amiodarone drip at 0.5 mg per hour, currently in sinus rhythm, with a controlled rate. Today's blood work has been reviewed, white blood cell currently 0.3, hemoglobin of 8.8, sodium 128, respiratory electrolytes are within normal limits, BUN of 20 creatinine 0.58. Patient received another dose of IV Lasix per CT surgery and was placed on fluid restriction On 10/09/2019 patient seen in follow-up on selective care unit, this is postoperative day 5, status post post-3 vessel bypass, she is doing well, she is on room air, pulse ox is 95%, hemodynamically stable, patient received a dose of Lasix yesterday, she made 900 mL in urine output, today's labs reviewed serum sodium is improving, up to 131. Chest x-ray shows subsegmental basilar atelect atic changes, she did receive another dose of IV Lasix per CT surgery. Patient has been tolerating ambulation, no acute events overnight, discharge planning is in progress for discharge to rehab today Objective - Vital Signs Vital signs: Vital Signs Temp 98.3 F 10/09/19 08:00 Pulse 80 10/09/19 10:46 Resp 18 10/09/19 08:00 BP 129/60 10/09/19 08:00 Pulse Ox 95 10/09/19 08:00 Intake & Output 10/08/19 10/09/19 10/09/19 18:59 06:59 18:59 Intake Total 860 540 240 Output Total 575 Balance 860 -35 240 Weight 120.3 kg Intake: IV 200 Amiodarone 300 mg In 200 Dextrose 5% in Water 250 ml @ 0.5 MG/MIN 25 mls/hr IV .Q10H PRN Rx#: [id number] Oral 660 540 240 Output: Urine 575 Other: Voiding Method Toilet Toilet # Voids 2 # Bowel Movements 1 ABP, PAP, CO, CI - Last Documented Arterial Blood Pressure 114/47 Pulmonary Artery Pressure 33/18 Cardiac Output 5.1 Cardiac Index 2.3 - Exam GENERAL EXAM: Alert, very pleasant, 73-year-old white female, on room air, with a pulse ox of 98% comfortable in no apparent distress. HEAD: Normocephalic/atraumatic. EYES: Normal reaction of pupils, equal size. Conjunctiva pink, sclera white. NOSE: Clear with pink turbinates. THROAT: No erythema or exudates. NECK: No masses, no JVD, no thyroid enlargement, no adenopathy. CHEST: No chest wall deformity. Symmetrical expansion. Midsternal incision, and chest tube sites are clean dry and intact, covered with surgical dressings, interval removal of the mediastinal and left pleural chest tubes LUNGS: Equal air entry with no crackles, wheeze, rhonchi or dullness. CVS: Regular rate and rhythm, normal S1 and S2, no gallops, no murmurs, no rubs ABDOMEN: Soft, nontender. No hepatosplenomegaly, normal bowel sounds, no guarding or rigidity. EXTREMITIES: No clubbing, no edema, no cyanosis, 2+ pulses and upper and lower extremities. MUSCULOSKELETAL: Muscle strength and tone normal. SPINE: No scoliosis or deformity SKIN: No rashes. Right leg endovascular vein grafting site incisions clean dry and intact CENTRAL NERVOUS SYSTEM: Alert and oriented -3. No focal deficits, tone is normal in all 4 extremities. PSYCHIATRIC: Alert and oriented -3. Appropriate affect. Intact judgment and insight. - Labs CBC & Chem 7: 10/09/19 06:28 10/09/19 06:28 Labs: Abnormal Lab Results - Last 24 Hours (Table) 10/09/19 10/09/19 10/09/19 Range/Units 02:00 06:28 06:28 RBC 3.18 L (3.80-5.40) m/uL Hgb 9.8 L (11.4-16.0) gm/dL Hct 30.0 L (34.0-46.0) % Sodium 131 L (137-145) mmol/L POC Glucose (mg/dL) 147 H (75-99) mg/dL Assessment and Plan Plan: Assessment: 1 multivessel coronary artery disease and the patient underwent three-vessel bypass. She is currently postop day #5. 2 post thoracotomy and distal wound is dry clean and intact. Chest tubes have been removed. Very tiny apical pneumothorax on the left. Atelectatic changes in the lung bases and the patient is utilizing incentive spirometer. 3 hypertension 4 hyperlipidemia 5 obesity 6 history of hiatal hernia with symptoms of GE reflux 7 obstructive sleep apnea 8 known history of coronary artery disease with previous history of coronary stenting 9 postoperative anemia, and expected outcome of surgery 10 Hyponatremia, likely hypervolemic, patient is receiving IV Lasix, and has been placed on fluid restriction, and on today's labs serum sodium is up to 131 Plan: Patient is doing well, asymptomatic, tolerating ambulation, vital signs are stable, she is on room air, serum sodium is improving, she remains on fluid restriction she received additional dose of IV Lasix today, signs are stable, no acute events overnight, discharge planning is in progress for discharge to inpatient rehab today. Outpatient follow-up in the office in 7-10 days. I performed a history & physical examination of the patient and discussed their management with my nurse practitioner, Lavern Roa. I reviewed the nurse practitioner's note and agree with the documented findings and plan of care. Lung sounds are positive for diminished throughout the lung hensley. The findings and the impression was discussed with the patient. I attest to the documentation by the nurse practitioner. Time with Patient: Less than 30
[2019-10-09 14:38] VITALS: BP 133/66; PULSE 78; RESP 16; TEMP 98.1
--- NOTE | 2019-10-09 14:50 | P.PN ---
Subjective Progress Note Date: 10/09/19 This is a 73-year-old female patient of Dr. Matthew Le and Dr. Bennett with past medical history of coronary artery disease status post stent, hypertension, hyperlipidemia, obstructive sleep apnea on CPAP. Patient underwent a cardiac catheterization on 09/03/[address] Winkler and found to have calcified right and left coronary systems, disease involving the LV branch of the RCA and critical disease involving the ostial LAD and ostial left circumflex with plaque involving the distal left main coronary artery. The patient underwent three-vessel three-vessel bypass surgery and currently patient is postop day #1. She is seen in the intensive care unit. She was successfully extubated yesterday. Right IJ Cordis with Hallam-Thao catheter in place, mediastinal and left pleural chest tubes in place, Hayward catheter in place. Patient states that she is having pain in her chest related to the surgery, back and left lower leg where harvesting was done. She is seen today sitting up in a chair and staff is working with her to return to bed. Pulse ox is 100% on 2 L nasal cannula, blood pressure 121/68, respiratory rate 24, afebrile, heart rate 81. Blood sugars running between 88 and 136. Patient does not have history of diabetes. She has been on 18 insulin drip which is on hold. 10/05: Patient is seen today in intensive care unit, patient is resting in recliner and appears to be comfortable. All tubes have been removed except for one chest tube. Capillary blood glucose running between 106 and 148. Patient did have one reading of 200 at 4 AM. She is currently on insulin drip which will be transitioned to NovoLog scale before meals and at bedtime. Her previous hemoglobin A1c was 5.8 several weeks ago. Patient has been afebrile, heart rate 82, blood pressure 111/51, pulse ox 94% on 2 L nasal cannula. Repeat blood work reveals WBC 12.4, hemoglobin 9.7 platelet count 91, sodium 133, BUN 18 creatinine 0.54. AST is 51, albumin 2.9. Patient worked with physical therapy yesterday with recommendations for subacute rehab 10/06: Patient is seen today on the cardiac stepdown unit. She has been afebrile, heart rate 84, blood pressure 101/59, pulse ox 98% on room air. Patient has had episodes of hypoglycemia and NovoLog scale will be discontinued. Highest blood sugar in the past 24 hours has been 153. Repeat chest x-ray reveals no interval consultations status post chest tube removal. Minimal left apical pneumothorax. Probable atelectasis, possible associated effusions. Cardiomegaly. Patient has been seen by Dr. Robbins for inpatient rehab. It appears patient is a good candidate most likely discharge the next 24-48 hours. Cardiology has cleared the patient for discharge to rehab. 10/07: Patient has been afebrile, heart rate 67, blood pressure 121/58, pulse ox 96%. Morning lab work reveals WBC 8.3, hemoglobin 8.8, platelet count 150. Sodium 128, potassium 4.1, chloride 98, CO2 24, BUN 20 creatinine 0.58. Blood sugars running between 111-154. Patient has been off NovoLog scale. Repeat chest x-ray reveals basilar atelectasis and associated effusion. Minimal left apical pneumothorax. Correlate for pulmonary artery hypertension. Patient had episode of atrial fibrillation, paroxysmal and has since converted to normal sinus rhythm. Patient is currently on amiodarone 400 mg twice daily and Lopressor 25 mg twice daily. The patient has been doing well with increased activity. She has been off her shower. She denies any lightheadedness or dizziness. She denies any chest pain or shortness of breath. Blood sugar at lunch was 89. 10/08: Pulse ox is 95% on room air, hemodynamically stable, patient received a dose of Lasix yesterday with good urine output. Sodium 131. Blood sugars are running between 88 and 147. Chest x-ray shows subsegmental basilar atelectatic changes, she did receive another dose of IV Lasix per CT surgery. Patient has been doing well with ambulation. Patient is scheduled for discharge to [facility]. We'll plan to continue follow the patient at rehab. Objective - Vital Signs Vital signs: Vital Signs Temp 98.3 F 10/09/19 08:00 Pulse 80 10/09/19 10:46 Resp 18 10/09/19 08:00 BP 129/60 10/09/19 08:00 Pulse Ox 95 10/09/19 08:00 Intake & Output 10/08/19 10/09/19 10/09/19 18:59 06:59 18:59 Intake Total 860 540 240 Output Total 575 Balance 860 -35 240 Weight 120.3 kg Intake: IV 200 Amiodarone 300 mg In 200 Dextrose 5% in Water 250 ml @ 0.5 MG/MIN 25 mls/hr IV .Q10H PRN Rx#: [id number] Oral 660 540 240 Output: Urine 575 Other: Voiding Method Toilet Toilet # Voids 2 # Bowel Movements 1 ABP, PAP, CO, CI - Last Documented Arterial Blood Pressure 114/47 Pulmonary Artery Pressure 33/18 Cardiac Output 5.1 Cardiac Index 2.3 - Exam Review of Systems Constitutional: Denies anorexia, Reports fatigue, Reports weakness, Denies chills, Denies fever Eyes: denies blurred vision, denies pain Ears, nose, mouth and throat: Denies dental pain, Denies nasal congestion, Denies nasal discharge, Denies vertigo Cardiovascular: Reports chest discomfort, Denies decreased exercise tolerance, Denies dyspnea on exertion, Denies edema, Denies leg edema, Denies lightheadedness, Denies shortness of breath, Denies syncope Respiratory: Reports sleep apnea, Denies cough, Denies cough with sputum, Denies dyspnea, Denies excessive sputum, Denies hemoptysis, Denies home oxygen, Denies respiratory infections, Denies wheezing Gastrointestinal: Denies abdominal pain, Denies diarrhea, Denies nausea, Denies vomiting Genitourinary: Denies dysuria, Denies hematuria Musculoskeletal: Reports muscle weakness, Denies frequent falls, Denies gait dysfunction, Denies myalgias Integumentary: Denies pruritus, Denies rash Neurological: Denies change in mentation, Denies change in speech, Denies numbness, Denies weakness Psychiatric: Denies anxiety, Denies depression Endocrine: Denies fatigue, Denies weight change, denies abnormal blood sugar Gen: This is a morbidly obese 73-year-old female patient. She is sitting in recliner on the cardiac stepdown unit and appears to be in no acute distress. No respiratory distress is noted. HEENT: Head is atraumatic, normocephalic. Pupils equal, round. Sclerae is anicteric. Oral mucous membranes are moist. NECK: Supple. No JVD. No lymphadenopathy. No thyromegaly. LUNGS: Lungs are diminished at the bases but otherwise clear to auscultation. No wheezes or rhonchi. No intercostal retractions. HEART: Regular rate and rhythm. No murmur. ABDOMEN: Morbidly obese. Soft. Bowel sounds are present. No masses. No tenderness. EXTREMITIES: Trace pedal edema. No calf tenderness. Dorsalis pedis is +2 bilaterally. NEUROLOGICAL: Patient is awake, alert and oriented x3. Cranial nerves 2 through 12 are grossly intact. - Labs CBC & Chem 7: 10/09/19 06:28 10/09/19 06:28 Labs: Abnormal Lab Results - Last 24 Hours (Table) 10/09/19 10/09/19 10/09/19 Range/Units 02:00 06:28 06:28 RBC 3.18 L (3.80-5.40) m/uL Hgb 9.8 L (11.4-16.0) gm/dL Hct 30.0 L (34.0-46.0) % Sodium 131 L (137-145) mmol/L POC Glucose (mg/dL) 147 H (75-99) mg/dL Assessment and Plan Plan: 1. Multivessel coronary artery disease status post 3 vessel CABG, postoperative day #5. Patient's been successfully extubated. She has been hemodynamically stable. Chest tubes, Cortis, Hayward catheter removed. Continue aspirin, Plavix, Lipitor, Lopressor 2. History of hiatal hernia. Protonix. 3. Hypertension. Continue Lopressor. 4. Hyperlipidemia. Continue atorvastatin 40 mg at bedtime. 5. History of coronary artery disease status post stent. Patient normally follows with Dr. Bennett. Continue aspirin, Lipitor. 6. Obstructive sleep apnea on CPAP. 7. Morbid obesity with BMI of 46. 8. History of coronary artery disease with previous PCI. Discharge plan: Transfer to [facility] inpatient rehab today.. Impression and plan of care have been directed as dictated by the signing physician. Julissa Miner nurse practitioner acting as scribe for signing physician.
--- NOTE | 2019-10-09 15:14 | P.PN ---
Subjective Progress Note Date: 10/09/19 This is a 73-year-old female with known history of prior coronary artery disease with previous stenting of the circumflex in 2005, hyperlipidemia, hypertension, she underwent a cardiac catheterization on September 03 and was found to have heavily calcified right and left coronary systems. She underwent three-vessel bypass surgery 3. Patient was seen and examined this morning, overall doing well. Blood pressure 100/60, heart rate in the 70s to 80s. White blood cell count 11.4, hemoglobin 9.8, platelet count 121. Sodium 131, potassium 4.3, BUN 21, creatinine 0.5. 10/08/2019 Patient was seen and examined this morning, doing well overall. She did have an episode of atrial fibrillation through the night, was on IV amiodarone and is currently on by mouth amiodarone. Remaining this morning in a normal sinus rhythm. Blood pressure 126/58 with a heart rate in the 70s, 98% on room air. White blood cell count 8.3, hemoglobin 8.8, platelet count 150. Sodium 128, potassium 4.1, BUN 20, creatinine 0.5. 10/09/2019 A shunt was seen and examined this morning, doing well overall. Anticipating transferred to inpatient cardiac rehab today. Hemodynamically stable. Objective - Vital Signs Vital signs: Vital Signs Temp 98.1 F 10/09/19 12:00 Pulse 78 10/09/19 12:00 Resp 16 10/09/19 12:00 BP 133/66 10/09/19 12:00 Pulse Ox 94 L 10/09/19 12:00 Intake & Output 10/08/19 10/09/19 10/09/19 18:59 06:59 18:59 Intake Total 860 540 480 Output Total 575 Balance 860 -35 480 Weight 120.3 kg Intake: IV 200 Amiodarone 300 mg In 200 Dextrose 5% in Water 250 ml @ 0.5 MG/MIN 25 mls/hr IV .Q10H PRN Rx#: [id number] Oral 660 540 480 Output: Urine 575 Other: Voiding Method Toilet Toilet Toilet # Voids 2 # Bowel Movements 1 ABP, PAP, CO, CI - Last Documented Arterial Blood Pressure 114/47 Pulmonary Artery Pressure 33/18 Cardiac Output 5.1 Cardiac Index 2.3 - Exam GENERAL EXAM: Alert, active, comfortable pleasant 73-year-old female patient, on room air, in no apparent distress. HEAD: Normocephalic. EYES: Normal reaction of pupils, equal size. NOSE: Clear with pink turbinates. THROAT: No erythema or exudates. NECK: No masses, no JVD. CHEST: No chest wall deformity. LUNGS: Equal air entry crackles in the bilateral posterior bases. CVS: S1 and S2 normal with no audible murmur, regular rhythm. ABDOMEN: No hepatosplenomegaly, normal bowel sounds, no guarding or rigidity. SPINE: No scoliosis or deformity SKIN: No rashes CENTRAL NERVOUS SYSTEM: No focal deficits, tone is normal in all 4 extremities. EXTREMITIES: There is no peripheral edema. No clubbing, no cyanosis. Peripheral pulses are intact. - Labs CBC & Chem 7: 10/09/19 06:28 10/09/19 06:28 Labs: Abnormal Lab Results - Last 24 Hours (Table) 10/09/19 10/09/19 10/09/19 Range/Units 02:00 06:28 06:28 RBC 3.18 L (3.80-5.40) m/uL Hgb 9.8 L (11.4-16.0) gm/dL Hct 30.0 L (34.0-46.0) % Sodium 131 L (137-145) mmol/L POC Glucose (mg/dL) 147 H (75-99) mg/dL Assessment and Plan Plan: Assessment and plan: #1 multivessel coronary artery disease and the patient underwent three-vessel bypass. #2 known history of coronary artery disease with previous history of coronary stenting #3 hypertension #4 hyperlipidemia #5 obesity #6 history of hiatal hernia with symptoms of GE reflux #7 obstructive sleep apnea Plan From cardiology's perspective, we'll continue this patient on her current medica tions. She may be transferred to rehab once cleared by cardiothoracic surgery. DNP note has been reviewed, I agree with a documented findings and plan of care. Patient was seen and examined.
--- NOTE | 2019-10-10 15:04 | CDI ---
Documentation Clarification Form Date: 10/10/19 From: Concha Umana CCS Phone: If you have a question about this query, please contact Juliana Melara, Night Clerk at [phone] between 8am and 5pm. Admit Date: 10/04/19 Discharge Date: 10/09/19 Patient Name: Leda Montana Visit Number: [id number] ATTENTION: The Clinical Documentation Specialists (CDI) and [facility] Coding Staff appreciate your assistance in clarifying documentation. Please respond to the clarification below the line at the bottom and electronically sign. The CDI & [facility] Coding staff will review the response and follow-up if needed. Please note: Queries are made part of the Legal Health Record. If you have any questions, please contact the author of this message via ITS. Dear Dr. Hung, CHF is documented in the 10/06 consult. History of heart failure is documented in 10/03, 10/04, 10/06 Consult notes. History/Risk Factors: HTN, CAD, Morbid obesity/BMI 46 Clinical Indicators: Left pleural effusion VS/Pulse OX: BP 118/72, RR 16, DC 60, O2 Sat 98 Chest X Ray: Persistent cardiomegaly with worsening mild to moderate central vascular congestion.Fairly stable small to tiny bilateral pleural effusions with worsening left lower lung acute infiltrate and/or atelectasis noted. Treatment: Lasix 40 mg IV In your professional opinion, can you please clarify the acuity and type of CHF if known? Systolic Heart Failure: Acute Chronic Acute on Chronic Diastolic Heart Failure: Acute Chronic Acute on Chronic Systolic & Diastolic Heart Failure: Acute Chronic Acute on Chronic Heart Failure Unable to Determine Other, please specify MTDD
--- NOTE | 2019-10-24 13:46 | CDI ---
Documentation Clarification Form Date: 10/24/19 From: Concha Umana CCS Phone: If you have a question about this query, please contact Juliana Melara, Metal Roofing Mechanic at [phone] between 8am and 5pm. Admit Date: 10/04/19 Discharge Date: 10/09/19 Patient Name: Leda Montana Visit Number: [id number] ATTENTION: The Clinical Documentation Specialists (CDI) and [facility] Coding Staff appreciate your assistance in clarifying documentation. Please respond to the clarification below the line at the bottom and electronically sign. The CDI & [facility] Coding staff will review the response and follow-up if needed. Please note: Queries are made part of the Legal Health Record. If you have any questions, please contact the author of this message via ITS. Dear Dr. Hung, CHF is documented in the 10/06 consult. History of heart failure is documented in 10/03, 10/04, 10/06 Consult notes. History/Risk Factors: HTN, CAD, Morbid obesity/BMI 46 Clinical Indicators: Left pleural effusion VS/Pulse OX: BP 118/72, RR 16, OH 60, O2 Sat 98 Chest X Ray: Persistent cardiomegaly with worsening mild to moderate central vascular congestion.Fairly stable small to tiny bilateral pleural effusions with worsening left lower lung acute infiltrate and/or atelectasis noted. Treatment: Lasix 40 mg IV In your professional opinion, can you please clarify the acuity and type of CHF if known? Systolic Heart Failure: Acute Chronic Acute on Chronic Diastolic Heart Failure: Acute Chronic Acute on Chronic Systolic & Diastolic Heart Failure: Acute Chronic Acute on Chronic Heart Failure Unable to Determine Other, please specify No evidence of heart failure, LV normal on echo MTDD
== END 2019-10-09 14:15 | DRG 236 ==
LOC: 2ORMAIN 06:15 → 2SICU 14:07 → 3SCARD 10-07 00:22
PROVIDERS: ADMIT Thoracic Surgery (Cardiothoracic Vascular Surgery); ATTEND Thoracic Surgery (Cardiothoracic Vascular Surgery)
PROC: 06BQ4ZZ Excision of Left Saphenous Vein, Percutaneous Endoscopic Approach (ICD-10-PCS; 2019-10-04)
PROC: 5A1221Z Performance of Cardiac Output, Continuous (ICD-10-PCS; 2019-10-04)
PROC: 02L70CK Occlusion of Left Atrial Appendage with Extraluminal Device, Open Approach (ICD-10-PCS; 2019-10-04)
PROC: 02100Z9 Bypass Coronary Artery, One Artery from Left Internal Mammary, Open Approach (ICD-10-PCS; principal; 2019-10-04 09:00)
PROC: 021109W Bypass Coronary Artery, Two Arteries from Aorta with Autologous Venous Tissue, Open Approach (ICD-10-PCS; 2019-10-04 09:00)
DX: I25.110 Atherosclerotic heart disease of native coronary artery with unstable angina pectoris (principal); Z68.42 Body mass index [BMI] 45.0-49.9, adult; J93.83 Other pneumothorax; E87.1 Hypo-osmolality and hyponatremia; D62 Acute posthemorrhagic anemia; J98.11 Atelectasis; E66.01 Morbid (severe) obesity due to excess calories; I11.9 Hypertensive heart disease without heart failure; E78.5 Hyperlipidemia, unspecified; M19.90 Unspecified osteoarthritis, unspecified site; K21.9 Gastro-esophageal reflux disease without esophagitis; G47.33 Obstructive sleep apnea (adult) (pediatric); R53.81 Other malaise; I65.23 Occlusion and stenosis of bilateral carotid arteries; F32.9 Major depressive disorder, single episode, unspecified; I48.0 Paroxysmal atrial fibrillation; E16.2 Hypoglycemia, unspecified; K44.9 Diaphragmatic hernia without obstruction or gangrene; Z71.3 Dietary counseling and surveillance; Z79.82 Long term (current) use of aspirin; Z79.899 Other long term (current) drug therapy; Z96.653 Presence of artificial knee joint, bilateral; Z98.42 Cataract extraction status, left eye; Z98.41 Cataract extraction status, right eye; Z90.49 Acquired absence of other specified parts of digestive tract; Z85.828 Personal history of other malignant neoplasm of skin; Z96.1 Presence of intraocular lens; Z98.51 Tubal ligation status; Z87.891 Personal history of nicotine dependence; Z98.890 Other specified postprocedural states; Z95.5 Presence of coronary angioplasty implant and graft; Z82.49 Family history of ischemic heart disease and other diseases of the circulatory system; Z82.5 Family history of asthma and other chronic lower respiratory diseases
CPT/HCPCS: 71045; 71046; 80048; 80053; 82330; 82805; 83735; 85025; 85027; 85520; 85610; 85730; 86850; 86891; 86900; 86901; 86920; 94002; 94640; 94760; 94770

== ENCOUNTER → 2020-05-20 | Outpatient (CLI) | payer MEDICARE, BC ==
[2020-05-20 08:46] VITALS: BP 138/77; PULSE 69; RESP 20; TEMP 97.8
--- NOTE | 2020-05-20 10:23 | P.HPOB ---
History of Present Illness H&P Date: 05/20/20 Chief Complaint: The patient is here for her routine gynecologic exam. This is a 74-year-old 014 with an LMP of approximately 1991. The patient is here to establish with this office. The patient states it has been more than 10 years since her last routine gynecologic exam. She states she has had any feeding some issues with avoiding. She states that after voiding she will sometimes have more urine that needs to come out. After voiding she is having a strange sensation like "something is there ". She denies seeing any prolapsing tissue from the vaginal opening. She states that occasionally she can't hold her urine long enough to get to the bathroom. She has given a urine specimen at her PCPs office recently and the results are pending. She also has been experiencing a small amount of blood from the vagina since about September of this year. She states that is is not every day but has noticed a small amount of blood on many occasions. She denies any cramping or pain. Review of Systems She has lost about 13 pounds since her cardiac bypass surgery in September of this year. She denie cardiac problems. Respiratory: She does get short of breath with exertion. GI: Frequent constipation. She denies maltreatment or problems with falling. : She does have occasional leakage especially if she doesn't get to the bathroom in time. Past Medical History Past Medical History: Coronary Artery Disease (CAD), Cancer, Chest Pain / Angina, Heart Failure, GERD/Reflux, Hyperlipidemia, Hypertension, Osteoarthritis (OA), Sleep Apnea/CPAP/BIPAP Additional Past Medical History / Comment(s): hiatal hernia, constipation, occasional back pain, uses cane prn, hx of falls, uses C-Pap machine rarely, Skin Cancer. PAST FINANCIAL AIDS OFFICER HISTORY: She has no history of STDs. History of Any Multi-Drug Resistant Organisms: None Reported Past Surgical History: Breast Surgery, Cholecystectomy, Heart Catheterization, Heart Catheterization With Stent, Joint Replacement, Tubal Ligation Additional Past Surgical History / Comment(s): bilat total knee, juan pablo cataract with lens implants, skin CA 2016, juan pablo benign breast biopsies,mult heart caths,angiography 1988. Triple bypass cardiac surgery. Past Anesthesia/Blood Transfusion Reactions: No Reported Reaction Additional Past Anesthesia/Blood Transfusion Reaction / Comment(s): no hx blood transfusion Date of Last Stent Placement:: 2006 Past Psychological History: Anxiety, Depression Additional Psychological History / Comment(s): . Smoking Status: Former smoker Past Alcohol Use History: None Reported Additional Past Alcohol Use History / Comment(s): Patient was a smoker for 20 years and quit in 1988. She also quit drinking alcohol in 1988. She denies any medical marijuana, street drug use or alcohol use. She is retired from the [employer]. Past Drug Use History: None Reported Additional History: She is a and is not seeing anybody at this time and is not sexually active. She is retired. - Past Family History Father Family Medical History: Myocardial Infarction ([place]) Additional Family Medical History / Comment(s): Father at age 63 from coronary artery disease. Mother Additional Family Medical History / Comment(s): Mother at age 94 from heart disease. Maternal grandmother had gastric cancer. She denies family history of cancer of the breast, uterus, ovaries, or colon. Sister(s) Family Medical History: COPD, Coronary Artery Disease (CAD) Additional Family Medical History / Comment(s): Patient had total of 4 sisters: One from coronary artery disease, one from COPD, one from an overdose. Brother(s) Family Medical History: Coronary Artery Disease (CAD) Additional Family Medical History / Comment(s): Patient had 2 brothers and one has history of coronary artery disease and CABG as well as amputations due to agent orange. Second brother has no major medical problems. 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 Medications and Allergies Home Medications Medication Instructions Recorded Confirmed Type Furosemide [Lasix] 40 mg PO DAILY 05/23/14 05/20/20 History Atorvastatin [Lipitor] 40 mg PO HS 01/16/18 05/20/20 History Multivit-Min/Iron/Folic/Lutein 1 each PO DAILY 08/30/19 05/20/20 History [Centrum Silver Women Tablet] Pantoprazole [Protonix] 40 mg PO QAM 08/30/19 05/20/20 History Sennosides [Senna] 8.6 mg PO DAILY 09/24/19 05/20/20 History Acetaminophen Tab [Tylenol] 1,000 mg PO Q6HR PRN tab 10/09/19 05/20/20 Rx Aspirin 325 mg PO DAILY tab 10/09/19 05/20/20 Rx Clopidogrel [Plavix] 75 mg PO DAILY tab 10/09/19 05/20/20 Rx Metoprolol Tartrate [Lopressor] 25 mg PO BID tab 10/09/19 05/20/20 Rx Allergies Allergy/AdvReac Type Severity Reaction Status Date / Time No Known Allergies Allergy Verified 05/20/20 08:23 Exam Vital Signs Temp Pulse Resp BP Pulse Ox 05/20/20 08:43 97.8 F 69 20 138/77 99 Intake and Output 05/19/20 05/20/20 05/20/20 22:59 06:59 14:59 Other: Weight 116.573 kg Height 5 feet 4 inches, weight 257 pounds, BMI 44.1. This is a well-developed well-nourished heavyset white female who is alert and oriented times 3 in no acute distress. HEENT: Within normal limits. NECK: Supple without mass or thyromegaly. CHEST AND LUNGS: Clear to auscultation. HEART: Regular rate and rhythm. BREASTS: Are without mass or discharge. AXILLARY EXAM: Negative for adenopathy. BACK: Negative for CVA tenderness. ABDOMEN: Soft, obese, nontender, without palpable masses. PELVIC EXAM: External genitalia reveals moderate atrophy with mild generalized inflammation with no focal lesions. Cervix and vagina appear normal with mild to moderate atrophy. There is no unusual discharge. There is no evidence of prolapse. The uterus is midposition, nongravid size and nontender. There are no palpable adnexal masses or tenderness. RECTAL EXAM: Rectovaginal exam is negative for mass or tenderness and is negative for occult blood. EXTREMITIES: Nontender. IMPRESSION: 1. 74-year-old menopausal female with normal gynecologic exam. 2. Small intermittent postmenopausal bleeding over the past several months. 3. Urinary symptoms without any significant physical findings on pelvic exam today. No significant prolapse is noted. Urine testing through her PCP is pending. Differential diagnosis will include urinary tract infection, uterine fibroid, or mild prolapse which is not detected on examination today. PLAN: 1. Pap smear was performed. 2. Self breast awareness was discussed with the patient. 3. Mammogram scheduled for June 2020. The order slip was given to the patient for this. 4. Pelvic ultrasound will be ordered. The patient was given the order slip. 5. The patient will await urine findings from her PCP. 6. She did receive her flu shot this fall. 7. We have had a long discussion regarding voiding and recommended that she try to empty her bladder more thoroughly by giving herself more time and by relaxing. She is to avoid bearing down to try to empty the bladder more. 8. She was advised to return in one year for her annual well woman exam and as needed.
--- NOTE | 2020-06-02 18:36 | P.PN ---
Progress Note - Text Progress Note Date: 06/02/20 OUTPATIENT FOLLOW-UP NOTE TEST(S)/RESULTS: Pap smear done on 05/20/2020 was negative. METHOD OF NOTIFICATION: The patient was notified by phone. PATIENT COMMENTS: DIAGNOSIS: Negative Pap smear DISCUSSION: The patient is scheduled for a pelvic ultrasound on 06/04/2020. PLAN: Ultrasound as above.
== END | disposition home or self-care (01) ==
LOC: WWCWWP 08:11
PROVIDERS: ATTEND Obstetrics & Gynecology
DX: Z53.9 Procedure and treatment not carried out, unspecified reason (principal)

== ENCOUNTER → 2020-06-04 | Outpatient (CLI) | payer MEDICARE, BC ==
--- NOTE | 2020-06-04 12:09 | US ---
EXAMINATION TYPE: US pelvis complete transvag DATE OF EXAM: 06/04/2020 COMPARISON: NONE CLINICAL HISTORY: N95.0 postmenopausal bleeding. pelvic discomfort, intermittent light vaginal bleedi ng, tubal ligation TECHNIQUE: Transvaginal (TV) and Transabdominal (TA) . Transabdominal sonographic images of the pel vis were acquired. Transvaginal sonographic images were medically necessary to better assess the fol lowing anatomy: uterus and ovaries Date of LMP: unknown EXAM MEASUREMENTS: Uterus: 7.5 x 2.5 x 3.8 cm Endometrial Stripe: 0.2 cm Right Ovary: unable to visualize Left Ovary: unable to visualize 1. Uterus: Anteverted heterogeneous 2. Endometrium: appears wnl 3. Right Ovary: Obscured by overlying bowel gas 4. Left Ovary: Obscured by overlying bowel gas 5. Bilateral Adnexa: appears wnl 6. Posterior cul-de-sac: wnl IMPRESSION: Atrophic uterus, limited exam
== END | disposition home or self-care (01) ==
LOC: RADUSWWP 09:01
PROVIDERS: ATTEND Obstetrics & Gynecology
DX: N85.8 Other specified noninflammatory disorders of uterus (principal); N95.0 Postmenopausal bleeding
CPT/HCPCS: 76830; 76856

== ENCOUNTER → 2020-09-07 | Day surgery (SDC) | payer BC, MEDICARE ==
[2020-09-03 10:52] VITALS: BMI 44.8
[~2020-09-07] MED LIST changes: -ALBUMIN HUMAN 25% 50 ML IV ONE; -ALBUMIN HUMAN 5% 500 ML IVPB ONE; +ALPRAZolam 0.25 MG TAB ONE; -ASPIRIN 325 MG TAB PO ONE; +ASPIRIN 325 MG TAB PO PRN; -ATORVASTATIN 10 MG TAB PO ONE; -CALCIUM CHLORIDE 100 MG/ML 10 ML SYRINGE IV ONE; -CHLORHEXIDINE GLUCONATE 15 ML CUP MUCOUS MEM ONE; -CLEVIDIPINE BUTYRATE 25 MG in EMPTY BAG 1 BAG IV ONE; -DEXTROSE 5% IN WATER 1,000 ML with POTASSIUM CHLORIDE 110 MEQ, MAGNESIUM SULFATE 16 MEQ... IV ONE; -DEXTROSE 5% IN WATER 1,000 ML with POTASSIUM CHLORIDE 25 MEQ, SODIUM CHLORIDE 2.5MEQ/ML... IRRIGATION ONE; -HEPARIN SODIUM 1,000 UN/ML (10ML VL) IV ONE; -HEPARIN SODIUM,PORCINE 5,000 UNIT in SODIUM CHLORIDE 0.9% 500 ML 500 ML IV ONE; -INSULIN REGULAR 100 UNIT in SODIUM CHLORIDE 0.9% 100 ML IV ONE; -LACTATED RINGERS 1,000 ML IV ONE; +LIDOCAINE 1% INJ 10MG/ML (20 ML MDV) SQ ONE; -MAGNESIUM SULFATE MG 500 MG/ML IV ONE; -MANNITOL 25% 12.5 GM/50 ML VIAL IV ONE; -METOPROLOL TARTRATE 12.5 MG TAB PO ONE; -NITROGLYCERIN-D5W PMX 25 MG/250 ML BTL IV ONE; -NITROGLYCERIN-D5W PMX 50 MG in DEXTROSE/WATER 1 250ML.BAG IV ONE; -NOREPINEPHRINE 4 MG in SODIUM CHLORIDE 0.9% 250 ML IV ONE; -PAPAVERINE 360 MG in SODIUM CHLORIDE 0.9% 90 ML IV ONE; -PHENYLEPHRINE 10 MG/ML VIAL IV ONE; -PHENYLEPHRINE 40 MG in SODIUM CHLORIDE 0.9% 250 ML IV ONE; -PROPOFOL 1,000 MG/100 ML VIAL IV ONE; -PROTAMINE SULFATE 10 MG/ML 25 ML VIAL IV ONE; -PROTAMINE SULFATE 250 MG in EMPTY BAG 1 BAG IV ONE; -SODIUM BICARB 8.4% 50 ML SYR (1 MEQ/ML) IV ONE; +SODIUM CHLORIDE 0.9% 1,000 ML IV SCH; +SODIUM CHLORIDE 0.9% 1,000 ML in EMPTY BAG 1 BAG IV ONE; -TRANEXAMIC ACID 2,000 MG in SODIUM CHLORIDE 0.9% 80 ML IV ONE; -VANCOMYCIN 1,000 MG VIAL MISCELLANE ONE; -ceFAZolin 2,000 MG in SODIUM CHLORIDE 0.9% 30 ML IVPB ONE
[2020-09-07 07:00] VITALS: TEMP 97.9
--- NOTE | 2020-09-07 08:37 | IR ---
Fluoroscopy HISTORY: Pain 1.1 minutes fluoroscopy time supplied to the referring clinician. 84 intraoperative C-arm images doc ument the procedure. See dictated report from cardiology.
--- NOTE | 2020-09-07 08:42 | AN ---
ANGIOGRAPHY REPORT DATE OF SERVICE: September 07, 2020 PERFORMING PHYSICIAN: Gerber Winkler MD. PROCEDURE PERFORMED: 1. An abdominal aortogram. 2. Bilateral lower extremities runoff. INDICATION: This is a 74-year-old female patient who sees Dr. 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 She was brought today to undergo an angiogram. APPROACH: Right common femoral artery. COMPLICATION: None. LEVEL OF SEDATION: Moderate with sedation length of 9 minutes. PROCEDURE DESCRIPTION: After obtaining an informed consent, the patient was brought to the cardiac laborer tin can. The right common femoral artery was cannulated using micropuncture technique, the micropuncture wire passed easily then I placed a 5-Venezuelan sheath at the right common femoral artery. An abdominal aortogram and bilateral lower extremities runoff were performed using 5- [place] pigtail catheter which was initially placed at the level of the renal arteries then it was pulled into above the bifurcation of the aorta to right and left common iliac arteries. The procedure was completed without any complication. SELECTIVE PERIPHERAL ANGIOGRAM: 1. The aorta is angiographically normal. 2. Common Iliac Arteries: The right and left common iliac arteries appeared to be angiographically normal. 3. Internal Iliac Arteries: The right and left internal iliac arteries appeared to be angiographically normal. 4. External Iliac Arteries: The right and left external iliac arteries appeared to be angiographically normal. 5. Common Femoral Arteries: The right and left common femoral arteries appeared to be angiographically normal. 6. Profunda: Both are patent. 7. SFA: Both are angiographically normal. 8. Popliteal: Both are angiographically normal. 9. Below The Knee: There are 3 vessels runoff below the knee bilaterally. CONCLUSION: Normal peripheral angiogram. POSTPROCEDURE MANAGEMENT: 1. Medical treatment. 2. Follow up with Dr. Bennett as an outpatient. MMODL / IJN: [id number] /
[2020-09-07 08:48] VITALS: RESP 16
[2020-09-07 14:39] VITALS: BP 148/72; PULSE 65
== END ==
LOC: CATHCVL 06:22
PROVIDERS: ATTEND Internal Medicine Interventional Cardiology
DX: I73.9 Peripheral vascular disease, unspecified (principal); I25.10 Atherosclerotic heart disease of native coronary artery without angina pectoris; I10 Essential (primary) hypertension; E78.5 Hyperlipidemia, unspecified; E66.9 Obesity, unspecified; Z68.41 Body mass index [BMI] 40.0-44.9, adult; I65.29 Occlusion and stenosis of unspecified carotid artery; Z95.5 Presence of coronary angioplasty implant and graft; Z87.891 Personal history of nicotine dependence; G47.33 Obstructive sleep apnea (adult) (pediatric); Z99.89 Dependence on other enabling machines and devices; Z96.659 Presence of unspecified artificial knee joint; Z79.02 Long term (current) use of antithrombotics/antiplatelets; Z79.82 Long term (current) use of aspirin; Z79.899 Other long term (current) drug therapy
CPT/HCPCS: 36200; 75625; 75716; C1769 ×4; C1894; J2001

== ENCOUNTER → 2021-02-25 | Outpatient (CLI) | payer MEDICARE, BC ==
--- NOTE | 2021-03-01 08:50 | MM ---
Reason for exam: screening (asymptomatic). Last mammogram was performed 1 year and 9 months ago. History: Patient is postmenopausal and history of other cancer. Benign stereotactic core biopsy of the left breast, January 10, 2003. Benign ultrasound-guided core biopsy, December 21, 1998. Core biopsy of the left breast. Core biopsy of the right breast. Physical Findings: A clinical breast exam by your physician is recommended on an annual basis and results should be correlated with mammographic findings. MG 3D Screening Mammo W/Cad Bilateral CC, MLO, and XCCL view(s) were taken. Prior study comparison: May 23, 2019, bilateral MG 3d screening mammo w/cad. March 26, 2018, mammogram, performed at [facility]. There are scattered fibroglandular densities. Previous mammotome biopsy in the right and left breast. Tiny benign oil cyst calcifications. 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 No significant changes when compared with prior studies. ASSESSMENT: Benign, BI-RAD 2 RECOMMENDATION: Routine screening mammogram of both breasts in 1 year.
== END | disposition home or self-care (01) ==
LOC: RADMAMWWP 15:01
PROVIDERS: ATTEND Obstetrics & Gynecology
DX: Z12.31 Encounter for screening mammogram for malignant neoplasm of breast (principal); Z78.0 Asymptomatic menopausal state; Z85.9 Personal history of malignant neoplasm, unspecified
CPT/HCPCS: 77063; 77067

== ENCOUNTER 2021-03-29 22:45 | Emergency (ER) | payer MEDICARE, BC ==
[2021-03-29 22:58] VITALS: TEMP 97.6
--- NOTE | 2021-03-29 23:59 | ED ---
Abdominal Pain HPI - General Chief Complaint: Abdominal Pain Stated Complaint: Abdominal pain, back pain, leg numbness Time Seen by Provider: 03/29/21 23:46 Source: patient Mode of arrival: ambulatory Limitations: no limitations - History of Present Illness Initial Comments: 's patient is a 75-year-old woman who presents to be evaluate for back and epig astric pain. She states that the pain started probably around 9 PM tonight. She states she was just sitting at the time. She noticed it in the back between shoulder blades. She is and also is having some epigastric pain. Patient called her [id number] and then she also took some Tylenol. She states that as there were bringing her here pain did subside and she declines analgesics now. She also had some nausea but no other associated symptoms. MD Complaint: abdominal pain Onset/Timin -: hour(s) Location: epigastric Radiation: back Migration to: no migration Severity: severe Quality: cramping, aching, burning Consistency: now resolved Improves With: nothing Worsens With: nothing Treatments Prior to Arrival: other (Tylenol) - Related Data Home Medications Medication Instructions Recorded Confirmed Furosemide [Lasix] 40 mg PO BID 05/23/14 09/07/20 Atorvastatin [Lipitor] 80 mg PO HS 01/16/18 09/07/20 Multivit-Min/Iron/Folic/Lutein 1 each PO DAILY 08/30/19 09/07/20 [Centrum Silver Women Tablet] Pantoprazole [Protonix] 40 mg PO QAM 08/30/19 09/07/20 Sennosides [Senna] 8.6 mg PO DAILY 09/24/19 09/07/20 ALPRAZolam [Xanax] 0.25 mg PO DAILY PRN 09/03/20 09/07/20 Aspirin [Adult Low Dose Aspirin EC] 81 mg PO DAILY 09/03/20 09/07/20 Metoprolol Succinate (ER) [Toprol 75 mg PO DAILY 09/03/20 09/07/20 XL] Nitroglycerin Sl Tabs [Nitrostat] 0.4 mg SUBLINGUAL Q5M PRN 09/03/20 09/03/20 Previous Rx's Medication Instructions Recorded Acetaminophen Tab [Tylenol] 1,000 mg PO Q6HR PRN tab 10/09/19 Clopidogrel [Plavix] 75 mg PO DAILY tab 10/09/19 Famotidine [Pepcid] 20 mg PO BID #14 tablet 03/30/21 Allergies Allergy/AdvReac Type Severity Reaction Status Date / Time No Known Allergies Allergy Verified 03/29/21 22:54 Review of Systems ROS Statement: Those systems with pertinent positive or pertinent negative responses have been documented in the HPI. ROS Other: All systems not noted in ROS Statement are negative. Constitutional: Denies: fever, chills Respiratory: Denies: cough, dyspnea Cardiovascular: Denies: chest pain, palpitations Gastrointestinal: Reports: abdominal pain, nausea. Denies: vomiting, diarrhea, constipation Genitourinary: Denies: dysuria, hematuria Musculoskeletal: Denies: back pain Skin: Denies: rash Neurological: Denies: headache, weakness, numbness Past Medical History Past Medical History: Coronary Artery Disease (CAD), Cancer, Chest Pain / Angina, Heart Failure, GERD/Reflux, Hyperlipidemia, Hypertension, Osteoarthritis (OA), Sleep Apnea/CPAP/BIPAP Additional Past Medical History / Comment(s): hiatal hernia, constipation, occasional back pain, uses cane prn, hx of falls, uses C-Pap machine rarely, Skin Cancer. PAST WOODWORKING SHOP LABORER HISTORY: She has no history of STDs. History of Any Multi-Drug Resistant Organisms: None Reported Past Surgical History: Breast Surgery, Cholecystectomy, Heart Catheterization, Heart Catheterization With Stent, Joint Replacement, Tubal Ligation Additional Past Surgical History / Comment(s): bilat total knee, juan pablo cataract with lens implants, skin CA 2016, juan pablo benign breast biopsies,mult heart caths,angiography 1988. Triple bypass cardiac surgery. Past Anesthesia/Blood Transfusion Reactions: No Reported Reaction Additional Past Anesthesia/Blood Transfusion Reaction / Comment(s): no hx blood transfusion Date of Last Stent Placement:: 2005 Past Psychological History: Anxiety, Depression Smoking Status: Former smoker Past Alcohol Use History: None Reported Past Drug Use History: None Reported - Past Family History Father Family Medical History: Myocardial Infarction ([place]) Additional Family Medical History / Comment(s): Father at age 63 from coronary artery disease. Mother Additional Family Medical History / Comment(s): Mother at age 94 from heart disease. Maternal grandmother had gastric cancer. She denies family history of cancer of the breast, uterus, ovaries, or colon. Sister(s) Family Medical History: COPD, Coronary Artery Disease (CAD) Additional Family Medical History / Comment(s): Patient had total of 4 sisters: One from coronary artery disease, one from COPD, one from an overdose. Brother(s) Family Medical History: Coronary Artery Disease (CAD) Additional Family Medical History / Comment(s): Patient had 2 brothers and one has history of coronary artery disease and CABG as well as amputations due to agent orange. Second brother has no major medical problems. 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 General Exam Limitations: no limitations General appearance: alert, in no apparent distress Head exam: Present: atraumatic, normocephalic Eye exam: Present: normal appearance. Absent: scleral icterus, conjunctival injection Respiratory exam: Present: normal lung sounds bilaterally. Absent: respiratory distress, wheezes, rales, rhonchi, stridor Cardiovascular Exam: Present: regular rate, normal rhythm, normal heart sounds. Absent: systolic murmur, diastolic murmur, rubs, gallop GI/Abdominal exam: Present: soft, normal bowel sounds. Absent: distended, tenderness, guarding, rebound, rigid, mass, pulsatile mass, hernia Extremities exam: Present: normal inspection, normal capillary refill. Absent: pedal edema, calf tenderness Back exam: Present: normal inspection. Absent: CVA tenderness (R), CVA tenderness (L) Neurological exam: Present: alert Skin exam: Present: warm, dry, intact, normal color. Absent: rash Course Vital Signs 03/29/21 03/29/21 22:54 23:57 Temperature 97.6 F Pulse Rate 72 68 Respiratory 18 18 Rate Blood Pressure 162/80 130/55 O2 Sat by Pulse 99 97 Oximetry Medical Decision Making - Lab Data Result diagrams: 03/30/21 00:10 03/30/21 00:10 Lab Results 03/30/21 03/30/21 03/30/21 Range/Units 00:10 00:10 00:10 WBC 6.7 (3.8-10.6) k/uL RBC 4.37 (3.80-5.40) m/uL Hgb 14.0 (11.4-16.0) gm/dL Hct 42.1 (34.0-46.0) % MCV 96.3 (80.0-100.0) fL MCH 31.9 (25.0-35.0) pg MCHC 33.2 (31.0-37.0) g/dL RDW 14.3 (11.5-15.5) % Plt Count 199 (150-450) k/uL MPV 8.3 Neutrophils % 66 % Lymphocytes % 19 % Monocytes % 6 % Eosinophils % 5 % Basophils % 1 % Neutrophils # 4.5 (1.3-7.7) k/uL Lymphocytes # 1.3 (1.0-4.8) k/uL Monocytes # 0.4 (0-1.0) k/uL Eosinophils # 0.3 (0-0.7) k/uL Basophils # 0.1 (0-0.2) k/uL Sodium 137 (137-145) mmol/L Potassium 3.9 (3.5-5.1) mmol/L Chloride 104 (98-107) mmol/L Carbon Dioxide 24 (22-30) mmol/L Anion Gap 9 mmol/L BUN 21 H (7-17) mg/dL Creatinine 0.54 (0.52-1.04) mg/dL Est GFR (CKD-EPI)AfAm >90 (>60 ml/min/1.73 sqM) Est GFR (CKD-EPI)NonAf >90 (>60 ml/min/1.73 sqM) Glucose 107 H (74-99) mg/dL Calcium 9.5 (8.4-10.2) mg/dL Total Bilirubin 0.4 (0.2-1.3) mg/dL AST 32 (14-36) U/L ALT 19 (4-34) U/L Alkaline Phosphatase 138 H (38-126) U/L Troponin I <0.012 (0.000-0.034) ng/mL Total Protein 7.1 (6.3-8.2) g/dL Albumin 3.9 (3.5-5.0) g/dL Amylase 47 (30-110) U/L Lipase 54 (23-300) U/L Urine Color Urine Appearance (Clear) Urine pH (5.0-8.0) Ur Specific [place] (1.001-1.035) Urine Protein (Negative) Urine Glucose (UA) (Negative) Urine Ketones (Negative) Urine Blood (Negative) Urine Nitrite (Negative) Urine Bilirubin (Negative) Urine Urobilinogen (<2.0) mg/dL Ur Leukocyte Esterase (Negative) Urine RBC (0-5) /hpf Urine WBC (0-5) /hpf Ur Squamous Epith Cells (0-4) /hpf Amorphous Sediment (None) /hpf Urine Bacteria (None) /hpf Urine Mucus (None) /hpf 03/30/21 Range/Units 01:02 WBC (3.8-10.6) k/uL RBC (3.80-5.40) m/uL Hgb (11.4-16.0) gm/dL Hct (34.0-46.0) % MCV (80.0-100.0) fL MCH (25.0-35.0) pg MCHC (31.0-37.0) g/dL RDW (11.5-15.5) % Plt Count (150-450) k/uL MPV Neutrophils % % Lymphocytes % % Monocytes % % Eosinophils % % Basophils % % Neutrophils # (1.3-7.7) k/uL Lymphocytes # (1.0-4.8) k/uL Monocytes # (0-1.0) k/uL Eosinophils # (0-0.7) k/uL Basophils # (0-0.2) k/uL Sodium (137-145) mmol/L Potassium (3.5-5.1) mmol/L Chloride (98-107) mmol/L Carbon Dioxide (22-30) mmol/L Anion Gap mmol/L BUN (7-17) mg/dL Creatinine (0.52-1.04) mg/dL Est GFR (CKD-EPI)AfAm (>60 ml/min/1.73 sqM) Est GFR (CKD-EPI)NonAf (>60 ml/min/1.73 sqM) Glucose (74-99) mg/dL Calcium (8.4-10.2) mg/dL Total Bilirubin (0.2-1.3) mg/dL AST (14-36) U/L ALT (4-34) U/L Alkaline Phosphatase (38-126) U/L Troponin I (0.000-0.034) ng/mL Total Protein (6.3-8.2) g/dL Albumin (3.5-5.0) g/dL Amylase (30-110) U/L Lipase (23-300) U/L Urine Color Light Yellow Urine Appearance Clear (Clear) Urine pH 6.0 (5.0-8.0) Ur Specific [place] 1.011 (1.001-1.035) Urine Protein Negative (Negative) Urine Glucose (UA) Negative (Negative) Urine Ketones Negative (Negative) Urine Blood Negative (Negative) Urine Nitrite Negative (Negative) Urine Bilirubin Negative (Negative) Urine Urobilinogen <2.0 (<2.0) mg/dL Ur Leukocyte Esterase Trace H (Negative) Urine RBC <1 (0-5) /hpf Urine WBC 4 (0-5) /hpf Ur Squamous Epith Cells <1 (0-4) /hpf Amorphous Sediment Rare H (None) /hpf Urine Bacteria Rare H (None) /hpf Urine Mucus Rare H (None) /hpf Disposition Clinical Impression: Epigastric pain Disposition: HOME SELF-CARE Condition: Good Instructions (If sedation given, give patient instructions): Abdominal Pain (ED) Prescriptions: Famotidine [Pepcid] 20 mg PO BID #14 tablet Is patient prescribed a controlled substance at d/c from ED?: No Referrals: Matthew Le MD [Primary Care Provider] - 1-2 days
[2021-03-30 00:22] LABS: Basophils # (A) 0.1 k/uL (0-0.2); Basophils % (A) 1 %; Eosinophils # (A) 0.3 k/uL (0-0.7); Eosinophils % (A) 5 %; HCT 42.1 % (34.0-46.0); Lymphocytes # (A) 1.3 k/uL (1.0-4.8); Lymphocytes % (A) 19 %; MCH 31.9 pg (25.0-35.0); MCHC 33.2 g/dL (31.0-37.0); MCV 96.3 fL (80.0-100.0); Mean Platelet Volume 8.3; Monocytes # (A) 0.4 k/uL (0-1.0); Monocytes % (A) 6 %; Neutrophils # (A) 4.5 k/uL (1.3-7.7); Neutrophils % (A) 66 %; Platelet Count 199 k/uL (150-450); RBC 4.37 m/uL (3.80-5.40); RDW 14.3 % (11.5-15.5); WBC 6.7 k/uL (3.8-10.6)
[2021-03-30 00:41] LABS: ALT 19 U/L (4-34); AST 32 U/L (14-36); African American GFR (CKD) >90 (>60 ml/min/1.73 sqM); Albumin 3.9 g/dL (3.5-5.0); Alkaline Phosphatase 138 U/L (38-126); Amylase 47 U/L (30-110); Anion Gap 9 mmol/L; Blood Urea Nitrogen 21 mg/dL (7-17); Calcium 9.5 mg/dL (8.4-10.2); Carbon Dioxide 24 mmol/L (22-30); Chloride 104 mmol/L (98-107); Glucose 107 mg/dL (74-99); Lipase 54 U/L (23-300); Non-African American GFR(CKD) >90 (>60 ml/min/1.73 sqM); Potassium 3.9 mmol/L (3.5-5.1); Sodium 137 mmol/L (137-145); Total Bilirubin 0.4 mg/dL (0.2-1.3); Total Protein 7.1 g/dL (6.3-8.2)
--- NOTE | 2021-03-30 00:50 | CT ---
EXAMINATION TYPE: CT abdomen pelvis wo con DATE OF EXAM: 03/30/2021 COMPARISON: 06/18/2018 HISTORY: ABDOMINAL CHEST & BACK PAIN, BILAT LEG NUMBNESS CT DLP: 1324.4 mGycm Automated exposure control for dose reduction was used. Images obtained from the diaphragm to the floor the pelvis with no contrast. There is some linear infiltrate and atelectasis left lung base. There is mild left pleural effusion. Liver is intact. The bile ducts are not dilated. Gallbladder is contracted. There is no pancreatic ma ss. Spleen is intact. Stomach is intact. There is large paraesophageal hiatal hernia noted. There is no adrenal mass. Kidneys have normal size. There is no hydronephrosis. Ureters are not dilat ed. There is no retroperitoneal adenopathy. Bladder distends smoothly. There is no inguinal hernia. T here is no free fluid in the pelvis. There is no mesenteric edema. There is no ascites or free air. There is no evidence of a bowel obstru ction. I see no pelvic mass. Abdominal aorta is atheromatous. There is multilevel lumbar spondylotic changes. There is spur formation. There is no significant comp ression deformity. Bony pelvis is intact. There is spurring at the hip joints. There is no evidence o f pelvic fracture. Uterus appears to be present and is anteverted. IMPRESSION: There is infiltrate and atelectasis left lower lobe. Cardiomegaly. Paraesophageal hiatal hernia. Unch anged. No acute abnormality within the abdomen pelvis. No bowel obstruction.
[2021-03-30 01:11] LABS: Amorphous Sediment,Urine Rare /hpf; Appearance,Urine Clear (Clear); Bacteria,Urine Rare /hpf; Bilirubin,Urine Negative (Negative); Blood,Urine Negative (Negative); Color,Urine Light Yellow; Glucose,Urine (UA) Negative (Negative); Ketones,Urine Negative (Negative); Leukocyte Esterase,Urine Trace (Negative); Mucus,Urine Rare /hpf; Nitrite,Urine Negative (Negative); Protein,Urine Negative (Negative); RBC,Urine <1 /hpf (0-5); Specific Gravity,Urine 1.011 (1.001-1.035); Squamous Epithelial Cell,Urine <1 /hpf (0-4); Urobilinogen,Urine <2.0 mg/dL (<2.0); WBC,Urine 4 /hpf (0-5)
[2021-03-30 01:47] VITALS: BP 121/65; PULSE 82; RESP 16
== END 2021-03-30 01:54 | disposition home or self-care (01) ==
LOC: EC 22:45
DX: R10.13 Epigastric pain (principal); I11.0 Hypertensive heart disease with heart failure; I50.9 Heart failure, unspecified; E78.5 Hyperlipidemia, unspecified; I25.10 Atherosclerotic heart disease of native coronary artery without angina pectoris; K21.9 Gastro-esophageal reflux disease without esophagitis; M19.90 Unspecified osteoarthritis, unspecified site; F32.9 Major depressive disorder, single episode, unspecified; F41.9 Anxiety disorder, unspecified; Z87.891 Personal history of nicotine dependence; Z79.82 Long term (current) use of aspirin; Z79.02 Long term (current) use of antithrombotics/antiplatelets; Z79.899 Other long term (current) drug therapy; Z82.49 Family history of ischemic heart disease and other diseases of the circulatory system
CPT/HCPCS: 36415; 74176; 80053; 81001; 82150; 83690; 84484; 85025; 93005; 99284

== ENCOUNTER → 2021-04-17 | Outpatient (CLI) | payer MEDICARE, BC ==
--- NOTE | 2021-04-18 10:33 | XR ---
EXAMINATION TYPE: XR chest 2V DATE OF EXAM: 04/17/2021 COMPARISON: 10/09/2019 HISTORY: 75-year-old female pre-MRI exam. V90.9 Z18.10 TECHNIQUE: Frontal and lateral views FINDINGS: Heart normal size. Median sternotomy wires and post-CABG clips the mediastinum. Focal retrocardiac an d left basilar rounded opacity. Either pleural parenchymal scarring or small left effusion with adjac ent opacity noted. Sutures along the anterior abdominal wall. No retained epicardial pacer leads are seen. [facility] in the mid and lower thoracic spine. IMPRESSION: 1. Median sternotomy wires and post-CABG clips. Additional sutures anterior abdominal wall. No retain ed epicardial pacer leads. 2. Moderate to large hiatal hernia. 3. A very small left pleural effusion with adjacent atelectasis and/or consolidation versus left basi lar pleural parenchymal scarring.
== END | disposition home or self-care (01) ==
LOC: RADXRMAIN 10:51
PROVIDERS: ATTEND Physical Medicine & Rehabilitation
DX: Z01.818 Encounter for other preprocedural examination (principal); K44.9 Diaphragmatic hernia without obstruction or gangrene; J90 Pleural effusion, not elsewhere classified; Z95.1 Presence of aortocoronary bypass graft
CPT/HCPCS: 71046

== ENCOUNTER 2022-03-06 10:03 | Emergency (ER) | payer MEDICARE ==
[2022-03-06 10:07] VITALS: RESP 16; TEMP 97.8
[2022-03-06] MEDS ORDERED: KETOROLAC 15 MG/ML 1 ML VIAL IM STA (10:30)
--- NOTE | 2022-03-06 10:37 | ED ---
General Adult HPI - General Chief complaint: Extremity Problem,Nontraumatic Stated complaint: R leg pain Time Seen by Provider: 03/06/22 10:05 Source: patient, RN notes reviewed, old records reviewed Mode of arrival: ambulatory Limitations: no limitations - History of Present Illness Initial comments: This is a 76-year-old female presents emergency Department complaining of a two- week history of right lower back and right hip pain. Patient states the pain radiates down to the knee. Patient states she did fall just prior to this 2 weeks ago. Patient states she had x-rays of her hip at her doctor's office and they didn't find any problems. Patient states this morning the pain was so bad she couldn't walk. Patient denies any other trauma. Patient denies any abdominal pain patient denies any fever chills. Patient denies any swelling legs or calf tenderness. - Related Data Home Medications Medication Instructions Recorded Confirmed Furosemide [Lasix] 40 mg PO BID 05/23/14 09/07/20 Atorvastatin [Lipitor] 80 mg PO HS 01/16/18 09/07/20 Multivit-Min/Iron/Folic/Lutein 1 each PO DAILY 08/30/19 09/07/20 [Centrum Silver Women Tablet] Pantoprazole [Protonix] 40 mg PO QAM 08/30/19 09/07/20 Sennosides [Senna] 8.6 mg PO DAILY 09/24/19 09/07/20 ALPRAZolam [Xanax] 0.25 mg PO DAILY PRN 09/03/20 09/07/20 Aspirin [Adult Low Dose Aspirin EC] 81 mg PO DAILY 09/03/20 09/07/20 Metoprolol Succinate (ER) [Toprol 75 mg PO DAILY 09/03/20 09/07/20 XL] Nitroglycerin Sl Tabs [Nitrostat] 0.4 mg SUBLINGUAL Q5M PRN 09/03/20 09/03/20 Previous Rx's Medication Instructions Recorded Acetaminophen Tab [Tylenol] 1,000 mg PO Q6HR PRN tab 10/09/19 Clopidogrel [Plavix] 75 mg PO DAILY tab 10/09/19 Famotidine [Pepcid] 20 mg PO BID #14 tablet 03/30/21 predniSONE [Deltasone] 40 mg PO DAILY #8 tab 03/06/22 Allergies Allergy/AdvReac Type Severity Reaction Status Date / Time No Known Allergies Allergy Verified 03/06/22 10:07 Review of Systems ROS Statement: Those systems with pertinent positive or pertinent negative responses have been documented in the HPI. ROS Other: All systems not noted in ROS Statement are negative. Past Medical History Past Medical History: Coronary Artery Disease (CAD), Cancer, Chest Pain / Angina, Heart Failure, GERD/Reflux, Hyperlipidemia, Hypertension, Osteoarthritis (OA), Sleep Apnea/CPAP/BIPAP Additional Past Medical History / Comment(s): hiatal hernia, constipation, occasional back pain, uses cane prn, hx of falls, uses C-Pap machine rarely, Skin Cancer. 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 History of Any Multi-Drug Resistant Organisms: None Reported Past Surgical History: Breast Surgery, Cholecystectomy, Heart Catheterization, Heart Catheterization With Stent, Joint Replacement, Tubal Ligation Additional Past Surgical History / Comment(s): bilat total knee, juan pablo cataract with lens implants, skin CA 2016, juan pablo benign breast biopsies,mult heart caths,angiography 1988. Triple bypass cardiac surgery. Past Anesthesia/Blood Transfusion Reactions: No Reported Reaction Additional Past Anesthesia/Blood Transfusion Reaction / Comment(s): no hx blood transfusion Date of Last Stent Placement:: 2005 Past Psychological History: Anxiety, Depression Smoking Status: Former smoker Past Alcohol Use History: None Reported Past Drug Use History: None Reported - Past Family History Father Family Medical History: Myocardial Infarction ([place]) Additional Family Medical History / Comment(s): Father at age 63 from coronary artery disease. Mother Additional Family Medical History / Comment(s): Mother at age 94 from heart disease. Maternal grandmother had gastric cancer. She denies family history of cancer of the breast, uterus, ovaries, or colon. Sister(s) Family Medical History: COPD, Coronary Artery Disease (CAD) Additional Family Medical History / Comment(s): Patient had total of 4 sisters: One from coronary artery disease, one from COPD, one from an overdose. Brother(s) Family Medical History: Coronary Artery Disease (CAD) Additional Family Medical History / Comment(s): Patient had 2 brothers and one has history of coronary artery disease and CABG as well as amputations due to agent orange. Second brother has no major medical problems. 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 General Exam - General Exam Comments Initial Comments: GENERAL: Patient is well-developed and well-nourished. Patient is nontoxic and well- hydrated and is in mild distress. ENT: Neck is soft and supple. No significant lymphadenopathy is noted. Oropharynx is clear. Moist mucous membranes. Neck has full range of motion without eliciting any pain. EYES: The sclera were anicteric and conjunctiva were pink and moist. Extraocular movements were intact and pupils were equal round and reactive to light. Eyelids were unremarkable. PULMONARY: Unlabored respirations. Good breath sounds bilaterally. No audible rales rhonchi or wheezing was noted. CARDIOVASCULAR: There is a regular rate and rhythm without any murmurs gallops or rubs. ABDOMEN: Soft and nontender with normal bowel sounds. SKIN: Skin is clear with no lesions or rashes and otherwise unremarkable. NEUROLOGIC: Patient is alert and oriented x3. Cranial nerves II through XII are grossly intact. Motor and sensory are also intact. Normal speech, volume and content. Symmetrical smile. Straight leg test was positive at about 30 on the right. Patient had some tenderness on palpation of the right lower back. MUSCULOSKELETAL: Normal extremities with adequate strength and full range of motion. LYMPHATICS: No significant lymphadenopathy is noted PSYCHIATRIC: Normal psychiatric evaluation. Limitations: no limitations Course Vital Signs 03/06/22 10:04 Temperature 97.8 F Pulse Rate 66 Respiratory 16 Rate Blood Pressure 144/74 O2 Sat by Pulse 97 Oximetry Medical Decision Making - Medical Decision Making Lumbosacral spine x-ray shows no acute abnormality patient has significant degenerative disc disease. Hip x-ray shows no acute abnormality. Patient received Toradol and Dilaudid emergency department. As well as steroids. Disposition Clinical Impression: Sciatica Disposition: HOME SELF-CARE Instructions (If sedation given, give patient instructions): Sciatica (ED) Prescriptions: predniSONE [Deltasone] 40 mg PO DAILY #8 tab Is patient prescribed a controlled substance at d/c from ED?: No Referrals: Matthew Le MD [Primary Care Provider] - 1-2 days Time of Disposition: 12:05
--- NOTE | 2022-03-06 11:11 | XR ---
EXAMINATION TYPE: XR Hip RT and AP Pelvis DATE OF EXAM: 03/06/2022 10:57 AM INDICATION: Patient age:Female; 76 years old; Reason for study: Hip pain; COMPARISON: None. TECHNIQUE: The right hip was examined in the frontal and lateral projections and a AP pelvis. FINDINGS: No evidence for acute process, joint dislocation or significant soft tissue swelling. Osteo phyte formation and mild joint space narrowing of the hips. Pelvic phlebolith are present. IMPRESSION: 1. No acute process. 2. Moderate bilateral hip osteoarthrosis.
--- NOTE | 2022-03-06 11:12 | XR ---
EXAMINATION TYPE: XR lumbosacral spine min 4V DATE OF EXAM: 03/06/2022 10:57 AM INDICATION: Patient age:Female; 76 years old; Reason for study: Back pain; COMPARISON: MRI lumbar spine 08/23/2011 TECHNIQUE: Frontal, lateral , bilateral oblique and coned in L5-S1 lateral views of the spine. FINDINGS: Multilevel osteophyte formation throughout the spine with disc space narrowing and facet apollo int arthropathy. There is multilevel at least mild neural foraminal narrowing. No definitive evidence for fracture. Surgical riaz are present. Atherosclerosis of the arterial vasculature. Pelvic flui d was present. IMPRESSION: 1. No acute process. 2. Large severe disc degeneration of the spine.
[2022-03-06] MEDS ORDERED: HYDROmorphone 0.5 MG/0.5 ML SYRINGE IM STA (12:04)
[2022-03-06] MEDS ORDERED: predniSONE 50 MG TAB PO STA (12:04)
[2022-03-06] MEDS ORDERED: ACET/COD 300 MG/30 MG STARTER PACK 6 TAB BTL PO STA (12:05)
[2022-03-06 12:13] VITALS: BP 148/56; PULSE 58
== END 2022-03-06 12:37 | disposition home or self-care (01) ==
LOC: EC 10:03
DX: M54.31 Sciatica, right side (principal); I11.0 Hypertensive heart disease with heart failure; I25.10 Atherosclerotic heart disease of native coronary artery without angina pectoris; I50.9 Heart failure, unspecified; K21.9 Gastro-esophageal reflux disease without esophagitis; E78.5 Hyperlipidemia, unspecified; M19.90 Unspecified osteoarthritis, unspecified site; Z87.891 Personal history of nicotine dependence; Z79.899 Other long term (current) drug therapy; Z79.82 Long term (current) use of aspirin
CPT/HCPCS: 72110; 73502; 99283; 96372; J1885; J7512; J1170

== ENCOUNTER 2022-04-19 10:55 | Emergency (ER) | payer MEDICARE ==
[2022-04-19 11:02] VITALS: TEMP 97.5
--- NOTE | 2022-04-19 13:09 | XR ---
Left femur HISTORY: Trauma and pain Frontal lateral views of the left femur submitted on 4 images Bone mineralization is reduced. Alignment and joint spaces are maintained. Patient shows left knee ar throplasty change. IMPRESSION: No fracture or dislocation of the left femur. Osteopenia.
--- NOTE | 2022-04-19 13:13 | ED ---
Lower Extremity Injury HPI - General Chief Complaint: Extremity Injury, Lower Stated Complaint: fall, lt leg swelling Time Seen by Provider: 04/19/22 11:58 Source: patient, RN notes reviewed Mode of arrival: ambulatory Limitations: no limitations - History of Present Illness Initial Comments: 76-year-old female presents emergency Department with chief complaint of left leg pain, swelling bruising. 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 Patient's complaining increasing pain states her some bruising and swelling. Patient denies any other muscular binging no head injury no loss conscious. Patient was other complaints. - Related Data Home Medications Medication Instructions Recorded Confirmed Furosemide [Lasix] 40 mg PO BID 05/23/14 09/07/20 Atorvastatin [Lipitor] 80 mg PO HS 01/16/18 09/07/20 Multivit-Min/Iron/Folic/Lutein 1 each PO DAILY 08/30/19 09/07/20 [Centrum Silver Women Tablet] Pantoprazole [Protonix] 40 mg PO QAM 08/30/19 09/07/20 Sennosides [Senna] 8.6 mg PO DAILY 09/24/19 09/07/20 ALPRAZolam [Xanax] 0.25 mg PO DAILY PRN 09/03/20 09/07/20 Aspirin [Adult Low Dose Aspirin EC] 81 mg PO DAILY 09/03/20 09/07/20 Metoprolol Succinate (ER) [Toprol 75 mg PO DAILY 09/03/20 09/07/20 XL] Nitroglycerin Sl Tabs [Nitrostat] 0.4 mg SUBLINGUAL Q5M PRN 09/03/20 09/03/20 Previous Rx's Medication Instructions Recorded Acetaminophen Tab [Tylenol] 1,000 mg PO Q6HR PRN tab 10/09/19 Clopidogrel [Plavix] 75 mg PO DAILY tab 10/09/19 Famotidine [Pepcid] 20 mg PO BID #14 tablet 03/30/21 predniSONE [Deltasone] 40 mg PO DAILY #8 tab 03/06/22 Allergies Allergy/AdvReac Type Severity Reaction Status Date / Time No Known Allergies Allergy Verified 04/19/22 11:01 Review of Systems ROS Statement: Those systems with pertinent positive or pertinent negative responses have been documented in the HPI. ROS Other: All systems not noted in ROS Statement are negative. 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 History of Any Multi-Drug Resistant Organisms: None Reported Past Surgical History: Breast Surgery, Cholecystectomy, Heart Catheterization, Heart Catheterization With Stent, Joint Replacement, Tubal Ligation Additional Past Surgical History / Comment(s): bilat total knee, juan pablo cataract with lens implants, skin CA 2016, juan pablo benign breast biopsies,mult heart caths,angiography 1988. Triple bypass cardiac surgery. Past Anesthesia/Blood Transfusion Reactions: No Reported Reaction Additional Past Anesthesia/Blood Transfusion Reaction / Comment(s): no hx blood transfusion Date of Last Stent Placement:: 2005 Past Psychological History: Anxiety, Depression Smoking Status: Former smoker Past Alcohol Use History: None Reported Past Drug Use History: None Reported - Past Family History Father Family Medical History: Myocardial Infarction ([place]) Additional Family Medical History / Comment(s): Father at age 63 from coronary artery disease. Mother Additional Family Medical History / Comment(s): Mother at age 94 from heart disease. Maternal grandmother had gastric cancer. She denies family history of cancer of the breast, uterus, ovaries, or colon. Sister(s) Family Medical History: COPD, Coronary Artery Disease (CAD) Additional Family Medical History / Comment(s): Patient had total of 4 sisters: One from coronary artery disease, one from COPD, one from an overdose. Brother(s) Family Medical History: Coronary Artery Disease (CAD) Additional Family Medical History / Comment(s): Patient had 2 brothers and one has history of coronary artery disease and CABG as well as amputations due to agent orange. Second brother has no major medical problems. 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 General Exam Limitations: no limitations General appearance: alert, in no apparent distress Head exam: Present: atraumatic, normocephalic, normal inspection Respiratory exam: Present: normal lung sounds bilaterally. Absent: respiratory distress, wheezes, rales, rhonchi, stridor Cardiovascular Exam: Present: regular rate, normal rhythm, normal heart sounds. Absent: systolic murmur, diastolic murmur, rubs, gallop, clicks Extremities exam: Present: other (Left leg there is a large hematoma left thigh anterolateral neurovascular intact patient's full range of motion) Course Vital Signs 04/19/22 10:59 Temperature 97.5 F L Pulse Rate 58 L Respiratory 20 Rate Blood Pressure 132/59 O2 Sat by Pulse 100 Oximetry Medical Decision Making - Medical Decision Making X-rays negative for acute fracture. Patient has a left leg hematoma will be discharged in stable condition return parameters discussed. Disposition Clinical Impression: Traumatic hematoma of left thigh Disposition: HOME SELF-CARE Condition: Stable Instructions (If sedation given, give patient instructions): Hematoma (ED) Additional Instructions: Please return to the Emergency Department if symptoms worsen or any other concerns. Is patient prescribed a controlled substance at d/c from ED?: No Referrals: Matthew Le MD [Primary Care Provider] - 1-2 days Time of Disposition: 13:13
[2022-04-19 13:35] VITALS: BP 136/89; PULSE 68; RESP 18
== END 2022-04-19 13:35 | disposition home or self-care (01) ==
LOC: EC 10:55
DX: I25.10 Atherosclerotic heart disease of native coronary artery without angina pectoris (principal); I10 Essential (primary) hypertension; K21.9 Gastro-esophageal reflux disease without esophagitis; E78.5 Hyperlipidemia, unspecified; Z87.891 Personal history of nicotine dependence; Z79.82 Long term (current) use of aspirin; Z79.899 Other long term (current) drug therapy; Z99.89 Dependence on other enabling machines and devices
CPT/HCPCS: 99284

== ENCOUNTER 2022-04-29 15:02 | Emergency (ER) | payer MEDICARE ==
[2022-04-29 15:49] VITALS: BP 124/79; PULSE 60; RESP 16; TEMP 98.2
[2022-04-29] MEDS ORDERED: HYDROcodone/APAP 7.5-325MG 1 EACH TAB PO ONE (16:49)
[2022-04-29 17:31] LABS: Basophils # (A) 0.1 k/uL (0-0.2); Basophils % (A) 1 %; Eosinophils # (A) 0.3 k/uL (0-0.7); Eosinophils % (A) 5 %; HCT 38.7 % (34.0-46.0); HGB 12.3 gm/dL (11.4-16.0); Lymphocytes # (A) 1.2 k/uL (1.0-4.8); Lymphocytes % (A) 19 %; MCH 29.9 pg (25.0-35.0); MCHC 31.7 g/dL (31.0-37.0); MCV 94.4 fL (80.0-100.0); Mean Platelet Volume 8.7; Monocytes # (A) 0.4 k/uL (0-1.0); Monocytes % (A) 6 %; Neutrophils # (A) 4.1 k/uL (1.3-7.7); Neutrophils % (A) 66 %; Platelet Count 179 k/uL (150-450); RBC 4.09 m/uL (3.80-5.40); RDW 12.9 % (11.5-15.5); WBC 6.2 k/uL (3.8-10.6)
[2022-04-29 17:39] LABS: ALT 15 U/L (4-34); African American GFR (CKD) >90 (>60 ml/min/1.73 sqM); Anion Gap 11 mmol/L; Blood Urea Nitrogen 14 mg/dL (7-17); Calcium 8.9 mg/dL (8.4-10.2); Carbon Dioxide 24 mmol/L (22-30); Chloride 101 mmol/L (98-107); Glucose 104 mg/dL (74-99); Non-African American GFR(CKD) >90 (>60 ml/min/1.73 sqM); Sodium 136 mmol/L (137-145); Total Bilirubin 0.8 mg/dL (0.2-1.3)
[2022-04-29 17:41] LABS: INR 0.9 (<1.2); Partial Thromboplastin Time 22.2 sec (22.0-30.0); Prothrombin Time 10.4 sec (9.0-12.0)
[2022-04-29 18:00] LABS: AST 35 U/L (14-36); Albumin 3.6 g/dL (3.5-5.0); Alkaline Phosphatase 124 U/L (38-126); Potassium 4.2 mmol/L (3.5-5.1); Total Protein 6.5 g/dL (6.3-8.2)
--- NOTE | 2022-04-29 18:27 | US ---
EXAMINATION TYPE: US venous doppler duplex LE LT DATE OF EXAM: 04/29/2022 5:41 PM COMPARISON: US CLINICAL HISTORY: swelling. Swelling. No hx of DVT. Patient on Plavix. Hx left knee replacement. Skye ent fell on 04/19/22. SIDE PERFORMED: Left TECHNIQUE: The lower extremity deep venous system is examined utilizing real time linear array sonog suman with graded compression, doppler sonography and color-flow sonography. VESSELS IMAGED: Common Femoral Vein Deep Femoral Vein Greater Saphenous Vein * Femoral Vein Popliteal Vein Small Saphenous Vein * Proximal Calf Veins (* superficial vessels) Left Leg: No evidence of DVT at this time. IMPRESSION: No evidence of deep vein thrombosis in the left leg.
[2022-04-29] MEDS ORDERED: ACET/COD 300 MG/30 MG STARTER PACK 6 TAB BTL PO STA (18:49)
[2022-04-29] MEDS ORDERED: CEPHALEXIN 500 MG CAP PO STA (18:55)
--- NOTE | 2022-04-29 18:55 | ED ---
Extremity Problem HPI - General Chief complaint: Extremity Problem,Nontraumatic Stated complaint: return for left leg swollen Time Seen by Provider: 04/29/22 16:38 Source: patient Mode of arrival: wheelchair - History of Present Illness Initial comments: Patient is a 76-year-old female presenting with chief complaint of left leg pain and swelling. Patient fell 10 days ago, was seen here in our ER, x-ray confirms no acute fracture or dislocation. Patient states that since then pain is been worsening, she is noticed increased swelling to the left lower leg. She also notes new redness around the ankle for left lower leg. She states she has had increased bruising since the fall. She denies any numbness, tingling, weakness, loss of range of motion, fever, chills, nausea, vomiting, chest pain, shortness of breath. - Related Data Home Medications Medication Instructions Recorded Confirmed Furosemide [Lasix] 40 mg PO BID 05/23/14 09/07/20 Atorvastatin [Lipitor] 80 mg PO HS 01/16/18 09/07/20 Multivit-Min/Iron/Folic/Lutein 1 each PO DAILY 08/30/19 09/07/20 [Centrum Silver Women Tablet] Pantoprazole [Protonix] 40 mg PO QAM 08/30/19 09/07/20 Sennosides [Senna] 8.6 mg PO DAILY 09/24/19 09/07/20 ALPRAZolam [Xanax] 0.25 mg PO DAILY PRN 09/03/20 09/07/20 Aspirin [Adult Low Dose Aspirin EC] 81 mg PO DAILY 09/03/20 09/07/20 Metoprolol Succinate (ER) [Toprol 75 mg PO DAILY 09/03/20 09/07/20 XL] Nitroglycerin Sl Tabs [Nitrostat] 0.4 mg SUBLINGUAL Q5M PRN 09/03/20 09/03/20 Previous Rx's Medication Instructions Recorded Acetaminophen Tab [Tylenol] 1,000 mg PO Q6HR PRN tab 10/09/19 Clopidogrel [Plavix] 75 mg PO DAILY tab 10/09/19 Famotidine [Pepcid] 20 mg PO BID #14 tablet 03/30/21 predniSONE [Deltasone] 40 mg PO DAILY #8 tab 03/06/22 Cephalexin [Keflex] 500 mg PO Q6HR 10 Days #40 cap 04/29/22 Allergies Allergy/AdvReac Type Severity Reaction Status Date / Time No Known Allergies Allergy Verified 04/29/22 15:49 Review of Systems ROS Statement: Those systems with pertinent positive or pertinent negative responses have been documented in the HPI. ROS Other: All systems not noted in ROS Statement are negative. 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 History of Any Multi-Drug Resistant Organisms: None Reported Past Surgical History: Breast Surgery, Cholecystectomy, Heart Catheterization, Heart Catheterization With Stent, Joint Replacement, Tubal Ligation Additional Past Surgical History / Comment(s): bilat total knee, juan pablo cataract with lens implants, skin CA 2016, juan pablo benign breast biopsies,mult heart caths,angiography 1988. Triple bypass cardiac surgery. Past Anesthesia/Blood Transfusion Reactions: No Reported Reaction Additional Past Anesthesia/Blood Transfusion Reaction / Comment(s): no hx blood transfusion Date of Last Stent Placement:: 2005 Past Psychological History: Anxiety, Depression Smoking Status: Former smoker Past Alcohol Use History: None Reported Past Drug Use History: None Reported - Past Family History Father Family Medical History: Myocardial Infarction ([place]) Additional Family Medical History / Comment(s): Father at age 63 from coronary artery disease. Mother Additional Family Medical History / Comment(s): Mother at age 94 from heart disease. Maternal grandmother had gastric cancer. She denies family history of cancer of the breast, uterus, ovaries, or colon. Sister(s) Family Medical History: COPD, Coronary Artery Disease (CAD) Additional Family Medical History / Comment(s): Patient had total of 4 sisters: One from coronary artery disease, one from COPD, one from an overdose. Brother(s) Family Medical History: Coronary Artery Disease (CAD) Additional Family Medical History / Comment(s): Patient had 2 brothers and one has history of coronary artery disease and CABG as well as amputations due to agent orange. Second brother has no major medical problems. 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 General Exam Limitations: no limitations General appearance: alert, in no apparent distress Head exam: Present: atraumatic, normocephalic, normal inspection Eye exam: Present: normal appearance, PERRL, EOMI. Absent: scleral icterus, conjunctival injection, periorbital swelling Neck exam: Present: normal inspection Respiratory exam: Present: normal lung sounds bilaterally. Absent: respiratory distress, wheezes, rales, rhonchi, stridor Cardiovascular Exam: Present: regular rate, normal rhythm, normal heart sounds. Absent: systolic murmur, diastolic murmur, rubs, gallop, clicks Left Upper Leg exam: Present: ecchymosis. Absent: tenderness Knee exam: Present: swelling Lower Leg exam: Present: tenderness, swelling, erythema Neurovascular tendon exam: Present: no vascular compromise. Absent: motor deficit, sensory deficit Neurological exam: Present: alert, oriented X3, CN II-XII intact Psychiatric exam: Present: normal affect, normal mood Course Vital Signs 04/29/22 15:46 Temperature 98.2 F Pulse Rate 60 Respiratory 16 Rate Blood Pressure 124/79 O2 Sat by Pulse 99 Oximetry Medical Decision Making - Medical Decision Making Patient is a 76-year-old female presenting with chief complaint of left leg pain. Patient states pain has been worsening since fall 10 days ago, x-ray 10 days ago it confirm no acute fracture or dislocation. She is complaining of increased swelling and bruising. On examination there is some bruising over the thigh. There is swelling to the left lower leg as well as some erythema near the distal portion. No vascular compromise and full sensation intact. Ultrasound shows no evidence of DVT. Shows no leukocytosis or anemia. Patient is educated on supportive treatment for pain and swelling. She started on Keflex for cellulitis. Follow-up with PCP. Report back to ER with any new or worsening symptoms. Discussed return parameters and answered all questions. Patient conveyed verbal understanding and agreed to the plan. I discussed this case in detail with my attending Dr. Catherine. - Lab Data Result diagrams: 04/29/22 17:23 04/29/22 17:23 Lab Results 04/29/22 04/29/22 04/29/22 Range/Units 17:23 17: 17:23 WBC 6.2 (3.8-10.6) k/uL RBC 4.09 (3.80-5.40) m/uL Hgb 12.3 (11.4-16.0) gm/dL Hct 38.7 (34.0-46.0) % MCV 94.4 (80.0-100.0) fL MCH 29.9 (25.0-35.0) pg MCHC 31.7 (31.0-37.0) g/dL RDW 12.9 (11.5-15.5) % Plt Count 179 (150-450) k/uL MPV 8.7 Neutrophils % 66 % Lymphocytes % 19 % Monocytes % 6 % Eosinophils % 5 % Basophils % 1 % Neutrophils # 4.1 (1.3-7.7) k/uL Lymphocytes # 1.2 (1.0-4.8) k/uL Monocytes # 0.4 (0-1.0) k/uL Eosinophils # 0.3 (0-0.7) k/uL Basophils # 0.1 (0-0.2) k/uL PT 10.4 (9.0-12.0) sec INR 0.9 (<1.2) APTT 22.2 (22.0-30.0) sec Sodium 136 L (137-145) mmol/L Potassium 4.2 (3.5-5.1) mmol/L Chloride 101 (98-107) mmol/L Carbon Dioxide 24 (22-30) mmol/L Anion Gap 11 mmol/L BUN 14 (7-17) mg/dL Creatinine 0.52 (0.52-1.04) mg/dL Est GFR (CKD-EPI)AfAm >90 (>60 ml/min/1.73 sqM) Est GFR (CKD-EPI)NonAf >90 (>60 ml/min/1.73 sqM) Glucose 104 H (74-99) mg/dL Calcium 8.9 (8.4-10.2) mg/dL Total Bilirubin 0.8 (0.2-1.3) mg/dL AST 35 (14-36) U/L ALT 15 (4-34) U/L Alkaline Phosphatase 124 (38-126) U/L Total Protein 6.5 (6.3-8.2) g/dL Albumin 3.6 (3.5-5.0) g/dL Disposition Clinical Impression: Cellulitis Disposition: HOME SELF-CARE Condition: Good Instructions (If sedation given, give patient instructions): Cellulitis (ED) Additional Instructions: Follow-up with PCP. Report back to ER with any new or worsening symptoms. Take medication as prescribed. Prescriptions: Cephalexin [Keflex] 500 mg PO Q6HR 10 Days #40 cap Is patient prescribed a controlled substance at d/c from ED?: No Referrals: Paramjit Le MD [Primary Care Provider] - 1-2 days Time of Disposition: 18:49
== END 2022-04-29 19:38 | disposition home or self-care (01) ==
LOC: EC 15:02
DX: L03.116 Cellulitis of left lower limb (principal); I25.10 Atherosclerotic heart disease of native coronary artery without angina pectoris; I11.0 Hypertensive heart disease with heart failure; I50.9 Heart failure, unspecified; K21.9 Gastro-esophageal reflux disease without esophagitis; E78.5 Hyperlipidemia, unspecified; Z87.891 Personal history of nicotine dependence; Z90.49 Acquired absence of other specified parts of digestive tract; Z79.02 Long term (current) use of antithrombotics/antiplatelets; Z79.82 Long term (current) use of aspirin; Z79.899 Other long term (current) drug therapy
CPT/HCPCS: 36415; 80053; 85025; 85610; 85730; 99284

== ENCOUNTER 2024-08-16 09:23 | Observation (INO) | payer MEDICARE ==
[2024-08-16] MEDS: GLUCAGON 1 MG/ML VIAL IVP STA (09:59)
[2024-08-16] MEDS: SODIUM CHLORIDE 0.9% 500 ML 500 ML IV STA (09:59)
[2024-08-16 10:11] LABS: Basophils % (A) 1 %; Eosinophils # (A) 0.1 k/uL (0-0.7); Eosinophils % (A) 2 %; HCT 44.5 % (34.0-46.0); HGB 14.3 gm/dL (11.4-16.0); Lymphocytes # (A) 1.2 k/uL (1.0-4.8); Lymphocytes % (A) 20 %; MCH 30.4 pg (25.0-35.0); MCHC 32.1 g/dL (31.0-37.0); MCV 94.7 fL (80.0-100.0); Mean Platelet Volume 8.6; Monocytes # (A) 0.3 k/uL (0-1.0); Monocytes % (A) 5 %; Neutrophils # (A) 4.2 k/uL (1.3-7.7); Neutrophils % (A) 71 %; Platelet Count 186 k/uL (150-450); RDW 12.8 % (11.5-15.5); WBC 5.9 k/uL (3.8-10.6)
--- NOTE | 2024-08-16 10:19 | ED ---
Chest Pain HPI - General Chief Complaint: Chest Pain Stated Complaint: chest pain Source: patient Mode of arrival: EMS Limitations: no limitations - History of Present Illness Initial Comments: 78-year-old female presents to the emergency department with epigastric pain. Patient states she had sudden onset of chest, abdominal, back pain while eating. States she was eating eggs, turkey sausage and she felt like some got stuck in her throat. She does have a significant history of cardiac disease so she did question whether this was her heart causing her symptoms. Patient took 2 nitro without change in her symptoms. She then called EMS. Admits that the pain is radiating into her jaw and through to her back. She denies any numbness, tingling or weakness in her arms or legs. Patient does have history of bypass surgery. Denies shortness of breath, fevers or cough. No other alleviating, precipitating or modifying factors - Related Data Home Medications Medication Instructions Recorded Confirmed RX: Furosemide [Lasix] 40 mg PO BID@0800,1200 05/23/14 08/16/24 RX: Atorvastatin [Lipitor] 80 mg PO HS 01/16/18 08/16/24 RX: Multivit-Min/Iron/Folic/Lutein 1 tab PO DAILY 08/30/19 08/16/24 [Centrum Silver Women Tablet] RX: Pantoprazole [Protonix] 40 mg PO DAILY 08/30/19 08/16/24 RX: Metoprolol Succinate (ER) 75 mg PO DAILY 09/03/20 08/16/24 [Toprol XL] RX: Nitroglycerin Sl Tabs 0.4 mg SL Q5M PRN 09/03/20 08/16/24 [Nitrostat] Metamucil 4 In 1 Fiber 1 scoop PO DAILY 08/16/24 08/16/24 Previous Rx's Medication Instructions Recorded RX: Clopidogrel [Plavix] 75 mg PO DAILY tab 10/09/19 Allergies Allergy/AdvReac Type Severity Reaction Status Date / Time No Known Allergies Allergy Verified 08/16/24 11:48 Review of Systems ROS Statement: Those systems with pertinent positive or pertinent negative responses have been documented in the HPI. ROS Other: All systems not noted in ROS Statement are negative. Past Medical History Past Medical History: Coronary Artery Disease (CAD), Cancer, Chest Pain / Angina, Heart Failure, GERD/Reflux, Hyperlipidemia, Hypertension, Osteoarthritis (OA), Sleep Apnea/CPAP/BIPAP Additional Past Medical History / Comment(s): hiatal hernia, constipation, occasional back pain, uses cane prn, hx of falls, uses C-Pap machine rarely, Skin Cancer. 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 Triple bipass History of Any Multi-Drug Resistant Organisms: None Reported Past Surgical History: Breast Surgery, Cholecystectomy, Heart Catheterization, Heart Catheterization With Stent, Joint Replacement, Tubal Ligation Additional Past Surgical History / Comment(s): bilat total knee, juan pablo cataract with lens implants, skin CA 2016, juan pablo benign breast biopsies,mult heart caths,angiography 1988. Triple bypass cardiac surgery. Past Anesthesia/Blood Transfusion Reactions: No Reported Reaction Additional Past Anesthesia/Blood Transfusion Reaction / Comment(s): no hx blood transfusion Date of Last Stent Placement:: 2005 Past Psychological History: Anxiety, Depression Smoking Status: Former smoker Past Alcohol Use History: None Reported Past Drug Use History: None Reported - Past Family History Father Family Medical History: Myocardial Infarction ([place]) Additional Family Medical History / Comment(s): Father at age 63 from coronary artery disease. Mother Additional Family Medical History / Comment(s): Mother at age 94 from heart disease. Maternal grandmother had gastric cancer. She denies family history of cancer of the breast, uterus, ovaries, or colon. Sister(s) Family Medical History: COPD, Coronary Artery Disease (CAD) Additional Family Medical History / Comment(s): Patient had total of 4 sisters: One from coronary artery disease, one from COPD, one from an overdose. Brother(s) Family Medical History: Coronary Artery Disease (CAD) Additional Family Medical History / Comment(s): Patient had 2 brothers and one has history of coronary artery disease and CABG as well as amputations due to agent orange. Second brother has no major medical problems. 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 General Exam Limitations: no limitations Course Vital Signs 08/16/24 08/16/24 09:26 10:00 Temperature 97.7 F Pulse Rate 62 87 Respiratory 20 Rate Blood Pressure 189/72 177/89 O2 Sat by Pulse 98 Oximetry Chest Pain MDM - MDM Was pt. sent in by a medical professional or institution (, PA, PRODUCT OWNER, urgent care, hospital, or residential...) When possible be specific @ -[No] Did you speak to anyone other than the patient for history (EMS, parent, family, police, friend...)? What history was obtained from this source @ -[No] Did you review nursing and triage notes (agree or disagree)? Why? @ -[I reviewed and agree with nursing and triage notes] Were old charts reviewed (outside hosp., previous admission, EMS record, old EKG, old radiological studies, urgent care reports/EKG's, residential records)? Report findings @ -[No old charts were reviewed] Differential Diagnosis (chest pain, altered mental status, abdominal pain women, abdominal pain men, vaginal bleeding, weakness, fever, dyspnea, syncope, headache, dizziness, GI bleed, back pain, seizure, CVA, palpatations, mental health, musculoskeletal)? @ -[not applicable] EKG interpreted by me (3pts min.). @ -Yes and demonstrates sinus rhythm with a rate of 61. [place] interval 201. QRS 89. QTc of 423. No acute ST segment elevations or depressions X-rays interpreted by me (1pt min.). @ -[None done] CT interpreted by me (1pt min.). @ -[None done] U/S interpreted by me (1pt. min.). @ -[None done] What testing was considered but not performed or refused? (CT, X-rays, U/S, labs)? Why? @ -[None] What meds were considered but not given or refused? Why? @ -[None] Did you discuss the management of the patient with other professionals (professionals i.e. , PA, PRODUCT OWNER, lab, RT, psych nurse, social worker assistant, director of retail merchandising, teacher, escrow officer, bottle caser)? Give summary @ -[No] Was smoking cessation discussed for >3mins.? @ -[No] Was critical care preformed (if so, how long)? @ -[No] Were there social determinants of health that impacted care today? How? (Homelessness, low income, unemployed, alcoholism, drug addiction, transportation, low edu. Level, literacy, decrease access to med. care, senior living, rehab)? @ -[No] Was there de-escalation of care discussed even if they declined (Discuss DNR or withdrawal of care, Hospice)? DNR status @ -[No] What co-morbidities impacted this encounter? (DM, HTN, Smoking, COPD, CAD, Cancer, CVA, ARF, Chemo, Hep., AIDS, mental health diagnosis, sleep apnea, morbid obesity)? @ -[None] Was patient admitted / discharged? Hospital course, mention meds given and route, prescriptions, significant lab abnormalities, going to OR and other pertinent info. @ -[hospital course] Undiagnosed new problem with uncertain prognosis? @ -[No] Drug Therapy requiring intensive monitoring for toxicity (Heparin, Nitro, Insulin, Cardizem)? @ -[No] Were any procedures done? @ -[No] Diagnosis/symptom? @ -[default] Acute, or Chronic, or Acute on Chronic? @ -[default] Uncomplicated (without systemic symptoms) or Complicated (systemic symptoms)? @ -[default] Side effects of treatment? @ -[No] Exacerbation, Progression, or Severe Exacerbation? @ -[No] Poses a threat to life or bodily function? How? (Chest pain, [place], [place], pneumonia, PE, COPD, DKA, ARF, appy, cholecystitis, CVA, Diverticulitis, Homicidal, Suicidal, threat to staff... and all critical care pts) @ -[No] Disposition Clinical Impression: Chest pain, Esophageal dysphagia Disposition: ADMITTED IP TO THIS [facility] Condition: Stable Is patient prescribed a controlled substance at d/c from ED?: No Referrals: Matthew Le MD [Primary Care Provider] - 1-2 days Time of Disposition: 12:33 Decision to Admit Reason: Admit from EC Decision Date: 08/16/24 Decision Time: 12:33
[2024-08-16 10:24] LABS: ALT 16 U/L (4-34); AST 28 U/L (14-36); African American GFR (CKD) >90 (>60 ml/min/1.73 sqM); Albumin 4.2 g/dL (3.5-5.0); Alkaline Phosphatase 113 U/L (38-126); Anion Gap 11 mmol/L; Blood Urea Nitrogen 18 mg/dL (7-17); Calcium 9.6 mg/dL (8.4-10.2); Carbon Dioxide 28 mmol/L (22-30); Chloride 100 mmol/L (98-107); Glucose 139 mg/dL (74-99); Lipase 51 U/L (23-300); Non-African American GFR(CKD) 87 (>60 ml/min/1.73 sqM); Potassium 3.8 mmol/L (3.5-5.1); Sodium 139 mmol/L (137-145); Total Bilirubin 0.9 mg/dL (0.2-1.3); Total Protein 7.4 g/dL (6.3-8.2)
[2024-08-16 10:25] LABS: Magnesium 2.1 mg/dL (1.6-2.3)
[2024-08-16 10:27] LABS: Partial Thromboplastin Time 21.2 sec (22.0-30.0); Prothrombin Time 10.8 sec (10.0-12.5)
--- NOTE | 2024-08-16 11:24 | CT ---
EXAMINATION TYPE: CT angio thor/abd DATE OF EXAM: 08/16/2024 11:05 AM COMPARISON: None. CLINICAL INDICATION: Female, 78 years old with history of chest pain, abd pain, back pain, neck pain; PHH, chest pain, abd pain, back pain, neck pain TECHNIQUE: Multiple thin slice sub-millimeter images were obtained after administration of contrast. 3-D reconstructed images and maximum intensity projection images were obtained on a separate compute r by the technologist. CT angio thor/abd CT Contrast: Contrast used:100 mL of Isovue 370 without and with IV Contrast, Oral contrast used: None CT DLP: 1739.1 mGycm, Automated exposure control for dose reduction was used. FINDINGS: There is a three-vessel arch. Descending thoracic aorta at the main pulmonary artery is 3.9 cm. Main pulmonary artery the bifurcation is 3.7 cm. Coronary artery calcifications noted. Vascular calcifications within the aorta. Celiac axis origin ma y have some calcification narrowing the origin. Superior mesenteric artery may also have some narrowi ng with calcification. Right renal artery poorly visualized. Left renal artery contains calcification likely has some stenosis present. No aneurysmal dilatation is evident. Aortic bifurcation appears no rmal. No aortic dissection is evident postcontrast There is focal eventration of the posterior right diaphragm. Liver and spleen appear unremarkable. Pancreas is unremarkable. Gallbladder is not identified. Left a drenal gland may be thickened at 1.4 cm. Right adrenal gland appears normal. Kidneys appear normal. T iny anterior abdominal pelvic wall hernia with mesenteric fat is present. Sequence 501 image 224 IMPRESSION: 1. No evidence of aneurysm or dissection 2. 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
[2024-08-16] MEDS ORDERED: NALOXONE 0.4 MG/ML 1 ML VIAL IV PRN (12:33)
[2024-08-16] MEDS ORDERED: ONDANSETRON 4 MG/2 ML VIAL IVP PRN (12:48)
[2024-08-17 09:42] LABS: Blood Urea Nitrogen 10.6 mg/dL (9.0-27.0); Calcium 8.8 mg/dL (8.7-10.3); Chloride 106 mmol/L (96-109); Glucose 96 mg/dL (70-110); Potassium 3.2 mmol/L (3.5-5.5); Sodium 141 mmol/L (135-145)
[2024-08-17 09:55] LABS: Basophils # (A) 0.05 X 10*3/uL (0.00-0.10); Basophils % (A) 0.8 %; Eosinophils # (A) 0.18 X 10*3/uL (0.04-0.35); Eosinophils % (A) 2.8 %; HCT 37.6 % (37.2-46.3); Lymphocytes # (A) 1.52 X 10*3/uL (0.90-5.00); Lymphocytes % (A) 23.6 %; MCH 30.2 pg (27.0-32.0); MCHC 31.9 g/dL (32.0-37.0); MCV 94.5 FL (80.0-97.0); Mean Platelet Volume 11.4 FL (9.5-12.2); Monocytes # (A) 0.58 X 10*3/uL (0.20-1.00); NRBC Per 100 WBC 0 X 10*3/uL (0.00-0.01); Neutrophils % (A) 63.5 %; Platelet Count 155 X 10*3/uL (140-440); RBC 3.98 X 10*6/uL (4.10-5.20); RDW 14.1 % (11.5-14.5); WBC 6.45 X 10*3/uL (4.50-10.00)
[2024-08-17] MEDS ORDERED: NITROGLYCERIN SL TABS 0.4 MG TAB SUBLINGUAL PRN (13:16)
[2024-08-17 14:32] LABS: Magnesium 2.1 mg/dL (1.6-2.3)
[2024-08-17 14:39] LABS: NT-Pro-B-Type Natriuretic Pept 1150 pg/mL
[2024-08-17] MEDS: METOPROLOL SUCCINATE (ER) 25 MG TAB.ER.24H PO SCH (14:42)
[2024-08-17] MEDS: CLOPIDOGREL 75 MG TAB PO SCH (14:42)
[2024-08-17] MEDS: PANTOPRAZOLE 40 MG TABLET PO SCH (14:43)
--- NOTE | 2024-08-17 20:20 | P.HPIM ---
History of Present Illness H&P Date: 08/17/24 Chief Complaint: Chest pain 78-year-old female presents to the emergency department with epigastric pain. Patient states she had sudden onset of chest, abdominal, back pain while eating. States she was eating eggs, turkey sausage and she felt like some got stuck in her throat. She does have a significant history of cardiac disease so she did question whether this was her heart causing her symptoms. Patient took 2 nitro without change in her symptoms. She then called EMS. Admits that the pain is radiating into her jaw and through to her back. She denies any numbness, tingling or weakness in her arms or legs. Patient does have history of bypass surgery. Denies shortness of breath, fevers or cough. No other alleviating, precipitating or modifying factors Blood work completed in ED reveals WBC of 5.9, hemoglobin of 14.3 and platelet count of 196, sodium 139, potassium 3.8, BUNs/creatinine of 18/0.59, troponin is less than 0.012 Review of Systems REVIEW OF SYSTEMS: CONSTITUTIONAL: No fever, no malaise, no fatigue. HEENT: No recent visual problems or hearing problems. Denied any sore throat. CARDIOVASCULAR: No chest pain, orthopnea, PND, no palpitations, no syncope. PULMONARY: No shortness of breath, no cough, no hemoptysis. GASTROINTESTINAL: No diarrhea, no nausea, no vomiting, no abdominal pain. NEUROLOGICAL: No headaches, no weakness, no numbness. HEMATOLOGICAL: Denies any bleeding or petechiae. GENITOURINARY: Denies any burning micturition, frequency, or urgency. MUSCULOSKELETAL/RHEUMATOLOGICAL: Denies any joint pain, swelling, or any muscle pain. ENDOCRINE: Denies any polyuria or polydipsia. The rest of the 14-point review of systems is negative. Past Medical History Past Medical History: Coronary Artery Disease (CAD), Cancer, Chest Pain / Angina, Heart Failure, GERD/Reflux, Hyperlipidemia, Hypertension, Osteoarthritis (OA), Sleep Apnea/CPAP/BIPAP Additional Past Medical History / Comment(s): hiatal hernia, constipation, oc casional back pain, uses cane prn, hx of falls, uses C-Pap machine rarely, Skin Cancer. 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 Triple bipass History of Any Multi-Drug Resistant Organisms: None Reported Past Surgical History: Breast Surgery, Cholecystectomy, Heart Catheterization, Heart Catheterization With Stent, Joint Replacement, Tubal Ligation Additional Past Surgical History / Comment(s): bilat total knee, juan pablo cataract with lens implants, skin CA 2016, juan pablo benign breast biopsies,mult heart caths,angiography 1988. Triple bypass cardiac surgery. Past Anesthesia/Blood Transfusion Reactions: No Reported Reaction Additional Past Anesthesia/Blood Transfusion Reaction / Comment(s): no hx blood transfusion Date of Last Stent Placement:: 2005 Past Psychological History: Anxiety, Depression Smoking Status: Former smoker Past Alcohol Use History: None Reported Past Drug Use History: None Reported - Past Family History Father Family Medical History: Myocardial Infarction ([place]) Additional Family Medical History / Comment(s): Father at age 63 from co ronary artery disease. Mother Additional Family Medical History / Comment(s): Mother at age 94 from heart disease. Maternal grandmother had gastric cancer. She denies family history of cancer of the breast, uterus, ovaries, or colon. Sister(s) Family Medical History: COPD, Coronary Artery Disease (CAD) Additional Family Medical History / Comment(s): Patient had total of 4 sisters: One from coronary artery disease, one from COPD, one from an overdose. Brother(s) Family Medical History: Coronary Artery Disease (CAD) Additional Family Medical History / Comment(s): Patient had 2 brothers and one has history of coronary artery disease and CABG as well as amputations due to agent orange. Second brother has no major medical problems. 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 Medications and Allergies Home Medications Medication Instructions Recorded Confirmed Type Furosemide [Lasix] 40 mg PO BID@0800,1200 05/23/14 08/16/24 History Atorvastatin [Lipitor] 80 mg PO HS 01/16/18 08/16/24 History Multivit-Min/Iron/Folic/Lutein 1 tab PO DAILY 08/30/19 08/16/24 History [Centrum Silver Women Tablet] Pantoprazole [Protonix] 40 mg PO DAILY 08/30/19 08/16/24 History Clopidogrel [Plavix] 75 mg PO DAILY tab 10/09/19 08/16/24 Rx Metoprolol Succinate (ER) [Toprol 75 mg PO DAILY 09/03/20 08/16/24 History XL] Nitroglycerin Sl Tabs [Nitrostat] 0.4 mg SL Q5M PRN 09/03/20 08/16/24 History Metamucil 4 In 1 Fiber 1 scoop PO DAILY 08/16/24 08/16/24 History Allergies Allergy/AdvReac Type Severity Reaction Status Date / Time No Known Allergies Allergy Verified 08/16/24 11:48 Physical Exam Vitals: Vital Signs Temp Pulse Resp BP Pulse Ox 08/16/24 10:00 87 177/89 08/16/24 09:26 97.7 F 62 20 189/72 98 Intake and Output 08/16/24 08/16/24 08/16/24 06:59 14:59 22:59 Other: Weight 113.398 kg - Constitutional General appearance: Present: average body habitus, cooperative, no acute distress - EENT Eyes: Present: anicteric sclerae, EOMI, PERRLA, normal appearance ENT: Present: hearing grossly normal, normal oropharynx Ears: bilateral: normal - Neck Neck: Present: normal ROM. Absent: lymphadenopathy, rigidity, thyromegaly Carotids: negative: bruit present Thyroid: bilateral: normal size, negative: enlarged, nodule - Respiratory Respiratory: bilateral: CTA, negative: rales, rhonchi, wheezing - Cardiovascular Rhythm: regular Heart sounds: normal: S1, S2 Abnormal Heart Sounds: Absent: systolic murmur, diastolic murmur - Gastrointestinal General gastrointestinal: Present: normal bowel sounds, soft. Absent: distended, organomegaly, tenderness - Genitourinary Genitourinary Comment(s): deferred - Integumentary Integumentary: Present: normal turgor. Absent: jaundiced, rash, ulcer - Neurologic Neurologic: Present: CNII-XII intact. Absent: focal deficits - Musculoskeletal Musculoskeletal: Present: gait normal, strength equal bilaterally - Psychiatric Psychiatric: Present: A&O x's 3, appropriate affect, intact judgment & insight Results CBC & Chem 7: 08/17/24 04:12 08/17/24 04:12 Labs: Abnormal Lab Results - Last 24 Hours (Table) 08/16/24 08/16/24 Range/Units 10:04 10:04 APTT 21.2 L (22.0-30.0) sec BUN 18 H (7-17) mg/dL Glucose 139 H (74-99) mg/dL Assessment and Plan Assessment: 1. Chest pain rule out acute coronary syndrome -Patient will be admitted to telemetry; monitor EKG and trend troponin -Recommend 2D echo -Patient received aspirin 80 and we will plan to continue; continue with home dose of beta-blockers, metoprolol 75 mg daily; continue with statin therapy 2. Hypertension; metoprolol ER 75 mg daily 3. Hyperlipidemia; Lipitor 80 mg p.o. nightly 4. History of CAD/CHF; patient is currently on Lipitor, Toprol and Lasix 40 mg twice daily 5. Gastroesophageal reflux disease; Protonix 40 mg daily 6. Osteoarthritis; fair control 7. Sleep apnea; patient uses BiPAP DVT prophylaxis; SCDs CODE STATUS; full code
--- NOTE | 2024-08-17 20:21 | P.PN ---
Subjective Progress Note Date: 08/17/24 78-year-old female presents to the emergency department with epigastric pain. Patient states she had sudden onset of chest, abdominal, back pain while eating. States she was eating eggs, turkey sausage and she felt like some got stuck in her throat. She does have a significant history of cardiac disease so she did question whether this was her heart causing her symptoms. Patient took 2 nitro without change in her symptoms. She then called EMS. Admits that the pain is radiating into her jaw and through to her back. She denies any numbness, tingling or weakness in her arms or legs. Patient does have history of bypass surgery. Denies shortness of breath, fevers or cough. No other alleviating, precipitating or modifying factors Blood work completed in ED reveals WBC of 5.9, hemoglobin of 14.3 and platelet count of 196, sodium 139, potassium 3.8, BUNs/creatinine of 18/0.59, troponin is less than 0.012 Objective - Vital Signs Vital signs: Vital Signs Temp 97.9 F 08/17/24 07:05 Pulse 63 08/17/24 07:05 Resp 16 08/17/24 07:05 BP 145/63 08/17/24 07:05 Pulse Ox 97 08/17/24 07:05 FiO2 Intake & Output 08/16/24 08/17/24 08/17/24 18:59 06:59 18:59 Weight 113.398 kg 113.398 kg Other: # Voids 1 - Exam - Constitutional General appearance: Present: average body habitus, cooperative, no acute distress - EENT Eyes: Present: anicteric sclerae, EOMI, PERRLA, normal appearance ENT: Present: hearing grossly normal, normal oropharynx Ears: bilateral: normal - Neck Neck: Present: normal ROM. Absent: lymphadenopathy, rigidity, thyromegaly Carotids: negative: bruit present Thyroid: bilateral: normal size, negative: enlarged, nodule - Respiratory Respiratory: bilateral: CTA, negative: rales, rhonchi, wheezing - Cardiovascular Rhythm: regular Heart sounds: normal: S1, S2 Abnormal Heart Sounds: Absent: systolic murmur, diastolic murmur - Gastrointestinal General gastrointestinal: Present: normal bowel sounds, soft. Absent: distended, organomegaly, tenderness - Genitourinary Genitourinary Comment(s): deferred - Integumentary Integumentary: Present: normal turgor. Absent: jaundiced, rash, ulcer - Neurologic Neurologic: Present: CNII-XII intact. Absent: focal deficits - Musculoskeletal Musculoskeletal: Present: gait normal, strength equal bilaterally - Psychiatric Psychiatric: Present: A&O x's 3, appropriate affect, intact judgment & insight - Labs CBC & Chem 7: 08/17/24 04:12 08/17/24 04:12 Labs: Abnormal Lab Results - Last 24 Hours (Table) 08/17/24 08/17/24 Range/Units 04:12 04:12 RBC 3.98 L (4.10-5.20) X 10*6/uL MCHC 31.9 L (32.0-37.0) g/dL Potassium 3.2 L (3.5-5.5) mmol/L Creatinine 0.5 L (0.6-1.5) mg/dL BUN/Creatinine Ratio 21.20 H (12.00-20.00) Ratio Assessment and Plan Assessment: 1. Chest pain rule out acute coronary syndrome -Patient will be admitted to telemetry; monitor EKG and trend troponin -Recommend 2D echo -Patient received aspirin 80 and we will plan to continue; continue with home dose of beta-blockers, metoprolol 75 mg daily; continue with statin therapy 2. Hypertension; metoprolol ER 75 mg daily 3. Hyperlipidemia; Lipitor 80 mg p.o. nightly 4. History of CAD/CHF; patient is currently on Lipitor, Toprol and Lasix 40 mg twice daily 5. Gastroesophageal reflux disease; Protonix 40 mg daily 6. Osteoarthritis; fair control 7. Sleep apnea; patient uses BiPAP DVT prophylaxis; SCDs CODE STATUS; full code
[2024-08-17] MEDS: ATORVASTATIN 80 MG TAB PO SCH (21:45)
--- NOTE | 2024-08-17 23:53 | P.CRDCN ---
History of Present Illness Consult date: 08/17/24 History of present illness: HISTORY OF PRESENTING ILLNESS: 78-year-old presented to the hospital because of epigastric pain. Patient reports that she had sudden onset chest and abdominal pain along with back pain while eating. She was eating some sausage and egg when she felt that something got stuck in her food pipe. In the ER patient received glucagon which induced vomiting in the patient. Since then patient has been symptom-free. Patient has a prior history of coronary artery disease status post CABG. She also has obesity. At the time of evaluation today in the afternoon patient denies having any active substernal chest pressure or shortness of breath. Admission Cardiac Labs: Hemoglobin 14.3, BUN 18, creatinine 0.59, HbA1c 5.7, NT- proBNP 1100, troponin x 3 were negative, TSH 1.7 Admission testing: Admission EKG shows normal sinus rhythm, heart rate 60 bpm CTA chest did not show any signs of acute pulmonary embolism REVIEW OF SYSTEMS: 14 point review of system is negative except what is mentioned above in HPI. PHYSICAL EXAMINATION: Neck: Brisk carotid upstroke, no jugular venous distention. Lungs: Clear to auscultation. Heart: Regular rate and rhythm, S1-S2, , no murmur or rub. Abdomen: Soft nontender, positive bowel sounds. Extremities: No edema, intact distal pulses. Neuro: Alert, oritented, no focal deficits. Detailed neuro exam was not performed. ASSESSMENT: # Atypical chest pain, ruled out of ACS. Chest pain most likely related to dysphagia from food getting stuck in esophagus # Prior history of CAD status post CABG # Essential hypertension # Dyslipidemia # Obesity # DONNA on CPAP PLAN: Continue Plavix, Lipitor, metoprolol 75 mg daily Obtain echocardiogram Reevaluate symptoms tomorrow If no recent stress test, consider outpatient Lexiscan nuclear stress test. Torsten Philip MD, FACC, RPVI Thank you for allowing [facility] to participate in this patient's care. Feel free to reach out in case of any followup questions. Past Medical History Past Medical History: Coronary Artery Disease (CAD), Cancer, Chest Pain / Angina, Heart Failure, GERD/Reflux, Hyperlipidemia, Hypertension, Osteoarthritis (OA), Sleep Apnea/CPAP/BIPAP Additional Past Medical History / Comment(s): hiatal hernia, constipation, occasional back pain, uses cane prn, hx of falls, uses C-Pap machine rarely, Skin Cancer. PAST DIESEL AUTOMOTIVE TECHNICIAN HISTORY: She has no history of STDs. Triple bipass History of Any Multi-Drug Resistant Organisms: None Reported Past Surgical History: Breast Surgery, Cholecystectomy, Heart Catheterization, Heart Catheterization With Stent, Joint Replacement, Tubal Ligation Additional Past Surgical History / Comment(s): bilat total knee, juan pablo cataract with lens implants, skin CA 2016, juan pablo benign breast biopsies,mult heart caths,angiography 1988. Triple bypass cardiac surgery. Past Anesthesia/Blood Transfusion Reactions: No Reported Reaction Additional Past Anesthesia/Blood Transfusion Reaction / Comment(s): no hx blood transfusion Date of Last Stent Placement:: 2005 Past Psychological History: Anxiety, Depression Smoking Status: Former smoker Past Alcohol Use History: None Reported Past Drug Use History: None Reported - Past Family History Father Family Medical History: Myocardial Infarction (ID) Additional Family Medical History / Comment(s): Father at age 63 from coronary artery disease. Mother Additional Family Medical History / Comment(s): Mother at age 94 from heart disease. Maternal grandmother had gastric cancer. She denies family history of cancer of the breast, uterus, ovaries, or colon. Sister(s) Family Medical History: COPD, Coronary Artery Disease (CAD) Additional Family Medical History / Comment(s): Patient had total of 4 sisters: One from coronary artery disease, one from COPD, one from an overdose. Brother(s) Family Medical History: Coronary Artery Disease (CAD) Additional Family Medical History / Comment(s): Patient had 2 brothers and one has history of coronary artery disease and CABG as well as amputations due to agent orange. Second brother has no major medical problems. 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 Medications and Allergies Home Medications Medication Instructions Recorded Confirmed Type Furosemide [Lasix] 40 mg PO BID@0800,1200 05/23/14 08/16/24 History Atorvastatin [Lipitor] 80 mg PO HS 01/16/18 08/16/24 History Multivit-Min/Iron/Folic/Lutein 1 tab PO DAILY 08/30/19 08/16/24 History [Centrum Silver Women Tablet] Pantoprazole [Protonix] 40 mg PO DAILY 08/30/19 08/16/24 History Clopidogrel [Plavix] 75 mg PO DAILY tab 10/09/19 08/16/24 Rx Metoprolol Succinate (ER) [Toprol 75 mg PO DAILY 09/03/20 08/16/24 History XL] Nitroglycerin Sl Tabs [Nitrostat] 0.4 mg SL Q5M PRN 09/03/20 08/16/24 History Metamucil 4 In 1 Fiber 1 scoop PO DAILY 08/16/24 08/16/24 History Allergies Allergy/AdvReac Type Severity Reaction Status Date / Time No Known Allergies Allergy Verified 08/16/24 11:48 Physical Exam Vitals: Vital Signs Temp Pulse Resp BP BP Pulse Ox 08/17/24 20:00 56 L 16 08/17/24 19:47 97.4 F L 56 L 16 112/50 97 08/17/24 15:00 98.1 F 68 16 163/74 99 08/17/24 07:05 97.9 F 63 16 145/63 97 08/17/24 00:30 97.8 F 68 16 124/67 95 Intake and Output 08/17/24 08/17/24 08/18/24 14:59 22:59 06:59 Intake Total 358 Balance 358 Intake: Oral 358 Other: # Voids 2 # Bowel Movements 2 Results 08/17/24 04:12 08/17/24 04:12 CBC 08/17/24 Range/Units 04:12 WBC 6.45 (4.50-10.00) X 10*3/uL RBC 3.98 L (4.10-5.20) X 10*6/uL Hgb 12.0 (12.0-15.0) g/dL Hct 37.6 (37.2-46.3) % Plt Count 155 (140-440) X 10*3/uL Comprehensive Metabolic Panel 08/17/24 Range/Units 04:12 Sodium 141 (135-145) mmol/L Potassium 3.2 L (3.5-5.5) mmol/L Chloride 106 (96-109) mmol/L Carbon Dioxide 24.0 (21.6-31.8) mmol/L BUN 10.6 (9.0-27.0) mg/dL Creatinine 0.5 L (0.6-1.5) mg/dL Glucose 96 (70-110) mg/dL Calcium 8.8 (8.7-10.3) mg/dL Current Medications Generic Name Dose Route Start Last Admin Trade Name Freq PRN Reason Stop Dose Admin Acetaminophen 650 mg 08/16/24 12:48 Acetaminophen Tab 325 Mg Tab PO Q6HR PRN Mild Pain or Fever > 100.5 Atorvastatin Calcium 80 mg 08/17/24 21:00 08/17/24 21:45 Atorvastatin 80 Mg Tab PO 80 mg HS ROSA Administration Clopidogrel Bisulfate 75 mg 08/17/24 13:30 08/17/24 14:42 Clopidogrel 75 Mg Tab PO 75 mg DAILY ROSA Administration Furosemide 40 mg 08/18/24 08:00 Furosemide 40 Mg Tab PO BID@0800,1200 [facility] Metoprolol Succinate 75 mg 08/17/24 13:30 08/17/24 14:42 Metoprolol Succinate (Er) 25 Mg Tab.Er.24h PO 75 mg DAILY ROSA Administration Naloxone HCl 0.2 mg 08/16/24 12:33 Naloxone 0.4 Mg/Ml 1 Ml Vial IV Q2M PRN Opioid Reversal Nitroglycerin 0.4 mg 08/17/24 13:16 Nitroglycerin Sl Tabs 0.4 Mg Tab SUBLINGUAL Q5M PRN Chest Pain Ondansetron HCl 4 mg 08/16/24 12:48 Ondansetron 4 Mg/2 Ml Vial IVP Q8HR PRN Nausea And Vomiting Pantoprazole Sodium 40 mg 08/17/24 13:30 08/17/24 14:43 Pantoprazole 40 Mg Tablet PO 40 mg DAILY ROSA Administration Intake and Output 08/17/24 08/17/24 08/18/24 14:59 22:59 06:59 Intake Total 358 Balance 358 Intake: Oral 358 Other: # Voids 2 # Bowel Movements 2 08/17/24 04:12 08/17/24 04:12
[2024-08-18] MEDS: ACETAMINOPHEN TAB 325 MG TAB PO PRN (08:24)
[2024-08-18] MEDS: FUROSEMIDE 40 MG TAB PO SCH (08:24)
[2024-08-18 10:01] LABS: Chol/HDL Ratio 1.95 Ratio; LDL Cholesterol,Calculated 49.2 mg/dL (0.0-131.0); VLDL Calculation 13.34 mg/dL (5.00-40.00)
--- NOTE | 2024-08-18 10:40 | P.PN ---
Subjective Progress Note Date: 08/18/24 HISTORY OF PRESENTING ILLNESS: 78-year-old presented to the hospital because of epigastric pain. Patient reports that she had sudden onset chest and abdominal pain along with back pain while eating. She was eating some sausage and egg when she felt that something got stuck in her food pipe. In the ER patient received glucagon which induced vomiting in the patient. Since then patient has been symptom-free. Patient has a prior history of coronary artery disease status post CABG. She also has obesi ty. At the time of evaluation today in the afternoon patient denies having any active substernal chest pressure or shortness of breath. Admission Cardiac Labs: Hemoglobin 14.3, BUN 18, creatinine 0.59, HbA1c 5.7, NT- proBNP 1100, troponin x 3 were negative, TSH 1.7 Admission testing: Admission EKG shows normal sinus rhythm, heart rate 60 bpm CTA chest did not show any signs of acute pulmonary embolism Progress note 08/18/2024 Patient seen and examined at bedside this a.m. Patient denies having any active chest pain chest pressure or shortness of breath. She does not have any problems swallowing food today. PHYSICAL EXAMINATION: Neck: Brisk carotid upstroke, no jugular venous distention. Lungs: Clear to auscultation. Heart: Regular rate and rhythm, S1-S2, , no murmur or rub. Abdomen: Soft nontender, positive bowel sounds. Extremities: No edema, intact distal pulses. Neuro: Alert, oritented, no focal deficits. Detailed neuro exam was not performed. ASSESSMENT: # Atypical chest pain, ruled out of ACS. Chest pain most likely related to dysphagia from food getting stuck in esophagus # Prior history of CAD status post CABG # Essential hypertension # Dyslipidemia # Obesity # DONNA on CPAP PLAN: Continue Plavix, Lipitor, metoprolol 75 mg daily No chest pain chest pressure today. No problems swallowing. If echocardiogram is within normal limits, patient can be cleared from cardiovascular standpoint with recommended outpatient follow-up If no recent stress test, consider outpatient Lexiscan nuclear stress test. Objective - Vital Signs Vital signs: Vital Signs Temp 97.6 F 08/18/24 07:00 Pulse 55 L 08/18/24 07:00 Resp 16 08/18/24 08:00 BP 164/77 08/18/24 07:00 Pulse Ox 98 08/18/24 07:00 FiO2 Intake & Output 01/18/25 01/19/25 01/19/25 18:59 06:59 18:59 Intake Total 358 Balance 358 Intake: Oral 358 Other: # Voids 2 2 # Bowel Movements 2 - Labs CBC & Chem 7: 08/17/24 04:12 08/17/24 04:12 Labs: Abnormal Lab Results - Last 24 Hours (Table) 08/17/24 Range/Units 14:01 HDL Cholesterol 65.50 H (40.00-60.00) mg/dL
--- NOTE | 2024-08-18 15:51 | CA ---
Transthoracic Echo Report Name: Leda Montana Age: 78 Gender: F : 1945 Exam Date: 08/18/2024 10:24 Exam Location: [facility] Ht (in): 61 Wt (lb): 250 Ordering Physician: Torsten Philip MD ([id number]) Attending/Referring Phys: Die Inspector Kimberly Pete RDCS Procedure CPT: Indications: chf, Acute diastolic (congestive) heart failure Cardiac Hx: Technical Quality: Fair Contrast 1: Total Dose (mL): Contrast 2: Total Dose (mL): MEASUREMENTS (Male / Female) Normal Values 2D ECHO LV Diastolic Diameter PLAX 4.7 cm 4.2 - 5.9 / 3.9 - 5.3 cm LV Systolic Diameter PLAX 3.0 cm IVS Diastolic Thickness 0.6 cm 0.6 - 1.0 / 0.6 - 0.9 cm LVPW Diastolic Thickness 1.1 cm 0.6 - 1.0 / 0.6 - 0.9 cm LV Relative Wall Thickness 0.4 LVOT Diameter 2.3 cm LV Diastolic Volume MOD BP 113.1 cm??? 67 - 155 / 56 - 104 cm??? LV Systolic Volume MOD BP 57.6 cm??? 22 - 58 / 19 - 49 cm??? LV Ejection Fraction MOD BP 49.1 % >= 55 % LV Cardiac Index MOD BP 1265.2 cm???/min???m??? LV Diastolic Volume MOD 4C 121.2 cm??? LV Systolic Volume MOD 4C 70.6 cm??? LV Ejection Fraction MOD 4C 41.7 % LV Cardiac Index MOD 4C 1152.5 cm???/min???m??? LV Diastolic Length 4C 8.1 cm LV Systolic Length 4C 6.4 cm LV Diastolic Volume MOD 2C 105.2 cm??? LV Systolic Volume MOD 2C 45.8 cm??? LV Ejection Fraction MOD 2C 56.5 % LV Cardiac Index MOD 2C 1354.5 cm???/min???m??? LV Diastolic Length 2C 8.0 cm LV Systolic Length 2C 6.6 cm LA Volume 102.2 cm??? 18 - 58 / 22 - 52 cm??? LA Volume Index 44.8 cm???/m??? 16 - 28 cm???/m??? DOPPLER AV Peak Velocity 207.3 cm/s AV Peak Gradient 17.2 mmHg AV Mean Velocity 133.1 cm/s AV Mean Gradient 8.1 mmHg AV Velocity Time Integral 47.9 cm LVOT Peak Velocity 120.1 cm/s LVOT Peak Gradient 5.8 mmHg LVOT Velocity Time Integral 29.7 cm LVOT Stroke Volume 124.2 cm??? LVOT Stroke Volume Index 59.8 ml/m??? LVOT Cardiac Index 2830.4 cm???/min???m??? AV Area Cont Eq vti 2.6 cm??? AV Area Cont Eq pk 2.4 cm??? MV Area PHT 1.7 cm??? Mitral E Point Velocity 70.4 cm/s Mitral A Point Velocity 74.4 cm/s Mitral E to A Ratio 0.9 MV Deceleration Time 447.1 ms PV Peak Velocity 76.1 cm/s PV Peak Gradient 2.3 mmHg FINDINGS Left Ventricle Left ventricular ejection fraction is estimated at 45-50 %. Mildly increased posterior wall thickness. Mildly increased left ventricular diastolic volume. Mildly increased left ventricular systolic volume. Mildly decreased left ventricular ejection fraction. Right Ventricle Right ventricle not well visualized. Unable to estimate the right ventricular systolic pressure. Right Atrium Right atrium not well visualized. Left Atrium Severely increased left atrial volume. Mildly increased left atrial area. Mitral Valve Mitral valve thickened. No evidence for mitral valve prolapse. No mitral stenosis. Mild mitral regurgitation. Aortic Valve Aortic valve not well visualized. No aortic valve stenosis or regurgitation. Tricuspid Valve Structurally normal tricuspid valve. No tricuspid stenosis. Trace tricuspid regurgitation. Pulmonic Valve Pulmonic valve not well visualized. No pulmonic stenosis. No pulmonic regurgitation. Pericardium No pericardial effusion. Aorta Normal size aortic root and proximal ascending aorta. CONCLUSIONS Technically difficult study LVEF 45 to 50% Mild concentric LVH Mild decrease global LV systolic function. No obvious regional wall motion abnormality appreciated Severe LA dilatation Mild MR Previewed by: Dr Trosten Philip (Electronically Signed) Final Date: 18 August 2024 15:50
--- NOTE | 2024-08-18 17:08 | P.PN ---
Subjective Progress Note Date: 08/18/24 78-year-old female presents to the emergency department with epigastric pain. Patient states she had sudden onset of chest, abdominal, back pain while eating. States she was eating eggs, turkey sausage and she felt like some got stuck in her throat. She does have a significant history of cardiac disease so she did question whether this was her heart causing her symptoms. Patient took 2 nitro without change in her symptoms. She then called EMS. Admits that the pain is radiating into her jaw and through to her back. She denies any numbness, tingling or weakness in her arms or legs. Patient does have history of bypass surgery. Denies shortness of breath, fevers or cough. No other alleviating, precipitating or modifying factors Blood work completed in ED reveals WBC of 5.9, hemoglobin of 14.3 and platelet count of 196, sodium 139, potassium 3.8, BUNs/creatinine of 18/0.59, troponin is less than 0.012 --Patient has been evaluated by cardiology; ACS ruled out, likely atypical chest pain likely related to dysphagia -Patient is recommended to continue with Plavix, Lipitor and metoprolol -2D echo is ordered and is pending -Cardiology clearing patient for discharge once echocardiogram is reviewed and is unremarkable -Possible Lexiscan stress test as an outpatient Objective - Vital Signs Vital signs: Vital Signs Temp 97.6 F 08/18/24 07:00 Pulse 55 L 08/18/24 07:00 Resp 16 08/18/24 08:00 BP 164/77 08/18/24 07:00 Pulse Ox 98 08/18/24 07:00 FiO2 Intake & Output 08/17/24 08/18/24 08/18/24 18:59 06:59 18:59 Intake Total 358 Balance 358 Intake: Oral 358 Other: # Voids 2 2 # Bowel Movements 2 - Exam - Constitutional General appearance: Present: average body habitus, cooperative, no acute distress - EENT Eyes: Present: anicteric sclerae, EOMI, PERRLA, normal appearance ENT: Present: hearing grossly normal, normal oropharynx Ears: bilateral: normal - Neck Neck: Present: normal ROM. Absent: lymphadenopathy, rigidity, thyromegaly Carotids: negative: bruit present Thyroid: bilateral: normal size, negative: enlarged, nodule - Respiratory Respiratory: bilateral: CTA, negative: rales, rhonchi, wheezing - Cardiovascular Rhythm: regular Heart sounds: normal: S1, S2 Abnormal Heart Sounds: Absent: systolic murmur, diastolic murmur - Gastrointestinal General gastrointestinal: Present: normal bowel sounds, soft. Absent: distended, organomegaly, tenderness - Genitourinary Genitourinary Comment(s): deferred - Integumentary Integumentary: Present: normal turgor. Absent: jaundiced, rash, ulcer - Neurologic Neurologic: Present: CNII-XII intact. Absent: focal deficits - Musculoskeletal Musculoskeletal: Present: gait normal, strength equal bilaterally - Psychiatric Psychiatric: Present: A&O x's 3, appropriate affect, intact judgment & insight - Labs CBC & Chem 7: 08/17/24 04:12 08/17/24 04:12 Labs: Abnormal Lab Results - Last 24 Hours (Table) 08/17/24 Range/Units 14:01 HDL Cholesterol 65.50 H (40.00-60.00) mg/dL Assessment and Plan Assessment: 1. Chest pain rule out acute coronary syndrome -Patient will be admitted to telemetry; monitor EKG and trend troponin -Recommend 2D echo -Patient received aspirin 80 and we will plan to continue; continue with home dose of beta-blockers, metoprolol 75 mg daily; continue with statin therapy 2. Hypertension; metoprolol ER 75 mg daily 3. Hyperlipidemia; Lipitor 80 mg p.o. nightly 4. History of CAD/CHF; patient is currently on Lipitor, Toprol and Lasix 40 mg twice daily 5. Gastroesophageal reflux disease; Protonix 40 mg daily 6. Osteoarthritis; fair control 7. Sleep apnea; patient uses BiPAP DVT prophylaxis; SCDs CODE STATUS; full code
[2024-08-19 08:05] VITALS: PULSE 54
[2024-08-19] MEDS: POTASSIUM CHLORIDE ER 20 MEQ TAB.ER PO STA (08:29)
[2024-08-19] MEDS: HEPARIN SODIUM,PORCINE 5,000 UNIT/ML 1 ML VIAL SQ SCH (08:30)
--- NOTE | 2024-08-19 11:56 | P.PN ---
Subjective Progress Note Date: 08/19/24 HISTORY OF PRESENTING ILLNESS: 78-year-old presented to the hospital because of epigastric pain. Patient reports that she had sudden onset chest and abdominal pain along with back pain while eating. She was eating some sausage and egg when she felt that something got stuck in her food pipe. In the ER patient received glucagon which induced vomiting in the patient. Since then patient has been symptom-free. Patient has a prior history of coronary artery disease status post CABG. She also has obesi ty. At the time of evaluation today in the afternoon patient denies having any active substernal chest pressure or shortness of breath. Admission Cardiac Labs: Hemoglobin 14.3, BUN 18, creatinine 0.59, HbA1c 5.7, NT- proBNP 1100, troponin x 3 were negative, TSH 1.7 Admission testing: Admission EKG shows normal sinus rhythm, heart rate 60 bpm CTA chest did not show any signs of acute pulmonary embolism 08/18/2024 Patient seen and examined at bedside this a.m. Patient denies having any active chest pain chest pressure or shortness of breath. She does not have any problems swallowing food today. 08/19 Patient seen and examined. Patient denies any further episodes of chest pain or chest pressure. She states she does have some shortness of breath when she ambulates to the bathroom. Blood pressure 141/83, heart rate 54, pulse ox 97% on room air. No repeat blood work. Echocardiogram reveals EF of 45 to 50% with mild concentric LVH. Severe LA dilatation. Mild MR. PHYSICAL EXAMINATION: Neck: Brisk carotid upstroke, no jugular venous distention. Lungs: Clear to auscultation. Heart: Regular rate and rhythm, S1-S2, , no murmur or rub. Abdomen: Soft nontender, positive bowel sounds. Extremities: No edema, intact distal pulses. Neuro: Alert, oritented, no focal deficits. Detailed neuro exam was not performed. ASSESSMENT: # Atypical chest pain, ruled out of ACS. Chest pain most likely related to dysphagia from food getting stuck in esophagus # Prior history of CAD status post CABG # Essential hypertension # Dyslipidemia # Obesity # DONNA on CPAP PLAN: Continue Plavix, Lipitor, metoprolol 75 mg daily Patient is cleared for discharge from cardiology May follow-up in the office in 1 to 2 weeks. Nurse practitioner note has been reviewed, I agree with documented findings and plan of care. Patient was seen and examined. Objective - Vital Signs Vital signs: Vital Signs Temp 97.3 F L 08/19/24 07:40 Pulse 54 L 08/19/24 07:40 Resp 15 08/19/24 07:40 BP 141/83 08/19/24 07:40 Pulse Ox 97 08/19/24 07:40 FiO2 Intake & Output 08/18/24 08/19/24 08/19/24 18:59 06:59 18:59 Intake Total 720 360 240 Balance 720 360 240 Intake: Oral 720 360 240 Other: # Voids 3 2 - Labs CBC & Chem 7: 08/17/24 04:12 08/17/24 04:12
[2024-08-19 14:17] VITALS: BP 129/69; RESP 16; TEMP 97.5
--- NOTE | 2024-08-19 23:46 | P.DS ---
Providers Date of admission: 08/16/24 12:52 Attending physician: Don Boss Consults: 08/16/24 12:48 Consult Physician Urgent Consulting Provider: [facility] Consult Reason/Comments: acute epigastric pain, hx ascad Do you want consulting provider notified?: Yes Primary care physician: Matthew Le [place] [facility] Course: Atypical chest pain, improved Feeling of food stuck in her throat x 6 months. Patient passed swallow evaluation Hypertension Hyperlipidemia History of coronary artery disease CHF, no acute exacerbation Gastroesophageal reflux disease Sleep apnea on BiPAP Hospital course: This is a pleasant 78 years old female who presents with chest pain. Patient was evaluated by street roller engineer for his atypical chest pain and thought secondary to food being stuck in the esophagus. Patient does not need further cardiac workup or street roller engineer regarding this symptom However patient informed about this problem with recommendation to follow-up with Dr. Renteria as an outpatient and she agrees. On the day of discharge patient denies chest pain or dyspnea. No abdominal pain no other GI/ symptoms. No headache dizziness weakness numbness Patient was cleared for discharge by cardiology team Patient also passed swallow evaluation. Patient able to eat and drink with no difficulty currently Problems and management plan were discussed with the patient and he verbalized understanding and acceptance Patient was found stable and can be discharged home in guarded prognosis however he needs follow-up as an outpatient. Patient was instructed to follow up with PCP Dr. Le within one week and patient agrees Patient was instructed to follow-up with her street roller engineer Dr. Albright and she will agrees with the appointment on 08/27. Patient was instructed to follow-up with Dr. Myra khan in 1 week after discharge and she agrees Physical exam Gen: patient is a AAOx3, no distress CVS: S1-S2, RRR, no murmur Lungs: B/L CTA, no wheezing Abdomen: soft, no distention, no tenderness, positive bowel sounds Extremity: no leg edema or induration Time spent more than 35 minutes Patient Condition at Discharge: Stable Plan - Discharge Summary New Discharge Prescriptions: Continue Furosemide [Lasix] 40 mg PO BID@0800,1200 Atorvastatin [Lipitor] 80 mg PO HS Pantoprazole [Protonix] 40 mg PO DAILY Multivit-Min/Iron/Folic/Lutein [Centrum Silver Women Tablet] 1 tab PO DAILY Clopidogrel [Plavix] 75 mg PO DAILY tab Nitroglycerin Sl Tabs [Nitrostat] 0.4 mg SL Q5M PRN PRN Reason: Chest Pain Metoprolol Succinate (ER) [Toprol XL] 75 mg PO DAILY Metamucil 4 In 1 Fiber 1 scoop PO DAILY Discharge Medication List Furosemide [Lasix] 40 mg PO BID@0800,1200 05/23/14 [History] Atorvastatin [Lipitor] 80 mg PO HS 01/16/18 [History] Multivit-Min/Iron/Folic/Lutein [Centrum Silver Women Tablet] 1 tab PO DAILY 08/30/19 [History] Pantoprazole [Protonix] 40 mg PO DAILY 08/30/19 [History] Clopidogrel [Plavix] 75 mg PO DAILY tab 10/09/19 [Rx] Metoprolol Succinate (ER) [Toprol XL] 75 mg PO DAILY 09/03/20 [History] Nitroglycerin Sl Tabs [Nitrostat] 0.4 mg SL Q5M PRN 09/03/20 [History] Metamucil 4 In 1 Fiber 1 scoop PO DAILY 08/16/24 [History] Follow up Appointment(s)/Referral(s): Guilherme Bennett MD [STAFF PHYSICIAN] - 08/27/24 10:00 am Elli Agustin MD [STAFF PHYSICIAN] - 1 Week Matthew Le MD [Primary Care Provider] - 1-2 days Activity/Diet/Wound Care/Special Instructions: Heart healthy diet Activity is restricted till you see your doctor Discharge Disposition: HOME SELF-CARE
== END 2024-08-19 17:30 | disposition home or self-care (01) ==
LOC: EC 09:23 → 6NMEDSUR 12:52
PROVIDERS: ADMIT Internal Medicine; ATTEND Internal Medicine
DX: R07.89 Other chest pain (principal); T18.128A Food in esophagus causing other injury, initial encounter; R13.14 Dysphagia, pharyngoesophageal phase; K21.9 Gastro-esophageal reflux disease without esophagitis; I11.0 Hypertensive heart disease with heart failure; I50.9 Heart failure, unspecified; I25.10 Atherosclerotic heart disease of native coronary artery without angina pectoris; E78.5 Hyperlipidemia, unspecified; R68.84 Jaw pain; G47.33 Obstructive sleep apnea (adult) (pediatric); M19.90 Unspecified osteoarthritis, unspecified site; E66.9 Obesity, unspecified; Z68.42 Body mass index [BMI] 45.0-49.9, adult; Z79.02 Long term (current) use of antithrombotics/antiplatelets; Z79.899 Other long term (current) drug therapy; Z95.1 Presence of aortocoronary bypass graft
CPT/HCPCS: 96372; 96361; 96374; 96375; 99285; 36415; 93005; 93306; 92610; 83880; 80061; 80053; 80048; 84443; 83690; 83735 ×2; 84484; 85025 ×2; 85610; 85730; 83036; 71275; 74175; G0378 ×4; J1610; J1644; J3360; Q9967

== ENCOUNTER 2024-12-06 17:04 | Emergency (ER) | payer MEDICARE ==
[2024-12-06 17:26] VITALS: TEMP 98.2
[2024-12-06 18:40] LABS: ALT 15 U/L (4-34); African American GFR (CKD) >90 (>60 ml/min/1.73 sqM); Albumin 3.7 g/dL (3.5-5.0); Anion Gap 9 mmol/L; Blood Urea Nitrogen 19 mg/dL (7-17); Calcium 9.3 mg/dL (8.4-10.2); Carbon Dioxide 26 mmol/L (22-30); Chloride 104 mmol/L (98-107); Glucose 95 mg/dL (74-99); Lipase 64 U/L (23-300); Non-African American GFR(CKD) 86 (>60 ml/min/1.73 sqM); Sodium 139 mmol/L (137-145); Total Bilirubin 0.7 mg/dL (0.2-1.3); Total Protein 6.7 g/dL (6.3-8.2)
[2024-12-06 18:43] LABS: AST 29 U/L (14-36); Potassium 3.6 mmol/L (3.5-5.1)
[2024-12-06 18:44] LABS: Alkaline Phosphatase 87 U/L (38-126); Magnesium 1.9 mg/dL (1.6-2.3)
--- NOTE | 2024-12-06 18:49 | XR ---
EXAMINATION TYPE: XR chest 2V DATE OF EXAM: 12/06/2024 6:36 PM COMPARISON: Multiple prior chest radiograph, most recently dated 04/17/2021. CLINICAL INDICATION: Female, 79 years old with history of Chest Pain; [facility] TECHNIQUE: XR chest 2V Frontal and lateral views of the chest. FINDINGS: Lungs/Pleura: Asymmetric elevation of the left diaphragm with adjacent left lower lobe consolidation and possible trace left effusion. No sizable right-sided pleural effusion. No pneumothorax. Pulmonary vascularity: Unremarkable. Heart/mediastinum: Cardiomegaly and median sternotomy wires. Left atrial appendage occlusion device n oted. Musculoskeletal: No acute osseous pathology. Other findings: None IMPRESSION: Cardiomegaly and possible trace left effusion with adjacent compressive atelectasis. [facility], , 12/06/2024 6:46 PM
[2024-12-06 18:53] LABS: Basophils # (A) 0.05 10*3/uL (0.00-0.10); Basophils % (A) 0.8 %; Eosinophils % (A) 4.7 %; HCT 40.5 % (37.2-46.3); HGB 13.7 g/dL (12.0-15.0); Immature Platelet Fraction 5.6 % (1.1-6.1); Lymphocytes # (A) 1.11 10*3/uL (0.90-5.00); Lymphocytes % (A) 17.5 %; MCH 31.9 pg (27.0-32.0); MCHC 33.8 g/dL (32.0-37.0); MCV 94.2 fL (80.0-97.0); Mean Platelet Volume 11.7 fL (9.5-12.2); Monocytes # (A) 0.43 10*3/uL (0.20-1.00); Monocytes % (A) 6.8 %; Neutrophils # (A) 4.41 10*3/uL (1.80-7.70); Neutrophils % (A) 69.7 %; Platelet Count 129 10*3/uL (140-440); RDW 13.9 % (11.5-14.5); WBC 6.33 10*3/uL (4.50-10.00)
[2024-12-06 20:09] VITALS: BP 108/50
[2024-12-06 20:14] LABS: Prothrombin Time 10.8 sec (10.0-12.5)
--- NOTE | 2024-12-06 20:20 | ED ---
Chest Pain HPI - General Chief Complaint: Chest Pain Stated Complaint: Chest pain Time Seen by Provider: 12/06/24 17:25 Source: EMS Mode of arrival: EMS - History of Present Illness Initial Comments: 79-year-old female who presents to the emergency department with chest pain. States that it started while she was eating. Pain was 10 out of 10 and went to her back left arm. She does have a history of coronary disease as well as hiatal hernia. States that she was given 3 nitro by EMS and the pain is significantly improved to 3 out of 10. She also received 324 mg of aspirin. She admits to nausea without vomiting. No shortness of breath. No numbness in her extremities. Patient had similar episode a few months ago where she was seen in the emergency department. She did have a cardiac rule out at that time and it was determined that it was her hiatal hernia. She did receive an EGD afterwards by Dr. Renteria who did have to stretch her esophagus. She also reports that she had stress testing and an echo all which showed normal results. She denies fever chills or cough. No abdominal pain. No other alleviating, precipitating or modifying factors - Related Data Home Medications Medication Instructions Recorded Confirmed Furosemide [Lasix] 40 mg PO BID@0800,1600 05/23/14 12/06/24 Multivit-Min/Iron/Folic/Lutein 1 tab PO DAILY 08/30/19 12/06/24 [Centrum Silver Women Tablet] Pantoprazole [Protonix] 40 mg PO DAILY 08/30/19 12/06/24 Metoprolol Succinate (ER) [Toprol 75 mg PO DAILY 09/03/20 12/06/24 XL] Nitroglycerin Sl Tabs [Nitrostat] 0.4 mg SL Q5M PRN 09/03/20 12/06/24 Metamucil 4 In 1 Fiber 1 scoop PO DAILY 08/16/24 12/06/24 ALPRAZolam [Xanax] 0.25 mg PO DAILY PRN 12/06/24 12/06/24 Atorvastatin [Lipitor] 80 mg PO DAILY 12/06/24 12/06/24 Spironolactone [Aldactone] 50 mg PO DAILY 12/06/24 12/06/24 lisinopriL [Zestril] 5 mg PO DAILY 12/06/24 12/06/24 Previous Rx's Medication Instructions Recorded Clopidogrel [Plavix] 75 mg PO DAILY tab 10/09/19 Allergies Allergy/AdvReac Type Severity Reaction Status Date / Time No Known Allergies Allergy Verified 12/06/24 18:37 Review of Systems ROS Statement: Those systems with pertinent positive or pertinent negative responses have been documented in the HPI. ROS Other: All systems not noted in ROS Statement are negative. Past Medical History Past Medical History: Coronary Artery Disease (CAD), Cancer, Chest Pain / Angina, Heart Failure, GERD/Reflux, Hyperlipidemia, Hypertension, Osteoarthritis (OA), Sleep Apnea/CPAP/BIPAP Additional Past Medical History / Comment(s): hiatal hernia, constipation, occasional back pain, uses cane prn, hx of falls, uses C-Pap machine rarely, Skin Cancer. 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 Triple bipass History of Any Multi-Drug Resistant Organisms: None Reported Past Surgical History: Breast Surgery, Cholecystectomy, Heart Catheterization, Heart Catheterization With Stent, Joint Replacement, Tubal Ligation Additional Past Surgical History / Comment(s): bilat total knee, juan pablo cataract with lens implants, skin CA 2016, juan pablo benign breast biopsies,mult heart caths,angiography 1988. Triple bypass cardiac surgery. Past Anesthesia/Blood Transfusion Reactions: No Reported Reaction Additional Past Anesthesia/Blood Transfusion Reaction / Comment(s): no hx blood transfusion Date of Last Stent Placement:: 2005 Past Psychological History: Anxiety, Depression Smoking Status: Former smoker Past Alcohol Use History: None Reported Past Drug Use History: None Reported - Past Family History Father Family Medical History: Myocardial Infarction (OR) Additional Family Medical History / Comment(s): Father at age 63 from coronary artery disease. Mother Additional Family Medical History / Comment(s): Mother at age 94 from heart disease. Maternal grandmother had gastric cancer. She denies family history of cancer of the breast, uterus, ovaries, or colon. Sister(s) Family Medical History: COPD, Coronary Artery Disease (CAD) Additional Family Medical History / Comment(s): Patient had total of 4 sisters: One from coronary artery disease, one from COPD, one from an overdose. Brother(s) Family Medical History: Coronary Artery Disease (CAD) Additional Family Medical History / Comment(s): Patient had 2 brothers and one has history of coronary artery disease and CABG as well as amputations due to agent orange. Second brother has no major medical problems. 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 General Exam General appearance: alert, in no apparent distress Head exam: Present: atraumatic, normocephalic, normal inspection Eye exam: Present: normal appearance, PERRL, EOMI. Absent: scleral icterus, conjunctival injection, periorbital swelling ENT exam: Present: normal exam, mucous membranes moist Neck exam: Present: normal inspection. Absent: tenderness, meningismus, lymphadenopathy Respiratory exam: Present: normal lung sounds bilaterally. Absent: respiratory distress, wheezes, rales, rhonchi, stridor Cardiovascular Exam: Present: regular rate, normal rhythm, normal heart sounds. Absent: systolic murmur, diastolic murmur, rubs, gallop, clicks GI/Abdominal exam: Present: soft, normal bowel sounds. Absent: distended, tenderness, guarding, rebound, rigid Extremities exam: Present: normal inspection, full ROM, normal capillary refill. Absent: tenderness, pedal edema, joint swelling, calf tenderness Back exam: Present: normal inspection Neurological exam: Present: alert, oriented X3, CN II-XII intact Psychiatric exam: Present: normal affect, normal mood Skin exam: Present: warm, dry, intact, normal color. Absent: rash Course Vital Signs 12/06/24 12/06/24 12/06/24 17:19 20:06 21:03 Temperature 98.2 F Pulse Rate 61 50 L 52 L Respiratory 16 18 16 Rate Blood Pressure 117/56 108/50 108/50 O2 Sat by Pulse 98 99 95 Oximetry Chest Pain MDM - MDM Was pt. sent in by a medical professional or institution (, PA, ESTABLISHMENT GUIDE, urgent care, hospital, or half-way...) When possible be specific @ -No Did you speak to anyone other than the patient for history (EMS, parent, family, police, friend...)? What history was obtained from this source @ -I spoke with EMS for history Did you review nursing and triage notes (agree or disagree)? Why? @ -I reviewed and agree with nursing and triage notes Were old charts reviewed (outside hosp., previous admission, EMS record, old EKG, old radiological studies, urgent care reports/EKG's, half-way records)? Report findings @ -I reviewed the patient's ED record from July 2024. Patient had a CTA performed on the by myself. I also reviewed the cardiology consultation report Differential Diagnosis (chest pain, altered mental status, abdominal pain women, abdominal pain men, vaginal bleeding, weakness, fever, dyspnea, syncope, headache, dizziness, GI bleed, back pain, seizure, CVA, palpatations, mental health, musculoskeletal)? @ -Differential Chest Pain: Stable Angina, Unstable Angina, STEMI, NSTEMI Aortic Dissection, Pneumothorax, Musculoskeletal, Esophageal Spasm GERD, Cholecystitis, Pancreatitis, Zoster, this is not meant to be an all-inclusive list. EKG interpreted by me (3pts min.). @ -Yes and demonstrates sinus bradycardia with a rate of 45 VA interval 187. QRS 91. QTc of 394. No acute ST segment elevations or depressions X-rays interpreted by me (1pt min.). @ -yes which demonstrates no acute process CT interpreted by me (1pt min.). @ -None done U/S interpreted by me (1pt. min.). @ -None done What testing was considered but not performed or refused? (CT, X-rays, U/S, labs)? Why? @ -None What meds were considered but not given or refused? Why? @ -None Did you discuss the management of the patient with other professionals (professionals i.e. , PA, ESTABLISHMENT GUIDE, lab, RT, psych nurse, social insurance administrator, orchestra conductor, teacher, staff combat information center officer, rn case management)? Give summary @ -I spoke with Dr. Philip regarding the slight bump in the patient's troponins. He states that the second troponin is still negative Was smoking cessation discussed for >3mins.? @ -No Was critical care preformed (if so, how long)? @ -No Were there social determinants of health that impacted care today? How? (Homelessness, low income, unemployed, alcoholism, drug addiction, transportation, low edu. Level, literacy, decrease access to med. care, fpc, rehab)? @ -No Was there de-escalation of care discussed even if they declined (Discuss DNR or withdrawal of care, Hospice)? DNR status @ -No What co-morbidities impacted this encounter? (DM, HTN, Smoking, COPD, CAD, Cancer, CVA, ARF, Chemo, Hep., AIDS, mental health diagnosis, sleep apnea, morbid obesity)? @ -Hiatal hernia, coronary disease Was patient admitted / discharged? Hospital course, mention meds given and rout e, prescriptions, significant lab abnormalities, going to OR and other pertinent info. @ -Upon arrival patient seen and evaluated in room 28. Thorough history and physical exam was performed. Patient feels markedly improved at this time. Laboratory studies are conducted. Chest x-ray was performed. Results discussed with the patient. Patient wants to go home. I did recommend a second troponin for which the patient was agreeable. Second troponin was performed. I did call and discussed results with Dr. Philip. He states that the troponins are both negative. Patient is satisfied with this and wants to go. I instructed that she needs to follow-up with her segregator within the next 1 to 2 weeks. Return for any new or worsening symptoms. Patient agreeable plan for discharge in stable condition Undiagnosed new problem with uncertain prognosis? @ -No Drug Therapy requiring intensive monitoring for toxicity (Heparin, Nitro, Insulin, Cardizem)? @ -No Were any procedures done? @ -No Diagnosis/symptom? @ -Acute chest pain, history of hiatal hernia, history of coronary disease Acute, or Chronic, or Acute on Chronic? @ -Acute on chronic Uncomplicated (without systemic symptoms) or Complicated (systemic symptoms)? @ -Complicated Side effects of treatment? @ -No Exacerbation, Progression, or Severe Exacerbation? @ -Yes Poses a threat to life or bodily function? How? (Chest pain, [place], OR, pneumonia, PE, COPD, DKA, ARF, appy, cholecystitis, CVA, Diverticulitis, Homicidal, Suicidal, threat to staff... and all critical care pts) @ -No Disposition Clinical Impression: Chest pain Disposition: HOME SELF-CARE Condition: Stable Instructions (If sedation given, give patient instructions): Chest Pain (ED) Additional Instructions: Please call and make an appointment with your heart doctor so they can reevaluate you. If you have any worsening chest pain like you did neli, return to the emergency department Is patient prescribed a controlled substance at d/c from ED?: No Referrals: Matthew Le MD [Primary Care Provider] - 1-2 days Time of Disposition: 21:00
[2024-12-06] MEDS: FAMOTIDINE 20 MG/2 ML VIAL IV STA (21:01)
[2024-12-06 21:04] VITALS: PULSE 52; RESP 16
== END 2024-12-06 21:17 | disposition home or self-care (01) ==
LOC: EC 17:04
DX: R07.9 Chest pain, unspecified (principal); I11.0 Hypertensive heart disease with heart failure; I25.10 Atherosclerotic heart disease of native coronary artery without angina pectoris; I50.9 Heart failure, unspecified; Z87.891 Personal history of nicotine dependence
CPT/HCPCS: 36415; 93005; 80053; 83690; 83735; 84484; 85025; 85610; 85730; 71046; 99285; 96374; J1308